=== PATIENT | female | born 1935 | race Caucasian/White ===

== ENCOUNTER → 2016-06-12 | Outpatient (CLI) | payer MEDICARE, OTHER ==
[2014-12-14 11:00] VITALS: BP 149/66
[~2016-06-12] MED LIST: ALLO100T PO; AMLO5TAB2 PO; ATEN-56 PO; CEPH-264 PO; CHOL400C PO; CIPR500T94 PO; DOXE25CA PO; GEMF600T PO; HYDR-2666 PO; HYDR57CR TP; IOHEXOL 240 MG/ML 50ML VIAL. PO ONE; IOHEXOL 300 MG/ML 100ML VIAL. IV ONE; IRON1TAB30 PO; LANS15CA66 PO; LEVO5TAB2 PO; METF500T4 PO; OXYC-323 PO; PSEU120T46 PO; PSEU120T9 PO; RANI300C PO; Vitamin D 3; [UNRECOGNIZED DRUG - REMARK]
--- NOTE | 2016-06-12 12:42 | KCIC ---
PROCEDURE CT of the abdomen and pelvis with contrast HISTORY Generalized abdominal pain for a few days. History of cholecystectomy and partial hysterectomy. TECHNIQUE Standard images are obtained after intravenous contrast and oral contrast. COMPARISON None FINDINGS Lung bases are clear. Liver and spleen appear unremarkable. Pancreas unremarkable. No evidence of adrenal mass. Low-density lesion of the lower pole of the right kidney measures 15 Hounsfield units compatible with a cyst. This measures 5 cm diameter. Small exophytic lesion at the posterior upper pole the left kidney this also measures water density compatible with a cyst. Mild density in the perinephric region bilaterally this likely represents scarring although mild perinephric inflammation is difficult to exclude. Gallbladder surgically absent The aorta is mildly ectatic and calcified. 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 No significant lymph node enlargement. Small hiatal hernia. No evidence of bowel obstruction. There are diverticula of the colon. No evidence of pericolonic inflammatory type change. The appendix is not visualized. No evidence of ascites. The urinary bladder is incompletely distended. Severe lumbar spondylosis. Right convexity lumbar scoliosis. There is at least mild or moderate spinal stenosis and neural foraminal stenosis. IMPRESSION 1. 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 2. Colonic diverticulosis without acute finding. 3. Severe lumbar spondylosis. Electronically signed by: Hayden Bernard MD (Jun 12, 2016 12:41:18)
== END | disposition home or self-care (01) ==
LOC: KCIC CT 10:56
PROVIDERS: ATTEND Family Medicine
DX: I72.3 Aneurysm of iliac artery (principal); K57.30 Diverticulosis of large intestine without perforation or abscess without bleeding; M47.896 Other spondylosis, lumbar region
CPT/HCPCS: 74177; 82565; Q9966; Q9967

== ENCOUNTER 2017-06-01 16:17 | Inpatient (IN) | payer OTHER, MEDICARE ==
[2017-06-01 17:45] LABS: ADD MAN DIFF? NO
[2017-06-01] MEDS: IV NORMAL SALINE 1000ML BAG 1,000 ML IV (17:47)
[2017-06-01] MEDS: fentaNYL PF VIAL 100 MCG/2 ML VIAL IV ×3 (17:47→21:51)
[2017-06-01] MEDS: ONDANSETRON PF 4 MG/2 ML VIAL. IV (17:48)
[2017-06-01 17:49] LABS: BASO % 0 % (0-3); EOS # 0.1 x10^3/uL (0.0-0.7); EOS % 2 % (0-3); HEMATOCRIT 30.2 % (36.0-47.0); HEMOGLOBIN 10.1 g/dL (12.0-15.5); LYMPH # 0.5 x10^3/uL (1.0-4.8); LYMPH % 9 % (24-48); MEAN CORPUSCULAR HEMOGLOBIN 30 pg (25-35); MEAN CORPUSCULAR HGB CONC 33 g/dL (31-37); MEAN CORPUSCULAR VOLUME 91 fL (79-100); MONO # 0.5 x10^3/uL (0.0-1.1); MONO % 8 % (0-9); NEUT # 4.8 x10^3uL (1.8-7.7); NEUT % 81 % (31-73); PLATELET COUNT 130 x10^3/uL (140-400); RED BLOOD COUNT 3.31 x10^6/uL (3.50-5.40); RED CELL DISTRIBUTION WIDTH 16.2 % (11.5-14.5); WHITE BLOOD COUNT 5.9 x10^3/uL (4.0-11.0)
[2017-06-01 17:55] LABS: BILIRUBIN,URINE NEGATIVE (NEG); CLARITY,URINE CLEAR; COLOR,URINE YELLOW; GLUCOSE,URINE NEGATIVE (NEG); NITRITE,URINE NEGATIVE (NEG); PROTEIN,URINE >=300 mg/dL (NEG-TRACE); UROBILINOGEN,URINE 0.2 mg/dL (0.2 mg/dL)
[2017-06-01 17:59] LABS: ANION GAP 9 (6-14); BLOOD UREA NITROGEN 33 mg/dL (7-20); BUN/CREATININE RATIO 19 (6-20); CALCIUM 8.6 mg/dL (8.5-10.1); CARBON DIOXIDE 26 mmol/L (21-32); CHLORIDE 108 mmol/L (98-107); CREATININE 1.7 mg/dL (0.6-1.0); GFR 28.8; GLUCOSE 112 mg/dL (70-99); POTASSIUM 4.5 mmol/L (3.5-5.1); SODIUM 143 mmol/L (136-145)
[2017-06-01 18:04] LABS: ALBUMIN 2.5 g/dL (3.4-5.0); ALBUMIN/GLOBULIN RATIO 0.6 (1.0-1.7); ALK PHOS 108 U/L (46-116); ALT (SGPT) 15 U/L (14-59); AST (SGOT) 18 U/L (15-37); LIPASE 144 U/L (73-393); TOTAL BILIRUBIN 0.2 mg/dL (0.2-1.0); TOTAL PROTEIN 6.6 g/dL (6.4-8.2)
[2017-06-01 18:11] LABS: TROPONINI < 0.017 ng/mL (0.000-0.055)
[2017-06-01 18:16] LABS: CKMB MASS 0.9 ng/mL (0.0-3.6); CREATINE KINASE 49 U/L (26-192)
[2017-06-01 18:37] LABS: BACTERIA,URINE 0 /HPF (0-FEW); HYALINE CASTS, URINE FEW /HPF; SQUAMOUS EPITHELIAL CELL,UR OCC /LPF; WBC,URINE OCC /HPF (0-4)
[2017-06-01] MEDS: METOCLOPRAMIDE HCL 10 MG/2 ML VIAL. IV (19:57)
[2017-06-01] MEDS: ENOXAPARIN 30 MG/0.3 ML SYRINGE. SQ (23:30)
[2017-06-02] MEDS: traMADol 50 MG TABLET PO ×2 (00:37→08:11)
[2017-06-02] MEDS: IV NORMAL SALINE 1000ML BAG 1,000 ML IV ×2 (00:43→12:26)
[2017-06-02] MEDS ORDERED: METOCLOPRAMIDE HCL 10 MG/2 ML VIAL. IV (01:00)
[2017-06-02] MEDS: fentaNYL PF VIAL 100 MCG/2 ML VIAL IV ×2 (02:28→06:30)
[2017-06-02 05:19] LABS: ADD MAN DIFF? NO
[2017-06-02 05:32] LABS: BASO % 0 % (0-3); EOS # 0.1 x10^3/uL (0.0-0.7); EOS % 1 % (0-3); HEMATOCRIT 28.6 % (36.0-47.0); HEMOGLOBIN 9.4 g/dL (12.0-15.5); LYMPH # 0.7 x10^3/uL (1.0-4.8); LYMPH % 13 % (24-48); MEAN CORPUSCULAR HEMOGLOBIN 30 pg (25-35); MEAN CORPUSCULAR HGB CONC 33 g/dL (31-37); MEAN CORPUSCULAR VOLUME 92 fL (79-100); MONO # 0.7 x10^3/uL (0.0-1.1); MONO % 13 % (0-9); NEUT # 3.9 x10^3uL (1.8-7.7); NEUT % 73 % (31-73); PLATELET COUNT 130 x10^3/uL (140-400); RED BLOOD COUNT 3.11 x10^6/uL (3.50-5.40); RED CELL DISTRIBUTION WIDTH 16.8 % (11.5-14.5); WHITE BLOOD COUNT 5.3 x10^3/uL (4.0-11.0)
[2017-06-02 05:48] LABS: ANION GAP 10 (6-14); BLOOD UREA NITROGEN 31 mg/dL (7-20); CALCIUM 7.9 mg/dL (8.5-10.1); CARBON DIOXIDE 24 mmol/L (21-32); CHLORIDE 110 mmol/L (98-107); CREATININE 1.7 mg/dL (0.6-1.0); GFR 28.8; GLUCOSE 96 mg/dL (70-99); POTASSIUM 4.5 mmol/L (3.5-5.1); SODIUM 144 mmol/L (136-145)
[2017-06-02] MEDS: ONDANSETRON PF 4 MG/2 ML VIAL. IV (08:11)
[2017-06-02] MEDS: amLODIPine BESYLATE 5 MG TABLET PO ×2 (08:12→10:27)
[2017-06-02] MEDS: CARVEDILOL 12.5 MG TABLET. PO ×2 (08:14→17:07)
[2017-06-02] MEDS: GABAPENTIN 300 MG CAPSULE. PO ×3 (08:14→21:02)
[2017-06-02] MEDS: LACTOBACILLUS RHAMNOSUS GG 1 CAPSULE. PO ×2 (08:15→21:02)
[2017-06-02] MEDS: FAMOTIDINE 20 MG TABLET. PO (08:15)
[2017-06-02] MEDS: QUEtiapine 25 MG TABLET. PO (08:15)
[2017-06-02 08:30] LABS: POC GLUCOSE 103 mg/dL (70-99)
[2017-06-02] MEDS: PANTOPRAZOLE IV PUSH 40 MG VIAL. IVP (10:28)
[2017-06-02 13:29] LABS: POC GLUCOSE 94 mg/dL (70-99)
[2017-06-02 16:49] LABS: POC GLUCOSE 118 mg/dL (70-99)
[2017-06-02] MEDS: ATORVASTATIN CALCIUM 10 MG TABLET. PO (21:02)
[2017-06-02] MEDS: ENOXAPARIN 30 MG/0.3 ML SYRINGE. SQ (21:02)
[2017-06-02] MEDS: traZODone 50 MG TABLET. PO (21:02)
[2017-06-02 21:12] LABS: POC GLUCOSE 95 mg/dL (70-99)
[2017-06-02 22:16] LABS: MRSA BY PCR Negative (Negative)
[2017-06-03] MEDS: IV NORMAL SALINE 1000ML BAG 1,000 ML IV ×2 (01:24→11:18)
[2017-06-03 08:15] LABS: POC GLUCOSE 71 mg/dL (70-99)
[2017-06-03] MEDS: PANTOPRAZOLE IV PUSH 40 MG VIAL. IVP (09:05)
[2017-06-03] MEDS: amLODIPine BESYLATE 5 MG TABLET PO (09:06)
[2017-06-03] MEDS: LACTOBACILLUS RHAMNOSUS GG 1 CAPSULE. PO (09:06)
[2017-06-03] MEDS: CARVEDILOL 12.5 MG TABLET. PO (09:06)
[2017-06-03] MEDS: GABAPENTIN 300 MG CAPSULE. PO ×2 (09:06→14:08)
[2017-06-03] MEDS: QUEtiapine 25 MG TABLET. PO (09:07)
[2017-06-03 11:49] LABS: POC GLUCOSE 75 mg/dL (70-99)
[2017-06-04] MEDS ORDERED: PANTOPRAZOLE 40 MG TABLET.DR. PO (07:30)
== END 2017-06-03 14:44 | disposition home or self-care (01) | DRG 683 ==
LOC: ER 16:17 → 5 SOUTH 06-02 16:51 → 1 WEST ICU 19:00
DX: N17.9 Acute kidney failure, unspecified (principal); I13.0 Hypertensive heart and chronic kidney disease with heart failure and stage 1 through stage 4 chronic kidney disease, or unspecified chronic kidney disease; E44.0 Moderate protein-calorie malnutrition; D69.6 Thrombocytopenia, unspecified; E11.22 Type 2 diabetes mellitus with diabetic chronic kidney disease; E11.42 Type 2 diabetes mellitus with diabetic polyneuropathy; I50.9 Heart failure, unspecified; I16.1 Hypertensive emergency; K57.92 Diverticulitis of intestine, part unspecified, without perforation or abscess without bleeding; N18.3 Chronic kidney disease, stage 3 (moderate); D63.8 Anemia in other chronic diseases classified elsewhere; E78.5 Hyperlipidemia, unspecified; F41.1 Generalized anxiety disorder; E66.9 Obesity, unspecified; I25.10 Atherosclerotic heart disease of native coronary artery without angina pectoris; M10.9 Gout, unspecified; F32.9 Major depressive disorder, single episode, unspecified; K21.9 Gastro-esophageal reflux disease without esophagitis; K57.30 Diverticulosis of large intestine without perforation or abscess without bleeding; Z80.3 Family history of malignant neoplasm of breast; Z80.8 Family history of malignant neoplasm of other organs or systems; Z82.0 Family history of epilepsy and other diseases of the nervous system; Z90.49 Acquired absence of other specified parts of digestive tract; Z90.710 Acquired absence of both cervix and uterus; Z95.1 Presence of aortocoronary bypass graft; Z79.4 Long term (current) use of insulin; Z88.0 Allergy status to penicillin; Z88.8 Allergy status to other drugs, medicaments and biological substances; I25.2 Old myocardial infarction; Z87.440 Personal history of urinary (tract) infections; Z68.35 Body mass index [BMI] 35.0-35.9, adult
CPT/HCPCS: 36415; 71045; 74176; 80048; 80053; 81001; 82553; 82962; 83690; 84484; 85025; 87641; 93005; 96361; 96374; 96375; 97161-GP; 97166-GO; 97530-GO; 97535-GO; 99291; 99291-25; C9113; J1650; J2405; J2765; J3010; J7030; J7050

== ENCOUNTER → 2017-07-14 | Outpatient (CLI) | payer OTHER, MEDICARE ==
[2017-07-14 08:53] LABS: ISTAT CREATININE 1.6 mg/dL (0.6-1.1)
== END | disposition home or self-care (01) ==
LOC: KCIC CT 08:13
DX: I72.3 Aneurysm of iliac artery (principal); I77.811 Abdominal aortic ectasia; J90 Pleural effusion, not elsewhere classified; K57.30 Diverticulosis of large intestine without perforation or abscess without bleeding
CPT/HCPCS: 74176; 82565

== ENCOUNTER → 2018-08-23 | Outpatient (CLI) | payer MEDICARE, OTHER ==
[2017-07-01 17:20] VITALS: BP 158/65
[~2018-08-23] MED LIST changes: +AMLO5TAB10 PO; -AMLO5TAB2 PO; +CARV25TA2 PO; +DICY10CA3 PO; +FAMO20TA5 PO; +FURO40TA4 PO; +GABA600T7 PO; -HYDR-2666 PO; +HYDR-2761 PO; -IOHEXOL 240 MG/ML 50ML VIAL. PO ONE; -IOHEXOL 300 MG/ML 100ML VIAL. IV ONE; +LACT1CAP19 PO; -LANS15CA66 PO; +LANS15CA78 PO; +LEVO250T25 PO; +LEVO50TA PO; +MAGN400T22 PO; +METF500T16 PO; -METF500T4 PO; -OXYC-323 PO; +OXYC1TAB15 PO; +PRAV40TA2 PO; +PRED20TA PO; +PREG25CA PO; +PSEU120T10 PO; -PSEU120T46 PO; +Pantoprazole PO; +QUET25TA PO; +ROPI0.25 PO; +TRAZ-118 PO; +VANC500V PO
--- NOTE | 2018-08-23 16:13 | RAD ---
Bilateral lower extremity arterial ultrasound History: Claudication Findings: Multiple grayscale, color, and duplex spectral analysis sonographic images were acquired of the lower extremity arteries bilaterally. There are no previous similar exams. Diffuse bilateral lower extremity edema is noted involving the calf regions. Elevated arterial flow velocity is seen involving the distal right superficial femoral artery and the mid left superficial femoral artery. Monophasic flow is evident distal to these sites. Diffuse plaque is identified throughout the right and left lower arterial vasculature. 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 Diffuse plaque bilaterally involving the arterial vasculature of the lower extremities. Subcutaneous edema. Electronically signed by: Bunny Acosta MD (08/23/2018 4:10 PM) [facility]
== END | disposition home or self-care (01) ==
LOC: US 09:55
PROVIDERS: ATTEND Family Medicine
DX: I70.293 Other atherosclerosis of native arteries of extremities, bilateral legs (principal)
CPT/HCPCS: 93925

== ENCOUNTER → 2018-09-15 | Outpatient (CLI) | payer MEDICARE, OTHER ==
[2017-07-01 17:20] VITALS: BP 158/65
[2018-09-15 12:48] LABS: CREATININE 2.6 mg/dL (0.6-1.0); GFR 17.6
== END | disposition home or self-care (01) ==
LOC: CT 12:25
PROVIDERS: ATTEND Family Medicine
DX: E11.22 Type 2 diabetes mellitus with diabetic chronic kidney disease (principal); I13.0 Hypertensive heart and chronic kidney disease with heart failure and stage 1 through stage 4 chronic kidney disease, or unspecified chronic kidney disease; N18.3 Chronic kidney disease, stage 3 (moderate); I50.22 Chronic systolic (congestive) heart failure; I73.9 Peripheral vascular disease, unspecified
CPT/HCPCS: 36415; 82565; 84520

== ENCOUNTER 2019-09-06 12:21 | Emergency (ER) | payer MEDICARE, OTHER ==
[~2019-09-06] VITALS: Ht 160 cm; Wt 72.7 kg
[~2019-09-06 12:21] MED LIST changes: +LOSA-73 PO; -PREG25CA PO; +PREG25CA41 PO
--- NOTE | 2019-09-06 14:06 | PHYS DOC ---
Past Medical History Past Medical History: Depression, Diabetes-Type II, GERD, High Cholesterol, Hypertension, UT, Other Additional Past Medical Histor: GOUT, CDIFF, ULCER Past Surgical History: Coronary Bypass Surgery, Hysterectomy, Other Additional Past Surgical Histo: Carpal tunnel, LEFT SHOULDER, VASCULAR R GROIN Smoking Status: Former Smoker Alcohol Use: None Drug Use: None General Adult EDM: Chief Complaint: ABDOMINAL PAIN HPI: HPI: Patient is a 84 year old female who presented to ER today for evaluation of ab dominal pain started 2 days ago. Patient denies any nausea vomiting, denies any diarrhea. Patient denies any cough or fever. Patient called her family doctor who told to come to ER for evaluation. Patient said the pain is in her epigastric area. Patient denies any chest pain, no trouble breathing, no nausea vomiting. Patient denies any diarrhea, no dark stool. Review of Systems: Review of Systems: Constitutional: Denies fever or chills. [] Eyes: Denies change in visual acuity. [] HENT: Denies nasal congestion or sore throat. [] Respiratory: Denies cough or shortness of breath. [] Cardiovascular: Denies chest pain or edema. [] GI: Positive for abdominal pain, no nausea vomiting, no diarrhea : Denies dysuria. [] Musculoskeletal: Denies back pain or joint pain. [] Integument: Denies rash. [] Neurologic: Denies headache, focal weakness or sensory changes. [] Endocrine: Denies polyuria or polydipsia. [] Lymphatic: Denies swollen glands. [] Psychiatric: Denies depression or anxiety. [] Heart Score: Risk Factors: Risk Factors: DM, Current or recent (<one month) smoker, HTN, HLP, family history of CAD, obesity. Risk Scores: Score 0 - 3: 2.5% MACE over next 6 weeks - Discharge Home Score 4 - 6: 20.3% MACE over next 6 weeks - Admit for Clinical Observation Score 7 - 10: 72.7% MACE over next 6 weeks - Early Invasive Strategies Allergies: Allergies: Allergies Coded Allergies Type Severity Reaction Last Updated Verified Penicillins Allergy Intermediate 08/24/19 Yes metronidazole Allergy Intermediate Hives 08/24/19 Yes Physical Exam: PE: Constitutional: Well developed, well nourished, no acute distress, non-toxic appearance. [] HENT: Normocephalic, atraumatic, bilateral external ears normal, oropharynx moist, no oral exudates, nose normal. [] Eyes: PERRLA, EOMI, conjunctiva normal, no discharge. [] Neck: Normal range of motion, no tenderness, supple, no stridor. [] Cardiovascular:Heart rate regular rhythm, no murmur [] Lungs & Thorax: Bilateral breath sounds clear to auscultation [] Abdomen: Bowel sounds normal, soft, there is tenderness to palpation periumbilical area, no guarding no rebound. No masses, no pulsatile masses. [] Skin: Warm, dry, no erythema, no rash. [] Back: No tenderness, no CVA tenderness. [] Extremities: No tenderness, no cyanosis, no clubbing, ROM intact, no edema. [] Neurologic: Alert and oriented X 3, normal motor function, normal sensory function, no focal deficits noted. [] Psychologic: Affect normal, judgement normal, mood normal. [] Current Patient Data: Vital Signs: Vital Signs Date Time Temp Pulse Resp B/P (MAP) Pulse Ox O2 Delivery O2 Flow Rate FiO2 09/06/19 13:12 98.3 67 18 178/72 (107) 99 Room Air 98.3 EKG: EKG: EKG was done 1437, heart rate of 70 bpm, sinus rhythm, no ST segment elevation. Radiology/Procedures: Radiology/Procedures: [][facility] [address] [place] [address] IMAGING REPORT Signed PATIENT: JOHNNY ARTEAGA ACCOUNT: [id number] : 1935 LOCATION: ER AGE: 84 SEX: F EXAM STATUS: REG ER ORD. PHYSICIAN: RODOLFO ALCARAZ DO REASON: EPIGASTRIC PAIN AND LOWER ABD PAIN X 1 DAY. N/V PROCEDURE: CT ABDOMEN PELVIS WO CONTRAST Examination: CT of the abdomen pelvis without contrast HISTORY: History of epigastric pain COMPARISON: 07/14/2017 TECHNIQUE: Axial CT images of the abdomen pelvis were performed without contrast. Coronal and sagittal reformats are performed Exposure: One or more of the following individualized dose reduction techniques were utilized for this examination: 1. Automated exposure control 2. Adjustment of the mA and/or kV according to patient size 3. Use of iterative reconstruction technique FINDINGS: Linear atelectasis left lung base. No evidence of free air identified in the abdomen. The evaluation of the solid organs is limited due to lack of IV contrast. The evaluation of bowel is limited due to lack of oral contrast. Moderate size hiatal hernia. The visualized noncontrasted liver, spleen, adrenals grossly appears unremarkable. Cholecystectomy clips identified. The visualized pancreas grossly appears unremarkable. The small bowel is nondilated. Feces and gas noted in the colon. Multiple sigmoid colon diverticulosis identified. Cystic structures identified in the bilateral kidneys with the largest measuring 5 cm in the right kidney likely cysts. Mild fat stranding identified about the bilateral kidneys Moderate aortic atherosclerosis. There is focal ectasia of infrarenal abdominal aorta similar to prior exam. There is a aneurysmal change of left iliac artery and its bifurcation measuring 2.5 cm similar to prior exam. Moderate to severe degenerative changes lower lumbar spine. IMPRESSION: 1. Moderate size hiatal hernia. 2. Sigmoid colon diverticulosis. 3. Aneurysmal change of left iliac artery at its bifurcation similar to prior exam. Electronically signed by: Brennan Patricia MD (09/06/2019 3:24 PM) [id number] DICTATED and SIGNED BY: BRENNAN PATRICIA MD DATE: 09/06/19 1524 Course & Med Decision Making: Course & Med Decision Making Pertinent Labs and Imaging studies reviewed. (See chart for details) Patient is an 84-year-old female who was evaluated in the ER due to epigastric abdominal pain for the last [address] scan her abdomen pelvic show she had moderate sized hiatal hernia causing epigastric abdominal pain consistent with gastritis and acid reflux. Patient will be discharged home with prescription for Carafate and Prilosec. Patient will need to follow-up with her family doctor for referral to GI specialist. Gisel Disclaimer: Gisel Disclaimer: This electronic medical record was generated, in whole or in part, using a voice recognition dictation system. Departure Departure Impression: Primary Impression: Hiatal hernia Additional Impression: Abdominal pain Disposition: 01 HOME, SELF-CARE Condition: IMPROVED Referrals: GRANT MCWILLIAMS MD (PCP) Please follow-up with your family doctor for reevaluation this week Patient Instructions: Gastritis, Adult, Hiatal Hernia Additional Instructions: Thank you for visiting our Emergency Department. We appreciate you trusting us w ith your care. If any additional problems come up don't hesitate to return to visit us. Please follow up with your primary care provider so they can plan additional care if needed and know about the problem that you had. If symptoms worsen come back to the Emergency Department. Any concerning symptoms that start such as chest pain, shortness of air, weakness or numbness on one side of the body, running high fevers or any other concerning symptoms return to the ER. Scripts Omeprazole Magnesium (PRILOSEC OTC) 20 Mg Tablet.dr 1 TAB PO DAILY for 30 Days, #30 TAB 0 Refills Prov: RODOLFO ALCARAZ DO 09/06/19 Sucralfate (CARAFATE) 1 Gm Tablet 1 TAB PO QID for 14 Days, #56 TAB 0 Refills Prov: RODOLFO ALCARAZ DO 09/06/19 Justicifation of Admission Dx: Justifications for Admission: Justification of Admission Dx: N/A RODOLFO ALCARAZ DO Sep 06, 2019 14:06
[2019-09-06 14:20] LABS: BASO % 0 % (0-3); EOS # 0.1 x10^3/uL (0.0-0.7); EOS % 3 % (0-3); HEMATOCRIT 26.3 % (36.0-47.0); LYMPH # 0.4 x10^3/uL (1.0-4.8); LYMPH % 8 % (24-48); MEAN CORPUSCULAR HEMOGLOBIN 33 pg (25-35); MEAN CORPUSCULAR HGB CONC 34 g/dL (31-37); MEAN CORPUSCULAR VOLUME 96 fL (79-100); MONO # 0.5 x10^3/uL (0.0-1.1); MONO % 9 % (0-9); NEUT % 80 % (31-73); PLATELET COUNT 185 x10^3/uL (140-400); RED BLOOD COUNT 2.74 x10^6/uL (3.50-5.40); RED CELL DISTRIBUTION WIDTH 13.9 % (11.5-14.5)
[2019-09-06 14:21] LABS: BILIRUBIN,URINE NEGATIVE (NEG); CLARITY,URINE CLEAR; COLOR,URINE YELLOW; NITRITE,URINE NEGATIVE (NEG); PH,URINE 5.5 (<5.0-8.0); PROTEIN,URINE 30 mg/dL (NEG-TRACE); UROBILINOGEN,URINE 0.2 mg/dL (0.2 mg/dL)
[2019-09-06 14:29] LABS: BACTERIA,URINE 0 /HPF (0-FEW); HYALINE CASTS, URINE FEW /HPF; RBC,URINE 0 /HPF (0-2); SQUAMOUS EPITHELIAL CELL,UR FEW /LPF
[2019-09-06 14:29] LABS: PROTHROMBIN TIME PATIENT 14.2 SEC (11.7-14.0)
[2019-09-06 14:36] LABS: CALCIUM 8.3 mg/dL (8.5-10.1); CREATININE 2.3 mg/dL (0.6-1.0); GFR 20.2; POTASSIUM 4.7 mmol/L (3.5-5.1)
[2019-09-06 14:42] LABS: ALBUMIN 2.7 g/dL (3.4-5.0); ALBUMIN/GLOBULIN RATIO 0.7 (1.0-1.7); MAGNESIUM 1.7 mg/dL (1.8-2.4); TOTAL BILIRUBIN 0.2 mg/dL (0.2-1.0); TOTAL PROTEIN 6.6 g/dL (6.4-8.2)
--- NOTE | 2019-09-06 15:27 | RAD ---
Examination: CT of the abdomen pelvis without contrast HISTORY: History of epigastric pain COMPARISON: 07/14/2017 TECHNIQUE: Axial CT images of the abdomen pelvis were performed without contrast. Coronal and sagittal reformats are performed Exposure: One or more of the following individualized dose reduction techniques were utilized for this examination: 1. Automated exposure control 2. Adjustment of the mA and/or kV according to patient size 3. Use of iterative reconstruction technique FINDINGS: Linear atelectasis left lung base. No evidence of free air identified in the abdomen. The evaluation of the solid organs is limited due to lack of IV contrast. The evaluation of bowel is limited due to lack of oral contrast. Moderate size hiatal hernia. The visualized noncontrasted liver, spleen, adrenals grossly appears unremarkable. Cholecystectomy clips identified. The visualized pancreas grossly appears unremarkable. The small bowel is nondilated. Feces and gas noted in the colon. Multiple sigmoid colon diverticulosis identified. Cystic structures identified in the bilateral kidneys with the largest measuring 5 cm in the right kidney likely cysts. Mild fat stranding identified about the bilateral kidneys Moderate aortic atherosclerosis. There is focal ectasia of infrarenal abdominal aorta similar to prior exam. There is a aneurysmal change of left iliac artery and its bifurcation measuring 2.5 cm similar to prior exam. Moderate to severe degenerative changes lower lumbar spine. IMPRESSION: 1. Moderate size hiatal hernia. 2. Sigmoid colon diverticulosis. 3. Aneurysmal change of left iliac artery at its bifurcation similar to prior exam. Electronically signed by: Brennan Patricia MD (09/06/2019 3:24 PM) [id number]
[2019-09-06 16:00] VITALS: BP 180/76
[2019-09-06] MEDS ORDERED: SUCR1TAB35 PO (16:09)
[2019-09-06] MEDS ORDERED: OMEP20TA63 PO (16:09)
--- NOTE | 2019-09-07 05:01 | EKG ---
[facility] [address] [place] [address] Test Date: 2019-09-06 Test Time: 14:37:48 Pat Name: JOHNNY ARTEAGA Department: Room: Gender: F Senior Care Assistant: : 1935 Requested By: RODOLFO ALCARAZ Order Number: [id number] Reading MD: Measurements Intervals [place] Rate: 70 P: 41 AR: 164 QRS: 4 QRSD: 74 T: 20 QT: 420 QTc: 457 Interpretive Statements SINUS RHYTHM NO SPECIFIC ECG ABNORMALITIES RI6.01 No previous ECG available for comparison
== END 2019-09-06 16:27 | disposition home or self-care (01) ==
LOC: ER 12:21
DX: K44.9 Diaphragmatic hernia without obstruction or gangrene (principal); R10.13 Epigastric pain; F32.9 Major depressive disorder, single episode, unspecified; E11.9 Type 2 diabetes mellitus without complications; E78.00 Pure hypercholesterolemia, unspecified; I10 Essential (primary) hypertension; I25.2 Old myocardial infarction; Z90.710 Acquired absence of both cervix and uterus; Z98.890 Other specified postprocedural states; Z87.891 Personal history of nicotine dependence; Z88.0 Allergy status to penicillin; Z88.8 Allergy status to other drugs, medicaments and biological substances
CPT/HCPCS: 36415; 74176; 80053; 81001; 83690; 83735; 84484; 85025; 85610; 85730; 93005; 99285

== ENCOUNTER → 2019-09-27 | Outpatient (CLI) | payer MEDICARE, OTHER ==
[2019-09-07 12:57] VITALS: BP 162/72
[~2019-09-27] MED LIST changes: +OMEP20TA63 PO; +SUCR1TAB35 PO
--- NOTE | 2019-09-27 15:52 | RAD ---
Abdominal ultrasound without comparison for abdominal pain. TECHNIQUE AND FINDINGS: Real-time grayscale and color Doppler evaluation of the abdominal organs is performed. Gallbladder is surgically absent. The liver is normal in size, contour, and echogenicity, with no focal parenchymal abnormalities. Liver measures 14 cm in diameter. No intrahepatic biliary ductal dilatation. The common bile duct is dilated to 14 mm, which is possibly physiologic on the basis prior cholecystectomy, however this is somewhat greater than is typically seen with postsurgical change. Distal common bile duct is not demonstrated. The aorta and IVC are secured. Visualized portions the pancreas are normal, though the distal tail was not well demonstrated. The right kidney measures 11.2 x 5.8 x 5.5 cm. There is some cortical scarring. There is a simple appearing exophytic cyst arising from the inferior pole for which no further follow-up is warranted. The left kidney measures 11.2 x 5.4 x 5.8 cm. There is a similar 2 cm simple cyst arising exophytically from the left kidney for which no additional follow-up is required. No hydronephrosis or significant parenchymal abnormalities identified in either kidney. Portal vein is patent and hepatopedal. Spleen is normal in appearance. No free or loculated fluid collections are identified. IMPRESSION: 1. Status post cholecystectomy with enlarged common bile duct 14 mm which may be physiologic. Electronically signed by: Brandyn Maldonado MD (09/27/2019 3:49 PM) [id number]
== END | disposition home or self-care (01) ==
LOC: US 12:31
PROVIDERS: ATTEND Family Medicine
DX: N28.1 Cyst of kidney, acquired (principal); Z90.49 Acquired absence of other specified parts of digestive tract
CPT/HCPCS: 76700

== ENCOUNTER 2019-10-19 15:22 | Inpatient (IN) | payer MEDICARE, OTHER ==
[~2019-10-19] VITALS: Ht 157.5 cm; Wt 81.4 kg
[2019-10-19] MEDS ORDERED: IV NORMAL SALINE 1000ML BAG 1,000 ML IV ONE (16:45)
[2019-10-19] MEDS ORDERED: LABETALOL 20 MG/4 ML DISP.SYRIN. IVP ONE (17:00)
[2019-10-19 17:26] LABS: BASO % 0 % (0-3); EOS % 0 % (0-3); HEMATOCRIT 28.9 % (36.0-47.0); HEMOGLOBIN 9.9 g/dL (12.0-15.5); LYMPH # 0.8 x10^3/uL (1.0-4.8); LYMPH % 7 % (24-48); MEAN CORPUSCULAR HEMOGLOBIN 32 pg (25-35); MEAN CORPUSCULAR HGB CONC 34 g/dL (31-37); MEAN CORPUSCULAR VOLUME 94 fL (79-100); MONO # 0.8 x10^3/uL (0.0-1.1); MONO % 7 % (0-9); NEUT # 9.7 x10^3/uL (1.8-7.7); NEUT % 86 % (31-73); PLATELET COUNT 188 x10^3/uL (140-400); RED BLOOD COUNT 3.08 x10^6/uL (3.50-5.40); RED CELL DISTRIBUTION WIDTH 15.3 % (11.5-14.5); WHITE BLOOD COUNT 11.3 x10^3/uL (4.0-11.0)
[2019-10-19 17:38] LABS: CALCIUM 9.3 mg/dL (8.5-10.1); CREATININE 1.6 mg/dL (0.6-1.0); GFR 30.7; POTASSIUM 4.5 mmol/L (3.5-5.1)
[2019-10-19 17:40] LABS: PROTHROMBIN TIME PATIENT 13.8 SEC (11.7-14.0)
[2019-10-19 17:44] LABS: ALBUMIN 3.2 g/dL (3.4-5.0); ALBUMIN/GLOBULIN RATIO 0.9 (1.0-1.7); TOTAL BILIRUBIN 0.3 mg/dL (0.2-1.0); TOTAL PROTEIN 6.7 g/dL (6.4-8.2)
[2019-10-19 17:51] LABS: BILIRUBIN,URINE NEGATIVE (NEG); CLARITY,URINE CLEAR; COLOR,URINE YELLOW; NITRITE,URINE NEGATIVE (NEG); PROTEIN,URINE >=300 mg/dL (NEG-TRACE); UROBILINOGEN,URINE 0.2 mg/dL (0.2 mg/dL)
[2019-10-19 17:56] LABS: SQUAMOUS EPITHELIAL CELL,UR MANY /LPF; WBC,URINE 20-40 /HPF (0-4)
[2019-10-19 17:57] LABS: BACTERIA,URINE FEW /HPF (0-FEW)
--- NOTE | 2019-10-19 18:31 | RAD ---
Exam: CT of chest, abdomen and pelvis without contrast INDICATION: Epigastric pain with radiation to back TECHNIQUE: Sequential axial images through the chest, abdomen and pelvis obtained without IV contrast. Sagittal and coronal reformatted images were reconstructed from the axial data and reviewed. Comparisons: 09/06/2019 FINDINGS: Visualized portions of the thyroid are unremarkable. No enlarged mediastinal lymph nodes are identified. Heart size is normal. No pericardial effusion. Mild coronary artery calcifications. Thoracic aorta has a normal course and caliber. Pulmonary artery is not enlarged. Airways are patent. No consolidation or pneumothorax. No suspicious lung nodules. No pleural effusion or thickening. Evaluation of solid organs is limited given noncontrast technique. Liver, spleen, pancreas, and adrenals are unremarkable. Gallbladder surgically absent. No perinephric inflammation or hydronephrosis. Bilateral renal cystic lesions are noted incompletely characterized on this exam. No renal or ureteral calculi are identified. Bladder is distended and appears thin-walled. Uterus is absent. No abnormal adnexal mass. Extensive diverticulosis is noted within the descending and sigmoid colon without evidence of acute diverticulitis. Remainder of the large and small bowel are unremarkable. No obstruction. No free intra-abdominal air or fluid. Moderate-sized hiatal hernia. Abdominal aorta has a stable course and caliber. No enlarged abdominal lymph nodes are identified. No suspicious osseous lesions or acute fractures. IMPRESSION: 1. Extensive diverticulosis without evidence of acute diverticulitis. 2. No acute process identified within the chest. 3. Moderate-sized hiatal hernia. Exposure: One or more of the following in the visualized dose reduction techniques were utilized for this examination: 1. Automated exposure control 2. Adjustment of the MA and/or KV according to patient size 3. Use of iterative of reconstructive technique Electronically signed by: Erika Buckner MD (10/19/2019 6:28 PM) [id number]
--- NOTE | 2019-10-19 18:42 | PHYS DOC ---
Past Medical History Past Medical History: Depression, Diabetes-Type II, GERD, High Cholesterol, Hypertension, OK, Other Additional Past Medical Histor: GOUT, CDIFF, ULCER Past Surgical History: Coronary Bypass Surgery, Hysterectomy, Other Additional Past Surgical Histo: Carpal tunnel, LEFT SHOULDER, VASCULAR R GROIN Smoking Status: Former Smoker Alcohol Use: None Drug Use: None General Adult EDM: Chief Complaint: ABDOMINAL PAIN HPI: HPI: 84-year-old female presents with report of abdominal discomfort x1 week. Patient reports seen by her PCP who instructed her to present to the ER for further evaluation. Reports pain primarily to epigastric region and radiates to her back. Patient did take some Tums without significant improvement. Denies a [place] fever or chills. Denies constipation or diarrhea. Denies known sick contacts. Denies known exposure COVID-19. Review of Systems: Review of Systems: Constitutional: Denies fever or chills Eyes: Denies redness or eye pain HENT: Denies nasal congestion or sore throat Respiratory: Denies cough or shortness of breath Cardiovascular: Denies chest pain or palpitations GI: Reports abdominal pain; denies nausea, or vomiting : Denies dysuria or hematuria Musculoskeletal: Reports back pain; denies extremity pain Integument: Denies rash or skin lesions Neurologic: Denies headache, focal weakness or sensory changes Complete systems were reviewed and found to be within normal limits, except as documented in this note. Current Medications: Current Medications Medications (Trade) Dose Ordered Sig/Marina Start Time Stop Time Status Last Admin Dose Admin Labetalol HCl (Normodyne Iv Push) 20 mg 1X ONCE 10/19/19 17:00 10/19/19 17:01 DC 10/19/19 17:18 20 MG Sodium Chloride 1,000 ml @ 1,000 mls/hr 1X ONCE 10/19/19 16:45 10/19/19 17:44 DC 10/19/19 17:18 1,000 MLS/HR Allergies: Allergies: Allergies Coded Allergies Type Severity Reaction Last Updated Verified Penicillins Allergy Intermediate 10/12/19 Yes metronidazole Allergy Intermediate Hives 10/12/19 Yes Physical Exam: PE: Constitutional: Well developed, well nourished, no acute distress, non-toxic appearance HENT: Normocephalic, atraumatic Eyes: Conjunctiva normal, no discharge Neck: Normal range of motion, no tenderness, supple Lungs & Thorax: No respiratory distress, equal chest rise and fall Abdomen: Soft, epigastric tenderness, no guarding/rebound tenderness/distention Skin: Warm, dry, no erythema, no rash Back: No tenderness, no CVA tenderness Extremities: No tenderness, ROM intact, no edema Neurologic: Alert and oriented X 3, normal motor function, normal sensory function, no focal deficits noted Psychologic: Affect normal, judgment normal Current Patient Data: Labs: Laboratory Tests Test 10/19/19 17:12 10/19/19 17:40 White Blood Count 11.3 x10^3/uL (4.0-11.0) H Red Blood Count 3.08 x10^6/uL (3.50-5.40) L Hemoglobin 9.9 g/dL (12.0-15.5) L Hematocrit 28.9 % (36.0-47.0) L Mean Corpuscular Volume 94 fL (79-100) Mean Corpuscular Hemoglobin 32 pg (25-35) Mean Corpuscular Hemoglobin Concent 34 g/dL (31-37) Red Cell Distribution Width 15.3 % (11.5-14.5) H Platelet Count 188 x10^3/uL (140-400) Neutrophils (%) (Auto) 86 % (31-73) H Lymphocytes (%) (Auto) 7 % (24-48) L Monocytes (%) (Auto) 7 % (0-9) Eosinophils (%) (Auto) 0 % (0-3) Basophils (%) (Auto) 0 % (0-3) Neutrophils # (Auto) 9.7 x10^3/uL (1.8-7.7) H Lymphocytes # (Auto) 0.8 x10^3/uL (1.0-4.8) L Monocytes # (Auto) 0.8 x10^3/uL (0.0-1.1) Eosinophils # (Auto) 0.0 x10^3/uL (0.0-0.7) Basophils # (Auto) 0.0 x10^3/uL (0.0-0.2) Platelet Estimate Pending Prothrombin Time 13.8 SEC (11.7-14.0) Prothrombin Time INR 1.1 (0.8-1.1) Activated Partial Thromboplast Time 41 SEC (24-38) H Sodium Level 137 mmol/L (136-145) Potassium Level 4.5 mmol/L (3.5-5.1) Chloride Level 104 mmol/L (98-107) Carbon Dioxide Level 23 mmol/L (21-32) Anion Gap 10 (6-14) Blood Urea Nitrogen 35 mg/dL (7-20) H Creatinine 1.6 mg/dL (0.6-1.0) H Estimated GFR (Cockcroft-Gault) 30.7 BUN/Creatinine Ratio 22 (6-20) H Glucose Level 96 mg/dL (70-99) Lactic Acid Level 1.1 mmol/L (0.4-2.0) Calcium Level 9.3 mg/dL (8.5-10.1) Total Bilirubin 0.3 mg/dL (0.2-1.0) Aspartate Amino Transferase (AST) 47 U/L (15-37) H Alanine Aminotransferase (ALT) 90 U/L (14-59) H Alkaline Phosphatase 137 U/L (46-116) H Creatine Kinase 435 U/L (26-192) H Creatine Kinase MB (Mass) 5.0 ng/mL (0.0-3.6) H Creatine Kinase MB Relative Index 1.1 % (0-4) Troponin I Quantitative 0.088 ng/mL (0.000-0.055) QK-Jqr-V-Type Natriuretic Peptide 49474 pg/mL (0-449) H Total Protein 6.7 g/dL (6.4-8.2) Albumin 3.2 g/dL (3.4-5.0) L Albumin/Globulin Ratio 0.9 (1.0-1.7) L Lipase 57 U/L (73-393) L Urine Collection Type Unknown Urine Color Yellow Urine Clarity Clear Urine pH 6.0 (<5.0-8.0) Urine Specific [place] 1.010 (1.000-1.030) Urine Protein >=300 mg/dL (NEG-TRACE) Urine Glucose (UA) Negative mg/dL (NEG) Urine Ketones (Stick) Negative mg/dL (NEG) Urine Blood Moderate (NEG) Urine Nitrite Negative (NEG) Urine Bilirubin Negative (NEG) Urine Urobilinogen Dipstick 0.2 mg/dL (0.2 mg/dL) Urine Leukocyte Esterase Small (NEG) Urine RBC 1-2 /HPF (0-2) Urine WBC 20-40 /HPF (0-4) Urine Squamous Epithelial Cells Many /LPF Urine Renal Epithelial Cells Few /LPF Urine Bacteria Few /HPF (0-FEW) Laboratory Tests 10/19/19 17:12 Laboratory Tests 10/19/19 17:12 Vital Signs: Vital Signs Date Time Temp Pulse Resp B/P (MAP) Pulse Ox O2 Delivery O2 Flow Rate FiO2 10/19/19 17:18 94 243/112 10/19/19 16:13 98.6 16 94 Room Air 98.6 EKG: EKG: @1701 NSR at 79bpm, NO ST elevation, QRS 82ms, QT/QTc 390/448ms Radiology/Procedures: Radiology/Procedures: PROCEDURE: CT CHEST ABDOMEN PELVIS WO Exam: CT of chest, abdomen and pelvis without contrast INDICATION: Epigastric pain with radiation to back TECHNIQUE: Sequential axial images through the chest, abdomen and pelvis obtained without IV contrast. Sagittal and coronal reformatted images were reconstructed from the axial data and reviewed. Comparisons: 09/06/2019 FINDINGS: Visualized portions of the thyroid are unremarkable. No enlarged mediastinal lymph nodes are identified. Heart size is normal. No pericardial effusion. Mild coronary artery calcifications. Thoracic aorta has a normal course and caliber. Pulmonary artery is not enlarged. Airways are patent. No consolidation or pneumothorax. No suspicious lung nodules. No pleural effusion or thickening. Evaluation of solid organs is limited given noncontrast technique. Liver, spleen, pancreas, and adrenals are unremarkable. Gallbladder surgically absent. No perinephric inflammation or hydronephrosis. Bilateral renal cystic lesions are noted incompletely characterized on this exam. No renal or ureteral calculi are identified. Bladder is distended and appears thin-walled. Uterus is absent. No abnormal adnexal mass. Extensive diverticulosis is noted within the descending and sigmoid colon without evidence of acute diverticulitis. Remainder of the large and small bowel are unremarkable. No obstruction. No free intra-abdominal air or fluid. Moderate-sized hiatal hernia. Abdominal aorta has a stable course and caliber. No enlarged abdominal lymph nodes are identified. No suspicious osseous lesions or acute fractures. IMPRESSION: 1. Extensive diverticulosis without evidence of acute diverticulitis. 2. No acute process identified within the chest. 3. Moderate-sized hiatal hernia. Exposure: One or more of the following in the visualized dose reduction techniques were utilized for this examination: 1. Automated exposure control 2. Adjustment of the MA and/or KV according to patient size 3. Use of iterative of reconstructive technique Electronically signed by: Erika Buckner MD (10/19/2019 6:28 PM) [id number] Course & Med Decision Making: Course & Med Decision Making Pertinent Labs and Imaging studies reviewed. (See chart for details) Patient presents with upper abdominal pain with radiation to her back which is been ongoing for the past week. EKG stable. Labs obtained and posted to chart. Troponin slightly elevated. BNP greater than 16,000. CTA chest/abdomen/pelvis with signs of hiatal hernia without other focal abnormality. Creatinine elevated which appears baseline per [email or web address] review. Bumex provided due to concern for CHF. Patient requiring admission for further evaluation and treatment. Discussed with (hospitalist) who is in agreement with admission. Discussed findings and plan with patient, who acknowledges understanding and agreement. Dragon Disclaimer: Dragon Disclaimer: This electronic medical record was generated, in whole or in part, using a voice recognition dictation system. Departure Departure Impression: Primary Impression: CHF (congestive heart failure) Qualified Codes: I50.9 - Heart failure, unspecified Additional Impressions: Elevated troponin Hiatal hernia Disposition: ADMITTED INPATIENT Admitting Physician: ANDREY Adams) Condition: GUARDED Referrals: GRANT MCWILLIAMS MD (PCP) Justicifation of Admission Dx: Justifications for Admission: Justification of Admission Dx: Yes Comments: CHF exacerbation , hiatal hernia, elevated troponin Critical Care Time Critical care time was 30 minutes which includes time at bedside, spent in discussion of patient's care with specialists and/or family members, with inte rpretation of laboratory and/or radiological studies and is exclusive of procedures. GRANT MILLARD DO Oct 19, 2019 18:42
[2019-10-19 19:14] LABS: % LYMPHS 10 % (24-48); % MONOS 4 % (0-10); % SEGS 86 % (35-66)
[2019-10-19 19:15] LABS: PLT ESTIMATE ADEQUATE (ADEQUATE); POLYCHROMASIA SLIGHT; TOXIC GRANULATION SLIGHT
[2019-10-19] MEDS ORDERED: ASPIRIN 325 MG TABLET PO ONE (19:15)
[2019-10-19] MEDS ORDERED: BUMETANIDE 1 MG/4 ML VIAL. IV ONE (19:15)
[2019-10-19] MEDS ORDERED: DEXTROSE 50% 25 GM / 50ML DISP.SYRIN. IV PRN (19:15)
[2019-10-19] MEDS ORDERED: ONDANSETRON PF 4 MG/2 ML VIAL. IV PRN (19:15)
[2019-10-19 21:30] VITALS: BP 198/96
--- NOTE | 2019-10-19 21:55 | NUR ---
Pt arrived to room per cart, pt assisted to bed with standby assist, pt c/o pain to abd area vss obtained pt bp elevated will re evaluate pt bp. Assessment completed call light placed in reach will resume and continue to monitor pt.Bed alarm set.
[2019-10-19] MEDS ORDERED: VITA1CAP PO (23:23)
[2019-10-19] MEDS ORDERED: LACT1CAP29 PO (23:23)
[2019-10-19] MEDS ORDERED: FERR325T14 PO (23:23)
[2019-10-20] VITALS (7 sets, daily range): BP systolic 136–196; BP diastolic 74–93
--- NOTE | 2019-10-20 02:41 | NUR ---
Call placed to Dr. rodney Re: pt with elevated bp 196/87 with no prn bp med or pain medication ordered.
--- NOTE | 2019-10-20 03:04 | NUR ---
returned call orders received
[2019-10-20] MEDS: MORPHINE SULFATE 2 MG/ML VIAL. IV PRN ×4 (03:18→17:23)
[2019-10-20] MEDS: hydrALAZINE 20 MG/ML VIAL. IVP PRN ×2 (03:21→17:24)
--- NOTE | 2019-10-20 04:23 | NUR ---
Pt c/o abd. pain 11/02 after medicated with morphine iv for pain,Assisted pt to chair for position change will continue to monitor pt.
--- NOTE | 2019-10-20 05:24 | EKG ---
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
[2019-10-20 05:45] LABS: CHOLESTEROL/HDL RATIO 4.6
[2019-10-20] MEDS ORDERED: ENOXAPARIN 30 MG/0.3 ML SYRINGE. SQ SCH (06:00)
[2019-10-20] MEDS: INSULIN LISPRO 300 UNITS/3 ML VIAL. SQ SCH ×3 (08:00→17:00)
[2019-10-20 08:45] LABS: CALCIUM 8.4 mg/dL (8.5-10.1); CREATININE 1.7 mg/dL (0.6-1.0); GFR 28.6; MAGNESIUM 1.8 mg/dL (1.8-2.4); POTASSIUM 4.3 mmol/L (3.5-5.1)
[2019-10-20] MEDS ORDERED: PANTOPRAZOLE IV PUSH 40 MG VIAL. IVP PRN (09:15)
[2019-10-20] MEDS ORDERED: LIDO:MAALOX 1:1 20 ML SINGLE DOSE. SWSW ONE (10:00)
--- NOTE | 2019-10-20 10:19 | EKG ---
[facility] [address] [place] [address] Test Date: 2019-10-20 Test Time: 10:12:35 Pat Name: JOHNNY ARTEAGA Department: Room: 208 1 Gender: F Physiatrist: CRISTINA : 1935 Requested By: MEAGAN AMANDA Order Number: [id number] Reading MD: Measurements Intervals [place] Rate: 79 P: -54 [place]: 134 QRS: 5 QRSD: 84 T: 27 QT: 398 QTc: 463 Interpretive Statements SINUS RHYTHM QRS(T) CONTOUR ABNORMALITY CONSISTENT WITH INFERIOR INFARCT PROBABLY OLD ABNORMAL ECG RI6.02 Compared to ECG 10/19/2019 17:01:38 No significant changes
[2019-10-20] MEDS: clonazePAM 0.5 MG TABLET PO PRN ×2 (11:38→23:36)
[2019-10-20] MEDS: amLODIPine BESYLATE 10 MG TABLET PO SCH (11:38)
--- NOTE | 2019-10-20 12:17 | NUR ---
SS following for discharge planning. SS reviewed pt chart and discussed with pt RN. Pt is from home with spouse and is currently on room air. SS will continue to follow for discharge planning.
--- NOTE | 2019-10-20 12:32 | CARD ---
MR#: [id number] Date of Study: 10/20/2019 Ordering Physician: MEAGAN AMANDA, Referring Physician: MEAGAN AMANDA Tech: Vianey Pollock RDCS APPROVED REPORT EXAM: Two-dimensional and M-mode echocardiogram with Doppler and color Doppler. Other Information Quality : Good INDICATION Congestive Heart Failure Echo Enhancing Agent Agent/Amount Used: Definity mL Surgery/Intervention CABG: Date: 2016 2D DIMENSIONS RVDd3.1 (2.9-3.5cm)Left Atrium(2D)4.5 (1.6-4.0cm) IVSd1.2 (0.7-1.1cm)Aortic Root(2D)3.3 (2.0-3.7cm) LVDd4.4 (3.9-5.9cm)LVOT Diameter2.3 (1.8-2.4cm) PWd1.0 (0.7-1.1cm)LVDs3.3 (2.5-4.0cm) FS (%) 30.0 %SV42.7 ml LVEF(%)60.0 (>50%) M-Mode DIMENSIONS Aortic Cusp Exc1.28 (1.5-2.0cm) Aortic Valve AoV Peak Chace.235.1cm/sAoV VTI55.2cm AO Peak GR.22.1mmHgLVOT VTI 22.56cm AO Mean GR.13mmHgAVA (VTI)1.70cm2 AI P 1/2 [id number] Mitral Valve MV E Rpnmfkaf68.9cm/sMV DECEL [id number] MV A Wdjvvnzk58.1cm/sE/A Ratio1.1 TDI Lateral E' P. V3.48cm/sMedial E' P. V5.53cm/s E/Lateral E'28.4E/Medial E'17.9 Tricuspid Valve TR P. Jpqtporw964ri/sRAP ZQRMQEFZ6iaCc TR Peak Gr.51xuTbFLXL84vrYx Pulmonary Vein S1 Ekelrpda98.3cm/sS2 Yqjpxcjc19.48cm/s D2 Taiqdrki14.5cm/s LEFT VENTRICLE The left ventricle is normal size. There is normal left ventricular wall thickness. The left ventricu lar systolic function is normal. The Ejection Fraction is 55-60%. There is normal LV segmental wall m otion. RIGHT VENTRICLE The right ventricle is normal size. The right ventricular systolic function is normal. ATRIA The left atrium is mildly dilated. The right atrium size is normal. The interatrial septum is intact with no evidence for an atrial septal defect or patent foramen ovale as noted on 2-D or Doppler imagi ng. AORTIC VALVE The aortic valve is moderately thickened. Doppler and Color Flow revealed mild aortic regurgitation. Calculated aortic valve area is 1.7 cm2 with maximum pressure gradient of 22 mmHg and mean pressure g radient of 13 mmHg. Doppler and color-flow analysis revealed mild aortic stenosis. MITRAL VALVE The mitral valve is calcified but opens well. Mitral annular calcification is mild to moderate. There is no evidence of mitral valve prolapse. There is no mitral valve stenosis. Doppler and Color-flow r evealed mild mitral regurgitation. TRICUSPID VALVE The tricuspid valve is normal in structure and function. Doppler and Color Flow revealed trace tricus pid regurgitation. The PA pressure was estimated at 28 mmHg. There is no tricuspid valve stenosis. PULMONIC VALVE The pulmonic valve is not well visualized. Doppler and Color Flow revealed trace to mild pulmonic mac vular regurgitation. There is no pulmonic valvular stenosis. GREAT VESSELS The aortic root is normal in size. The ascending aorta is normal in size. The IVC is normal in size a nd collapses >50% with inspiration. PERICARDIAL EFFUSION There is no evidence of significant pericardial effusion. Critical Notification Critical Value: No <Conclusion> The left ventricular systolic function is normal. The Ejection Fraction is 55-60%. There is normal LV segmental wall motion. Mild aortic stenosis. Mild aortic regurgitation. Mild mitral regurgitation. Trace tricuspid regurgitation. The PA pressure was estimated at 28 mmHg. There is no evidence of significant pericardial effusion. Signed by : Gokul Milligan, Electronically Approved : 10/20/2019 12:31:56
--- NOTE | 2019-10-20 12:38 | PDOC2 ---
MEAGAN AMANDA [employer] WORK[employer] 10/20/19 1238: CARDIAC CONSULT DATE OF CONSULT Date of Consult DATE: 10/20/19 TIME: 12:37 REASON FOR CONSULT Reason for Consult: Elevated troponin, CHF REFERRING PHYSICIAN Referring Physician: Hua SOURCE Source: Chart review, Patient HISTORY OF PRESENT ILLNESS HISTORY OF PRESENT ILLNESS This is a pleasant 84 yo female admitted for complains of abdominal pain. No chest pain but rather points to epigastric region that is sharp and radiates directly to immediate back. No FLYNN and no exertional cehst pain. This epigastric discomfort started happening about a week ago. She does have some throat pain as well and also some in her bilateral cheek but no noted irritation and denies any teeth abscess. No hx of PUD or any past EGD. Denies routine NSAIDs, no recent falls, injury or MVA. Denies any palpitations. She did have some vomiting episodes but no hematemesis. She did notice some dark stools few days ago but this got resolved. She is currently sitting and complianing of sharp pain in her epigastric region and worse with palpation. She is extremely anxious. No heavy sensation to arms and shoulders. She has been complaint with her medications. No intractable coughing and no fever or chills. PAST MEDICAL HISTORY Cardiovascular: CAD, HTN, Hyperlipidemia, Other (PAD) Pulmonary: No pertinent hx CENTRAL NERVOUS SYSTEM: Carpal Tunnel Syndrome GI: GERD, Other (hiatal hernia) Heme/Onc: Anemia NOS Hepatobiliary: No pertinent hx Psych: Anxiety Musculoskeletal: Osteoarthritis Rheumatologic: No pertinent hx ENT: No pertinent hx Renal/: Chronic renal insuff (3), UTI Endocrine: Diabetes (?) Dermatology: No pertinent hx PAST SURGICAL HISTORY Past Surgical History: CABG (x4 09/04/2016), Hysterectomy, Other (right trigger finger release; right femoral artery repair in 2017 due to IABP placement; CTS repair) FAMILY HISTORY Family History noncontributory to CV SOCIAL HISTORY Smoke: No ALCOHOL: none Drugs: None Lives: with Family CURRENT MEDICATIONS CURRENT MEDICATIONS Current Medications Medications (Trade) Dose Ordered Sig/Marina Route PRN Reason Start Time Stop Time Status Last Admin Dose Admin Sodium Chloride 1,000 ml @ 1,000 mls/hr 1X ONCE IV 10/19/19 16:45 10/19/19 17:44 DC 10/19/19 17:18 Labetalol HCl (Normodyne Iv Push) 20 mg 1X ONCE IVP 10/19/19 17:00 10/19/19 17:01 DC 10/19/19 17:18 Ondansetron HCl (Zofran) 4 mg PRN Q8HRS PRN IV NAUSEA/VOMITING 10/19/19 19:15 10/20/19 19:14 10/19/19 22:10 Bumetanide (Bumex) 1 mg 1X ONCE IV 10/19/19 19:15 10/19/19 19:16 DC 10/19/19 20:29 Aspirin (Soco Aspirin) 325 mg 1X ONCE PO 10/19/19 19:15 10/19/19 19:16 DC 10/19/19 20:29 Morphine Sulfate (Morphine Sulfate) 2 mg PRN Q2HR PRN IV SEVERE PAIN 7-10 10/20/19 03:00 10/20/19 08:34 Hydralazine HCl (Apresoline Inj) 10 mg PRN Q4HRS PRN IVP ELEVATED BP, SEE COMMENTS 10/20/19 03:00 10/20/19 03:21 Enoxaparin Sodium (Lovenox 30mg Syringe) 30 mg Q24H SQ 10/20/19 06:00 10/20/19 05:23 Multi-Ingredient Mouthwash/Gargle (Gi Cocktail) 20 ml 1X ONCE SWSW 10/20/19 10:00 10/20/19 10:01 DC 10/20/19 10:14 Clonazepam (KlonoPIN) 0.5 mg PRN BID PRN PO ANXIETY / AGITATION 10/20/19 11:30 10/20/19 11:38 Amlodipine Besylate (Norvasc) 10 mg DAILY PO 10/20/19 12:00 10/20/19 11:38 ALLERGIES ALLERGIES: Coded Allergies: Penicillins (Verified Allergy, Intermediate, 10/12/19) metronidazole (Verified Allergy, Intermediate, Hives, 10/12/19) witness hives 5-10 minutes after initiating Flagyl 500mg IVPB ROS Review of System 14 point ROS evaluated with pertinent positives noted per HPI PHYSICAL EXAM General: Alert, Oriented X3, Cooperative, mild distress HEENT: Atraumatic, Mucous membr. moist/pink Lungs: Clear to auscultation, Normal air movement Heart: Regular rate (SR), Normal S1, Normal S2, Other (2/6 systolic) Abdomen: Other (epigastric tenderness) Extremities: No cyanosis, No edema Skin: No breakdown Psych/Mental Status: Mental status NL, Other (anxiety) MUSCULOSKELETAL: Osteoarthritic changes both hands VITALS/I&O VITALS/I&O: Vital Signs Date Time Temp Pulse Resp B/P (MAP) Pulse Ox O2 Delivery O2 Flow Rate FiO2 10/20/19 11:38 88 182/93 10/20/19 09:24 96 Room Air 10/20/19 07:00 98.1 20 98.1 I & O 10/19/19 10/19/19 10/20/19 15:00 23:00 07:00 Intake Total 0 ml 100 ml Output Total 300 ml 700 ml Balance -300 ml -600 ml LABS Lab: Laboratory Tests Test 10/19/19 17:12 10/19/19 17:40 10/19/19 21:58 10/20/19 01:12 White Blood Count 11.3 x10^3/uL (4.0-11.0) H Red Blood Count 3.08 x10^6/uL (3.50-5.40) L Hemoglobin 9.9 g/dL (12.0-15.5) L Hematocrit 28.9 % (36.0-47.0) L Mean Corpuscular Volume 94 fL (79-100) Mean Corpuscular Hemoglobin 32 pg (25-35) Mean Corpuscular Hemoglobin Concent 34 g/dL (31-37) Red Cell Distribution Width 15.3 % (11.5-14.5) H Platelet Count 188 x10^3/uL (140-400) Neutrophils (%) (Auto) 86 % (31-73) H Lymphocytes (%) (Auto) 7 % (24-48) L Monocytes (%) (Auto) 7 % (0-9) Eosinophils (%) (Auto) 0 % (0-3) Basophils (%) (Auto) 0 % (0-3) Neutrophils # (Auto) 9.7 x10^3/uL (1.8-7.7) H Lymphocytes # (Auto) 0.8 x10^3/uL (1.0-4.8) L Monocytes # (Auto) 0.8 x10^3/uL (0.0-1.1) Eosinophils # (Auto) 0.0 x10^3/uL (0.0-0.7) Basophils # (Auto) 0.0 x10^3/uL (0.0-0.2) Segmented Neutrophils % 86 % (35-66) H Lymphocytes % 10 % (24-48) L Monocytes % 4 % (0-10) Toxic Granulation Slight Platelet Estimate Adequate (ADEQUATE) Polychromasia Slight Prothrombin Time 13.8 SEC (11.7-14.0) Prothrombin Time INR 1.1 (0.8-1.1) Activated Partial Thromboplast Time 41 SEC (24-38) H Sodium Level 137 mmol/L (136-145) 140 mmol/L (136-145) Potassium Level 4.5 mmol/L (3.5-5.1) 4.3 mmol/L (3.5-5.1) Chloride Level 104 mmol/L (98-107) 104 mmol/L (98-107) Carbon Dioxide Level 23 mmol/L (21-32) 24 mmol/L (21-32) Anion Gap 10 (6-14) 12 (6-14) Blood Urea Nitrogen 35 mg/dL (7-20) H 33 mg/dL (7-20) H Creatinine 1.6 mg/dL (0.6-1.0) H 1.7 mg/dL (0.6-1.0) H Estimated GFR (Cockcroft-Gault) 30.7 28.6 BUN/Creatinine Ratio 22 (6-20) H Glucose Level 96 mg/dL (70-99) 86 mg/dL (70-99) Lactic Acid Level 1.1 mmol/L (0.4-2.0) Calcium Level 9.3 mg/dL (8.5-10.1) 8.4 mg/dL (8.5-10.1) L Total Bilirubin 0.3 mg/dL (0.2-1.0) Aspartate Amino Transferase (AST) 47 U/L (15-37) H Alanine Aminotransferase (ALT) 90 U/L (14-59) H Alkaline Phosphatase 137 U/L (46-116) H Creatine Kinase 435 U/L (26-192) H Creatine Kinase MB (Mass) 5.0 ng/mL (0.0-3.6) H Creatine Kinase MB Relative Index 1.1 % (0-4) Troponin I Quantitative 0.088 ng/mL (0.000-0.055) 0.099 ng/mL (0.000-0.055) 0.105 ng/mL (0.000-0.055) MB-Fws-X-Type Natriuretic Peptide 73354 pg/mL (0-449) H Total Protein 6.7 g/dL (6.4-8.2) Albumin 3.2 g/dL (3.4-5.0) L Albumin/Globulin Ratio 0.9 (1.0-1.7) L Lipase 57 U/L (73-393) L Urine Collection Type Unknown Urine Color Yellow Urine Clarity Clear Urine pH 6.0 (<5.0-8.0) Urine Specific [place] 1.010 (1.000-1.030) Urine Protein >=300 mg/dL (NEG-TRACE) Urine Glucose (UA) Negative mg/dL (NEG) Urine Ketones (Stick) Negative mg/dL (NEG) Urine Blood Moderate (NEG) Urine Nitrite Negative (NEG) Urine Bilirubin Negative (NEG) Urine Urobilinogen Dipstick 0.2 mg/dL (0.2 mg/dL) Urine Leukocyte Esterase Small (NEG) Urine RBC 1-2 /HPF (0-2) Urine WBC 20-40 /HPF (0-4) Urine Squamous Epithelial Cells Many /LPF Urine Renal Epithelial Cells Few /LPF Urine Bacteria Few /HPF (0-FEW) Magnesium Level 1.8 mg/dL (1.8-2.4) Triglycerides Level 150 mg/dL (0-150) Cholesterol Level 195 mg/dL (0-200) LDL Cholesterol, Calculated 123 mg/dL (0-100) H VLDL Cholesterol, Calculated 30 mg/dL (0-40) Non-HDL Cholesterol Calculated 153 mg/dL (0-129) H HDL Cholesterol 42 mg/dL (40-60) Cholesterol/HDL Ratio 4.6 Test 10/20/19 10:35 10/20/19 11:45 Troponin I Quantitative 0.093 ng/mL (0.000-0.055) Glucose (Fingerstick) 88 mg/dL (70-99) Laboratory Tests 10/19/19 17:12 Laboratory Tests 10/19/19 17:12 10/20/19 01:12 ASSESSMENT/PLAN ASSESSMENT/PLAN 1. Atypical CP: more epigastric pain. suspect GI, PUD? doubt ACS 2. Accelerated HTN: initially noted at 243/112 3. Elevated troponin: peaked at 0.1, No acute EKG changes. Suspect demand mediated type 2 with high BP and renal insufficiency 4. Diastolic CHF: no overt symptoms, compensated 5. CAD; past CABG.08/2016 sees [facility] cardiology. 6. Known LE PAD: no claudication. Prior repair to right femoral and known left i liac artery aneurysm followed by Dr. Carrillo as an outpt 7. HLP: LDL 123 8. CKD3: appears to be her baseline. Noted recently in PCP office with Cr at 2.5 9. Persistent UTI: was given levaquin 10/18 but pt only took a few. Cx revealed Enterococcus faecalis 10/11/2019 per chart review. Defer to PCP 10. Elevated pro NT BNP and Mild rhabdomyolysis: possibly from significantly high BP with underlying CKD 11. Anxiety 12. GERD with moderate size HH 13. Metabolic syndrome: BG controlled Recommendations CT chest/abd/pelvis reviewed. Secondary prevention measures. ECASA. Optimize BP control. Restart home BP meds. GI cocktail PPI consult GI. TTE today Not on statin per home meds. Start at lower dose prior to DC and uptitrate as an outpt Consider for outpt stress test. Follow up with [facility] cardiology CLOTILDE SAHNI MD 10/20/19 1526: CARDIAC CONSULT ASSESSMENT/PLAN ASSESSMENT/PLAN The patient was seen and interviewed as well as examined at the bedside. The chart was reviewed. The case was discussed. Agree with the plan of care. MEAGAN AMANDA APRN Oct 20, 2019 12:38 CLOTILDE SAHNI MD Oct 20, 2019 15:26
--- NOTE | 2019-10-20 13:27 | PDOC2 ---
GI CONSULT Date of Service: DATE: 10/20/19 TIME: 13:16 Reason For Consult: GI discomfort HPI: HPI: 82 y/o female who we have seen in the past for epigastric pain radiation through to mid back. H/o GERD - question on non-compliance w/ PPI then. Admitted this time w/ epigastric pain x 1 week. "Just hurts" in epigastric area, again goes to back. Might be worse after eating. No dysphagia, n/v, diarrhea, constipation, or bleeding. We reviewed her med list which includes pantoprazole, dicyclomine, and iron. She says she has not been taking her medications lately because she "hasn't been around." D/w nurse - no improvement w/ GI cocktail (which pt does not remember taking) but symptoms better after clonazepam. H/o WES. Colonoscopies in 2004 and 2007 showed left-sided diverticulosis. EGDs in 2000 and 2007 (two then) showed mild esophagitis, gastritis, and normal duodenum. SBCE in 2007 showed small bowel angiodysplasiae, inflammation w/ erosions and ulcers in distal small bowel (possibly related to NSAIDs). Also had negative ANCA and ASCA. S/p cholecystectomy. H/o C Diff. She's not a good historian. PMH: PMH: CAD, CHF, SD, HTN, HLD, DM, GERD, diverticulosis, C Diff, WES, OA, UTI, shingles, anxiety CABG, , hysterectomy, left rotator cuff repair, carpal tunnel repair, cholecystectomy FH: Family History: Cancer Social History: Smoke: Quit ALCOHOL: none Drugs: None ROS: GEN: Denies fevers, chills, sweats HEENT: Denies blurred vision, sore throat CV: Denies chest pain RESP: Denies shortness of air, cough GI: Per HPI : Denies hematuria, dysuria ENDO: Denies weight changes NEURO: Denies confusion, dizziness MSK: Denies weakness, joint pain/swelling SKIN: Denies jaundice, pruritus Vitals: Vitals: Vital Signs Date Time Temp Pulse Resp B/P (MAP) Pulse Ox O2 Delivery O2 Flow Rate FiO2 10/20/19 11:38 88 182/93 10/20/19 11:00 97.6 20 96 Room Air 97.6 Labs: Labs: Laboratory Tests Test 10/19/19 17:12 10/19/19 17:40 10/19/19 21:58 10/20/19 01:12 White Blood Count 11.3 x10^3/uL (4.0-11.0) Red Blood Count 3.08 x10^6/uL (3.50-5.40) Hemoglobin 9.9 g/dL (12.0-15.5) Hematocrit 28.9 % (36.0-47.0) Mean Corpuscular Volume 94 fL (79-100) Mean Corpuscular Hemoglobin 32 pg (25-35) Mean Corpuscular Hemoglobin Concent 34 g/dL (31-37) Red Cell Distribution Width 15.3 % (11.5-14.5) Platelet Count 188 x10^3/uL (140-400) Neutrophils (%) (Auto) 86 % (31-73) Lymphocytes (%) (Auto) 7 % (24-48) Monocytes (%) (Auto) 7 % (0-9) Eosinophils (%) (Auto) 0 % (0-3) Basophils (%) (Auto) 0 % (0-3) Neutrophils # (Auto) 9.7 x10^3/uL (1.8-7.7) Lymphocytes # (Auto) 0.8 x10^3/uL (1.0-4.8) Monocytes # (Auto) 0.8 x10^3/uL (0.0-1.1) Eosinophils # (Auto) 0.0 x10^3/uL (0.0-0.7) Basophils # (Auto) 0.0 x10^3/uL (0.0-0.2) Segmented Neutrophils % 86 % (35-66) Lymphocytes % 10 % (24-48) Monocytes % 4 % (0-10) Toxic Granulation Slight Platelet Estimate Adequate (ADEQUATE) Polychromasia Slight Prothrombin Time 13.8 SEC (11.7-14.0) Prothromb Time International Ratio 1.1 (0.8-1.1) Activated Partial Thromboplast Time 41 SEC (24-38) Sodium Level 137 mmol/L (136-145) 140 mmol/L (136-145) Potassium Level 4.5 mmol/L (3.5-5.1) 4.3 mmol/L (3.5-5.1) Chloride Level 104 mmol/L (98-107) 104 mmol/L (98-107) Carbon Dioxide Level 23 mmol/L (21-32) 24 mmol/L (21-32) Anion Gap 10 (6-14) 12 (6-14) Blood Urea Nitrogen 35 mg/dL (7-20) 33 mg/dL (7-20) Creatinine 1.6 mg/dL (0.6-1.0) 1.7 mg/dL (0.6-1.0) Estimated GFR (Cockcroft-Gault) 30.7 28.6 BUN/Creatinine Ratio 22 (6-20) Glucose Level 96 mg/dL (70-99) 86 mg/dL (70-99) Lactic Acid Level 1.1 mmol/L (0.4-2.0) Calcium Level 9.3 mg/dL (8.5-10.1) 8.4 mg/dL (8.5-10.1) Total Bilirubin 0.3 mg/dL (0.2-1.0) Aspartate Amino Transf (AST/SGOT) 47 U/L (15-37) Alanine Aminotransferase (ALT/SGPT) 90 U/L (14-59) Alkaline Phosphatase 137 U/L (46-116) Creatine Kinase 435 U/L (26-192) Creatine Kinase MB (Mass) 5.0 ng/mL (0.0-3.6) Creatine Kinase MB Relative Index 1.1 % (0-4) Troponin I Quantitative 0.088 ng/mL (0.000-0.055) 0.099 ng/mL (0.000-0.055) 0.105 ng/mL (0.000-0.055) IP-Tqf-U-Type Natriuretic Peptide 99270 pg/mL (0-449) Total Protein 6.7 g/dL (6.4-8.2) Albumin 3.2 g/dL (3.4-5.0) Albumin/Globulin Ratio 0.9 (1.0-1.7) Lipase 57 U/L (73-393) Urine Collection Type Unknown Urine Color Yellow Urine Clarity Clear Urine pH 6.0 (<5.0-8.0) Urine Specific [place] 1.010 (1.000-1.030) Urine Protein >=300 mg/dL (NEG-TRACE) Urine Glucose (UA) Negative mg/dL (NEG) Urine Ketones (Stick) Negative mg/dL (NEG) Urine Blood Moderate (NEG) Urine Nitrite Negative (NEG) Urine Bilirubin Negative (NEG) Urine Urobilinogen Dipstick 0.2 mg/dL (0.2 mg/dL) Urine Leukocyte Esterase Small (NEG) Urine RBC 1-2 /HPF (0-2) Urine WBC 20-40 /HPF (0-4) Urine Squamous Epithelial Cells Many /LPF Urine Renal Epithelial Cells Few /LPF Urine Bacteria Few /HPF (0-FEW) Magnesium Level 1.8 mg/dL (1.8-2.4) Triglycerides Level 150 mg/dL (0-150) Cholesterol Level 195 mg/dL (0-200) LDL Cholesterol, Calculated 123 mg/dL (0-100) VLDL Cholesterol, Calculated 30 mg/dL (0-40) Non-HDL Cholesterol Calculated 153 mg/dL (0-129) HDL Cholesterol 42 mg/dL (40-60) Cholesterol/HDL Ratio 4.6 Test 10/20/19 10:35 10/20/19 11:45 Creatine Kinase 473 U/L (26-192) Troponin I Quantitative 0.093 ng/mL (0.000-0.055) Glucose (Fingerstick) 88 mg/dL (70-99) Allergies: Coded Allergies: Penicillins (Verified Allergy, Intermediate, 10/12/19) metronidazole (Verified Allergy, Intermediate, Hives, 10/12/19) witness hives 5-10 minutes after initiating Flagyl 500mg IVPB Medications: Current Medications Medications (Trade) Dose Ordered Sig/Marina Route PRN Reason Start Time Stop Time Status Last Admin Dose Admin Sodium Chloride 1,000 ml @ 1,000 mls/hr 1X ONCE IV 10/19/19 16:45 10/19/19 17:44 DC 10/19/19 17:18 Labetalol HCl (Normodyne Iv Push) 20 mg 1X ONCE IVP 10/19/19 17:00 10/19/19 17:01 DC 10/19/19 17:18 Ondansetron HCl (Zofran) 4 mg PRN Q8HRS PRN IV NAUSEA/VOMITING 10/19/19 19:15 10/20/19 19:14 10/19/19 22:10 Bumetanide (Bumex) 1 mg 1X ONCE IV 10/19/19 19:15 10/19/19 19:16 DC 10/19/19 20:29 Aspirin (Soco Aspirin) 325 mg 1X ONCE PO 10/19/19 19:15 10/19/19 19:16 DC 10/19/19 20:29 Morphine Sulfate (Morphine Sulfate) 2 mg PRN Q2HR PRN IV SEVERE PAIN 7-10 10/20/19 03:00 10/20/19 08:34 Hydralazine HCl (Apresoline Inj) 10 mg PRN Q4HRS PRN IVP ELEVATED BP, SEE COMMENTS 10/20/19 03:00 10/20/19 03:21 Enoxaparin Sodium (Lovenox 30mg Syringe) 30 mg Q24H SQ 10/20/19 06:00 10/20/19 05:23 Multi-Ingredient Mouthwash/Gargle (Gi Cocktail) 20 ml 1X ONCE SWSW 10/20/19 10:00 10/20/19 10:01 DC 10/20/19 10:14 Clonazepam (KlonoPIN) 0.5 mg PRN BID PRN PO ANXIETY / AGITATION 10/20/19 11:30 10/20/19 11:38 Amlodipine Besylate (Norvasc) 10 mg DAILY PO 10/20/19 12:00 10/20/19 11:38 Imaging: Imaging: C/A/P CT IMPRESSION: 1. Extensive diverticulosis without evidence of acute diverticulitis. 2. No acute process identified within the chest. 3. Moderate-sized hiatal hernia. Echocardiogram <Conclusion> The left ventricular systolic function is normal. The Ejection Fraction is 55-60%. There is normal LV segmental wall motion. Mild aortic stenosis. Mild aortic regurgitation. Mild mitral regurgitation. Trace tricuspid regurgitation. The PA pressure was estimated at 28 mmHg. There is no evidence of significant pericardial effusion. PE: GEN: NAD HEENT: Atraumatic, PERRL LUNGS: CTAB HEART: RRR ABD: NABS, S/ND/NT EXTREMITY: No edema SKIN: No rashes, no jaundice NEURO/PSYCH: A & O 3 - forgetful A/P: A/P: Epigastric pain HTN, CAD, mildly elevated troponin, CKD H/o WES H/o GERD CRC screen - last in 2007 Diverticulosis H/o SB AVMs H/o C Diff S/p cholecystectomy -- Possibility of non-compliance w/ PPI. Resume, observe. Okay to eat per GI. Can change to PO PPI. Continue iron. HEATHER MOSLEY Oct 20, 2019 13:27
[2019-10-20] MEDS ORDERED: BISACODYL 10 MG SUPP.RECT. PR PRN (15:15)
[2019-10-20] MEDS ORDERED: IV NORMAL SALINE 1000ML BAG 1,000 ML IV SCH (15:30)
[2019-10-20] MEDS ORDERED: FUROSEMIDE 40 MG TABLET. PO ONE (16:00)
--- NOTE | 2019-10-20 17:07 | PDOC1 ---
History and Physical Date of Admission Date of Admission DATE: 10/20/19 TIME: 16:54 Identification/Chief Complaint Chief Complaint Epigastric pain Source Source: Patient History of Present Illness History of Present Illness Patient is 84-year-old female past medical history of hypertension, hyperlipidemia, type 2 diabetes, and coronary artery disease, who presents with complaint of worsening epigastric pain for 1 week. Patient reports epigastric burning pain, 3/10, with associated nausea. Patient denies any aggravating symptoms or any alleviating symptoms. She came to the ED for concerns her pain was cardiac in nature. She does admit to history of dark stools several days ago. At the time of evaluation she currently complains of pain. She denies any history of regular NSAID use. She denies any vomiting. Past Medical History Cardiovascular: CAD, HTN, Hyperlipidemia, Other (PAD) Pulmonary: No pertinent hx CENTRAL NERVOUS SYSTEM: Carpal Tunnel Syndrome GI: GERD, Other (hiatal hernia) Heme/Onc: Anemia NOS Hepatobiliary: No pertinent hx Psych: Anxiety Musculoskeletal: Osteoarthritis Rheumatologic: No pertinent hx Infectious disease: Herpes zoster ENT: No pertinent hx Renal/: Chronic renal insuff (3), UTI Endocrine: Diabetes (?) Dermatology: No pertinent hx Past Surgical History Past Surgical History: CABG (x4 09/04/2016), Hysterectomy, Other (right trigger finger release; right femoral artery repair in 2017 due to IABP placement; CTS repair) Family History Family History: Cancer, Other Social History Smoke: No ALCOHOL: none Drugs: None Current Problem List Problem List Problems Medical Problems: (1) CHF (congestive heart failure) Status: Acute (2) Elevated troponin Status: Acute (3) Hiatal hernia Status: Acute Current Medications Current Medications Current Medications Sodium Chloride 1,000 ml @ 1,000 mls/hr 1X ONCE IV Last administered on 10/19/19at 17:18; Start 10/19/19 at 16:45; Stop 10/19/19 at 17:44; Status DC Labetalol HCl (Normodyne Iv Push) 20 mg 1X ONCE IVP Last administered on 10/19/19at 17:18; Start 10/19/19 at 17:00; Stop 10/19/19 at 17:01; Status DC Ondansetron HCl (Zofran) 4 mg PRN Q8HRS PRN IV NAUSEA/VOMITING Last administered on 10/19/19at 22:10; Start 10/19/19 at 19:15; Stop 10/20/19 at 19:14 Bumetanide (Bumex) 1 mg 1X ONCE IV Last administered on 10/19/19at 20:29; Start 10/19/19 at 19:15; Stop 10/19/19 at 19:16; Status DC Aspirin (Soco Aspirin) 325 mg 1X ONCE PO Last administered on 10/19/19at 20 :29; Start 10/19/19 at 19:15; Stop 10/19/19 at 19:16; Status DC Insulin Human Lispro (HumaLOG) 0-5 UNITS TIDWMEALS SQ ; Start 10/20/19 at 08:00 Dextrose (Dextrose 50%-Water Syringe) 12.5 gm PRN Q15MIN PRN IV SEE COMMENTS; Start 10/19/19 at 19:15 Morphine Sulfate (Morphine Sulfate) 2 mg PRN Q2HR PRN IV SEVERE PAIN 7-10 Last administered on 10/20/19at 08:34; Start 10/20/19 at 03:00 Hydralazine HCl (Apresoline Inj) 10 mg PRN Q4HRS PRN IVP ELEVATED BP, SEE COMMENTS Last administered on 10/20/19at 03:21; Start 10/20/19 at 03:00 Enoxaparin Sodium (Lovenox Per Pharmacy Prophylaxis Dosing) 1 each PRN DAILY PRN MC SEE COMMENTS; Start 10/20/19 at 03:00; Stop 10/20/19 at 15:31; Status DC Enoxaparin Sodium (Lovenox 30mg Syringe) 30 mg Q24H SQ Last administered on at 05:23; Start 10/20/19 at 06:00; Stop 10/20/19 at 15:32; Status DC Pantoprazole Sodium (PROTONIX VIAL for IV PUSH) 40 mg PRN 1X PRN IVP gerd; Start 10/20/19 at 09:15 Multi-Ingredient Mouthwash/Gargle (Gi Cocktail) 20 ml 1X ONCE SWSW Last admini stered on 10/20/19at 10:14; Start 10/20/19 at 10:00; Stop 10/20/19 at 10:01; Status DC Clonazepam (KlonoPIN) 0.5 mg PRN BID PRN PO ANXIETY / AGITATION Last administered on 10/20/19at 11:38; Start 10/20/19 at 11:30 Carvedilol (Coreg) 25 mg BIDWMEALS PO ; Start 10/20/19 at 17:00 Amlodipine Besylate (Norvasc) 10 mg DAILY PO Last administered on 10/20/19at 11:38; Start 10/20/19 at 12:00 Ondansetron HCl (Zofran) 4 mg PRN Q6HRS PRN IVP NAUSEA/VOMITING; Start 10/20/19 at 15:15 Bisacodyl (Dulcolax Supp) 10 mg PRN DAILY PRN NV CONSTIPATION; Start 10/20/19 at 15:15 Heparin Sodium (Porcine) (Heparin Sodium) 5,000 unit Q12HR SQ ; Start 10/21/19 at 09:00 Sodium Chloride 1,000 ml @ 0 mls/hr Q0M IV ; Start 10/20/19 at 15:30 Furosemide (Lasix) 40 mg 1X ONCE PO ; Start 10/20/19 at 16:00; Stop 10/20/19 at 16:01; Status DC Pantoprazole Sodium (Protonix) 40 mg DAILYAC PO ; Start 10/21/19 at 07:30 Active Scripts Active [Pantoprazole] 40 MG Tablet.dr 40 Mg PO DAILYAC 30 Days Gabapentin 600 Mg Tablet 600 Mg PO TID 30 Days Trazodone Hcl 50 Mg Tablet 50 Mg PO QHS 30 Days Quetiapine Fumarate 25 Mg Tablet 25 Mg PO DAILY 30 Days Furosemide 40 Mg Tablet 40 Mg PO DAILY 30 Days Reported Probiotic (Lactobacillus Combo No.10) 1 Each Capsule 1 Tab PO DAILY 30 Days Vitamin B Complex 1 Each Capsule 1 Each PO DAILY Ferrous Sulfate 325 Mg Tablet 1 Tab PO DAILY Losartan Potassium 50 Mg Tablet 50 Mg PO DAILY Dicyclomine Hcl 10 Mg Capsule 10 Mg PO DAILY Carvedilol 25 Mg Tablet 1 Tab PO BID Famotidine 20 Mg Tablet 20 Mg PO BID Amlodipine Besylate 5 Mg Tablet 5 Mg PO DAILY Allergies Allergies: Coded Allergies: Penicillins (Verified Allergy, Intermediate, 10/12/19) metronidazole (Verified Allergy, Intermediate, Hives, 10/12/19) witness hives 5-10 minutes after initiating Flagyl 500mg IVPB ROS General: No: Chills, Night Sweats, Fatigue, Malaise, Appetite PSYCHOLOGICAL ROS: No: Anxiety, Behavioral Disorder, Concentration difficultie, Decreased libido, Depression, Disorientation, Hallucinations, Hostility, Irritablity, Memory difficulties, Mood Swings, Obsessive thoughts, Physical abuse, Sexual abuse, Sleep disturbances, Suicidal ideation Eyes: No Blurry vision, No Decreased vision, No Double vision, No Dry eyes, No Excessive tearing, No Eye Pain, No Itchy Eyes, No Loss of vision, No Photophobia, No Scotomata, No Uses contacts, No Uses glasses HEENT: No: Heacaches, Visual Changes, Hearing change, Nasal congestion, Nasal discharge, Oral lesions, Sinus pain, Sore Throat, Epistaxis, Sneezing, Snoring, Tinnitus, Vertigo, Vocal changes ALLERGY AND IMMUNOLOGY: No: Itchy/Watery Eyes, Nasal Congestion Respiratory: No: Cough, Hemoptysis, Shortness of breath, SOB with excertion, Wheezing Cardiovascular: No Palpitations, No Paroxysmal Noc. Dyspnea, No Edema Gastrointestinal: Yes Abdominal Pain, Yes Melena; No Nausea, No Vomiting Genitourinary: No Dysuria, No Frequency, No Urgency Musculoskeletal: No Joint Pain, No Muscle Pain Neurological: No Confusion, No Dizziness, No Headaches, No Memory Loss Skin: No Dry Skin, No Rash Physical Exam General: Alert, Oriented X3, Cooperative, No acute distress HEENT: PERRLA Lungs: Clear to auscultation, Normal air movement Heart: RRR, no murmurs Cardiovascular: S1, S2 Abdomen: Normal bowel sounds, Soft, Other (Epigastric tenderness) Extremities: No clubbing, No edema, Normal pulses Skin: No rashes, No breakdown Neuro: Normal gait, Normal tone Psych/Mental Status: Mental status NL, Mood NL Vitals Vitals Vital Signs Date Time Temp Pulse Resp B/P (MAP) Pulse Ox O2 Delivery O2 Flow Rate FiO2 10/20/19 15:00 98.2 96 20 172/88 (116) 97 Room Air 98.2 Labs Labs Laboratory Tests Test 10/19/19 17:12 10/19/19 17:40 10/19/19 21:58 10/20/19 01:12 White Blood Count 11.3 x10^3/uL (4.0-11.0) Red Blood Count 3.08 x10^6/uL (3.50-5.40) Hemoglobin 9.9 g/dL (12.0-15.5) Hematocrit 28.9 % (36.0-47.0) Mean Corpuscular Volume 94 fL (79-100) Mean Corpuscular Hemoglobin 32 pg (25-35) Mean Corpuscular Hemoglobin Concent 34 g/dL (31-37) Red Cell Distribution Width 15.3 % (11.5-14.5) Platelet Count 188 x10^3/uL (140-400) Neutrophils (%) (Auto) 86 % (31-73) Lymphocytes (%) (Auto) 7 % (24-48) Monocytes (%) (Auto) 7 % (0-9) Eosinophils (%) (Auto) 0 % (0-3) Basophils (%) (Auto) 0 % (0-3) Neutrophils # (Auto) 9.7 x10^3/uL (1.8-7.7) Lymphocytes # (Auto) 0.8 x10^3/uL (1.0-4.8) Monocytes # (Auto) 0.8 x10^3/uL (0.0-1.1) Eosinophils # (Auto) 0.0 x10^3/uL (0.0-0.7) Basophils # (Auto) 0.0 x10^3/uL (0.0-0.2) Segmented Neutrophils % 86 % (35-66) Lymphocytes % 10 % (24-48) Monocytes % 4 % (0-10) Toxic Granulation Slight Platelet Estimate Adequate (ADEQUATE) Polychromasia Slight Prothrombin Time 13.8 SEC (11.7-14.0) Prothromb Time International Ratio 1.1 (0.8-1.1) Activated Partial Thromboplast Time 41 SEC (24-38) Sodium Level 137 mmol/L (136-145) 140 mmol/L (136-145) Potassium Level 4.5 mmol/L (3.5-5.1) 4.3 mmol/L (3.5-5.1) Chloride Level 104 mmol/L (98-107) 104 mmol/L (98-107) Carbon Dioxide Level 23 mmol/L (21-32) 24 mmol/L (21-32) Anion Gap 10 (6-14) 12 (6-14) Blood Urea Nitrogen 35 mg/dL (7-20) 33 mg/dL (7-20) Creatinine 1.6 mg/dL (0.6-1.0) 1.7 mg/dL (0.6-1.0) Estimated GFR (Cockcroft-Gault) 30.7 28.6 BUN/Creatinine Ratio 22 (6-20) Glucose Level 96 mg/dL (70-99) 86 mg/dL (70-99) Lactic Acid Level 1.1 mmol/L (0.4-2.0) Calcium Level 9.3 mg/dL (8.5-10.1) 8.4 mg/dL (8.5-10.1) Total Bilirubin 0.3 mg/dL (0.2-1.0) Aspartate Amino Transf (AST/SGOT) 47 U/L (15-37) Alanine Aminotransferase (ALT/SGPT) 90 U/L (14-59) Alkaline Phosphatase 137 U/L (46-116) Creatine Kinase 435 U/L (26-192) Creatine Kinase MB (Mass) 5.0 ng/mL (0.0-3.6) Creatine Kinase MB Relative Index 1.1 % (0-4) Troponin I Quantitative 0.088 ng/mL (0.000-0.055) 0.099 ng/mL (0.000-0.055) 0.105 ng/mL (0.000-0.055) XU-Dgo-R-Type Natriuretic Peptide 87555 pg/mL (0-449) Total Protein 6.7 g/dL (6.4-8.2) Albumin 3.2 g/dL (3.4-5.0) Albumin/Globulin Ratio 0.9 (1.0-1.7) Lipase 57 U/L (73-393) Urine Collection Type Unknown Urine Color Yellow Urine Clarity Clear Urine pH 6.0 (<5.0-8.0) Urine Specific [place] 1.010 (1.000-1.030) Urine Protein >=300 mg/dL (NEG-TRACE) Urine Glucose (UA) Negative mg/dL (NEG) Urine Ketones (Stick) Negative mg/dL (NEG) Urine Blood Moderate (NEG) Urine Nitrite Negative (NEG) Urine Bilirubin Negative (NEG) Urine Urobilinogen Dipstick 0.2 mg/dL (0.2 mg/dL) Urine Leukocyte Esterase Small (NEG) Urine RBC 1-2 /HPF (0-2) Urine WBC 20-40 /HPF (0-4) Urine Squamous Epithelial Cells Many /LPF Urine Renal Epithelial Cells Few /LPF Urine Bacteria Few /HPF (0-FEW) Magnesium Level 1.8 mg/dL (1.8-2.4) Triglycerides Level 150 mg/dL (0-150) Cholesterol Level 195 mg/dL (0-200) LDL Cholesterol, Calculated 123 mg/dL (0-100) VLDL Cholesterol, Calculated 30 mg/dL (0-40) Non-HDL Cholesterol Calculated 153 mg/dL (0-129) HDL Cholesterol 42 mg/dL (40-60) Cholesterol/HDL Ratio 4.6 Test 10/20/19 10:35 10/20/19 11:45 Creatine Kinase 473 U/L (26-192) Troponin I Quantitative 0.093 ng/mL (0.000-0.055) RF-Xci-L-Type Natriuretic Peptide 97796 pg/mL (0-449) Glucose (Fingerstick) 88 mg/dL (70-99) Laboratory Tests Test 10/19/19 17:12 10/19/19 17:40 10/19/19 21:58 10/20/19 01:12 White Blood Count 11.3 x10^3/uL (4.0-11.0) Red Blood Count 3.08 x10^6/uL (3.50-5.40) Hemoglobin 9.9 g/dL (12.0-15.5) Hematocrit 28.9 % (36.0-47.0) Mean Corpuscular Volume 94 fL (79-100) Mean Corpuscular Hemoglobin 32 pg (25-35) Mean Corpuscular Hemoglobin Concent 34 g/dL (31-37) Red Cell Distribution Width 15.3 % (11.5-14.5) Platelet Count 188 x10^3/uL (140-400) Neutrophils (%) (Auto) 86 % (31-73) Lymphocytes (%) (Auto) 7 % (24-48) Monocytes (%) (Auto) 7 % (0-9) Eosinophils (%) (Auto) 0 % (0-3) Basophils (%) (Auto) 0 % (0-3) Neutrophils # (Auto) 9.7 x10^3/uL (1.8-7.7) Lymphocytes # (Auto) 0.8 x10^3/uL (1.0-4.8) Monocytes # (Auto) 0.8 x10^3/uL (0.0-1.1) Eosinophils # (Auto) 0.0 x10^3/uL (0.0-0.7) Basophils # (Auto) 0.0 x10^3/uL (0.0-0.2) Segmented Neutrophils % 86 % (35-66) Lymphocytes % 10 % (24-48) Monocytes % 4 % (0-10) Toxic Granulation Slight Platelet Estimate Adequate (ADEQUATE) Polychromasia Slight Prothrombin Time 13.8 SEC (11.7-14.0) Prothromb Time International Ratio 1.1 (0.8-1.1) Activated Partial Thromboplast Time 41 SEC (24-38) Sodium Level 137 mmol/L (136-145) 140 mmol/L (136-145) Potassium Level 4.5 mmol/L (3.5-5.1) 4.3 mmol/L (3.5-5.1) Chloride Level 104 mmol/L (98-107) 104 mmol/L (98-107) Carbon Dioxide Level 23 mmol/L (21-32) 24 mmol/L (21-32) Anion Gap 10 (6-14) 12 (6-14) Blood Urea Nitrogen 35 mg/dL (7-20) 33 mg/dL (7-20) Creatinine 1.6 mg/dL (0.6-1.0) 1.7 mg/dL (0.6-1.0) Estimated GFR (Cockcroft-Gault) 30.7 28.6 BUN/Creatinine Ratio 22 (6-20) Glucose Level 96 mg/dL (70-99) 86 mg/dL (70-99) Lactic Acid Level 1.1 mmol/L (0.4-2.0) Calcium Level 9.3 mg/dL (8.5-10.1) 8.4 mg/dL (8.5-10.1) Total Bilirubin 0.3 mg/dL (0.2-1.0) Aspartate Amino Transf (AST/SGOT) 47 U/L (15-37) Alanine Aminotransferase (ALT/SGPT) 90 U/L (14-59) Alkaline Phosphatase 137 U/L (46-116) Creatine Kinase 435 U/L (26-192) Creatine Kinase MB (Mass) 5.0 ng/mL (0.0-3.6) Creatine Kinase MB Relative Index 1.1 % (0-4) Troponin I Quantitative 0.088 ng/mL (0.000-0.055) 0.099 ng/mL (0.000-0.055) 0.105 ng/mL (0.000-0.055) ZJ-Nuf-W-Type Natriuretic Peptide 05338 pg/mL (0-449) Total Protein 6.7 g/dL (6.4-8.2) Albumin 3.2 g/dL (3.4-5.0) Albumin/Globulin Ratio 0.9 (1.0-1.7) Lipase 57 U/L (73-393) Urine Collection Type Unknown Urine Color Yellow Urine Clarity Clear Urine pH 6.0 (<5.0-8.0) Urine Specific [place] 1.010 (1.000-1.030) Urine Protein >=300 mg/dL (NEG-TRACE) Urine Glucose (UA) Negative mg/dL (NEG) Urine Ketones (Stick) Negative mg/dL (NEG) Urine Blood Moderate (NEG) Urine Nitrite Negative (NEG) Urine Bilirubin Negative (NEG) Urine Urobilinogen Dipstick 0.2 mg/dL (0.2 mg/dL) Urine Leukocyte Esterase Small (NEG) Urine RBC 1-2 /HPF (0-2) Urine WBC 20-40 /HPF (0-4) Urine Squamous Epithelial Cells Many /LPF Urine Renal Epithelial Cells Few /LPF Urine Bacteria Few /HPF (0-FEW) Magnesium Level 1.8 mg/dL (1.8-2.4) Triglycerides Level 150 mg/dL (0-150) Cholesterol Level 195 mg/dL (0-200) LDL Cholesterol, Calculated 123 mg/dL (0-100) VLDL Cholesterol, Calculated 30 mg/dL (0-40) Non-HDL Cholesterol Calculated 153 mg/dL (0-129) HDL Cholesterol 42 mg/dL (40-60) Cholesterol/HDL Ratio 4.6 Test 10/20/19 10:35 10/20/19 11:45 Creatine Kinase 473 U/L (26-192) Troponin I Quantitative 0.093 ng/mL (0.000-0.055) NY-Wgg-K-Type Natriuretic Peptide 52270 pg/mL (0-449) Glucose (Fingerstick) 88 mg/dL (70-99) Images Images NDICATION: Epigastric pain with radiation to back TECHNIQUE: Sequential axial images through the chest, abdomen and pelvis obtained without IV contrast. Sagittal and coronal reformatted images were reconstructed from the axial data and reviewed. Comparisons: 09/06/2019 FINDINGS: Visualized portions of the thyroid are unremarkable. No enlarged mediastinal lymph nodes are identified. Heart size is normal. No pericardial effusion. Mild coronary artery calcifications. Thoracic aorta has a normal course and caliber. Pulmonary artery is not enlarged. Airways are patent. No consolidation or pneumothorax. No suspicious lung nodules. No pleural effusion or thickening. Evaluation of solid organs is limited given noncontrast technique. Liver, spleen, pancreas, and adrenals are unremarkable. Gallbladder surgically absent. No perinephric inflammation or hydronephrosis. Bilateral renal cystic lesions are noted incompletely characterized on this exam. No renal or ureteral calculi are identified. Bladder is distended and appears thin-walled. Uterus is absent. No abnormal adnexal mass. Extensive diverticulosis is noted within the descending and sigmoid colon without evidence of acute diverticulitis. Remainder of the large and small bowel are unremarkable. No obstruction. No free intra-abdominal air or fluid. Moderate-sized hiatal hernia. Abdominal aorta has a stable course and caliber. No enlarged abdominal lymph nodes are identified. No suspicious osseous lesions or acute fractures. IMPRESSION: 1. Extensive diverticulosis without evidence of acute diverticulitis. 2. No acute process identified within the chest. 3. Moderate-sized hiatal hernia. VTE Prophylaxis Ordered VTE Prophylaxis Devices: No VTE Pharmacological Prophylaxi: Yes Assessment/Plan Assessment/Plan Atypical chest pain Elevated troponin Elevated BNP Vasomotor nephropathy Malnutrition Plan: Patient's troponin remained stable. Suspect atypical chest pain is gastric in etiology, or secondary to the hiatal hernia seen on CT abdomen pelvis. Consult cardiology, consult GI. Will obtain TTE. Will performed gentle diuresis and IV normal saline for elevated BNP and vasomotor nephropathy. GI cocktail ordered. VTE prophylaxis. Full code. Justifications for Admission Other Justification JUSTIN OVIEDO MD Oct 20, 2019 17:07
[2019-10-20] MEDS: CARVEDILOL 12.5 MG TABLET. PO SCH (17:23)
[2019-10-20] MEDS: ONDANSETRON PF 4 MG/2 ML VIAL. IVP PRN (23:37)
[2019-10-21 03:04] VITALS: BP 154/61
[2019-10-21 05:01] LABS: BASO % 0 % (0-3); EOS % 0 % (0-3); HEMATOCRIT 29.5 % (36.0-47.0); LYMPH # 0.6 x10^3/uL (1.0-4.8); LYMPH % 6 % (24-48); MEAN CORPUSCULAR HEMOGLOBIN 32 pg (25-35); MEAN CORPUSCULAR HGB CONC 34 g/dL (31-37); MEAN CORPUSCULAR VOLUME 93 fL (79-100); MONO # 0.8 x10^3/uL (0.0-1.1); MONO % 10 % (0-9); NEUT # 7.5 x10^3/uL (1.8-7.7); NEUT % 84 % (31-73); PLATELET COUNT 187 x10^3/uL (140-400); RED BLOOD COUNT 3.18 x10^6/uL (3.50-5.40)
[2019-10-21 05:28] LABS: CALCIUM 8.9 mg/dL (8.5-10.1); CREATININE 1.8 mg/dL (0.6-1.0); GFR 26.8; POTASSIUM 4.1 mmol/L (3.5-5.1)
[2019-10-21 07:00] VITALS: BP 123/84
--- NOTE | 2019-10-21 07:43 | NUR ---
pt family to bring in home medications, informed an rn pmrn
[2019-10-21] MEDS: clonazePAM 0.5 MG TABLET PO PRN ×2 (07:50→20:19)
[2019-10-21] MEDS: ONDANSETRON PF 4 MG/2 ML VIAL. IVP PRN (07:53)
[2019-10-21] MEDS: INSULIN LISPRO 300 UNITS/3 ML VIAL. SQ SCH ×3 (08:00→17:00)
--- NOTE | 2019-10-21 08:16 | PDOC ---
MEAGAN AMANDA GOLF [employer] RANGER 10/21/19 0815: CARDIO Progress Notes Date and Time Date of Service 10/21/2019 Time of Evaluation 1010 Subjective Subjective: No Chest Pain, No shortness of breath, No Palpitations, Other (still has epigastric pain and signifinatly anxious) Vitals Vitals Vital Signs Date Time Temp Pulse Resp B/P (MAP) Pulse Ox O2 Delivery O2 Flow Rate FiO2 10/21/19 03:04 98.3 80 18 154/61 (92) 97 Room Air 98.3 Weight Weight [ ] Input and Output Intake and Output Intake and Output 10/21/19 07:00 Intake Total 100 ml Output Total 1150 ml Balance -1050 ml Intake Oral 100 ml Output Urine Total 1150 ml Laboratory Labs Laboratory Tests Test 10/20/19 10:35 10/20/19 11:45 10/20/19 16:53 10/20/19 20:49 Creatine Kinase 473 U/L (26-192) Troponin I Quantitative 0.093 ng/mL (0.000-0.055) GZ-Qqx-O-Type Natriuretic Peptide 10865 pg/mL (0-449) Glucose (Fingerstick) 88 mg/dL (70-99) 107 mg/dL (70-99) 97 mg/dL (70-99) Test 10/21/19 04:20 10/21/19 07:45 White Blood Count 9.0 x10^3/uL (4.0-11.0) Red Blood Count 3.18 x10^6/uL (3.50-5.40) Hemoglobin 10.0 g/dL (12.0-15.5) Hematocrit 29.5 % (36.0-47.0) Mean Corpuscular Volume 93 fL (79-100) Mean Corpuscular Hemoglobin 32 pg (25-35) Mean Corpuscular Hemoglobin Concent 34 g/dL (31-37) Red Cell Distribution Width 15.0 % (11.5-14.5) Platelet Count 187 x10^3/uL (140-400) Neutrophils (%) (Auto) 84 % (31-73) Lymphocytes (%) (Auto) 6 % (24-48) Monocytes (%) (Auto) 10 % (0-9) Eosinophils (%) (Auto) 0 % (0-3) Basophils (%) (Auto) 0 % (0-3) Neutrophils # (Auto) 7.5 x10^3/uL (1.8-7.7) Lymphocytes # (Auto) 0.6 x10^3/uL (1.0-4.8) Monocytes # (Auto) 0.8 x10^3/uL (0.0-1.1) Eosinophils # (Auto) 0.0 x10^3/uL (0.0-0.7) Basophils # (Auto) 0.0 x10^3/uL (0.0-0.2) Sodium Level 141 mmol/L (136-145) Potassium Level 4.1 mmol/L (3.5-5.1) Chloride Level 104 mmol/L (98-107) Carbon Dioxide Level 24 mmol/L (21-32) Anion Gap 13 (6-14) Blood Urea Nitrogen 35 mg/dL (7-20) Creatinine 1.8 mg/dL (0.6-1.0) Estimated GFR (Cockcroft-Gault) 26.8 Glucose Level 78 mg/dL (70-99) Calcium Level 8.9 mg/dL (8.5-10.1) Glucose (Fingerstick) 98 mg/dL (70-99) Physical Exam HEENT: Neck Supple W Full Motion Chest: Symmetric LUNGS: Clear to Auscultation Heart: RRR (SR no ectopies) Abdomen: Other (epigastric tenderness) Extremities: No Edema, No Calf Tenderness Neurology: alert, oriented, follow commands Assessment Assessment 1. Atypical CP: more epigastric pain. suspect GI, PUD? doubt ACS 2. Accelerated HTN: now well controlled 3. Elevated troponin: peaked at 0.1, No acute EKG changes. Suspect demand media jori type 2 with high BP and renal insufficiency 4. Diastolic CHF: no overt symptoms, compensated. EF and WM nml 5. CAD; past CABG.08/2016 sees [facility] cardiology. 6. Known LE PAD: no claudication. Prior repair to right femoral and known left iliac artery aneurysm followed by Dr. Carrillo as an outpt 7. HLP: LDL 123 8. CKD3: appears to be her baseline. Noted recently in PCP office with Cr at 2.5 9. Persistent UTI: was given levaquin 10/18 but pt only took a few. Cx revealed Enterococcus faecalis 10/11/2019 per chart review. Defer to PCP 10. Elevated pro NT BNP and Mild rhabdomyolysis: possibly from significantly high BP with underlying CKD initially noted at BP 243/112 11. Uncontrolled Anxiety 12. GERD with moderate size HH: GI following 13. Metabolic syndrome: BG controlled 14. Likely dementia; very forgetful Recommendations CT chest/abd/pelvis reviewed. Secondary prevention measures. ECASA. Continue BP regimen GI cocktail PPI Not on statin per home meds. Start at lower dose prior to DC and uptitrate as an outpt Consider for outpt stress test. Follow up with [facility] cardiology Justicifation of Admission Dx: Justifications for Admission: Justification of Admission Dx: Yes CLOTILDE SAHNI MD 10/21/19 1642: CARDIO Progress Notes Plan Plan The patient was seen and interviewed as well as examined at the bedside. The chart was reviewed. The case was discussed. Agree with the plan of care. MEAGAN AMANDA APRN Oct 21, 2019 08:15 CLOTILDE SAHNI MD Oct 21, 2019 16:42
[2019-10-21] MEDS ORDERED: LIDO:MAALOX 1:1 20 ML SINGLE DOSE. PO PRN (10:00)
[2019-10-21] MEDS: CARVEDILOL 12.5 MG TABLET. PO SCH ×2 (10:08→18:01)
[2019-10-21] MEDS: PANTOPRAZOLE 40 MG TABLET.DR. PO SCH (10:08)
[2019-10-21] MEDS: amLODIPine BESYLATE 10 MG TABLET PO SCH (10:09)
[2019-10-21] MEDS: HEPARIN for SUB-Q USE 5,000 UNIT/ML VIAL. SQ SCH ×2 (10:15→20:23)
[2019-10-21 11:00] VITALS: BP 124/68
--- NOTE | 2019-10-21 13:10 | PDOC ---
Date of Service: DATE: 10/21/19 TIME: 13:03 Subjective: Subjective: Cold. Not doing good. Wants to lay down but not in that bed. Had some diarrhea. Epigastric pain. Objective: Objective: D/w nurse - seems very anxious. Loose stools after suppository NPO - not sure why. Given GI cocktail again. Vital Signs: Vital Signs Date Time Temp Pulse Resp B/P (MAP) Pulse Ox O2 Delivery O2 Flow Rate FiO2 10/21/19 11:00 98.2 89 18 124/68 (86) 97 Room Air 98.2 Labs: Laboratory Tests Test 10/20/19 16:53 10/20/19 20:49 10/21/19 04:20 10/21/19 07:45 Glucose (Fingerstick) 107 mg/dL 97 mg/dL 98 mg/dL White Blood Count 9.0 x10^3/uL Red Blood Count 3.18 x10^6/uL Hemoglobin 10.0 g/dL Hematocrit 29.5 % Mean Corpuscular Volume 93 fL Mean Corpuscular Hemoglobin 32 pg Mean Corpuscular Hemoglobin Concent 34 g/dL Red Cell Distribution Width 15.0 % Platelet Count 187 x10^3/uL Neutrophils (%) (Auto) 84 % Lymphocytes (%) (Auto) 6 % Monocytes (%) (Auto) 10 % Eosinophils (%) (Auto) 0 % Basophils (%) (Auto) 0 % Neutrophils # (Auto) 7.5 x10^3/uL Lymphocytes # (Auto) 0.6 x10^3/uL Monocytes # (Auto) 0.8 x10^3/uL Eosinophils # (Auto) 0.0 x10^3/uL Basophils # (Auto) 0.0 x10^3/uL Sodium Level 141 mmol/L Potassium Level 4.1 mmol/L Chloride Level 104 mmol/L Carbon Dioxide Level 24 mmol/L Anion Gap 13 Blood Urea Nitrogen 35 mg/dL Creatinine 1.8 mg/dL Estimated GFR (Cockcroft-Gault) 26.8 Glucose Level 78 mg/dL Calcium Level 8.9 mg/dL Test 10/21/19 11:52 Glucose (Fingerstick) 96 mg/dL URINE CULTURE Final Final LESS THAN 10,000 CFU/ML: GROWTH NOT INDICATIVE OF INFECTION on 10/21/19 at 0932 PE: GEN: NAD, in recliner LUNGS: CTAB HEART: RRR ABD: doesn't seem tender NEURO/PSYCH: confused, anxious A/P: Epigastric pain GERD H/o WES HTN, CAD, dementia -- As yesterday, okay to eat per GI - d/w nurse. Continue PPI. Justicifation of Admission Dx: Justifications for Admission: Justification of Admission Dx: Yes HEATHER MOSLEY Oct 21, 2019 13:10
--- NOTE | 2019-10-21 14:22 | NUR ---
SS following up with discharge planning. SS reviewed pt chart and discussed with pt RN. Pt is currently on room air. PT/OT recommended home with home healthcare. SS met with pt and contacted pt's spouse and discussed home healthcare. Pt and pt's spouse declined home healthcare at this time. SS will continue to follow for discharge planning.
[2019-10-21 15:00] VITALS: BP 167/68
[2019-10-21] MEDS: traMADol 50 MG TABLET PO PRN (18:00)
[2019-10-21 19:35] VITALS: BP 158/79
--- NOTE | 2019-10-21 20:58 | PDOC ---
PROGRESS NOTES Date of Service: DATE: 10/21/19 TIME: 20:58 Chief Complaint Chief Complaint Epigastric pain History of Present Illness History of Present Illness Patient reports continued intermittent dyspepsia and burning epigastric pain. Denies any improvemnt with current management; refusing some meds. Vitals Vitals Vital Signs Date Time Temp Pulse Resp B/P (MAP) Pulse Ox O2 Delivery O2 Flow Rate FiO2 10/21/19 19:35 97.8 56 21 158/79 (105) 97 Room Air 97.8 Physical Exam General: Alert, Oriented X3, Cooperative, No acute distress Heart: Regular rate (SR), Normal S1, Normal S2, Other (2/6 systolic) Lungs: Wheezing Abdomen: Normal bowel sounds, Soft, Other (Epigastric tenderness) Extremities: No clubbing, No edema, Normal pulses Skin: No rashes, No breakdown Labs LABS Laboratory Tests Test 10/21/19 04:20 10/21/19 07:45 10/21/19 11:52 10/21/19 16:35 White Blood Count 9.0 x10^3/uL (4.0-11.0) Red Blood Count 3.18 x10^6/uL (3.50-5.40) Hemoglobin 10.0 g/dL (12.0-15.5) Hematocrit 29.5 % (36.0-47.0) Mean Corpuscular Volume 93 fL (79-100) Mean Corpuscular Hemoglobin 32 pg (25-35) Mean Corpuscular Hemoglobin Concent 34 g/dL (31-37) Red Cell Distribution Width 15.0 % (11.5-14.5) Platelet Count 187 x10^3/uL (140-400) Neutrophils (%) (Auto) 84 % (31-73) Lymphocytes (%) (Auto) 6 % (24-48) Monocytes (%) (Auto) 10 % (0-9) Eosinophils (%) (Auto) 0 % (0-3) Basophils (%) (Auto) 0 % (0-3) Neutrophils # (Auto) 7.5 x10^3/uL (1.8-7.7) Lymphocytes # (Auto) 0.6 x10^3/uL (1.0-4.8) Monocytes # (Auto) 0.8 x10^3/uL (0.0-1.1) Eosinophils # (Auto) 0.0 x10^3/uL (0.0-0.7) Basophils # (Auto) 0.0 x10^3/uL (0.0-0.2) Sodium Level 141 mmol/L (136-145) Potassium Level 4.1 mmol/L (3.5-5.1) Chloride Level 104 mmol/L (98-107) Carbon Dioxide Level 24 mmol/L (21-32) Anion Gap 13 (6-14) Blood Urea Nitrogen 35 mg/dL (7-20) Creatinine 1.8 mg/dL (0.6-1.0) Estimated GFR (Cockcroft-Gault) 26.8 Glucose Level 78 mg/dL (70-99) Calcium Level 8.9 mg/dL (8.5-10.1) Glucose (Fingerstick) 98 mg/dL (70-99) 96 mg/dL (70-99) 84 mg/dL (70-99) Review of Systems Review of Systems Abdominal pain, dyspepsia. Denies fever, denies vomiting, denies chest pain. Assessment and Plan Assessmemt and Plan Problems Medical Problems: (1) CHF (congestive heart failure) Status: Acute (2) Elevated troponin Status: Acute (3) Hiatal hernia Status: Acute Plan: Will obtain H. Pylori fecal Ag to rule out peptic ulcer. Comment Review of Relevant I have reviewed the following items matti (where applicable) has been applied. Labs Laboratory Tests Test 10/19/19 21:58 10/20/19 01:12 10/20/19 10:35 10/20/19 11:45 Troponin I Quantitative 0.099 ng/mL (0.000-0.055) 0.105 ng/mL (0.000-0.055) 0.093 ng/mL (0.000-0.055) Sodium Level 140 mmol/L (136-145) Potassium Level 4.3 mmol/L (3.5-5.1) Chloride Level 104 mmol/L (98-107) Carbon Dioxide Level 24 mmol/L (21-32) Anion Gap 12 (6-14) Blood Urea Nitrogen 33 mg/dL (7-20) Creatinine 1.7 mg/dL (0.6-1.0) Estimated GFR (Cockcroft-Gault) 28.6 Glucose Level 86 mg/dL (70-99) Calcium Level 8.4 mg/dL (8.5-10.1) Magnesium Level 1.8 mg/dL (1.8-2.4) Triglycerides Level 150 mg/dL (0-150) Cholesterol Level 195 mg/dL (0-200) LDL Cholesterol, Calculated 123 mg/dL (0-100) VLDL Cholesterol, Calculated 30 mg/dL (0-40) Non-HDL Cholesterol Calculated 153 mg/dL (0-129) HDL Cholesterol 42 mg/dL (40-60) Cholesterol/HDL Ratio 4.6 Creatine Kinase 473 U/L (26-192) PO-Rck-M-Type Natriuretic Peptide 55475 pg/mL (0-449) Glucose (Fingerstick) 88 mg/dL (70-99) Test 10/20/19 16:53 10/20/19 20:49 10/21/19 04:20 10/21/19 07:45 Glucose (Fingerstick) 107 mg/dL (70-99) 97 mg/dL (70-99) 98 mg/dL (70-99) White Blood Count 9.0 x10^3/uL (4.0-11.0) Red Blood Count 3.18 x10^6/uL (3.50-5.40) Hemoglobin 10.0 g/dL (12.0-15.5) Hematocrit 29.5 % (36.0-47.0) Mean Corpuscular Volume 93 fL (79-100) Mean Corpuscular Hemoglobin 32 pg (25-35) Mean Corpuscular Hemoglobin Concent 34 g/dL (31-37) Red Cell Distribution Width 15.0 % (11.5-14.5) Platelet Count 187 x10^3/uL (140-400) Neutrophils (%) (Auto) 84 % (31-73) Lymphocytes (%) (Auto) 6 % (24-48) Monocytes (%) (Auto) 10 % (0-9) Eosinophils (%) (Auto) 0 % (0-3) Basophils (%) (Auto) 0 % (0-3) Neutrophils # (Auto) 7.5 x10^3/uL (1.8-7.7) Lymphocytes # (Auto) 0.6 x10^3/uL (1.0-4.8) Monocytes # (Auto) 0.8 x10^3/uL (0.0-1.1) Eosinophils # (Auto) 0.0 x10^3/uL (0.0-0.7) Basophils # (Auto) 0.0 x10^3/uL (0.0-0.2) Sodium Level 141 mmol/L (136-145) Potassium Level 4.1 mmol/L (3.5-5.1) Chloride Level 104 mmol/L (98-107) Carbon Dioxide Level 24 mmol/L (21-32) Anion Gap 13 (6-14) Blood Urea Nitrogen 35 mg/dL (7-20) Creatinine 1.8 mg/dL (0.6-1.0) Estimated GFR (Cockcroft-Gault) 26.8 Glucose Level 78 mg/dL (70-99) Calcium Level 8.9 mg/dL (8.5-10.1) Test 10/21/19 11:52 10/21/19 16:35 Glucose (Fingerstick) 96 mg/dL (70-99) 84 mg/dL (70-99) Laboratory Tests Test 10/21/19 04:20 10/21/19 07:45 10/21/19 11:52 10/21/19 16:35 White Blood Count 9.0 x10^3/uL (4.0-11.0) Red Blood Count 3.18 x10^6/uL (3.50-5.40) Hemoglobin 10.0 g/dL (12.0-15.5) Hematocrit 29.5 % (36.0-47.0) Mean Corpuscular Volume 93 fL (79-100) Mean Corpuscular Hemoglobin 32 pg (25-35) Mean Corpuscular Hemoglobin Concent 34 g/dL (31-37) Red Cell Distribution Width 15.0 % (11.5-14.5) Platelet Count 187 x10^3/uL (140-400) Neutrophils (%) (Auto) 84 % (31-73) Lymphocytes (%) (Auto) 6 % (24-48) Monocytes (%) (Auto) 10 % (0-9) Eosinophils (%) (Auto) 0 % (0-3) Basophils (%) (Auto) 0 % (0-3) Neutrophils # (Auto) 7.5 x10^3/uL (1.8-7.7) Lymphocytes # (Auto) 0.6 x10^3/uL (1.0-4.8) Monocytes # (Auto) 0.8 x10^3/uL (0.0-1.1) Eosinophils # (Auto) 0.0 x10^3/uL (0.0-0.7) Basophils # (Auto) 0.0 x10^3/uL (0.0-0.2) Sodium Level 141 mmol/L (136-145) Potassium Level 4.1 mmol/L (3.5-5.1) Chloride Level 104 mmol/L (98-107) Carbon Dioxide Level 24 mmol/L (21-32) Anion Gap 13 (6-14) Blood Urea Nitrogen 35 mg/dL (7-20) Creatinine 1.8 mg/dL (0.6-1.0) Estimated GFR (Cockcroft-Gault) 26.8 Glucose Level 78 mg/dL (70-99) Calcium Level 8.9 mg/dL (8.5-10.1) Glucose (Fingerstick) 98 mg/dL (70-99) 96 mg/dL (70-99) 84 mg/dL (70-99) Microbiology 10/19/19 Urine Culture - Final, Complete Medications Current Medications Sodium Chloride 1,000 ml @ 1,000 mls/hr 1X ONCE IV Last administered on 10/19/19at 17:18; Start 10/19/19 at 16:45; Stop 10/19/19 at 17:44; Status DC Labetalol HCl (Normodyne Iv Push) 20 mg 1X ONCE IVP Last administered on 10/19/19at 17:18; Start 10/19/19 at 17:00; Stop 10/19/19 at 17:01; Status DC Ondansetron HCl (Zofran) 4 mg PRN Q8HRS PRN IV NAUSEA/VOMITING Last administered on 10/19/19at 22:10; Start 10/19/19 at 19:15; Stop 10/20/19 at 19:14; Status DC Bumetanide (Bumex) 1 mg 1X ONCE IV Last administered on 10/19/19at 20:29; Start 10/19/19 at 19:15; Stop 10/19/19 at 19:16; Status DC Aspirin (Soco Aspirin) 325 mg 1X ONCE PO Last administered on 10/19/19at 20:29; Start 10/19/19 at 19:15; Stop 10/19/19 at 19:16; Status DC Insulin Human Lispro (HumaLOG) 0-5 UNITS TIDWMEALS SQ ; Start 10/20/19 at 08:00 Dextrose (Dextrose 50%-Water Syringe) 12.5 gm PRN Q15MIN PRN IV SEE COMMENTS; Start 10/19/19 at 19:15 Morphine Sulfate (Morphine Sulfate) 2 mg PRN Q2HR PRN IV SEVERE PAIN 7-10 Last administered on 10/20/19at 17:23; Start 10/20/19 at 03:00 Hydralazine HCl (Apresoline Inj) 10 mg PRN Q4HRS PRN IVP ELEVATED BP, SEE COMMENTS Last administered on 10/20/19at 17:24; Start 10/20/19 at 03:00 Enoxaparin Sodium (Lovenox Per Pharmacy Prophylaxis Dosing) 1 each PRN DAILY PRN MC SEE COMMENTS; Start 10/20/19 at 03:00; Stop 10/20/19 at 15:31; Status DC Enoxaparin Sodium (Lovenox 30mg Syringe) 30 mg Q24H SQ Last administered on 10/20/19at 05:23; Start 10/20/19 at 06:00; Stop 10/20/19 at 15:32; Status DC Pantoprazole Sodium (PROTONIX VIAL for IV PUSH) 40 mg PRN 1X PRN IVP gerd Last administered on 10/20/19at 17:33; Start 10/20/19 at 09:15 Multi-Ingredient Mouthwash/Gargle (Gi Cocktail) 20 ml 1X ONCE SWSW Last administered on 10/20/19at 10:14; Start 10/20/19 at 10:00; Stop 10/20/19 at 10:01; Status DC Clonazepam (KlonoPIN) 0.5 mg PRN BID PRN PO ANXIETY / AGITATION Last administered on 10/21/19at 20:19; Start 10/20/19 at 11:30 Carvedilol (Coreg) 25 mg BIDWMEALS PO Last administered on 10/21/19at 18:01; Start 10/20/19 at 17:00 Amlodipine Besylate (Norvasc) 10 mg DAILY PO Last administered on 10/21/19 10:09; Start 10/20/19 at 12:00 Ondansetron HCl (Zofran) 4 mg PRN Q6HRS PRN IVP NAUSEA/VOMITING Last administered on 10/21/19 07:53; Start 10/20/19 at 15:15 Bisacodyl (Dulcolax Supp) 10 mg PRN DAILY PRN NV CONSTIPATION Last administered on 10/21/19 06:31; Start 10/20/19 at 15:15 Heparin Sodium (Porcine) (Heparin Sodium) 5,000 unit Q12HR SQ Last administered on 10/21/19at 20:23; Start 10/21/19 at 09:00 Sodium Chloride 1,000 ml @ 0 mls/hr Q0M IV ; Start 10/20/19 at 15:30 Furosemide (Lasix) 40 mg 1X ONCE PO Last administered on 10/20/19at 17:23; Start 10/20/19 at 16:00; Stop 10/20/19 at 16:01; Status DC Pantoprazole Sodium (Protonix) 40 mg DAILYAC PO Last administered on 10/21/19at 10:08; Start 10/21/19 at 07:30 Multi-Ingredient Mouthwash/Gargle (Gi Cocktail) 20 ml 1X PRN PRN PO CHEST PAIN Last administered on 10/21/19at 10:07; Start 10/21/19 at 10:00 Tramadol HCl (Ultram) 50 mg PRN Q6HRS PRN PO PAIN Last administered on 10/21/19at 18:00; Start 10/21/19 at 18:00 Active Scripts Active [Pantoprazole] 40 MG Tablet.dr 40 Mg PO DAILYAC 30 Days Gabapentin 600 Mg Tablet 600 Mg PO TID 30 Days Trazodone Hcl 50 Mg Tablet 50 Mg PO QHS 30 Days Quetiapine Fumarate 25 Mg Tablet 25 Mg PO DAILY 30 Days Furosemide 40 Mg Tablet 40 Mg PO DAILY 30 Days Reported Probiotic (Lactobacillus Combo No.10) 1 Each Capsule 1 Tab PO DAILY 30 Days Vitamin B Complex 1 Each Capsule 1 Each PO DAILY Ferrous Sulfate 325 Mg Tablet 1 Tab PO DAILY Losartan Potassium 50 Mg Tablet 50 Mg PO DAILY Dicyclomine Hcl 10 Mg Capsule 10 Mg PO DAILY Carvedilol 25 Mg Tablet 1 Tab PO BID Famotidine 20 Mg Tablet 20 Mg PO BID Amlodipine Besylate 5 Mg Tablet 5 Mg PO DAILY Vitals/I & O Vital Sign - Last 24 Hours 10/20/19 10/21/19 10/21/19 10/21/19 23:53 03:04 07:00 08:00 Temp 98.5 98.3 98.1 98.5 98.3 98.1 Pulse 91 80 86 Resp 18 18 18 B/P (MAP) 155/82 (106) 154/61 (92) 123/84 (97) Pulse Ox 96 97 98 O2 Delivery Room Air Room Air Room Air Room Air 10/21/19 10/21/19 10/21/19 10/21/19 10:08 10:09 11:00 15:00 Temp 98.2 98.0 98.2 98.0 Pulse 86 86 89 85 Resp 18 20 B/P (MAP) 123/84 123/84 124/68 (86) 167/68 (101) Pulse Ox 97 97 O2 Delivery Room Air Room Air 10/21/19 10/21/19 10/21/19 10/21/19 18:00 18:01 19:00 19:35 Temp 97.8 97.8 Pulse 85 56 Resp 20 21 B/P (MAP) 167/68 158/79 (105) Pulse Ox 97 97 97 O2 Delivery Room Air Room Air Room Air Intake and Output 10/20/19 10/20/19 10/21/19 15:00 23:00 07:00 Intake Total 0 ml 100 ml 0 ml Output Total 50 ml 300 ml 800 ml Balance -50 ml -200 ml -800 ml Justicifation of Admission Dx: Justifications for Admission: Justification of Admission Dx: Yes JUSTIN OVIEDO MD Oct 21, 2019 20:58
[2019-10-21 23:00] VITALS: BP 145/89
[2019-10-22 03:45] VITALS: BP 150/85
[2019-10-22 05:29] LABS: BASO % 0 % (0-3); EOS # 0.1 x10^3/uL (0.0-0.7); EOS % 1 % (0-3); HEMATOCRIT 26.9 % (36.0-47.0); HEMOGLOBIN 9.1 g/dL (12.0-15.5); LYMPH # 0.5 x10^3/uL (1.0-4.8); LYMPH % 7 % (24-48); MEAN CORPUSCULAR HEMOGLOBIN 32 pg (25-35); MEAN CORPUSCULAR HGB CONC 34 g/dL (31-37); MEAN CORPUSCULAR VOLUME 94 fL (79-100); MONO # 0.7 x10^3/uL (0.0-1.1); MONO % 9 % (0-9); NEUT % 82 % (31-73); PLATELET COUNT 155 x10^3/uL (140-400); RED BLOOD COUNT 2.88 x10^6/uL (3.50-5.40); RED CELL DISTRIBUTION WIDTH 14.9 % (11.5-14.5); WHITE BLOOD COUNT 7.3 x10^3/uL (4.0-11.0)
[2019-10-22 05:52] LABS: CALCIUM 8.1 mg/dL (8.5-10.1); CREATININE 1.9 mg/dL (0.6-1.0); GFR 25.2; POTASSIUM 3.7 mmol/L (3.5-5.1)
[2019-10-22 07:00] VITALS: BP 183/77
[2019-10-22] MEDS: INSULIN LISPRO 300 UNITS/3 ML VIAL. SQ SCH ×3 (08:00→17:00)
[2019-10-22] MEDS: traMADol 50 MG TABLET PO PRN ×2 (08:29→15:24)
[2019-10-22] MEDS: clonazePAM 0.5 MG TABLET PO PRN ×2 (08:29→20:25)
[2019-10-22] MEDS: CARVEDILOL 12.5 MG TABLET. PO SCH ×2 (08:30→17:21)
[2019-10-22] MEDS: PANTOPRAZOLE 40 MG TABLET.DR. PO SCH (08:30)
[2019-10-22] MEDS: amLODIPine BESYLATE 10 MG TABLET PO SCH (08:30)
[2019-10-22] MEDS: HEPARIN for SUB-Q USE 5,000 UNIT/ML VIAL. SQ SCH ×2 (08:33→20:27)
--- NOTE | 2019-10-22 09:53 | PDOC ---
PROGRESS NOTES Date of Service: DATE: 10/22/19 TIME: 09:53 Chief Complaint Chief Complaint impression Epigastric pain HTN, CAD, mildly elevated troponin, CKD H/o WES H/o GERD CRC screen - last in 2007 Diverticulosis H/o SB AVMs H/o C Diff S/p cholecystectomy Persistent UTI: was given levaquin 10/18 but pt only took a few. Cx revealed Enterococcus faecalis 10/11/2019 per chart review PLAN CONSULT NEPHROLOGY Cardiology following History of Present Illness History of Present Illness Patient reports continued intermittent dyspepsia and burning epigastric pain. Denies any improvemnt with current management; refusing some meds. Vitals Vitals Vital Signs Date Time Temp Pulse Resp B/P (MAP) Pulse Ox O2 Delivery O2 Flow Rate FiO2 10/22/19 09:29 18 Room Air 10/22/19 08:30 88 183/87 10/22/19 07:00 98.2 95 98.2 Physical Exam General: Alert, Oriented X3, Cooperative, No acute distress Heart: Regular rate (SR), Normal S1, Normal S2, Other (2/6 systolic) Lungs: Wheezing Abdomen: Normal bowel sounds, Soft, Other (Epigastric tenderness) Extremities: No clubbing, No edema, Normal pulses Skin: No rashes, No breakdown Labs LABS FINDINGS: Visualized portions of the thyroid are unremarkable. No enlarged mediastinal lymph nodes are identified. Heart size is normal. No pericardial effusion. Mild coronary artery calcifications. Thoracic aorta has a normal course and caliber. Pulmonary artery is not enlarged. Airways are patent. No consolidation or pneumothorax. No suspicious lung nodules. No pleural effusion or thickening. Evaluation of solid organs is limited given noncontrast technique. Liver, spleen, pancreas, and adrenals are unremarkable. Gallbladder surgically absent. No perinephric inflammation or hydronephrosis. Bilateral renal cystic lesions are noted incompletely characterized on this exam. No renal or ureteral calculi are identified. Bladder is distended and appears thin-walled. Uterus is absent. No abnormal adnexal mass. Extensive diverticulosis is noted within the descending and sigmoid colon without evidence of acute diverticulitis. Remainder of the large and small bowel are unremarkable. No obstruction. No free intra-abdominal air or fluid. Moderate-sized hiatal hernia. Abdominal aorta has a stable course and caliber. No enlarged abdominal lymph nodes are identified. No suspicious osseous lesions or acute fractures. IMPRESSION: 1. Extensive diverticulosis without evidence of acute diverticulitis. 2. No acute process identified within the chest. 3. Moderate-sized hiatal hernia. Exposure: One or more of the following in the visualized dose reduction techniques were utilized for this examination: 1. Automated exposure control 2. Adjustment of the MA and/or KV according to patient size 3. Use of iterative of reconstructive technique Electronically signed by: Erika Yoon MD (10/19/2019 6:28 PM) [id number] DICTATED and SIGNED BY: ERIKA YOON MD DATE: 10/19/19 1828 Laboratory Tests Test 10/21/19 11:52 10/21/19 16:35 10/21/19 21:21 10/22/19 04:45 Glucose (Fingerstick) 96 mg/dL (70-99) 84 mg/dL (70-99) 78 mg/dL (70-99) White Blood Count 7.3 x10^3/uL (4.0-11.0) Red Blood Count 2.88 x10^6/uL (3.50-5.40) Hemoglobin 9.1 g/dL (12.0-15.5) Hematocrit 26.9 % (36.0-47.0) Mean Corpuscular Volume 94 fL (79-100) Mean Corpuscular Hemoglobin 32 pg (25-35) Mean Corpuscular Hemoglobin Concent 34 g/dL (31-37) Red Cell Distribution Width 14.9 % (11.5-14.5) Platelet Count 155 x10^3/uL (140-400) Neutrophils (%) (Auto) 82 % (31-73) Lymphocytes (%) (Auto) 7 % (24-48) Monocytes (%) (Auto) 9 % (0-9) Eosinophils (%) (Auto) 1 % (0-3) Basophils (%) (Auto) 0 % (0-3) Neutrophils # (Auto) 6.0 x10^3/uL (1.8-7.7) Lymphocytes # (Auto) 0.5 x10^3/uL (1.0-4.8) Monocytes # (Auto) 0.7 x10^3/uL (0.0-1.1) Eosinophils # (Auto) 0.1 x10^3/uL (0.0-0.7) Basophils # (Auto) 0.0 x10^3/uL (0.0-0.2) Sodium Level 141 mmol/L (136-145) Potassium Level 3.7 mmol/L (3.5-5.1) Chloride Level 104 mmol/L (98-107) Carbon Dioxide Level 27 mmol/L (21-32) Anion Gap 10 (6-14) Blood Urea Nitrogen 40 mg/dL (7-20) Creatinine 1.9 mg/dL (0.6-1.0) Estimated GFR (Cockcroft-Gault) 25.2 Glucose Level 67 mg/dL (70-99) Calcium Level 8.1 mg/dL (8.5-10.1) Test 10/22/19 08:27 Glucose (Fingerstick) 77 mg/dL (70-99) Assessment and Plan Assessmemt and Plan Problems Medical Problems: (1) CHF (congestive heart failure) Status: Acute (2) Elevated troponin Status: Acute (3) Hiatal hernia Status: Acute Comment Review of Relevant I have reviewed the following items matti (where applicable) has been applied. Labs Laboratory Tests Test 10/20/19 10:35 10/20/19 11:45 10/20/19 16:53 10/20/19 20:49 Creatine Kinase 473 U/L (26-192) Troponin I Quantitative 0.093 ng/mL (0.000-0.055) PG-Tro-C-Type Natriuretic Peptide 41712 pg/mL (0-449) Glucose (Fingerstick) 88 mg/dL (70-99) 107 mg/dL (70-99) 97 mg/dL (70-99) Test 10/21/19 04:20 10/21/19 07:45 10/21/19 11:52 10/21/19 16:35 White Blood Count 9.0 x10^3/uL (4.0-11.0) Red Blood Count 3.18 x10^6/uL (3.50-5.40) Hemoglobin 10.0 g/dL (12.0-15.5) Hematocrit 29.5 % (36.0-47.0) Mean Corpuscular Volume 93 fL (79-100) Mean Corpuscular Hemoglobin 32 pg (25-35) Mean Corpuscular Hemoglobin Concent 34 g/dL (31-37) Red Cell Distribution Width 15.0 % (11.5-14.5) Platelet Count 187 x10^3/uL (140-400) Neutrophils (%) (Auto) 84 % (31-73) Lymphocytes (%) (Auto) 6 % (24-48) Monocytes (%) (Auto) 10 % (0-9) Eosinophils (%) (Auto) 0 % (0-3) Basophils (%) (Auto) 0 % (0-3) Neutrophils # (Auto) 7.5 x10^3/uL (1.8-7.7) Lymphocytes # (Auto) 0.6 x10^3/uL (1.0-4.8) Monocytes # (Auto) 0.8 x10^3/uL (0.0-1.1) Eosinophils # (Auto) 0.0 x10^3/uL (0.0-0.7) Basophils # (Auto) 0.0 x10^3/uL (0.0-0.2) Sodium Level 141 mmol/L (136-145) Potassium Level 4.1 mmol/L (3.5-5.1) Chloride Level 104 mmol/L (98-107) Carbon Dioxide Level 24 mmol/L (21-32) Anion Gap 13 (6-14) Blood Urea Nitrogen 35 mg/dL (7-20) Creatinine 1.8 mg/dL (0.6-1.0) Estimated GFR (Cockcroft-Gault) 26.8 Glucose Level 78 mg/dL (70-99) Calcium Level 8.9 mg/dL (8.5-10.1) Glucose (Fingerstick) 98 mg/dL (70-99) 96 mg/dL (70-99) 84 mg/dL (70-99) Test 10/21/19 21:21 10/22/19 04:45 10/22/19 08:27 Glucose (Fingerstick) 78 mg/dL (70-99) 77 mg/dL (70-99) White Blood Count 7.3 x10^3/uL (4.0-11.0) Red Blood Count 2.88 x10^6/uL (3.50-5.40) Hemoglobin 9.1 g/dL (12.0-15.5) Hematocrit 26.9 % (36.0-47.0) Mean Corpuscular Volume 94 fL (79-100) Mean Corpuscular Hemoglobin 32 pg (25-35) Mean Corpuscular Hemoglobin Concent 34 g/dL (31-37) Red Cell Distribution Width 14.9 % (11.5-14.5) Platelet Count 155 x10^3/uL (140-400) Neutrophils (%) (Auto) 82 % (31-73) Lymphocytes (%) (Auto) 7 % (24-48) Monocytes (%) (Auto) 9 % (0-9) Eosinophils (%) (Auto) 1 % (0-3) Basophils (%) (Auto) 0 % (0-3) Neutrophils # (Auto) 6.0 x10^3/uL (1.8-7.7) Lymphocytes # (Auto) 0.5 x10^3/uL (1.0-4.8) Monocytes # (Auto) 0.7 x10^3/uL (0.0-1.1) Eosinophils # (Auto) 0.1 x10^3/uL (0.0-0.7) Basophils # (Auto) 0.0 x10^3/uL (0.0-0.2) Sodium Level 141 mmol/L (136-145) Potassium Level 3.7 mmol/L (3.5-5.1) Chloride Level 104 mmol/L (98-107) Carbon Dioxide Level 27 mmol/L (21-32) Anion Gap 10 (6-14) Blood Urea Nitrogen 40 mg/dL (7-20) Creatinine 1.9 mg/dL (0.6-1.0) Estimated GFR (Cockcroft-Gault) 25.2 Glucose Level 67 mg/dL (70-99) Calcium Level 8.1 mg/dL (8.5-10.1) Laboratory Tests Test 10/21/19 11:52 10/21/19 16:35 10/21/19 21:21 10/22/19 04:45 Glucose (Fingerstick) 96 mg/dL (70-99) 84 mg/dL (70-99) 78 mg/dL (70-99) White Blood Count 7.3 x10^3/uL (4.0-11.0) Red Blood Count 2.88 x10^6/uL (3.50-5.40) Hemoglobin 9.1 g/dL (12.0-15.5) Hematocrit 26.9 % (36.0-47.0) Mean Corpuscular Volume 94 fL (79-100) Mean Corpuscular Hemoglobin 32 pg (25-35) Mean Corpuscular Hemoglobin Concent 34 g/dL (31-37) Red Cell Distribution Width 14.9 % (11.5-14.5) Platelet Count 155 x10^3/uL (140-400) Neutrophils (%) (Auto) 82 % (31-73) Lymphocytes (%) (Auto) 7 % (24-48) Monocytes (%) (Auto) 9 % (0-9) Eosinophils (%) (Auto) 1 % (0-3) Basophils (%) (Auto) 0 % (0-3) Neutrophils # (Auto) 6.0 x10^3/uL (1.8-7.7) Lymphocytes # (Auto) 0.5 x10^3/uL (1.0-4.8) Monocytes # (Auto) 0.7 x10^3/uL (0.0-1.1) Eosinophils # (Auto) 0.1 x10^3/uL (0.0-0.7) Basophils # (Auto) 0.0 x10^3/uL (0.0-0.2) Sodium Level 141 mmol/L (136-145) Potassium Level 3.7 mmol/L (3.5-5.1) Chloride Level 104 mmol/L (98-107) Carbon Dioxide Level 27 mmol/L (21-32) Anion Gap 10 (6-14) Blood Urea Nitrogen 40 mg/dL (7-20) Creatinine 1.9 mg/dL (0.6-1.0) Estimated GFR (Cockcroft-Gault) 25.2 Glucose Level 67 mg/dL (70-99) Calcium Level 8.1 mg/dL (8.5-10.1) Test 10/22/19 08:27 Glucose (Fingerstick) 77 mg/dL (70-99) Microbiology 10/19/19 Urine Culture - Final, Complete Medications Current Medications Sodium Chloride 1,000 ml @ 1,000 mls/hr 1X ONCE IV Last administered on 10/19/19at 17:18; Start 10/19/19 at 16:45; Stop 10/19/19 at 17:44; Status DC Labetalol HCl (Normodyne Iv Push) 20 mg 1X ONCE IVP Last administered on 09/24 17:18; Start 10/19/19 at 17:00; Stop 10/19/19 at 17:01; Status DC Ondansetron HCl (Zofran) 4 mg PRN Q8HRS PRN IV NAUSEA/VOMITING Last administered on 10/19/19at 22:10; Start 10/19/19 at 19:15; Stop 10/20/19 at 19:14; Status DC Bumetanide (Bumex) 1 mg 1X ONCE IV Last administered on 10/19/19at 20:29; Start 10/19/19 at 19:15; Stop 10/19/19 at 19:16; Status DC Aspirin (Soco Aspirin) 325 mg 1X ONCE PO Last administered on 10/19/19at 20:29; Start 10/19/19 at 19:15; Stop 10/19/19 at 19:16; Status DC Insulin Human Lispro (HumaLOG) 0-5 UNITS TIDWMEALS SQ ; Start 10/20/19 at 08:00 Dextrose (Dextrose 50%-Water Syringe) 12.5 gm PRN Q15MIN PRN IV SEE COMMENTS; Start 10/19/19 at 19:15 Morphine Sulfate (Morphine Sulfate) 2 mg PRN Q2HR PRN IV SEVERE PAIN 7-10 Last administered on 10/20/19at 17:23; Start 10/20/19 at 03:00 Hydralazine HCl (Apresoline Inj) 10 mg PRN Q4HRS PRN IVP ELEVATED BP, SEE COMMENTS Last administered on 10/20/19at 17:24; Start 10/20/19 at 03:00 Enoxaparin Sodium (Lovenox Per Pharmacy Prophylaxis Dosing) 1 each PRN DAILY PRN MC SEE COMMENTS; Start 10/20/19 at 03:00; Stop 10/20/19 at 15:31; Status DC Enoxaparin Sodium (Lovenox 30mg Syringe) 30 mg Q24H SQ Last administered on 10/20/19at 05:23; Start 10/20/19 at 06:00; Stop 10/20/19 at 15:32; Status DC Pantoprazole Sodium (PROTONIX VIAL for IV PUSH) 40 mg PRN 1X PRN IVP gerd Last administered on 10/20/19 17:33; Start 10/20/19 at 09:15 Multi-Ingredient Mouthwash/Gargle (Gi Cocktail) 20 ml 1X ONCE SWSW Last administered on 10/20/19 10:14; Start 10/20/19 at 10:00; Stop 10/20/19 at 10:01; Status DC Clonazepam (KlonoPIN) 0.5 mg PRN BID PRN PO ANXIETY / AGITATION Last administered on 10/22/19 08:29; Start 10/20/19 at 11:30 Carvedilol (Coreg) 25 mg BIDWMEALS PO Last administered on 10/22/19 08:30; Start 10/20/19 at 17:00 Amlodipine Besylate (Norvasc) 10 mg DAILY PO Last administered on 10/22/19 08:30; Start 10/20/19 at 12:00 Ondansetron HCl (Zofran) 4 mg PRN Q6HRS PRN IVP NAUSEA/VOMITING Last administered on 10/21/19 07:53; Start 10/20/19 at 15:15 Bisacodyl (Dulcolax Supp) 10 mg PRN DAILY PRN AR CONSTIPATION Last administered on 10/21/19 06:31; Start 10/20/19 at 15:15 Heparin Sodium (Porcine) (Heparin Sodium) 5,000 unit Q12HR SQ Last administered on 10/22/19 08:33; Start 10/21/19 at 09:00 Sodium Chloride 1,000 ml @ 0 mls/hr Q0M IV ; Start 10/20/19 at 15:30 Furosemide (Lasix) 40 mg 1X ONCE PO Last administered on 10/20/19 17:23; Start 10/20/19 at 16:00; Stop 10/20/19 at 16:01; Status DC Pantoprazole Sodium (Protonix) 40 mg DAILYAC PO Last administered on 10/22/19 08:30; Start 10/21/19 at 07:30 Multi-Ingredient Mouthwash/Gargle (Gi Cocktail) 20 ml 1X PRN PRN PO CHEST PAIN Last administered on 10/21/19 10:07; Start 10/21/19 at 10:00 Tramadol HCl (Ultram) 50 mg PRN Q6HRS PRN PO PAIN Last administered on 10/22/19at 08:29; Start 10/21/19 at 18:00 Active Scripts Active [Pantoprazole] 40 MG Tablet.dr 40 Mg PO DAILYAC 30 Days Gabapentin 600 Mg Tablet 600 Mg PO TID 30 Days Trazodone Hcl 50 Mg Tablet 50 Mg PO QHS 30 Days Quetiapine Fumarate 25 Mg Tablet 25 Mg PO DAILY 30 Days Furosemide 40 Mg Tablet 40 Mg PO DAILY 30 Days Reported Probiotic (Lactobacillus Combo No.10) 1 Each Capsule 1 Tab PO DAILY 30 Days Vitamin B Complex 1 Each Capsule 1 Each PO DAILY Ferrous Sulfate 325 Mg Tablet 1 Tab PO DAILY Losartan Potassium 50 Mg Tablet 50 Mg PO DAILY Dicyclomine Hcl 10 Mg Capsule 10 Mg PO DAILY Carvedilol 25 Mg Tablet 1 Tab PO BID Famotidine 20 Mg Tablet 20 Mg PO BID Amlodipine Besylate 5 Mg Tablet 5 Mg PO DAILY Vitals/I & O Vital Sign - Last 24 Hours 10/21/19 10/21/19 10/21/19 10/21/19 10:08 10:09 11:00 15:00 Temp 98.2 98.0 98.2 98.0 Pulse 86 86 89 85 Resp 18 20 B/P (MAP) 123/84 123/84 124/68 (86) 167/68 (101) Pulse Ox 97 97 O2 Delivery Room Air Room Air 10/21/19 10/21/19 10/21/19 10/21/19 18:00 18:01 19:00 19:35 Temp 97.8 97.8 Pulse 85 56 Resp 20 21 B/P (MAP) 167/68 158/79 (105) Pulse Ox 97 97 97 O2 Delivery Room Air Room Air Room Air 10/21/19 10/21/19 10/22/19 10/22/19 20:00 23:00 03:45 07:00 Temp 97.7 97.8 98.2 97.7 97.8 98.2 Pulse 72 67 79 Resp 20 18 18 B/P (MAP) 145/89 (107) 150/85 (106) 183/77 (112) Pulse Ox 94 96 95 O2 Delivery Room Air Room Air Room Air Room Air 10/22/19 10/22/19 10/22/19 10/22/19 08:00 08:29 08:30 08:30 Pulse 88 88 Resp 18 B/P (MAP) 183/87 183/87 O2 Delivery Room Air Room Air 10/22/19 09:29 Resp 18 O2 Delivery Room Air Intake and Output 10/21/19 10/21/19 10/22/19 15:00 23:00 07:00 Intake Total 0 ml 400 ml Output Total 400 ml Balance 0 ml -400 ml 400 ml Justicifation of Admission Dx: Justifications for Admission: Justification of Admission Dx: Yes ARCELIA NATION MD Oct 22, 2019 09:53
[2019-10-22 11:00] VITALS: BP 126/45
[2019-10-22 15:00] VITALS: BP 172/78
[2019-10-22 19:45] VITALS: BP 159/71
[2019-10-22 23:31] VITALS: BP 145/76
[2019-10-23] MEDS: traMADol 50 MG TABLET PO PRN ×3 (04:34→21:15)
[2019-10-23 04:50] VITALS: BP 161/74
[2019-10-23 07:00] VITALS: BP 160/76
[2019-10-23 07:47] LABS: BASO % 0 % (0-3); EOS # 0.1 x10^3/uL (0.0-0.7); EOS % 2 % (0-3); HEMATOCRIT 28.1 % (36.0-47.0); HEMOGLOBIN 9.4 g/dL (12.0-15.5); LYMPH # 0.5 x10^3/uL (1.0-4.8); LYMPH % 7 % (24-48); MEAN CORPUSCULAR HEMOGLOBIN 31 pg (25-35); MEAN CORPUSCULAR HGB CONC 33 g/dL (31-37); MEAN CORPUSCULAR VOLUME 94 fL (79-100); MONO # 0.7 x10^3/uL (0.0-1.1); MONO % 9 % (0-9); NEUT # 5.8 x10^3/uL (1.8-7.7); NEUT % 82 % (31-73); PLATELET COUNT 166 x10^3/uL (140-400); RED CELL DISTRIBUTION WIDTH 14.8 % (11.5-14.5); WHITE BLOOD COUNT 7.1 x10^3/uL (4.0-11.0)
[2019-10-23] MEDS: INSULIN LISPRO 300 UNITS/3 ML VIAL. SQ SCH ×3 (08:00→17:00)
[2019-10-23 08:27] LABS: CALCIUM 7.9 mg/dL (8.5-10.1); CREATININE 1.7 mg/dL (0.6-1.0); GFR 28.6; POTASSIUM 3.9 mmol/L (3.5-5.1)
[2019-10-23] MEDS: clonazePAM 0.5 MG TABLET PO PRN ×2 (08:51→21:15)
[2019-10-23] MEDS: amLODIPine BESYLATE 10 MG TABLET PO SCH (08:52)
[2019-10-23] MEDS: PANTOPRAZOLE 40 MG TABLET.DR. PO SCH (08:52)
[2019-10-23] MEDS: CARVEDILOL 12.5 MG TABLET. PO SCH ×2 (08:53→17:26)
[2019-10-23] MEDS: HEPARIN for SUB-Q USE 5,000 UNIT/ML VIAL. SQ SCH ×2 (08:59→21:21)
--- NOTE | 2019-10-23 11:15 | PDOC ---
PROGRESS NOTES Date of Service: DATE: 10/23/19 TIME: 11:15 Chief Complaint Chief Complaint impression Epigastric pain HTN, CAD, mildly elevated troponin, CKD 3 B H/o WES ckd 3B stage H/o GERD CRC screen - last in 2007 Diverticulosis H/o SB AVMs H/o C Diff S/p cholecystectomy NORMOCYTIC ANEMIA Persistent UTI: was given levaquin 10/18 but pt only took a few. Cx revealed Enterococcus faecalis 10/11/2019 per chart review PLAN CONSULT NEPHROLOGY Cardiology following GI CONSULT Consider for outpt stress test. Follow up with [facility] cardiology D/W RN History of Present Illness History of Present Illness Patient reports continued intermittent dyspepsia and burning epigastric pain. Denies any improvement with current management; refusing some meds. nephrology consulted Vitals Vitals Vital Signs Date Time Temp Pulse Resp B/P (MAP) Pulse Ox O2 Delivery O2 Flow Rate FiO2 10/23/19 09:52 18 Room Air 10/23/19 08:53 78 160/76 10/23/19 07:00 98.2 98 98.2 Physical Exam General: Alert, Oriented X3, Cooperative, No acute distress Heart: Regular rate (SR), Normal S1, Normal S2, Other (2/6 systolic) Lungs: Wheezing Abdomen: Normal bowel sounds, Soft, No tenderness, Other (Epigastric tenderness) Extremities: No clubbing, No cyanosis, No edema, Normal pulses Skin: No rashes, No breakdown Labs LABS eferring Physician: MEAGAN AMANDA, Tech: Vianey Pollock RDCS APPROVED REPORT EXAM: Two-dimensional and M-mode echocardiogram with Doppler and color Doppler. Other Information Quality : Good INDICATION Congestive Heart Failure Echo Enhancing Agent Agent/Amount Used: Definity mL Surgery/Intervention CABG: Date: 2016 2D DIMENSIONS RVDd 3.1 (2.9-3.5cm) Left Atrium(2D) 4.5 (1.6-4.0cm) IVSd 1.2 (0.7-1.1cm) Aortic Root(2D) 3.3 (2.0-3.7cm) LVDd 4.4 (3.9-5.9cm) LVOT Diameter 2.3 (1.8-2.4cm) PWd 1.0 (0.7-1.1cm) LVDs 3.3 (2.5-4.0cm) FS (%) 30.0 % SV 42.7 ml LVEF(%) 60.0 (>50%) M-Mode DIMENSIONS Aortic Cusp Exc 1.28 (1.5-2.0cm) Aortic Valve AoV Peak Chace. 235.1cm/s AoV VTI 55.2cm AO Peak GR. 22.1mmHg LVOT VTI 22.56cm AO Mean GR. 13mmHg CRISTINO (VTI) 1.70cm2 AI P 1/2 Time 661ms Mitral Valve MV E Velocity 98.9cm/s MV DECEL TIME 166ms MV A Velocity 93.1cm/s E/A Ratio 1.1 TDI Lateral E' P. V 3.48cm/s Medial E' P. V 5.53cm/s E/Lateral E' 28.4 E/Medial E' 17.9 Tricuspid Valve TR P. Velocity 249cm/s RAP ESTIMATE 3mmHg TR Peak Gr. 25mmHg RVSP 28mmHg Pulmonary Vein S1 Velocity 74.3cm/s S2 Velocity 36.48cm/s D2 Velocity 36.5cm/s LEFT VENTRICLE The left ventricle is normal size. There is normal left ventricular wall thickness. The left ventricular systolic function is normal. The Ejection Fraction is 55-60%. There is normal LV segmental wall motion. RIGHT VENTRICLE The right ventricle is normal size. The right ventricular systolic function is normal. ATRIA The left atrium is mildly dilated. The right atrium size is normal. The interatrial septum is intact with no evidence for an atrial septal defect or patent foramen ovale as noted on 2-D or Doppler imaging. AORTIC VALVE The aortic valve is moderately thickened. Doppler and Color Flow revealed mild aortic regurgitation. Calculated aortic valve area is 1.7 cm2 with maximum pressure gradient of 22 mmHg and mean pressure gradient of 13 mmHg. Doppler and color-flow analysis revealed mild aortic stenosis. MITRAL VALVE The mitral valve is calcified but opens well. Mitral annular calcification is mild to moderate. There is no evidence of mitral valve prolapse. There is no mitral valve stenosis. Doppler and Color-flow revealed mild mitral regurgitation. TRICUSPID VALVE The tricuspid valve is normal in structure and function. Doppler and Color Flow revealed trace tricuspid regurgitation. The PA pressure was estimated at 28 mmHg. There is no tricuspid valve stenosis. PULMONIC VALVE The pulmonic valve is not well visualized. Doppler and Color Flow revealed trace to mild pulmonic valvular regurgitation. There is no pulmonic valvular stenosis. GREAT VESSELS The aortic root is normal in size. The ascending aorta is normal in size. The IVC is normal in size and collapses >50% with inspiration. PERICARDIAL EFFUSION There is no evidence of significant pericardial effusion. Critical Notification Critical Value: No <Conclusion> The left ventricular systolic function is normal. The Ejection Fraction is 55-60%. There is normal LV segmental wall motion. Mild aortic stenosis. Mild aortic regurgitation. Mild mitral regurgitation. Trace tricuspid regurgitation. The PA pressure was estimated at 28 mmHg. There is no evidence of significant pericardial effusion. Signed by : Emerson Marcus, Electronically Approved : 10/20/2019 12:31:56 DICTATED and SIGNED BY: EMERSON MARCUS MD DATE: 10/20/19 1219 Laboratory Tests Test 10/22/19 12:39 10/22/19 17:10 10/22/19 20:44 10/23/19 06:25 Glucose (Fingerstick) 83 mg/dL (70-99) 89 mg/dL (70-99) 105 mg/dL (70-99) White Blood Count 7.1 x10^3/uL (4.0-11.0) Red Blood Count 3.00 x10^6/uL (3.50-5.40) Hemoglobin 9.4 g/dL (12.0-15.5) Hematocrit 28.1 % (36.0-47.0) Mean Corpuscular Volume 94 fL (79-100) Mean Corpuscular Hemoglobin 31 pg (25-35) Mean Corpuscular Hemoglobin Concent 33 g/dL (31-37) Red Cell Distribution Width 14.8 % (11.5-14.5) Platelet Count 166 x10^3/uL (140-400) Neutrophils (%) (Auto) 82 % (31-73) Lymphocytes (%) (Auto) 7 % (24-48) Monocytes (%) (Auto) 9 % (0-9) Eosinophils (%) (Auto) 2 % (0-3) Basophils (%) (Auto) 0 % (0-3) Neutrophils # (Auto) 5.8 x10^3/uL (1.8-7.7) Lymphocytes # (Auto) 0.5 x10^3/uL (1.0-4.8) Monocytes # (Auto) 0.7 x10^3/uL (0.0-1.1) Eosinophils # (Auto) 0.1 x10^3/uL (0.0-0.7) Basophils # (Auto) 0.0 x10^3/uL (0.0-0.2) Sodium Level 140 mmol/L (136-145) Potassium Level 3.9 mmol/L (3.5-5.1) Chloride Level 104 mmol/L (98-107) Carbon Dioxide Level 28 mmol/L (21-32) Anion Gap 8 (6-14) Blood Urea Nitrogen 37 mg/dL (7-20) Creatinine 1.7 mg/dL (0.6-1.0) Estimated GFR (Cockcroft-Gault) 28.6 Glucose Level 83 mg/dL (70-99) Calcium Level 7.9 mg/dL (8.5-10.1) Test 10/23/19 07:29 Glucose (Fingerstick) 84 mg/dL (70-99) Assessment and Plan Assessmemt and Plan Problems Medical Problems: (1) CHF (congestive heart failure) Status: Acute (2) Elevated troponin Status: Acute (3) Hiatal hernia Status: Acute Comment Review of Relevant I have reviewed the following items matti (where applicable) has been applied. Labs Laboratory Tests Test 10/21/19 11:52 10/21/19 16:35 10/21/19 21:21 10/22/19 04:45 Glucose (Fingerstick) 96 mg/dL (70-99) 84 mg/dL (70-99) 78 mg/dL (70-99) White Blood Count 7.3 x10^3/uL (4.0-11.0) Red Blood Count 2.88 x10^6/uL (3.50-5.40) Hemoglobin 9.1 g/dL (12.0-15.5) Hematocrit 26.9 % (36.0-47.0) Mean Corpuscular Volume 94 fL (79-100) Mean Corpuscular Hemoglobin 32 pg (25-35) Mean Corpuscular Hemoglobin Concent 34 g/dL (31-37) Red Cell Distribution Width 14.9 % (11.5-14.5) Platelet Count 155 x10^3/uL (140-400) Neutrophils (%) (Auto) 82 % (31-73) Lymphocytes (%) (Auto) 7 % (24-48) Monocytes (%) (Auto) 9 % (0-9) Eosinophils (%) (Auto) 1 % (0-3) Basophils (%) (Auto) 0 % (0-3) Neutrophils # (Auto) 6.0 x10^3/uL (1.8-7.7) Lymphocytes # (Auto) 0.5 x10^3/uL (1.0-4.8) Monocytes # (Auto) 0.7 x10^3/uL (0.0-1.1) Eosinophils # (Auto) 0.1 x10^3/uL (0.0-0.7) Basophils # (Auto) 0.0 x10^3/uL (0.0-0.2) Sodium Level 141 mmol/L (136-145) Potassium Level 3.7 mmol/L (3.5-5.1) Chloride Level 104 mmol/L (98-107) Carbon Dioxide Level 27 mmol/L (21-32) Anion Gap 10 (6-14) Blood Urea Nitrogen 40 mg/dL (7-20) Creatinine 1.9 mg/dL (0.6-1.0) Estimated GFR (Cockcroft-Gault) 25.2 Glucose Level 67 mg/dL (70-99) Calcium Level 8.1 mg/dL (8.5-10.1) Test 10/22/19 08:27 10/22/19 12:39 10/22/19 17:10 10/22/19 20:44 Glucose (Fingerstick) 77 mg/dL (70-99) 83 mg/dL (70-99) 89 mg/dL (70-99) 105 mg/dL (70-99) Test 10/23/19 06:25 10/23/19 07:29 White Blood Count 7.1 x10^3/uL (4.0-11.0) Red Blood Count 3.00 x10^6/uL (3.50-5.40) Hemoglobin 9.4 g/dL (12.0-15.5) Hematocrit 28.1 % (36.0-47.0) Mean Corpuscular Volume 94 fL (79-100) Mean Corpuscular Hemoglobin 31 pg (25-35) Mean Corpuscular Hemoglobin Concent 33 g/dL (31-37) Red Cell Distribution Width 14.8 % (11.5-14.5) Platelet Count 166 x10^3/uL (140-400) Neutrophils (%) (Auto) 82 % (31-73) Lymphocytes (%) (Auto) 7 % (24-48) Monocytes (%) (Auto) 9 % (0-9) Eosinophils (%) (Auto) 2 % (0-3) Basophils (%) (Auto) 0 % (0-3) Neutrophils # (Auto) 5.8 x10^3/uL (1.8-7.7) Lymphocytes # (Auto) 0.5 x10^3/uL (1.0-4.8) Monocytes # (Auto) 0.7 x10^3/uL (0.0-1.1) Eosinophils # (Auto) 0.1 x10^3/uL (0.0-0.7) Basophils # (Auto) 0.0 x10^3/uL (0.0-0.2) Sodium Level 140 mmol/L (136-145) Potassium Level 3.9 mmol/L (3.5-5.1) Chloride Level 104 mmol/L (98-107) Carbon Dioxide Level 28 mmol/L (21-32) Anion Gap 8 (6-14) Blood Urea Nitrogen 37 mg/dL (7-20) Creatinine 1.7 mg/dL (0.6-1.0) Estimated GFR (Cockcroft-Gault) 28.6 Glucose Level 83 mg/dL (70-99) Calcium Level 7.9 mg/dL (8.5-10.1) Glucose (Fingerstick) 84 mg/dL (70-99) Laboratory Tests Test 10/22/19 12:39 10/22/19 17:10 10/22/19 20:44 10/23/19 06:25 Glucose (Fingerstick) 83 mg/dL (70-99) 89 mg/dL (70-99) 105 mg/dL (70-99) White Blood Count 7.1 x10^3/uL (4.0-11.0) Red Blood Count 3.00 x10^6/uL (3.50-5.40) Hemoglobin 9.4 g/dL (12.0-15.5) Hematocrit 28.1 % (36.0-47.0) Mean Corpuscular Volume 94 fL (79-100) Mean Corpuscular Hemoglobin 31 pg (25-35) Mean Corpuscular Hemoglobin Concent 33 g/dL (31-37) Red Cell Distribution Width 14.8 % (11.5-14.5) Platelet Count 166 x10^3/uL (140-400) Neutrophils (%) (Auto) 82 % (31-73) Lymphocytes (%) (Auto) 7 % (24-48) Monocytes (%) (Auto) 9 % (0-9) Eosinophils (%) (Auto) 2 % (0-3) Basophils (%) (Auto) 0 % (0-3) Neutrophils # (Auto) 5.8 x10^3/uL (1.8-7.7) Lymphocytes # (Auto) 0.5 x10^3/uL (1.0-4.8) Monocytes # (Auto) 0.7 x10^3/uL (0.0-1.1) Eosinophils # (Auto) 0.1 x10^3/uL (0.0-0.7) Basophils # (Auto) 0.0 x10^3/uL (0.0-0.2) Sodium Level 140 mmol/L (136-145) Potassium Level 3.9 mmol/L (3.5-5.1) Chloride Level 104 mmol/L (98-107) Carbon Dioxide Level 28 mmol/L (21-32) Anion Gap 8 (6-14) Blood Urea Nitrogen 37 mg/dL (7-20) Creatinine 1.7 mg/dL (0.6-1.0) Estimated GFR (Cockcroft-Gault) 28.6 Glucose Level 83 mg/dL (70-99) Calcium Level 7.9 mg/dL (8.5-10.1) Test 10/23/19 07:29 Glucose (Fingerstick) 84 mg/dL (70-99) Microbiology 10/19/19 Urine Culture - Final, Complete Medications Current Medications Sodium Chloride 1,000 ml @ 1,000 mls/hr 1X ONCE IV Last administered on 10/19/19at 17:18; Start 10/19/19 at 16:45; Stop 10/19/19 at 17:44; Status DC Labetalol HCl (Normodyne Iv Push) 20 mg 1X ONCE IVP Last administered on 10/19/19at 17:18; Start 10/19/19 at 17:00; Stop 10/19/19 at 17:01; Status DC Ondansetron HCl (Zofran) 4 mg PRN Q8HRS PRN IV NAUSEA/VOMITING Last administered on 10/19/19at 22:10; Start 10/19/19 at 19:15; Stop 10/20/19 at 19:14; Status DC Bumetanide (Bumex) 1 mg 1X ONCE IV Last administered on 10/19/19at 20:29; Start 10/19/19 at 19:15; Stop 10/19/19 at 19:16; Status DC Aspirin (Soco Aspirin) 325 mg 1X ONCE PO Last administered on 10/19/19at 20:29; Start 10/19/19 at 19:15; Stop 10/19/19 at 19:16; Status DC Insulin Human Lispro (HumaLOG) 0-5 UNITS TIDWMEALS SQ ; Start 10/20/19 at 08:00 Dextrose (Dextrose 50%-Water Syringe) 12.5 gm PRN Q15MIN PRN IV SEE COMMENTS; Start 10/19/19 at 19:15 Morphine Sulfate (Morphine Sulfate) 2 mg PRN Q2HR PRN IV SEVERE PAIN 7-10 Last administered on 10/20/19at 17:23; Start 10/20/19 at 03:00 Hydralazine HCl (Apresoline Inj) 10 mg PRN Q4HRS PRN IVP ELEVATED BP, SEE COMMENTS Last administered on 10/20/19at 17:24; Start 10/20/19 at 03:00 Enoxaparin Sodium (Lovenox Per Pharmacy Prophylaxis Dosing) 1 each PRN DAILY PRN MC SEE COMMENTS; Start 10/20/19 at 03:00; Stop 10/20/19 at 15:31; Status DC Enoxaparin Sodium (Lovenox 30mg Syringe) 30 mg Q24H SQ Last administered on 10/20/19at 05:23; Start 10/20/19 at 06:00; Stop 10/20/19 at 15:32; Status DC Pantoprazole Sodium (PROTONIX VIAL for IV PUSH) 40 mg PRN 1X PRN IVP gerd Last administered on 10/20/19 17:33; Start 10/20/19 at 09:15 Multi-Ingredient Mouthwash/Gargle (Gi Cocktail) 20 ml 1X ONCE SWSW Last administered on 10/20/19at 10:14; Start 10/20/19 at 10:00; Stop 10/20/19 at 10:01; Status DC Clonazepam (KlonoPIN) 0.5 mg PRN BID PRN PO ANXIETY / AGITATION Last administered on 10/23/19 08:51; Start 10/20/19 at 11:30 Carvedilol (Coreg) 25 mg BIDWMEALS PO Last administered on 10/23/19 08:53; Start 10/20/19 at 17:00 Amlodipine Besylate (Norvasc) 10 mg DAILY PO Last administered on 10/23/19 08:52; Start 10/20/19 at 12:00 Ondansetron HCl (Zofran) 4 mg PRN Q6HRS PRN IVP NAUSEA/VOMITING Last administered on 10/21/19 07:53; Start 10/20/19 at 15:15 Bisacodyl (Dulcolax Supp) 10 mg PRN DAILY PRN GA CONSTIPATION Last administered on 10/21/19 06:31; Start 10/20/19 at 15:15 Heparin Sodium (Porcine) (Heparin Sodium) 5,000 unit Q12HR SQ Last administered on 10/23/19 08:59; Start 10/21/19 at 09:00 Sodium Chloride 1,000 ml @ 0 mls/hr Q0M IV ; Start 10/20/19 at 15:30 Furosemide (Lasix) 40 mg 1X ONCE PO Last administered on 10/20/19 17:23; Start 10/20/19 at 16:00; Stop 10/20/19 at 16:01; Status DC Pantoprazole Sodium (Protonix) 40 mg DAILYAC PO Last administered on 10/23/19 08:52; Start 10/21/19 at 07:30 Multi-Ingredient Mouthwash/Gargle (Gi Cocktail) 20 ml 1X PRN PRN PO CHEST PAIN Last administered on 10/21/19at 10:07; Start 10/21/19 at 10:00 Tramadol HCl (Ultram) 50 mg PRN Q6HRS PRN PO PAIN Last administered on 0at 08:52; Start 10/21/19 at 18:00 Levofloxacin/ Dextrose 100 ml @ 100 mls/hr Q24H IV ; Start 10/22/19 at 16:00; Stop 10/22/19 at 16:15; Status DC Levofloxacin/ Dextrose 50 ml @ 50 mls/hr Q24H IV Last administered on 10/22/19at 17:24; Start 10/22/19 at 17:00 Active Scripts Active [Pantoprazole] 40 MG Tablet.dr 40 Mg PO DAILYAC 30 Days Gabapentin 600 Mg Tablet 600 Mg PO TID 30 Days Trazodone Hcl 50 Mg Tablet 50 Mg PO QHS 30 Days Quetiapine Fumarate 25 Mg Tablet 25 Mg PO DAILY 30 Days Furosemide 40 Mg Tablet 40 Mg PO DAILY 30 Days Reported Probiotic (Lactobacillus Combo No.10) 1 Each Capsule 1 Tab PO DAILY 30 Days Vitamin B Complex 1 Each Capsule 1 Each PO DAILY Ferrous Sulfate 325 Mg Tablet 1 Tab PO DAILY Losartan Potassium 50 Mg Tablet 50 Mg PO DAILY Dicyclomine Hcl 10 Mg Capsule 10 Mg PO DAILY Carvedilol 25 Mg Tablet 1 Tab PO BID Famotidine 20 Mg Tablet 20 Mg PO BID Amlodipine Besylate 5 Mg Tablet 5 Mg PO DAILY Vitals/I & O Vital Sign - Last 24 Hours 10/22/19 10/22/19 10/22/19 10/22/19 15:00 15:24 16:24 17:21 Temp 97.8 97.8 Pulse 80 80 Resp 16 18 B/P (MAP) 172/78 (109) 172/78 Pulse Ox 94 O2 Delivery Room Air Room Air Room Air 10/22/19 10/22/19 10/22/19 10/23/19 19:45 20:00 23:31 03:00 Temp 98.0 98.6 98.0 98.6 Pulse 62 68 Resp 22 22 B/P (MAP) 159/71 (100) 145/76 (99) Pulse Ox 96 95 O2 Delivery Room Air Room Air Room Air Room Air 10/23/19 10/23/19 10/23/19 10/23/19 04:34 04:50 05:34 07:00 Temp 98.1 98.2 98.1 98.2 Pulse 74 78 Resp 20 22 20 20 B/P (MAP) 161/74 (103) 160/76 (104) Pulse Ox 95 96 96 98 O2 Delivery Room Air Room Air Room Air Room Air 10/23/19 10/23/19 10/23/19 10/23/19 08:00 08:52 08:52 08:53 Pulse 78 78 Resp 20 B/P (MAP) 160/76 160/76 O2 Delivery Room Air Room Air 10/23/19 09:52 Resp 18 O2 Delivery Room Air Intake and Output 10/22/19 10/22/19 10/23/19 15:00 23:00 07:00 Intake Total 180 ml 290 ml 100 ml Output Total 0 ml Balance 180 ml 290 ml 100 ml Justicifation of Admission Dx: Justifications for Admission: Justification of Admission Dx: Yes ARCELIA NATION MD Oct 23, 2019 11:15
[2019-10-23 11:20] VITALS: BP 140/51
--- NOTE | 2019-10-23 14:36 | PDOC2 ---
CONSULT Date of Consult Date of Consult DATE: 10/23/19 TIME: 14:29 Reason for Consult Reason for Consult: RENAL FAILURE Referring Physician Referring Physician: IVELISSE Identification/Chief Complaint Chief Complaint ABD PAIN Source Source: Chart review, Patient History of Present Illness Reason for Visit: THIS IS AN 84 YR OLD WITH EPIGASTRIC PAIN. WORK UP UNDER WAY. SHE HAS HX FO DM II AND HTN AND CKD STAGE 3 WITH CR OF 1.8-2.0. ALSO HAS HAD SOME DARK STOOLS. GI EVALUATION UNDER WAY. NO OTHER HX Past Medical History Cardiovascular: CAD, HTN, Hyperlipidemia, Other (PAD) Pulmonary: No pertinent hx CENTRAL NERVOUS SYSTEM: Carpal Tunnel Syndrome GI: GERD, Other (hiatal hernia) Heme/Onc: Anemia NOS Hepatobiliary: No pertinent hx Psych: Anxiety Musculoskeletal: Osteoarthritis Rheumatologic: No pertinent hx Infectious disease: Herpes zoster ENT: No pertinent hx Renal/: Chronic renal insuff (3), UTI Endocrine: Diabetes (?) Dermatology: No pertinent hx Past Surgical History Past Surgical History: CABG (x4 09/04/2016), Hysterectomy, Other (right trigger finger release; right femoral artery repair in 2017 due to IABP placement; CTS repair) Family History Family History: Cancer, Other Social History No ALCOHOL: none Drugs: None Lives: with Family Current Problem List Problem List Problems Medical Problems: (1) CHF (congestive heart failure) Status: Acute (2) Elevated troponin Status: Acute (3) Hiatal hernia Status: Acute Current Medications Current Medications Current Medications Sodium Chloride 1,000 ml @ 1,000 mls/hr 1X ONCE IV Last administered on 10/19/19at 17:18; Start 10/19/19 at 16:45; Stop 10/19/19 at 17:44; Status DC Labetalol HCl (Normodyne Iv Push) 20 mg 1X ONCE IVP Last administered on 10/19/19at 17:18; Start 10/19/19 at 17:00; Stop 10/19/19 at 17:01; Status DC Ondansetron HCl (Zofran) 4 mg PRN Q8HRS PRN IV NAUSEA/VOMITING Last administe red on 10/19/19at 22:10; Start 10/19/19 at 19:15; Stop 10/20/19 at 19:14; Status DC Bumetanide (Bumex) 1 mg 1X ONCE IV Last administered on 10/19/19at 20:29; Start 10/19/19 at 19:15; Stop 10/19/19 at 19:16; Status DC Aspirin (Soco Aspirin) 325 mg 1X ONCE PO Last administered on 10/19/19at 20:29; Start 10/19/19 at 19:15; Stop 10/19/19 at 19:16; Status DC Insulin Human Lispro (HumaLOG) 0-5 UNITS TIDWMEALS SQ ; Start 10/20/19 at 08:00 Dextrose (Dextrose 50%-Water Syringe) 12.5 gm PRN Q15MIN PRN IV SEE COMMENTS; Start 10/19/19 at 19:15 Morphine Sulfate (Morphine Sulfate) 2 mg PRN Q2HR PRN IV SEVERE PAIN 7-10 Last administered on 10/20/19at 17:23; Start 10/20/19 at 03:00 Hydralazine HCl (Apresoline Inj) 10 mg PRN Q4HRS PRN IVP ELEVATED BP, SEE COMMENTS Last administered on 10/20/19at 17:24; Start 10/20/19 at 03:00 Enoxaparin Sodium (Lovenox Per Pharmacy Prophylaxis Dosing) 1 each PRN DAILY PRN MC SEE COMMENTS; Start 10/20/19 at 03:00; Stop 10/20/19 at 15:31; Status DC Enoxaparin Sodium (Lovenox 30mg Syringe) 30 mg Q24H SQ Last administered on 10/20/19at 05:23; Start 10/20/19 at 06:00; Stop 10/20/19 at 15:32; Status DC Pantoprazole Sodium (PROTONIX VIAL for IV PUSH) 40 mg PRN 1X PRN IVP gerd Last administered on 10/20/19at 17:33; Start 10/20/19 at 09:15 Multi-Ingredient Mouthwash/Gargle (Gi Cocktail) 20 ml 1X ONCE SWSW Last administered on 10/20/19at 10:14; Start 10/20/19 at 10:00; Stop 10/20/19 at 10:01; Status DC Clonazepam (KlonoPIN) 0.5 mg PRN BID PRN PO ANXIETY / AGITATION Last administered on 10/23/19at 08:51; Start 10/20/19 at 11:30 Carvedilol (Coreg) 25 mg BIDWMEALS PO Last administered on 10/23/19 08:53; Start 10/20/19 at 17:00 Amlodipine Besylate (Norvasc) 10 mg DAILY PO Last administered on 10/23/19at 08:52; Start 10/20/19 at 12:00 Ondansetron HCl (Zofran) 4 mg PRN Q6HRS PRN IVP NAUSEA/VOMITING Last administered on 10/21/19 07:53; Start 10/20/19 at 15:15 Bisacodyl (Dulcolax Supp) 10 mg PRN DAILY PRN [place] CONSTIPATION Last administered on 10/21/19 06:31; Start 10/20/19 at 15:15 Heparin Sodium (Porcine) (Heparin Sodium) 5,000 unit Q12HR SQ Last administered on 10/23/19 08:59; Start 10/21/19 at 09:00 Sodium Chloride 1,000 ml @ 0 mls/hr Q0M IV ; Start 10/20/19 at 15:30 Furosemide (Lasix) 40 mg 1X ONCE PO Last administered on 10/20/19at 17:23; Start 10/20/19 at 16:00; Stop 10/20/19 at 16:01; Status DC Pantoprazole Sodium (Protonix) 40 mg DAILYAC PO Last administered on 10/23/19 08:52; Start 10/21/19 at 07:30 Multi-Ingredient Mouthwash/Gargle (Gi Cocktail) 20 ml 1X PRN PRN PO CHEST PAIN Last administered on 10/21/19at 10:07; Start 10/21/19 at 10:00 Tramadol HCl (Ultram) 50 mg PRN Q6HRS PRN PO PAIN Last administered on 10/23/19at 08:52; Start 10/21/19 at 18:00 Levofloxacin/ Dextrose 100 ml @ 100 mls/hr Q24H IV ; Start 10/22/19 at 16:00; Stop 10/22/19 at 16:15; Status DC Levofloxacin/ Dextrose 50 ml @ 50 mls/hr Q24H IV Last administered on 10/22/19at 17:24; Start 10/22/19 at 17:00 Lactobacillus Rhamnosus (Culturelle) 1 cap BID PO ; Start 10/23/19 at 21:00 Active Scripts Active [Pantoprazole] 40 MG Tablet.dr 40 Mg PO DAILYAC 30 Days Gabapentin 600 Mg Tablet 600 Mg PO TID 30 Days Trazodone Hcl 50 Mg Tablet 50 Mg PO QHS 30 Days Quetiapine Fumarate 25 Mg Tablet 25 Mg PO DAILY 30 Days Furosemide 40 Mg Tablet 40 Mg PO DAILY 30 Days Reported Probiotic (Lactobacillus Combo No.10) 1 Each Capsule 1 Tab PO DAILY 30 Days Vitamin B Complex 1 Each Capsule 1 Each PO DAILY Ferrous Sulfate 325 Mg Tablet 1 Tab PO DAILY Losartan Potassium 50 Mg Tablet 50 Mg PO DAILY Dicyclomine Hcl 10 Mg Capsule 10 Mg PO DAILY Carvedilol 25 Mg Tablet 1 Tab PO BID Famotidine 20 Mg Tablet 20 Mg PO BID Amlodipine Besylate 5 Mg Tablet 5 Mg PO DAILY Allergies Allergies: Coded Allergies: Penicillins (Verified Allergy, Intermediate, 10/12/19) metronidazole (Verified Allergy, Intermediate, Hives, 10/12/19) witness hives 5-10 minutes after initiating Flagyl 500mg IVPB ROS General: YES: Fatigue PSYCHOLOGICAL ROS: YES: Anxiety Eyes: Yes Decreased vision HEENT: YES: Ruth ALLERGY AND IMMUNOLOGY: YES: Seasonal Allergies Respiratory: YES: Cough Gastrointestinal: Yes Nausea, Yes Abdominal Pain Genitourinary: YES Other (NOCTURIA) Musculoskeletal: Yes Muscular Weakness Neurological: Yes Weakness Skin: Yes Dry Skin Physical Exam General: Alert, Oriented X3, Cooperative, No acute distress HEENT: Atraumatic Lungs: Clear to auscultation Heart: Regular rate, Normal S2 Abdomen: Normal bowel sounds, Soft Extremities: No clubbing Skin: No breakdown, No significant lesion Neuro: Normal speech, Sensation intact Psych/Mental Status: Mental status NL, Mood NL MUSCULOSKELETAL: No joint tenderness, No deformity Vitals VITALS Vital Signs Date Time Temp Pulse Resp B/P (MAP) Pulse Ox O2 Delivery O2 Flow Rate FiO2 10/23/19 11:20 97.7 65 18 140/51 (80) 94 Room Air 97.7 Labs Labs Laboratory Tests Test 10/21/19 16:35 10/21/19 21:21 10/22/19 04:45 10/22/19 08:27 Glucose (Fingerstick) 84 mg/dL (70-99) 78 mg/dL (70-99) 77 mg/dL (70-99) White Blood Count 7.3 x10^3/uL (4.0-11.0) Red Blood Count 2.88 x10^6/uL (3.50-5.40) Hemoglobin 9.1 g/dL (12.0-15.5) Hematocrit 26.9 % (36.0-47.0) Mean Corpuscular Volume 94 fL (79-100) Mean Corpuscular Hemoglobin 32 pg (25-35) Mean Corpuscular Hemoglobin Concent 34 g/dL (31-37) Red Cell Distribution Width 14.9 % (11.5-14.5) Platelet Count 155 x10^3/uL (140-400) Neutrophils (%) (Auto) 82 % (31-73) Lymphocytes (%) (Auto) 7 % (24-48) Monocytes (%) (Auto) 9 % (0-9) Eosinophils (%) (Auto) 1 % (0-3) Basophils (%) (Auto) 0 % (0-3) Neutrophils # (Auto) 6.0 x10^3/uL (1.8-7.7) Lymphocytes # (Auto) 0.5 x10^3/uL (1.0-4.8) Monocytes # (Auto) 0.7 x10^3/uL (0.0-1.1) Eosinophils # (Auto) 0.1 x10^3/uL (0.0-0.7) Basophils # (Auto) 0.0 x10^3/uL (0.0-0.2) Sodium Level 141 mmol/L (136-145) Potassium Level 3.7 mmol/L (3.5-5.1) Chloride Level 104 mmol/L (98-107) Carbon Dioxide Level 27 mmol/L (21-32) Anion Gap 10 (6-14) Blood Urea Nitrogen 40 mg/dL (7-20) Creatinine 1.9 mg/dL (0.6-1.0) Estimated GFR (Cockcroft-Gault) 25.2 Glucose Level 67 mg/dL (70-99) Calcium Level 8.1 mg/dL (8.5-10.1) Test 10/22/19 12:39 10/22/19 17:10 10/22/19 20:44 10/23/19 06:25 Glucose (Fingerstick) 83 mg/dL (70-99) 89 mg/dL (70-99) 105 mg/dL (70-99) White Blood Count 7.1 x10^3/uL (4.0-11.0) Red Blood Count 3.00 x10^6/uL (3.50-5.40) Hemoglobin 9.4 g/dL (12.0-15.5) Hematocrit 28.1 % (36.0-47.0) Mean Corpuscular Volume 94 fL (79-100) Mean Corpuscular Hemoglobin 31 pg (25-35) Mean Corpuscular Hemoglobin Concent 33 g/dL (31-37) Red Cell Distribution Width 14.8 % (11.5-14.5) Platelet Count 166 x10^3/uL (140-400) Neutrophils (%) (Auto) 82 % (31-73) Lymphocytes (%) (Auto) 7 % (24-48) Monocytes (%) (Auto) 9 % (0-9) Eosinophils (%) (Auto) 2 % (0-3) Basophils (%) (Auto) 0 % (0-3) Neutrophils # (Auto) 5.8 x10^3/uL (1.8-7.7) Lymphocytes # (Auto) 0.5 x10^3/uL (1.0-4.8) Monocytes # (Auto) 0.7 x10^3/uL (0.0-1.1) Eosinophils # (Auto) 0.1 x10^3/uL (0.0-0.7) Basophils # (Auto) 0.0 x10^3/uL (0.0-0.2) Sodium Level 140 mmol/L (136-145) Potassium Level 3.9 mmol/L (3.5-5.1) Chloride Level 104 mmol/L (98-107) Carbon Dioxide Level 28 mmol/L (21-32) Anion Gap 8 (6-14) Blood Urea Nitrogen 37 mg/dL (7-20) Creatinine 1.7 mg/dL (0.6-1.0) Estimated GFR (Cockcroft-Gault) 28.6 Glucose Level 83 mg/dL (70-99) Calcium Level 7.9 mg/dL (8.5-10.1) Test 10/23/19 07:29 10/23/19 12:19 Glucose (Fingerstick) 84 mg/dL (70-99) 88 mg/dL (70-99) Laboratory Tests Test 10/22/19 17:10 10/22/19 20:44 10/23/19 06:25 10/23/19 07:29 Glucose (Fingerstick) 89 mg/dL (70-99) 105 mg/dL (70-99) 84 mg/dL (70-99) White Blood Count 7.1 x10^3/uL (4.0-11.0) Red Blood Count 3.00 x10^6/uL (3.50-5.40) Hemoglobin 9.4 g/dL (12.0-15.5) Hematocrit 28.1 % (36.0-47.0) Mean Corpuscular Volume 94 fL (79-100) Mean Corpuscular Hemoglobin 31 pg (25-35) Mean Corpuscular Hemoglobin Concent 33 g/dL (31-37) Red Cell Distribution Width 14.8 % (11.5-14.5) Platelet Count 166 x10^3/uL (140-400) Neutrophils (%) (Auto) 82 % (31-73) Lymphocytes (%) (Auto) 7 % (24-48) Monocytes (%) (Auto) 9 % (0-9) Eosinophils (%) (Auto) 2 % (0-3) Basophils (%) (Auto) 0 % (0-3) Neutrophils # (Auto) 5.8 x10^3/uL (1.8-7.7) Lymphocytes # (Auto) 0.5 x10^3/uL (1.0-4.8) Monocytes # (Auto) 0.7 x10^3/uL (0.0-1.1) Eosinophils # (Auto) 0.1 x10^3/uL (0.0-0.7) Basophils # (Auto) 0.0 x10^3/uL (0.0-0.2) Sodium Level 140 mmol/L (136-145) Potassium Level 3.9 mmol/L (3.5-5.1) Chloride Level 104 mmol/L (98-107) Carbon Dioxide Level 28 mmol/L (21-32) Anion Gap 8 (6-14) Blood Urea Nitrogen 37 mg/dL (7-20) Creatinine 1.7 mg/dL (0.6-1.0) Estimated GFR (Cockcroft-Gault) 28.6 Glucose Level 83 mg/dL (70-99) Calcium Level 7.9 mg/dL (8.5-10.1) Test 10/23/19 12:19 Glucose (Fingerstick) 88 mg/dL (70-99) Assessment/Plan Assessment/Plan IMP CKD STAGE 3B-CR STABLE EPIGASTRIC PAIN PROB GI BLEED-HX OF SB AVM'S PARTIALLY TREATED UTI DM II HTN PLAN GI EVAL HYDRATION NEEDED AVOID NEPHROTOXINS OP RENAL F/U ON D/C MANUELA ALONSO MD Oct 23, 2019 14:36
[2019-10-23 15:10] VITALS: BP 143/49
[2019-10-23 19:28] VITALS: BP 148/68
[2019-10-23] MEDS ORDERED: traZODone 50 MG TABLET. PO SCH (21:00)
[2019-10-23] MEDS: LACTOBACILLUS RHAMNOSUS GG 1 CAPSULE. PO SCH (21:15)
[2019-10-23] MEDS: GABAPENTIN 300 MG CAPSULE. PO SCH (21:15)
[2019-10-23 23:10] VITALS: BP 138/50
[2019-10-24 03:11] VITALS: BP 146/48
[2019-10-24 06:12] VITALS: BP 143/54
[2019-10-24 07:06] LABS: BASO % 0 % (0-3); EOS # 0.1 x10^3/uL (0.0-0.7); EOS % 2 % (0-3); HEMATOCRIT 26.8 % (36.0-47.0); LYMPH # 0.6 x10^3/uL (1.0-4.8); LYMPH % 10 % (24-48); MEAN CORPUSCULAR HEMOGLOBIN 32 pg (25-35); MEAN CORPUSCULAR HGB CONC 34 g/dL (31-37); MEAN CORPUSCULAR VOLUME 94 fL (79-100); MONO # 0.7 x10^3/uL (0.0-1.1); MONO % 11 % (0-9); NEUT # 4.7 x10^3/uL (1.8-7.7); NEUT % 77 % (31-73); PLATELET COUNT 136 x10^3/uL (140-400); RED BLOOD COUNT 2.85 x10^6/uL (3.50-5.40); WHITE BLOOD COUNT 6.1 x10^3/uL (4.0-11.0)
[2019-10-24 07:31] LABS: CALCIUM 7.9 mg/dL (8.5-10.1); CREATININE 1.5 mg/dL (0.6-1.0); GFR 33.1; POTASSIUM 3.8 mmol/L (3.5-5.1)
[2019-10-24] MEDS ORDERED: FERROUS SULFATE 325 MG TABLET. PO SCH (08:00)
[2019-10-24] MEDS: INSULIN LISPRO 300 UNITS/3 ML VIAL. SQ SCH ×2 (08:00→12:00)
[2019-10-24] MEDS: LACTOBACILLUS RHAMNOSUS GG 1 CAPSULE. PO SCH (08:42)
[2019-10-24] MEDS: GABAPENTIN 300 MG CAPSULE. PO SCH ×2 (08:43→14:16)
[2019-10-24] MEDS: amLODIPine BESYLATE 10 MG TABLET PO SCH (08:43)
[2019-10-24] MEDS: PANTOPRAZOLE 40 MG TABLET.DR. PO SCH (08:44)
[2019-10-24] MEDS: CARVEDILOL 12.5 MG TABLET. PO SCH (08:44)
[2019-10-24] MEDS: HEPARIN for SUB-Q USE 5,000 UNIT/ML VIAL. SQ SCH (08:50)
[2019-10-24] MEDS ORDERED: DICYCLOMINE HCL 10 MG CAPSULE PO SCH (09:00)
[2019-10-24] MEDS ORDERED: QUEtiapine 25 MG TABLET. PO SCH (09:00)
[2019-10-24] MEDS ORDERED: VITAMIN B COMPLEX TABLET. PO SCH (09:00)
--- NOTE | 2019-10-24 09:54 | PDOC ---
DATE OF SERVICE DATE: 10/24/19 TIME: 09:54 SUBJECTIVE ROS No complaints, would like to go home OBJECTIVE Vital Signs Vital Signs Date Time Temp Pulse Resp B/P (MAP) Pulse Ox O2 Delivery O2 Flow Rate FiO2 10/24/19 08:44 67 143/54 10/24/19 06:12 98.4 18 97 Room Air 98.4 I & 0 Intake and Output 10/24/19 07:00 Intake Total 720 ml Balance 720 ml Intake Oral 720 ml # Voids 4 PHYSICAL EXAM Physical Exam General: Alert, Oriented X3, Cooperative, No acute distress HEENT: Atraumatic Lungs: Clear to auscultation Heart: Regular rate, Normal S2 Abdomen: Normal bowel sounds, Soft Extremities: No clubbing Skin: No breakdown, No significant lesion Neuro: Normal speech, Sensation intact Psych/Mental Status: Mental status NL, Mood NL No menard DIAGNOSIS/ASSESSMENT Assessment & Plan EULALIA - Mild , Pre-renal Cr 1.5 today , avoid nephrotoxins CKD stage 3 B - per renal consult note baseline Cr 1.8-2.[address] Vernon , keep scheduled fu appt Epigastric pain- per GI on PPI HTN- Antihypertensives CAD stable DM - per Primary H/o GERD Diverticulosis H/o SB AVMs Persistent UTI: was given levaquin 10/18 but pt only took a few. Cx revealed Enterococcus faecalis 10/11/2019 Per Primary DC per primary COMMENT/RELEVANT DATA Meds Current Medications Medications (Trade) Dose Ordered Sig/Marina Start Time Stop Time Status Last Admin Dose Admin Amlodipine Besylate (Norvasc) 10 mg DAILY 10/20/19 12:00 10/24/19 08:43 10 MG Aspirin (Soco Aspirin) 325 mg 1X ONCE 10/19/19 19:15 10/19/19 19:16 DC 10/19/19 20:29 325 MG Bisacodyl (Dulcolax Supp) 10 mg PRN DAILY PRN 10/20/19 15:15 10/21/19 06:31 10 MG Bumetanide (Bumex) 1 mg 1X ONCE 10/19/19 19:15 10/19/19 19:16 DC 10/19/19 20:29 1 MG Carvedilol (Coreg) 25 mg BIDWMEALS 10/20/19 17:00 10/24/19 08:44 25 MG Clonazepam (KlonoPIN) 0.5 mg PRN BID PRN 10/20/19 11:30 10/23/19 21:15 0.5 MG Dextrose (Dextrose 50%-Water Syringe) 12.5 gm PRN Q15MIN PRN 10/19/19 19:15 Dicyclomine HCl (Bentyl) 10 mg DAILY 10/24/19 09:00 10/24/19 08:44 10 MG Enoxaparin Sodium (Lovenox 30mg Syringe) 30 mg Q24H 10/20/19 06:00 10/20/19 15:32 DC 10/20/19 05:23 30 MG Enoxaparin Sodium (Lovenox Per Pharmacy Prophylaxis Dosing) 1 each PRN DAILY PRN 10/20/19 03:00 10/20/19 15:31 DC Ferrous Sulfate (Feosol) 325 mg DAILY08 10/24/19 08:00 10/24/19 08:43 325 MG Furosemide (Lasix) 40 mg 1X ONCE 10/20/19 16:00 10/20/19 16:01 DC 10/20/19 17:23 40 MG Gabapentin (Neurontin) 600 mg TID 10/23/19 21:00 10/24/19 08:43 600 MG Heparin Sodium (Porcine) (Heparin Sodium) 5,000 unit Q12HR 10/21/19 09:00 10/24/19 08:50 5,000 UNIT Hydralazine HCl (Apresoline Inj) 10 mg PRN Q4HRS PRN 10/20/19 03:00 10/20/19 17:24 10 MG Insulin Human Lispro (HumaLOG) 0-5 UNITS TIDWMEALS 10/20/19 08:00 Labetalol HCl (Normodyne Iv Push) 20 mg 1X ONCE 10/19/19 17:00 10/19/19 17:01 DC 10/19/19 17:18 20 MG Lactobacillus Rhamnosus (Culturelle) 1 cap BID 10/23/19 21:00 10/24/19 08:42 1 CAP Levofloxacin/ Dextrose 50 ml @ 50 mls/hr Q24H 10/22/19 17:00 10/23/19 17:26 50 MLS/HR Morphine Sulfate (Morphine Sulfate) 2 mg PRN Q2HR PRN 10/20/19 03:00 10/20/19 17:23 2 MG Multi-Ingredient Mouthwash/Gargle (Gi Cocktail) 20 ml 1X PRN PRN 10/21/19 10:00 10/21/19 10:07 20 ML Ondansetron HCl (Zofran) 4 mg PRN Q6HRS PRN 10/20/19 15:15 10/21/19 07:53 4 MG Pantoprazole Sodium (PROTONIX VIAL for IV PUSH) 40 mg PRN 1X PRN 10/20/19 09:15 10/20/19 17:33 40 MG Pantoprazole Sodium (Protonix) 40 mg DAILYAC 10/21/19 07:30 10/24/19 08:44 40 MG Quetiapine Fumarate (SEROquel) 25 mg DAILY 10/24/19 09:00 10/24/19 08:43 25 MG Sodium Chloride 1,000 ml @ 0 mls/hr Q0M 10/20/19 15:30 Tramadol HCl (Ultram) 50 mg PRN Q6HRS PRN 10/21/19 18:00 10/23/19 21:15 50 MG Trazodone HCl (Desyrel) 50 mg QHS 10/23/19 21:00 10/23/19 21:15 50 MG Vitamin B Complex (Morgan B) 1 tab DAILY 10/24/19 09:00 10/24/19 08:42 1 TAB Lab Laboratory Tests Test 10/23/19 12:19 10/23/19 17:25 10/23/19 21:04 10/24/19 06:19 Glucose (Fingerstick) 88 mg/dL (70-99) 86 mg/dL (70-99) 95 mg/dL (70-99) White Blood Count 6.1 x10^3/uL (4.0-11.0) Red Blood Count 2.85 x10^6/uL (3.50-5.40) Hemoglobin 9.0 g/dL (12.0-15.5) Hematocrit 26.8 % (36.0-47.0) Mean Corpuscular Volume 94 fL (79-100) Mean Corpuscular Hemoglobin 32 pg (25-35) Mean Corpuscular Hemoglobin Concent 34 g/dL (31-37) Red Cell Distribution Width 15.0 % (11.5-14.5) Platelet Count 136 x10^3/uL (140-400) Neutrophils (%) (Auto) 77 % (31-73) Lymphocytes (%) (Auto) 10 % (24-48) Monocytes (%) (Auto) 11 % (0-9) Eosinophils (%) (Auto) 2 % (0-3) Basophils (%) (Auto) 0 % (0-3) Neutrophils # (Auto) 4.7 x10^3/uL (1.8-7.7) Lymphocytes # (Auto) 0.6 x10^3/uL (1.0-4.8) Monocytes # (Auto) 0.7 x10^3/uL (0.0-1.1) Eosinophils # (Auto) 0.1 x10^3/uL (0.0-0.7) Basophils # (Auto) 0.0 x10^3/uL (0.0-0.2) Sodium Level 140 mmol/L (136-145) Potassium Level 3.8 mmol/L (3.5-5.1) Chloride Level 106 mmol/L (98-107) Carbon Dioxide Level 28 mmol/L (21-32) Anion Gap 6 (6-14) Blood Urea Nitrogen 32 mg/dL (7-20) Creatinine 1.5 mg/dL (0.6-1.0) Estimated GFR (Cockcroft-Gault) 33.1 Glucose Level 75 mg/dL (70-99) Calcium Level 7.9 mg/dL (8.5-10.1) Test 10/24/19 07:47 Glucose (Fingerstick) 75 mg/dL (70-99) Results All relevant outside records, renal labs, imaging studies, telemetry/EKG's were reviewed. Justicifation of Admission Dx: Justifications for Admission: Justification of Admission Dx: Yes JERONIMO MERAZ MD Oct 24, 2019 09:54
--- NOTE | 2019-10-24 10:12 | PDOC ---
Date of Service: DATE: 10/24/19 TIME: 10:07 Subjective: Subjective: "Just brushing my teeth!" Says she feels okay. Objective: Objective: D/w nurse - anxious, confused, eats w/ coaxing, possible DC today. Vital Signs: Vital Signs Date Time Temp Pulse Resp B/P (MAP) Pulse Ox O2 Delivery O2 Flow Rate FiO2 10/24/19 08:44 67 143/54 10/24/19 08:00 Room Air 10/24/19 06:12 98.4 18 97 98.4 Labs: Laboratory Tests Test 10/23/19 12:19 10/23/19 17:25 10/23/19 21:04 10/24/19 06:19 Glucose (Fingerstick) 88 mg/dL 86 mg/dL 95 mg/dL White Blood Count 6.1 x10^3/uL Red Blood Count 2.85 x10^6/uL Hemoglobin 9.0 g/dL Hematocrit 26.8 % Mean Corpuscular Volume 94 fL Mean Corpuscular Hemoglobin 32 pg Mean Corpuscular Hemoglobin Concent 34 g/dL Red Cell Distribution Width 15.0 % Platelet Count 136 x10^3/uL Neutrophils (%) (Auto) 77 % Lymphocytes (%) (Auto) 10 % Monocytes (%) (Auto) 11 % Eosinophils (%) (Auto) 2 % Basophils (%) (Auto) 0 % Neutrophils # (Auto) 4.7 x10^3/uL Lymphocytes # (Auto) 0.6 x10^3/uL Monocytes # (Auto) 0.7 x10^3/uL Eosinophils # (Auto) 0.1 x10^3/uL Basophils # (Auto) 0.0 x10^3/uL Sodium Level 140 mmol/L Potassium Level 3.8 mmol/L Chloride Level 106 mmol/L Carbon Dioxide Level 28 mmol/L Anion Gap 6 Blood Urea Nitrogen 32 mg/dL Creatinine 1.5 mg/dL Estimated GFR (Cockcroft-Gault) 33.1 Glucose Level 75 mg/dL Calcium Level 7.9 mg/dL Test 10/24/19 07:47 Glucose (Fingerstick) 75 mg/dL PE: GEN: NAD - in restroom brushing teeth LUNGS: clear HEART: RRR ABD: ND/NT NEURO/PSYCH:calm, appropriate A/P: Epigastric pain, h/o GERD - back on PPI here H/o WES - past 'scopes per consult note HTN, CAD, CKD, dementia -- Clam this morning when I saw. DC per primary on PPI. Justicifation of Admission Dx: Justifications for Admission: Justification of Admission Dx: Yes HEATHER MOSLEY Oct 24, 2019 10:11
--- NOTE | 2019-10-24 10:16 | PDOC ---
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 Cx revealed Enterococcus faecalis 10/11/2019 per chart review vasomotor nephropathy moderate protein-caloric malnutrition PLAN CONSULT NEPHROLOGY ok for d/c Cardiology following GI CONSULT Consider for outpt stress test. Follow up with [facility] cardiology D/W RN d/c planning 27 min History of Present Illness History of Present Illness Patient reports continued intermittent dyspepsia and burning epigastric pain. Denies any improvement with current management; refusing some meds. nephrology consulted cr 1.5 Vitals Vitals Vital Signs Date Time Temp Pulse Resp B/P (MAP) Pulse Ox O2 Delivery O2 Flow Rate FiO2 10/24/19 08:44 67 143/54 10/24/19 08:00 Room Air 10/24/19 06:12 98.4 18 97 98.4 Physical Exam General: Alert, Oriented X3, Cooperative, No acute distress Heart: Regular rate, Normal S2 Lungs: Wheezing Abdomen: Normal bowel sounds, Soft, No tenderness, Other (Epigastric tenderness) Extremities: No clubbing, No cyanosis, No edema, Normal pulses Skin: No breakdown, No significant lesion Labs LABS Laboratory Tests Test 10/23/19 12:19 10/23/19 17:25 10/23/19 21:04 10/24/19 06:19 Glucose (Fingerstick) 88 mg/dL (70-99) 86 mg/dL (70-99) 95 mg/dL (70-99) White Blood Count 6.1 x10^3/uL (4.0-11.0) Red Blood Count 2.85 x10^6/uL (3.50-5.40) Hemoglobin 9.0 g/dL (12.0-15.5) Hematocrit 26.8 % (36.0-47.0) Mean Corpuscular Volume 94 fL (79-100) Mean Corpuscular Hemoglobin 32 pg (25-35) Mean Corpuscular Hemoglobin Concent 34 g/dL (31-37) Red Cell Distribution Width 15.0 % (11.5-14.5) Platelet Count 136 x10^3/uL (140-400) Neutrophils (%) (Auto) 77 % (31-73) Lymphocytes (%) (Auto) 10 % (24-48) Monocytes (%) (Auto) 11 % (0-9) Eosinophils (%) (Auto) 2 % (0-3) Basophils (%) (Auto) 0 % (0-3) Neutrophils # (Auto) 4.7 x10^3/uL (1.8-7.7) Lymphocytes # (Auto) 0.6 x10^3/uL (1.0-4.8) Monocytes # (Auto) 0.7 x10^3/uL (0.0-1.1) Eosinophils # (Auto) 0.1 x10^3/uL (0.0-0.7) Basophils # (Auto) 0.0 x10^3/uL (0.0-0.2) Sodium Level 140 mmol/L (136-145) Potassium Level 3.8 mmol/L (3.5-5.1) Chloride Level 106 mmol/L (98-107) Carbon Dioxide Level 28 mmol/L (21-32) Anion Gap 6 (6-14) Blood Urea Nitrogen 32 mg/dL (7-20) Creatinine 1.5 mg/dL (0.6-1.0) Estimated GFR (Cockcroft-Gault) 33.1 Glucose Level 75 mg/dL (70-99) Calcium Level 7.9 mg/dL (8.5-10.1) Test 10/24/19 07:47 Glucose (Fingerstick) 75 mg/dL (70-99) Assessment and Plan Assessmemt and Plan Problems Medical Problems: (1) CHF (congestive heart failure) Status: Acute (2) Elevated troponin Status: Acute (3) Hiatal hernia Status: Acute Comment Review of Relevant I have reviewed the following items matti (where applicable) has been applied. Labs Laboratory Tests Test 10/22/19 12:39 10/22/19 17:10 10/22/19 20:44 10/23/19 06:25 Glucose (Fingerstick) 83 mg/dL (70-99) 89 mg/dL (70-99) 105 mg/dL (70-99) White Blood Count 7.1 x10^3/uL (4.0-11.0) Red Blood Count 3.00 x10^6/uL (3.50-5.40) Hemoglobin 9.4 g/dL (12.0-15.5) Hematocrit 28.1 % (36.0-47.0) Mean Corpuscular Volume 94 fL (79-100) Mean Corpuscular Hemoglobin 31 pg (25-35) Mean Corpuscular Hemoglobin Concent 33 g/dL (31-37) Red Cell Distribution Width 14.8 % (11.5-14.5) Platelet Count 166 x10^3/uL (140-400) Neutrophils (%) (Auto) 82 % (31-73) Lymphocytes (%) (Auto) 7 % (24-48) Monocytes (%) (Auto) 9 % (0-9) Eosinophils (%) (Auto) 2 % (0-3) Basophils (%) (Auto) 0 % (0-3) Neutrophils # (Auto) 5.8 x10^3/uL (1.8-7.7) Lymphocytes # (Auto) 0.5 x10^3/uL (1.0-4.8) Monocytes # (Auto) 0.7 x10^3/uL (0.0-1.1) Eosinophils # (Auto) 0.1 x10^3/uL (0.0-0.7) Basophils # (Auto) 0.0 x10^3/uL (0.0-0.2) Sodium Level 140 mmol/L (136-145) Potassium Level 3.9 mmol/L (3.5-5.1) Chloride Level 104 mmol/L (98-107) Carbon Dioxide Level 28 mmol/L (21-32) Anion Gap 8 (6-14) Blood Urea Nitrogen 37 mg/dL (7-20) Creatinine 1.7 mg/dL (0.6-1.0) Estimated GFR (Cockcroft-Gault) 28.6 Glucose Level 83 mg/dL (70-99) Calcium Level 7.9 mg/dL (8.5-10.1) Test 10/23/19 07:29 10/23/19 12:19 10/23/19 17:25 10/23/19 21:04 Glucose (Fingerstick) 84 mg/dL (70-99) 88 mg/dL (70-99) 86 mg/dL (70-99) 95 mg/dL (70-99) Test 10/24/19 06:19 10/24/19 07:47 White Blood Count 6.1 x10^3/uL (4.0-11.0) Red Blood Count 2.85 x10^6/uL (3.50-5.40) Hemoglobin 9.0 g/dL (12.0-15.5) Hematocrit 26.8 % (36.0-47.0) Mean Corpuscular Volume 94 fL (79-100) Mean Corpuscular Hemoglobin 32 pg (25-35) Mean Corpuscular Hemoglobin Concent 34 g/dL (31-37) Red Cell Distribution Width 15.0 % (11.5-14.5) Platelet Count 136 x10^3/uL (140-400) Neutrophils (%) (Auto) 77 % (31-73) Lymphocytes (%) (Auto) 10 % (24-48) Monocytes (%) (Auto) 11 % (0-9) Eosinophils (%) (Auto) 2 % (0-3) Basophils (%) (Auto) 0 % (0-3) Neutrophils # (Auto) 4.7 x10^3/uL (1.8-7.7) Lymphocytes # (Auto) 0.6 x10^3/uL (1.0-4.8) Monocytes # (Auto) 0.7 x10^3/uL (0.0-1.1) Eosinophils # (Auto) 0.1 x10^3/uL (0.0-0.7) Basophils # (Auto) 0.0 x10^3/uL (0.0-0.2) Sodium Level 140 mmol/L (136-145) Potassium Level 3.8 mmol/L (3.5-5.1) Chloride Level 106 mmol/L (98-107) Carbon Dioxide Level 28 mmol/L (21-32) Anion Gap 6 (6-14) Blood Urea Nitrogen 32 mg/dL (7-20) Creatinine 1.5 mg/dL (0.6-1.0) Estimated GFR (Cockcroft-Gault) 33.1 Glucose Level 75 mg/dL (70-99) Calcium Level 7.9 mg/dL (8.5-10.1) Glucose (Fingerstick) 75 mg/dL (70-99) Laboratory Tests Test 10/23/19 12:19 10/23/19 17:25 10/23/19 21:04 10/24/19 06:19 Glucose (Fingerstick) 88 mg/dL (70-99) 86 mg/dL (70-99) 95 mg/dL (70-99) White Blood Count 6.1 x10^3/uL (4.0-11.0) Red Blood Count 2.85 x10^6/uL (3.50-5.40) Hemoglobin 9.0 g/dL (12.0-15.5) Hematocrit 26.8 % (36.0-47.0) Mean Corpuscular Volume 94 fL (79-100) Mean Corpuscular Hemoglobin 32 pg (25-35) Mean Corpuscular Hemoglobin Concent 34 g/dL (31-37) Red Cell Distribution Width 15.0 % (11.5-14.5) Platelet Count 136 x10^3/uL (140-400) Neutrophils (%) (Auto) 77 % (31-73) Lymphocytes (%) (Auto) 10 % (24-48) Monocytes (%) (Auto) 11 % (0-9) Eosinophils (%) (Auto) 2 % (0-3) Basophils (%) (Auto) 0 % (0-3) Neutrophils # (Auto) 4.7 x10^3/uL (1.8-7.7) Lymphocytes # (Auto) 0.6 x10^3/uL (1.0-4.8) Monocytes # (Auto) 0.7 x10^3/uL (0.0-1.1) Eosinophils # (Auto) 0.1 x10^3/uL (0.0-0.7) Basophils # (Auto) 0.0 x10^3/uL (0.0-0.2) Sodium Level 140 mmol/L (136-145) Potassium Level 3.8 mmol/L (3.5-5.1) Chloride Level 106 mmol/L (98-107) Carbon Dioxide Level 28 mmol/L (21-32) Anion Gap 6 (6-14) Blood Urea Nitrogen 32 mg/dL (7-20) Creatinine 1.5 mg/dL (0.6-1.0) Estimated GFR (Cockcroft-Gault) 33.1 Glucose Level 75 mg/dL (70-99) Calcium Level 7.9 mg/dL (8.5-10.1) Test 10/24/19 07:47 Glucose (Fingerstick) 75 mg/dL (70-99) Microbiology 10/19/19 Urine Culture - Final, Complete Medications Current Medications Sodium Chloride 1,000 ml @ 1,000 mls/hr 1X ONCE IV Last administered on 10/19/19at 17:18; Start 10/19/19 at 16:45; Stop 10/19/19 at 17:44; Status DC Labetalol HCl (Normodyne Iv Push) 20 mg 1X ONCE IVP Last administered on 10/19/19at 17:18; Start 10/19/19 at 17:00; Stop 10/19/19 at 17:01; Status DC Ondansetron HCl (Zofran) 4 mg PRN Q8HRS PRN IV NAUSEA/VOMITING Last administered on 10/19/19at 22:10; Start 10/19/19 at 19:15; Stop 10/20/19 at 19:14 ; Status DC Bumetanide (Bumex) 1 mg 1X ONCE IV Last administered on 10/19/19at 20:29; Start 10/19/19 at 19:15; Stop 10/19/19 at 19:16; Status DC Aspirin (Soco Aspirin) 325 mg 1X ONCE PO Last administered on 10/19/19at 20:29; Start 10/19/19 at 19:15; Stop 10/19/19 at 19:16; Status DC Insulin Human Lispro (HumaLOG) 0-5 UNITS TIDWMEALS SQ ; Start 10/20/19 at 08:00 Dextrose (Dextrose 50%-Water Syringe) 12.5 gm PRN Q15MIN PRN IV SEE COMMENTS; Start 10/19/19 at 19:15 Morphine Sulfate (Morphine Sulfate) 2 mg PRN Q2HR PRN IV SEVERE PAIN 7-10 Last administered on 10/20/19 17:23; Start 10/20/19 at 03:00 Hydralazine HCl (Apresoline Inj) 10 mg PRN Q4HRS PRN IVP ELEVATED BP, SEE COMMENTS Last administered on 10/20/19at 17:24; Start 10/20/19 at 03:00 Enoxaparin Sodium (Lovenox Per Pharmacy Prophylaxis Dosing) 1 each PRN DAILY PRN MC SEE COMMENTS; Start 10/20/19 at 03:00; Stop 10/20/19 at 15:31; Status DC Enoxaparin Sodium (Lovenox 30mg Syringe) 30 mg Q24H SQ Last administered on 10/20/19 05:23; Start 10/20/19 at 06:00; Stop 10/20/19 at 15:32; Status DC Pantoprazole Sodium (PROTONIX VIAL for IV PUSH) 40 mg PRN 1X PRN IVP gerd Last administered on 10/20/19at 17:33; Start 10/20/19 at 09:15 Multi-Ingredient Mouthwash/Gargle (Gi Cocktail) 20 ml 1X ONCE SWSW Last administered on 10/20/19at 10:14; Start 10/20/19 at 10:00; Stop 10/20/19 at 10:01; Status DC Clonazepam (KlonoPIN) 0.5 mg PRN BID PRN PO ANXIETY / AGITATION Last administered on 10/23/19at 21:15; Start 10/20/19 at 11:30 Carvedilol (Coreg) 25 mg BIDWMEALS PO Last administered on 10/24/19 08:44; Start 10/20/19 at 17:00 Amlodipine Besylate (Norvasc) 10 mg DAILY PO Last administered on 10/24/19 08:43; Start 10/20/19 at 12:00 Ondansetron HCl (Zofran) 4 mg PRN Q6HRS PRN IVP NAUSEA/VOMITING Last administered on 10/21/19 07:53; Start 10/20/19 at 15:15 Bisacodyl (Dulcolax Supp) 10 mg PRN DAILY PRN [place] CONSTIPATION Last administered on 10/21/19 06:31; Start 10/20/19 at 15:15 Heparin Sodium (Porcine) (Heparin Sodium) 5,000 unit Q12HR SQ Last administered on 10/24/19 08:50; Start 10/21/19 at 09:00 Sodium Chloride 1,000 ml @ 0 mls/hr Q0M IV ; Start 10/20/19 at 15:30 Furosemide (Lasix) 40 mg 1X ONCE PO Last administered on 10/20/19 17:23; Start 10/20/19 at 16:00; Stop 10/20/19 at 16:01; Status DC Pantoprazole Sodium (Protonix) 40 mg DAILYAC PO Last administered on 10/24/19 08:44; Start 10/21/19 at 07:30 Multi-Ingredient Mouthwash/Gargle (Gi Cocktail) 20 ml 1X PRN PRN PO CHEST PAIN Last administered on 10/21/19 10:07; Start 10/21/19 at 10:00 Tramadol HCl (Ultram) 50 mg PRN Q6HRS PRN PO PAIN Last administered on 10/23/19 21:15; Start 10/21/19 at 18:00 Levofloxacin/ Dextrose 100 ml @ 100 mls/hr Q24H IV ; Start 10/22/19 at 16:00; Stop 10/22/19 at 16:15; Status DC Levofloxacin/ Dextrose 50 ml @ 50 mls/hr Q24H IV Last administered on 10/23/19 17:26; Start 10/22/19 at 17:00 Lactobacillus Rhamnosus (Culturelle) 1 cap BID PO Last administered on 10/24/19 08:42; Start 10/23/19 at 21:00 Dicyclomine HCl (Bentyl) 10 mg DAILY PO Last administered on 10/24/19 08:44; Start 10/24/19 at 09:00 Ferrous Sulfate (Feosol) 325 mg DAILY08 PO Last administered on 10/24/19 08:43; Start 10/24/19 at 08:00 Quetiapine Fumarate (SEROquel) 25 mg DAILY PO Last administered on 10/24/19 08:43; Start 10/24/19 at 09:00 Trazodone HCl (Desyrel) 50 mg QHS PO Last administered on 10/23/19 21:15; Start 10/23/19 at 21:00 Gabapentin (Neurontin) 600 mg TID PO Last administered on 8/31/20at 08:43; Start 10/23/19 at 21:00 Vitamin B Complex (Morgan B) 1 tab DAILY PO Last administered on 10/24/19at 08:42; Start 10/24/19 at 09:00 Active Scripts Active [Pantoprazole] 40 MG Tablet.dr 40 Mg PO DAILYAC 30 Days Gabapentin 600 Mg Tablet 600 Mg PO TID 30 Days Trazodone Hcl 50 Mg Tablet 50 Mg PO QHS 30 Days Quetiapine Fumarate 25 Mg Tablet 25 Mg PO DAILY 30 Days Furosemide 40 Mg Tablet 40 Mg PO DAILY 30 Days Reported Probiotic (Lactobacillus Combo No.10) 1 Each Capsule 1 Tab PO DAILY 30 Days Vitamin B Complex 1 Each Capsule 1 Each PO DAILY Ferrous Sulfate 325 Mg Tablet 1 Tab PO DAILY Losartan Potassium 50 Mg Tablet 50 Mg PO DAILY Dicyclomine Hcl 10 Mg Capsule 10 Mg PO DAILY Carvedilol 25 Mg Tablet 1 Tab PO BID Famotidine 20 Mg Tablet 20 Mg PO BID Amlodipine Besylate 5 Mg Tablet 5 Mg PO DAILY Vitals/I & O Vital Sign - Last 24 Hours 10/23/19 10/23/19 10/23/19 10/23/19 11:20 15:10 17:26 19:28 Temp 97.7 97.7 98.1 97.7 97.7 98.1 Pulse 65 72 72 64 Resp 18 18 18 B/P (MAP) 140/51 (80) 143/49 (80) 143/49 148/68 (94) Pulse Ox 94 93 95 O2 Delivery Room Air Room Air Room Air 10/23/19 10/23/19 10/23/19 10/23/19 20:18 21:15 22:43 23:10 Temp 98.1 98.1 Pulse 67 Resp 18 B/P (MAP) 138/50 (79) Pulse Ox 95 O2 Delivery Room Air Room Air Room Air Room Air 10/24/19 10/24/19 10/24/19 10/24/19 03:11 06:12 08:00 08:43 Temp 98.0 98.4 98.0 98.4 Pulse 63 67 67 Resp 18 18 B/P (MAP) 146/48 (80) 143/54 (83) 143/54 Pulse Ox 96 97 O2 Delivery Room Air Room Air Room Air 10/24/19 08:44 Pulse 67 B/P (MAP) 143/54 Intake and Output 10/23/19 10/23/19 10/24/19 14:59 22:59 06:59 Intake Total 320 ml 400 ml 0 ml Balance 320 ml 400 ml 0 ml Justicifation of Admission Dx: Justifications for Admission: Justification of Admission Dx: Yes ARCELIA NATION MD Oct 24, 2019 10:16
[2019-10-24 10:38] VITALS: BP 143/59
--- NOTE | 2019-10-24 13:26 | NUR ---
SS following up with discharge planning. SS reviewed pt chart and discussed with pt RN. Pt is currently on room air. Pt and pt's spouse declined half-way unit and home healthcare. Discharge plan is to home with self care. Pt on IV Levofloxacin and will need to transfer to PO. SS will continue to follow for discharge planning.
--- NOTE | 2019-10-24 13:28 | PDOC3 ---
Discharge Summary Date of Admission: Oct 19, 2019 Date of Discharge: Oct 24, 2019 Follow-Up: 3-5 days Admitting Diagnosis comment: DISCHARGE DX Epigastric pain HTN, CAD, mildly elevated troponin, CKD 3 B H/o WES ckd 3B stage H/o GERD CRC screen - last in 2007 Diverticulosis H/o SB AVMs H/o C Diff S/p cholecystectomy NORMOCYTIC ANEMIA Persistent UTI: was given levaquin 10/18 but pt only took a few. Cx revealed Enterococcus faecalis 10/11/2019 per chart review vasomotor nephropathy moderate protein-caloric malnutrition PLAN CONSULT NEPHROLOGY ok for d/c Cardiology following GI CONSULT OK WITH D/C 10/23 Consider for outpt stress test. Follow up with [facility] cardiology D/W RN d/c planning 27 min History of Present Illness History of Present Illness Patient reports continued intermittent dyspepsia and burning epigastric pain. Denies any improvement with current management; refusing some meds. nephrology consulted cr 1.5 Vitals Vitals Vital Signs Date Time Temp Pulse Resp B/P (MAP) Pulse Ox O2 Delivery O2 Flow Rate FiO2 10/24/19 08:44 67 143/54 10/24/19 08:00 Room Air 10/24/19 06:12 98.4 18 97 98.4 Physical Exam General: Alert, Oriented X3, Cooperative, No acute distress Heart: Regular rate, Normal S2 Lungs: Wheezing Abdomen: Normal bowel sounds, Soft, No tenderness, Other (Epigastric tenderness) Extremities: No clubbing, No cyanosis, No edema, Normal pulses Skin: No breakdown, No significant lesion FINAL DIAGNOSIS Problems Medical Problems: (1) CHF (congestive heart failure) Status: Acute (2) Elevated troponin Status: Acute (3) Hiatal hernia Status: Acute Brief Hospital Course Ms. Colon is a 84 old [sex] who presented with [ ACUTE CHF, UTI] CONDITION AT DISCHARGE: Improved Discharge Medications Current Medications Sodium Chloride 1,000 ml @ 1,000 mls/hr 1X ONCE IV Last administered on 10/19/19at 17:18; Start 10/19/19 at 16:45; Stop 10/19/19 at 17:44; Status DC Labetalol HCl (Normodyne Iv Push) 20 mg 1X ONCE IVP Last administered on 10/19/19at 17:18; Start 10/19/19 at 17:00; Stop 10/19/19 at 17:01; Status DC Ondansetron HCl (Zofran) 4 mg PRN Q8HRS PRN IV NAUSEA/VOMITING Last administered on 10/19/19at 22:10; Start 10/19/19 at 19:15; Stop 10/20/19 at 19:14; Status DC Bumetanide (Bumex) 1 mg 1X ONCE IV Last administered on 10/19/19at 20:29; Start 10/19/19 at 19:15; Stop 10/19/19 at 19:16; Status DC Aspirin (Soco Aspirin) 325 mg 1X ONCE PO Last administered on 10/19/19at 20:29; Start 10/19/19 at 19:15; Stop 10/19/19 at 19:16; Status DC Insulin Human Lispro (HumaLOG) 0-5 UNITS TIDWMEALS SQ ; Start 10/20/19 at 08:00 Dextrose (Dextrose 50%-Water Syringe) 12.5 gm PRN Q15MIN PRN IV SEE COMMENTS; Start 10/19/19 at 19:15 Morphine Sulfate (Morphine Sulfate) 2 mg PRN Q2HR PRN IV SEVERE PAIN 7-10 Last administered on 10/20/19at 17:23; Start 10/20/19 at 03:00 Hydralazine HCl (Apresoline Inj) 10 mg PRN Q4HRS PRN IVP ELEVATED BP, SEE COMMENTS Last administered on 10/20/19at 17:24; Start 10/20/19 at 03:00 Enoxaparin Sodium (Lovenox Per Pharmacy Prophylaxis Dosing) 1 each PRN DAILY PRN MC SEE COMMENTS; Start 10/20/19 at 03:00; Stop 10/20/19 at 15:31; Status DC Enoxaparin Sodium (Lovenox 30mg Syringe) 30 mg Q24H SQ Last administered on 10/20/19at 05:23; Start 10/20/19 at 06:00; Stop 10/20/19 at 15:32; Status DC Pantoprazole Sodium (PROTONIX VIAL for IV PUSH) 40 mg PRN 1X PRN IVP gerd Last administered on 10/20/19 17:33; Start 10/20/19 at 09:15 Multi-Ingredient Mouthwash/Gargle (Gi Cocktail) 20 ml 1X ONCE SWSW Last administered on 10/20/19 10:14; Start 10/20/19 at 10:00; Stop 10/20/19 at 10:01; Status DC Clonazepam (KlonoPIN) 0.5 mg PRN BID PRN PO ANXIETY / AGITATION Last administer ed on 10/23/19 21:15; Start 10/20/19 at 11:30 Carvedilol (Coreg) 25 mg BIDWMEALS PO Last administered on 10/24/19 08:44; Start 10/20/19 at 17:00 Amlodipine Besylate (Norvasc) 10 mg DAILY PO Last administered on 10/24/19 08:43; Start 10/20/19 at 12:00 Ondansetron HCl (Zofran) 4 mg PRN Q6HRS PRN IVP NAUSEA/VOMITING Last administered on 10/21/19 07:53; Start 10/20/19 at 15:15 Bisacodyl (Dulcolax Supp) 10 mg PRN DAILY PRN [place] CONSTIPATION Last administered on 10/21/19 06:31; Start 10/20/19 at 15:15 Heparin Sodium (Porcine) (Heparin Sodium) 5,000 unit Q12HR SQ Last administered on 10/24/19 08:50; Start 10/21/19 at 09:00 Sodium Chloride 1,000 ml @ 0 mls/hr Q0M IV ; Start 10/20/19 at 15:30 Furosemide (Lasix) 40 mg 1X ONCE PO Last administered on 10/20/19 17:23; Start 10/20/19 at 16:00; Stop 10/20/19 at 16:01; Status DC Pantoprazole Sodium (Protonix) 40 mg DAILYAC PO Last administered on 10/24/19 08:44; Start 10/21/19 at 07:30 Multi-Ingredient Mouthwash/Gargle (Gi Cocktail) 20 ml 1X PRN PRN PO CHEST PAIN Last administered on 10/21/19 10:07; Start 10/21/19 at 10:00 Tramadol HCl (Ultram) 50 mg PRN Q6HRS PRN PO PAIN Last administered on 10/23/19at 21:15; Start 10/21/19 at 18:00 Levofloxacin/ Dextrose 100 ml @ 100 mls/hr Q24H IV ; Start 10/22/19 at 16:00; Stop 10/22/19 at 16:15; Status DC Levofloxacin/ Dextrose 50 ml @ 50 mls/hr Q24H IV Last administered on 10/23/19at 17:26; Start 10/22/19 at 17:00 Lactobacillus Rhamnosus (Culturelle) 1 cap BID PO Last administered on 10/24/19at 08:42; Start 10/23/19 at 21:00 Dicyclomine HCl (Bentyl) 10 mg DAILY PO Last administered on 10/24/19at 08:44; Start 10/24/19 at 09:00 Ferrous Sulfate (Feosol) 325 mg DAILY08 PO Last administered on 10/24/19at 08:43; Start 10/24/19 at 08:00 Quetiapine Fumarate (SEROquel) 25 mg DAILY PO Last administered on 10/24/19at 08:43; Start 10/24/19 at 09:00 Trazodone HCl (Desyrel) 50 mg QHS PO Last administered on 10/23/19at 21:15; Start 10/23/19 at 21:00 Gabapentin (Neurontin) 600 mg TID PO Last administered on 10/24/19at 08:43; Start 10/23/19 at 21:00 Vitamin B Complex (Morgan B) 1 tab DAILY PO Last administered on 10/24/19at 08:42; Start 10/24/19 at 09:00 Active Scripts Active [Pantoprazole] 40 MG Tablet.dr 40 Mg PO DAILYAC 30 Days Gabapentin 600 Mg Tablet 600 Mg PO TID 30 Days Trazodone Hcl 50 Mg Tablet 50 Mg PO QHS 30 Days Quetiapine Fumarate 25 Mg Tablet 25 Mg PO DAILY 30 Days Furosemide 40 Mg Tablet 40 Mg PO DAILY 30 Days Reported Probiotic (Lactobacillus Combo No.10) 1 Each Capsule 1 Tab PO DAILY 30 Days Vitamin B Complex 1 Each Capsule 1 Each PO DAILY Ferrous Sulfate 325 Mg Tablet 1 Tab PO DAILY Losartan Potassium 50 Mg Tablet 50 Mg PO DAILY Dicyclomine Hcl 10 Mg Capsule 10 Mg PO DAILY Carvedilol 25 Mg Tablet 1 Tab PO BID Famotidine 20 Mg Tablet 20 Mg PO BID Amlodipine Besylate 5 Mg Tablet 5 Mg PO DAILY Vital Signs Vital Signs Date Time Temp Pulse Resp B/P (MAP) Pulse Ox O2 Delivery O2 Flow Rate FiO2 10/24/19 10:38 98.2 62 20 143/59 (87) 96 Room Air 98.2 Labs Laboratory Tests Test 10/22/19 17:10 10/22/19 20:44 10/23/19 06:25 10/23/19 07:29 Glucose (Fingerstick) 89 mg/dL (70-99) 105 mg/dL (70-99) 84 mg/dL (70-99) White Blood Count 7.1 x10^3/uL (4.0-11.0) Red Blood Count 3.00 x10^6/uL (3.50-5.40) Hemoglobin 9.4 g/dL (12.0-15.5) Hematocrit 28.1 % (36.0-47.0) Mean Corpuscular Volume 94 fL (79-100) Mean Corpuscular Hemoglobin 31 pg (25-35) Mean Corpuscular Hemoglobin Concent 33 g/dL (31-37) Red Cell Distribution Width 14.8 % (11.5-14.5) Platelet Count 166 x10^3/uL (140-400) Neutrophils (%) (Auto) 82 % (31-73) Lymphocytes (%) (Auto) 7 % (24-48) Monocytes (%) (Auto) 9 % (0-9) Eosinophils (%) (Auto) 2 % (0-3) Basophils (%) (Auto) 0 % (0-3) Neutrophils # (Auto) 5.8 x10^3/uL (1.8-7.7) Lymphocytes # (Auto) 0.5 x10^3/uL (1.0-4.8) Monocytes # (Auto) 0.7 x10^3/uL (0.0-1.1) Eosinophils # (Auto) 0.1 x10^3/uL (0.0-0.7) Basophils # (Auto) 0.0 x10^3/uL (0.0-0.2) Sodium Level 140 mmol/L (136-145) Potassium Level 3.9 mmol/L (3.5-5.1) Chloride Level 104 mmol/L (98-107) Carbon Dioxide Level 28 mmol/L (21-32) Anion Gap 8 (6-14) Blood Urea Nitrogen 37 mg/dL (7-20) Creatinine 1.7 mg/dL (0.6-1.0) Estimated GFR (Cockcroft-Gault) 28.6 Glucose Level 83 mg/dL (70-99) Calcium Level 7.9 mg/dL (8.5-10.1) Test 10/23/19 12:19 10/23/19 17:25 10/23/19 21:04 10/24/19 06:19 Glucose (Fingerstick) 88 mg/dL (70-99) 86 mg/dL (70-99) 95 mg/dL (70-99) White Blood Count 6.1 x10^3/uL (4.0-11.0) Red Blood Count 2.85 x10^6/uL (3.50-5.40) Hemoglobin 9.0 g/dL (12.0-15.5) Hematocrit 26.8 % (36.0-47.0) Mean Corpuscular Volume 94 fL (79-100) Mean Corpuscular Hemoglobin 32 pg (25-35) Mean Corpuscular Hemoglobin Concent 34 g/dL (31-37) Red Cell Distribution Width 15.0 % (11.5-14.5) Platelet Count 136 x10^3/uL (140-400) Neutrophils (%) (Auto) 77 % (31-73) Lymphocytes (%) (Auto) 10 % (24-48) Monocytes (%) (Auto) 11 % (0-9) Eosinophils (%) (Auto) 2 % (0-3) Basophils (%) (Auto) 0 % (0-3) Neutrophils # (Auto) 4.7 x10^3/uL (1.8-7.7) Lymphocytes # (Auto) 0.6 x10^3/uL (1.0-4.8) Monocytes # (Auto) 0.7 x10^3/uL (0.0-1.1) Eosinophils # (Auto) 0.1 x10^3/uL (0.0-0.7) Basophils # (Auto) 0.0 x10^3/uL (0.0-0.2) Sodium Level 140 mmol/L (136-145) Potassium Level 3.8 mmol/L (3.5-5.1) Chloride Level 106 mmol/L (98-107) Carbon Dioxide Level 28 mmol/L (21-32) Anion Gap 6 (6-14) Blood Urea Nitrogen 32 mg/dL (7-20) Creatinine 1.5 mg/dL (0.6-1.0) Estimated GFR (Cockcroft-Gault) 33.1 Glucose Level 75 mg/dL (70-99) Calcium Level 7.9 mg/dL (8.5-10.1) Test 10/24/19 07:47 10/24/19 11:42 Glucose (Fingerstick) 75 mg/dL (70-99) 83 mg/dL (70-99) Laboratory Tests Test 10/23/19 17:25 10/23/19 21:04 10/24/19 06:19 10/24/19 07:47 Glucose (Fingerstick) 86 mg/dL (70-99) 95 mg/dL (70-99) 75 mg/dL (70-99) White Blood Count 6.1 x10^3/uL (4.0-11.0) Red Blood Count 2.85 x10^6/uL (3.50-5.40) Hemoglobin 9.0 g/dL (12.0-15.5) Hematocrit 26.8 % (36.0-47.0) Mean Corpuscular Volume 94 fL (79-100) Mean Corpuscular Hemoglobin 32 pg (25-35) Mean Corpuscular Hemoglobin Concent 34 g/dL (31-37) Red Cell Distribution Width 15.0 % (11.5-14.5) Platelet Count 136 x10^3/uL (140-400) Neutrophils (%) (Auto) 77 % (31-73) Lymphocytes (%) (Auto) 10 % (24-48) Monocytes (%) (Auto) 11 % (0-9) Eosinophils (%) (Auto) 2 % (0-3) Basophils (%) (Auto) 0 % (0-3) Neutrophils # (Auto) 4.7 x10^3/uL (1.8-7.7) Lymphocytes # (Auto) 0.6 x10^3/uL (1.0-4.8) Monocytes # (Auto) 0.7 x10^3/uL (0.0-1.1) Eosinophils # (Auto) 0.1 x10^3/uL (0.0-0.7) Basophils # (Auto) 0.0 x10^3/uL (0.0-0.2) Sodium Level 140 mmol/L (136-145) Potassium Level 3.8 mmol/L (3.5-5.1) Chloride Level 106 mmol/L (98-107) Carbon Dioxide Level 28 mmol/L (21-32) Anion Gap 6 (6-14) Blood Urea Nitrogen 32 mg/dL (7-20) Creatinine 1.5 mg/dL (0.6-1.0) Estimated GFR (Cockcroft-Gault) 33.1 Glucose Level 75 mg/dL (70-99) Calcium Level 7.9 mg/dL (8.5-10.1) Test 10/24/19 11:42 Glucose (Fingerstick) 83 mg/dL (70-99) Allergies Allergies Coded Allergies Type Severity Reaction Last Updated Verified Penicillins Allergy Intermediate 10/12/19 Yes metronidazole Allergy Intermediate Hives 10/12/19 Yes Disposition/Orders: D/C to Home Justicifation of Admission Dx: Justifications for Admission: Justification of Admission Dx: Yes ARCELIA NATION MD Oct 24, 2019 13:28
[2019-10-24] MEDS ORDERED: PANT40TA77 PO (13:32)
[2019-10-24] MEDS ORDERED: BISA10SU4 PR (13:32)
[2019-10-24] MEDS ORDERED: AMLO10TA8 PO (13:32)
[2019-10-24] MEDS ORDERED: CARV12.511 PO (13:32)
[2019-10-24] MEDS ORDERED: LEVO500T59 PO (13:32)
--- NOTE | 2019-10-24 13:34 | DISCH ---
DISCHARGE INSTRUCTIONS Condition on Discharge Condition on Discharge: Stable Activity After Discharge Activity Instructions for Disc: Activity as tolerated Lifting Instructions after Dis: No heavy lifting, No pulling or pushing Driving Instructions after Dis: Do not drive, Do not drive today Weight Bearing Status after Di: As tolerated Diet after Discharge Diet after Discharge: Cardiac, Diabetic No Calorie Level Diet Texture: Regular Liquid Texture: Thin Liquid Swallowing Supervision: None needed Wound Incision Care Wound/Incision Care: No wound care needed Checks after Discharge Checks after discharge: Check blood press - daily, Check blood sugar, ac/hs Contacting the DR. after DC Call your doctor for: If your condition worsens Treatment/Equipment after DC Adaptive Equipment Issued: None ARCELIA NATION MD Oct 24, 2019 13:34
[2019-10-24 14:25] VITALS: BP 154/62
--- NOTE | 2019-10-24 15:30 | NUR ---
Discharge Note: JOHNNY ARTEAGA Discharge instructions and discharge home medications reviewed with Patient and Spouse and a copy given. All questions have been answered and understanding verbalized. The following instructions and handouts were given: Diet for GERD, CHF, Levaquin, and Protonix. Discontinued lines and drains: Peripheral IV intact. Patient discharged to Home with Spouse via Wheelchair
== END 2019-10-24 15:30 | disposition home or self-care (01) | DRG 291 ==
LOC: ER 15:22 → 2 NORTH 18:57
PROVIDERS: ADMIT Family Medicine; ATTEND Family Medicine
DX: I13.0 Hypertensive heart and chronic kidney disease with heart failure and stage 1 through stage 4 chronic kidney disease, or unspecified chronic kidney disease (principal); N17.0 Acute kidney failure with tubular necrosis; I50.31 Acute diastolic (congestive) heart failure; I24.8 Other forms of acute ischemic heart disease; E44.0 Moderate protein-calorie malnutrition; M62.82 Rhabdomyolysis; N39.0 Urinary tract infection, site not specified; K44.9 Diaphragmatic hernia without obstruction or gangrene; Z68.32 Body mass index [BMI] 32.0-32.9, adult; Z88.0 Allergy status to penicillin; Z88.8 Allergy status to other drugs, medicaments and biological substances; E11.22 Type 2 diabetes mellitus with diabetic chronic kidney disease; E78.00 Pure hypercholesterolemia, unspecified; E78.5 Hyperlipidemia, unspecified; E88.81 Metabolic syndrome and other insulin resistance; F03.90 Unspecified dementia, unspecified severity, without behavioral disturbance, psychotic disturbance, mood disturbance, and anxiety; F41.9 Anxiety disorder, unspecified; I25.10 Atherosclerotic heart disease of native coronary artery without angina pectoris; K21.9 Gastro-esophageal reflux disease without esophagitis; K57.30 Diverticulosis of large intestine without perforation or abscess without bleeding; N18.3 Chronic kidney disease, stage 3 (moderate); Z87.891 Personal history of nicotine dependence; Z90.49 Acquired absence of other specified parts of digestive tract; Z90.710 Acquired absence of both cervix and uterus; Z91.14 Patient's other noncompliance with medication regimen; Z95.1 Presence of aortocoronary bypass graft; F32.9 Major depressive disorder, single episode, unspecified; E11.51 Type 2 diabetes mellitus with diabetic peripheral angiopathy without gangrene; M19.90 Unspecified osteoarthritis, unspecified site; D64.9 Anemia, unspecified
CPT/HCPCS: 36415; 71250; 74176; 80048; 80053; 80061; 81001; 82550; 82553; 82962; 83605; 83690; 83735; 83880; 84484; 85007; 85025; 85610; 85730; 87086; 87338; 93005; 93306; 96361; 96374; 96375; C9113; J0360; J1644; J1650; J1956; J2270; J2405; J3490; J7030; 97110-GP; 97530-GP; 97535-GO; 99291-25; G0378

== ENCOUNTER → 2019-11-30 | Outpatient (CLI) | payer MEDICARE, OTHER ==
[2019-11-18 14:54] VITALS: BP 116/62
[~2019-11-30] MED LIST changes: +ACET325T9 PO; +ALBU2.5V8 NEB; +AMLO-186 PO; +AMLO-187 PO; -AMLO5TAB10 PO; +BISA10SU4 PR; +CARV12.511 PO; +DOCU-153 PO; +FERR325T14 PO; +GUAI100L12 PO; +HYDR-2868 PO; +HYDR-2869 PO; +LACT1CAP29 PO; +LEVO500T59 PO; +LINE600T12 PO; +PANT40TA77 PO; +VITA1CAP PO
--- NOTE | 2019-11-30 19:16 | KCIC ---
MRI Cervical Spine Without Contrast History:Neck pain, pain into both arms Technique: Multiplanar, multi sequential noncontrast MR imaging was performed of the cervical spine. Comparison: 12/16/2016 Findings: There is motion degradation even for repeated images. There is no expansile cervical cord signal abnormality, cannot accurately evaluate for more subtle cord signal change due to motion degradation. There is mild S-shaped scoliosis of the cervical and superior thoracic spine. Cervical vertebral body stature is maintained. There is segmental reversal of the lordotic curvature at C5-6. There is grade 1 anterior spondylolisthesis at C4-5, more apparent on this exam. There is negligible anterior spondylolisthesis at C7-T1. There is again minimal posterior subluxation C5 relative to C6. There is again severe C5-6 degenerative disc disease, to lesser degree at C4-5 and C6-7. There is some new C5-6 endplate edema likely reactive/degenerative in etiology. C2-C3: Spinal canal and neural foramina are adequate. There is again very shallow posterior central protrusion. C3-C4: There is more prominent posterior central protrusion/mostly contained extrusion, very slight extent above the intervertebral disc space. This measures about 2 mm greatest AP dimension. There is mild indentation upon the ventral thecal sac. Central canal is minimally narrowed about 9 mm. Neural foramina are adequate. There is likely left facet degenerative change. C4-C5: There is negligible protrusion in the right lateral recess. Central canal is borderline about 10 mm. There is left facet degenerative change. Accurate characterization of the neural foramina is limited due to motion, not significantly narrowed. C5-C6: There is minimal disc osteophyte complex and shallow protrusion. Central canal is again narrowed to about 8 to 9 mm. There is facet degenerative change greater on the left. There is uncovertebral degenerative change bilaterally. Accurate characterization of the neural foramina is limited due to motion, probable again moderate to severe left and at least moderate right neural foramina compromise. C6-C7: There is very minimal disc osteophyte complex. Central canal is adequate about 12 mm. There is again likely facet degenerative change. The entirety of the left spine was not included on the sagittal T2 sequence. There is uncovertebral degenerative change likely greater on the right. Accurate characterization of the neural foramina is again limited due to motion, probable [id number] neural foramina compromise bilaterally. C7-T1: Spinal canal and neural foramina are adequate. The entirety of the left spine was not included on the sagittal T2 sequence. Impression: 1. There is spinal stenosis about 8 to 9 mm at C5-6 and to a somewhat lesser degree at C3-4, also borderline narrowing at C4-5 as described. 2. Accurate characterization of the neural foramina is limited due to motion degradation. Facet and uncovertebral degenerative change contributes to suspected neural foramina compromise most notable left greater than right at C5-6 and to lesser degree bilaterally at C6-7. 3. There is multilevel mild abnormal alignment as stated, multilevel facet degenerative change. There is mild S-shaped scoliosis of the cervical and superior thoracic spine. 4. There is again advanced C5-6 degenerative disc disease, to a lesser degree at C4-5 and C6-7. There is mild spondylosis. 5. Cord signal is poorly characterized on this motion degraded exam. Electronically signed by: Ant Fong MD (11/30/2019 7:13 PM) [facility]
== END ==
LOC: KCIC MRI 14:18
PROVIDERS: ATTEND Family Medicine
DX: M50.323 Other cervical disc degeneration at C6-C7 level (principal); M43.5X2 Other recurrent vertebral dislocation, cervical region; M43.12 Spondylolisthesis, cervical region; M41.83 Other forms of scoliosis, cervicothoracic region; M25.78 Osteophyte, vertebrae
CPT/HCPCS: 72141

== ENCOUNTER → 2019-12-27 | Outpatient (CLI) | payer MEDICARE, OTHER ==
[2019-12-20 13:49] VITALS: BP 148/72
[~2019-12-27] MED LIST changes: +BONE HEALTH PO; +FERR220S16 PO; +IOHEXOL 180 MG/ML 10 ML VIAL. ONE; +METH500T7 PO; +methylPREDNISolone ACETATE 40 MG/ML VIAL. ONE; +methylPREDNISolone ACETATE 80 MG/ML VIAL. ONE
--- NOTE | 2019-12-27 16:03 | PDOC1 ---
INITIAL PAIN CONSULT DATE OF SERVICE: DOS: DATE: 12/27/19 TIME: 15:54 CHIEF COMPLAINT: Chief Complaint: Neck and bilateral upper extremity pain HISTORY OF PRESENT ILLNESS: 84-year-old female presents with history of pain base the neck and shoulders upper extremities for 1 year without any specific injury or accident that she is aware but significant pain or increasing with repetitive motions lifting items carrying items reaching over her head with her hands patient reports a throbbing stabbing shooting pain base the neck and upper extremities mostly in the anterior deltoid anterior biceps worse on the right than the left and into the entire arm on the right to the hand but only to the elbow to the mid forearm on the left. Patient reports radiating changes during the day with activity is aching also worse at night is been disturbing sleep fairly often patient reports most times not awaken her from sleep and has difficulty getting to sleep because of the pain patient ports not effective bowel bladder control and does not affect her ability to walk although she does use a cane for some low back pain that she has as well. She rates her disability ratings from 0-10 is a 0 in all categories as she is simply putting up with the pain and doing her normal activities. Patient had scan cervical spine dated November 30, 2019 showing spinal stenosis C5-6 and somewhat lesser degree C3-4 with borderline narrowing C4-5 degenerative changes and suspected neuroforaminal compromise most normal left greater than right at C5-6 and lesser degree bilateral at C6-7 multilevel mild abnormal alignment multilevel degenerative change advanced C5-6 degenerative disc disease lesser degree at C4-5 and C6-7 with mild spondylosis. Patient reports no loss of motor function but significant fatigability the upper extremities with any repetitive motions or lifting or carrying items. Patient not had any formal physical therapies at this time but is doing some stretching strength exercises that her primary care physician gave her to do. She reports these helped to a mild extent also taking Tylenol arthritis strength helps to about 20% as well. PAST MEDICAL HISTORY: PMH: Diabetes, arthritis, coronary artery disease PREVIOUS SURGERIES: Past Surgical Hx: Cataract extractions 2013 hysterectomy 1979 coronary artery bypass 2017 CURRENT MEDICATIONS: Current Meds: Active Scripts Medications Dose Route/Sig Max Daily Dose Days Date Category [Bone Health] 400 Intlu PO DAILY 12/27/19 Reported Ferrous Sulfate 220 Mg/5 Ml Solution Unknown Dose PO DAILY 12/27/19 Reported Dok (Docusate Sodium) 100 Mg Capsule 100 Mg PO PRN BID PRN 14 11/18/19 Rx Tylenol (Acetaminophen) 325 Mg Tablet 650 Mg PO PRN Q4HRS PRN 30 11/18/19 Rx Proair Hfa (Albuterol Sulfate) 8.5 Gm Hfa.aer.ad 2.5 Mg NEB PRN Q4HRS PRN 14 11/18/19 Rx Bisacodyl 10 Mg Supp.rect 10 Mg TN PRN DAILY PRN 10 10/24/19 Rx Probiotic (Lactobacillus Combo No.10) 1 Each Capsule 1 Tab PO DAILY 30 10/19/19 Reported Vitamin B Complex 1 Each Capsule 1 Each PO DAILY 10/19/19 Reported Dicyclomine Hcl 10 Mg Capsule 10 Mg PO DAILY 06/28/17 Reported Gabapentin 600 Mg Tablet 600 Mg PO TID 30 12/23/16 Rx Famotidine 20 Mg Tablet 20 Mg PO BID 12/20/16 Reported Trazodone Hcl 50 Mg Tablet 50 Mg PO QHS 30 12/17/16 Rx Quetiapine Fumarate 25 Mg Tablet 25 Mg PO DAILY 30 12/17/16 Rx Furosemide 40 Mg Tablet 40 Mg PO DAILY 30 12/17/16 Rx ALLERGIES; Allergies: Coded Allergies: Penicillins (Verified Allergy, Intermediate, 12/20/19) metronidazole (Verified Allergy, Intermediate, Hives, 12/20/19) witness hives 5-10 minutes after initiating Flagyl 500mg IVPB FAMILY HISTORY: Family Hx: Hypertension, diabetes SOCIAL HISTORY: Social Hx: Patient is under alcohol does not smoke or use any illegal illicit recreational drugs is lives with her and is currently retired patient lives locally in [facility] REVIEW OF SYSTEMS: ROS: Positive for those items mentioned in history of present illness, all systems are reviewed, otherwise negative, is complete full and well-documented on patient's chart PHYSICAL EXAM: VS: Blood pressure is 152/97 pulse 76 respirations 18 temperature 98.5 F height is 5 feet 4 inches, weight is 183 pounds PE: PHYSICAL EXAMINATION: GENERAL: The patient is awake, alert, oriented, appropriate, very pleasant demeanor HEENT: Shows normocephalic, atraumatic. Extraocular movements are intact and symmetrical. Oral cavity: Mucous membranes moist and pink. NECK: Shows anterior throat supple without palpable lymphadenopathy noted. Swallow reflex symmetrical. CHEST: Shows normal on inspection. Breath sounds are clear bilaterally, distant but no rales rhonchi or wheezes auscultated. HEART: Shows S1, S2 clear. No murmurs auscultated. ABDOMEN: Soft, nontender, nondistended, obese. No palpable organomegaly is noted. No rebound or guarding demonstrated. BACK: Shows spine grossly in the midline. Normal-appearing cervical lordotic curvature. Cervical paraspinous posterior shows symmetrical on inspection with palpation some mild tenderness in the inferior aspect the cervical paraspinous muscular bilaterally without radiation without asymmetry without trigger points. Patient shows good rotation motion cervical spine both laterally greater than 45 degrees closer to 90 degrees as well as full extension full forward flexion without significant limitation or pain reported. There is slightly increased thoracic kyphosis, some minor flattening of the lumbar lordotic curvature. Lumbar paraspinous muscles show symmetrical on inspection. The patient has good rotational motion of the lumbar spine, both laterally as well as extension and flexion without significant difficulty. No tenderness over the spinous processes, sacrum or sacroiliac regions. EXTREMITIES: Upper extremities show deep tendon reflexes 1+ in the biceps and tricep tendons. 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 Peripheral pulses are 2+ radial. No peripheral edema is noted bilaterally. Upper extremities are warm and dry to touch, equal in color and appearance. Shoulder shrug is strong and intact without loss of strength on resistance but with some mild pain but without radiation this is true with abduction of the shoulder 90 degrees with resistance as well. SKIN: Shows warm and dry, good turgor. No edema. No sores, rashes or bruising throughout. IMPRESSION: Impression: 84-year-old female with about 1 year history increasing pain base the neck shoulders upper extremities and radicular fashion MRI scan cervical spine as noted Arthritis Type 2 diabetes Coronary artery disease Plan: Options were discussed with the patient including conservative medical management physical therapy interventional techniques and she would like to pursue interventional techniques. We discussed a cervical epidural steroid injection using description as well as anatomical models to describe the procedure. Risks were discussed including but not limited to: Bleeding, infection, possibility of epidural hematoma and subsequent neurological compromise, dural puncture, headaches, spinal cord and/or nerve damage, side effects of steroid medication, and poor results regarding pain control. Patient understands wished to proceed. She will return to clinic in approximate 2 weeks for follow-up, was counseled as to return appointment, activity level, and side effects to be aware of. Procedure cervical epidural steroid injection at the C6-7 level, using local anesthetic under sterile prep and drape using C-arm fluoroscopic guidance under local anesthesia medications injected ; 120 mg Depo-Medrol + 5 mL normal saline and 2 mL contrast; condition at discharge is stable patient tolerated procedure well. and had no complications JUSTIN ORTIZ MD Dec 27, 2019 16:03
== END | disposition home or self-care (01) ==
LOC: PNCL 13:07
PROVIDERS: ATTEND Anesthesiology
DX: M54.2 Cervicalgia (principal); M79.602 Pain in left arm; M79.601 Pain in right arm; I25.10 Atherosclerotic heart disease of native coronary artery without angina pectoris; M19.90 Unspecified osteoarthritis, unspecified site; E11.9 Type 2 diabetes mellitus without complications; I11.0 Hypertensive heart disease with heart failure; I50.9 Heart failure, unspecified; E78.00 Pure hypercholesterolemia, unspecified; K21.9 Gastro-esophageal reflux disease without esophagitis; E03.9 Hypothyroidism, unspecified; M10.9 Gout, unspecified; F41.9 Anxiety disorder, unspecified; F32.9 Major depressive disorder, single episode, unspecified; Z87.891 Personal history of nicotine dependence; Z90.710 Acquired absence of both cervix and uterus; Z98.890 Other specified postprocedural states; Z79.82 Long term (current) use of aspirin; Z79.84 Long term (current) use of oral hypoglycemic drugs; Z79.899 Other long term (current) drug therapy; Z80.3 Family history of malignant neoplasm of breast; Z82.49 Family history of ischemic heart disease and other diseases of the circulatory system; Z83.3 Family history of diabetes mellitus; Z88.0 Allergy status to penicillin; Z88.8 Allergy status to other drugs, medicaments and biological substances
CPT/HCPCS: 62321; J1030; J1040; Q9965

== ENCOUNTER 2020-12-18 10:31 | Inpatient (IN) | payer MEDICARE, OTHER ==
[~2020-12-18] VITALS: Ht 160 cm; Wt 85.8 kg
[2020-12-18] VITALS (7 sets, daily range): BP systolic 145–174; BP diastolic 52–86
[~2020-12-18 10:31] MED LIST changes: +DOCU-148 PO; -DOCU-153 PO; -IOHEXOL 180 MG/ML 10 ML VIAL. ONE; -LACT1CAP29 PO; +LACT1CAP37 PO; +LANS15CA73 PO; -LANS15CA78 PO; +METH-561 PO; -METH500T7 PO; -QUET25TA PO; +QUET25TA3 PO; -methylPREDNISolone ACETATE 40 MG/ML VIAL. ONE; -methylPREDNISolone ACETATE 80 MG/ML VIAL. ONE
--- NOTE | 2020-12-18 10:55 | PHYS DOC ---
Past Medical History Past Medical History: Arthritis, Depression, Diabetes-Type II, GERD, High Cholesterol, Hypertension, AR, Other Additional Past Medical Histor: GOUT, CDIFF, ULCER Past Surgical History: Coronary Bypass Surgery, Hysterectomy, Other Additional Past Surgical Histo: Carpal tunnel, LEFT SHOULDER, VASCULAR R GROIN Smoking Status: Former Smoker Alcohol Use: None Drug Use: None General Adult EDM: Chief Complaint: SHORTNESS OF BREATH HPI: HPI: Patient is a 85 year old female who presents with 2 to 3 days of dyspnea, dry cough, nasal congestion. She denies fever. She denies chills. She denies chest pain. She has chronic but unchanged lower extremity swelling. She denies calf pain. Her is at home with similar symptoms. She denies any previous history of dyspnea. She denies any history of congestive heart failure, denies history of AR. She is vaccinated against Covid, though she did just obtain her second vaccine about 1 week ago. She denies recent travel history. She denies recent hospitalization or surgery. She denies hemoptysis or purulent sputum production. She denies dizziness, diaphoresis, syncope, abdominal pain, nausea or vomiting. She does have a history of CABG, several years ago. She denies any history of lung disease. Review of Systems: Review of Systems: Constitutional: Denies fever or chills. [] Eyes: Denies change in visual acuity. [] HENT: She does report nasal congestion. Denies sore throat. Denies earache. Respiratory: She does report dyspnea and dry cough. Denies hemoptysis. Cardiovascular: Denies chest pain. She has chronic but unchanged lower extremity edema. GI: Denies abdominal pain, nausea, vomiting. : Denies urinary symptoms. Musculoskeletal: Denies back pain or joint pain. [] Integument: Denies rash. [] Neurologic: Denies headache, focal weakness or sensory changes. [] Psychiatric: Denies depression or anxiety. [] Heart Score: C/O Chest Pain: No Risk Factors: Risk Factors: DM, Current or recent (<one month) smoker, HTN, HLP, family history of CAD, obesity. Risk Scores: Score 0 - 3: 2.5% MACE over next 6 weeks - Discharge Home Score 4 - 6: 20.3% MACE over next 6 weeks - Admit for Clinical Observation Score 7 - 10: 72.7% MACE over next 6 weeks - Early Invasive Strategies Allergies: Allergies: Allergies Coded Allergies Type Severity Reaction Last Updated Verified Penicillins Allergy Intermediate 12/05/20 Yes metronidazole Allergy Intermediate Hives 12/05/20 Yes Physical Exam: PE: Constitutional: Well developed, well nourished, no acute distress, non-toxic appearance. She is chronically ill-appearing. HENT: Normocephalic, atraumatic Eyes: Sclera are clear and anicteric. Neck: Normal range of motion, no tenderness, supple, trachea is midline Cardiovascular: Irregular, well-perfused appearing, +2 radial and posterior tibial pulses bilaterally. Systolic murmur is noted. Lungs & Thorax: Mild tachypnea is noted. No retractions. She speaks in full and clear sentences. Breath sounds diminished in bilateral bases, with faint expiratory wheezing bilateral bases. Fine rales noted bilateral bases. No stridor. Abdomen: Abdomen is obese, soft, nondistended, nontender to palpation. Skin: Warm, dry, no erythema, no rash. [] Back: No tenderness, no CVA tenderness. [] Extremities: No tenderness, no cyanosis, no clubbing, bilateral, symmetric, +1 pitting lower extremity edema. No calf tenderness. No warmth or erythema. Neurologic: Alert and oriented X 3, normal motor function, normal sensory function, no focal deficits noted. [] Psychologic: Affect normal, judgement normal, mood normal. [] EKG: EKG: EKG is interpreted at 1054 Rhythm is irregularly irregular Rate is 71 bpm Baseline artifact No STEMI Radiology/Procedures: Radiology/Procedures: IMAGING REPORT Signed PATIENT: JOHNNY ARTEAGA ACCOUNT: [id number] : 1935 LOCATION: ER AGE: 85 SEX: F EXAM STATUS: REG ER ORD. PHYSICIAN: KENIA MITHCELL DO REASON: dyspnea PROCEDURE: PORTABLE CHEST 1V EXAM: Chest, single view. HISTORY: Dyspnea. COMPARISON: 12/29/2019 FINDINGS: A frontal view of the chest is obtained. There is diffuse interstitial infiltrate. There are suspected small pleural effusions. There is a stable cardiac silhouette and evidence of prior CABG. There is no pneumothorax. There is chronic superior migration of the humeral heads likely due to chronic rotator cuff tears. IMPRESSION: Diffuse interstitial infiltrate and small pleural effusions. Electronically signed by: Trudy Szymanski MD (12/18/2020 11:17 AM) [id number] DICTATED and SIGNED BY: TRUDY SZYMANSKI MD DATE: 12/18/20 [id number] 0 Course & Med Decision Making: Course & Med Decision Making Pertinent Labs and Imaging studies reviewed. (See chart for details) The patient is resting comfortably. She denies any active dyspnea here. No hypoxia or evidence of distress. Her hemoglobin is 6.4. She has some chronic anemia. Creatinine appears to be around baseline for her based on previous lab results. She does admit that she has been progressively feeling more weak and feeling that her anemia is worse, and she was reportedly scheduled for outpati ent lab draw later this week to check her hemoglobin. Rectal exam is performed, and Hemoccult is positive. She does appear to have dropped approximately 2 g since her last hemoglobin within the last month or so. She does have findings of congestive heart failure with some mild to moderate pulmonary edema and pleural effusions as well. She does consent for transfusion. 1 unit is ordered to be given slowly. She will need to see GI and cardiology. IV Protonix is ordered. I have discussed all of the findings, differential diagnosis and plan of care with her. She is comfortable with the plan for admission. She is accepted for admission by Dr. Allred. Gisel Disclaimer: Gisel Disclaimer: This electronic medical record was generated, in whole or in part, using a voice recognition dictation system. Departure Departure Impression: Primary Impression: Dyspnea Qualified Codes: R06.00 - Dyspnea, unspecified Additional Impressions: CHF (congestive heart failure) Qualified Codes: I50.9 - Heart failure, unspecified Anemia Qualified Codes: D64.9 - Anemia, unspecified Guaiac positive stools Chronic kidney disease Qualified Codes: N18.9 - Chronic kidney disease, unspecified Disposition: ADMITTED INPATIENT Admitting Physician: ANDREY Condition: GUARDED Referrals: GRANT MCWILLIAMS MD (PCP) KENIA MITCHELL DO Dec 18, 2020 10:55
[2020-12-18 11:16] LABS: BASO % 1 % (0-3); EOS # 0.1 x10^3/uL (0.0-0.7); EOS % 3 % (0-3); LYMPH # 0.5 x10^3/uL (1.0-4.8); LYMPH % 12 % (24-48); MEAN CORPUSCULAR HEMOGLOBIN 32 pg (25-35); MEAN CORPUSCULAR HGB CONC 32 g/dL (31-37); MEAN CORPUSCULAR VOLUME 101 fL (79-100); MONO # 0.6 x10^3/uL (0.0-1.1); MONO % 12 % (0-9); NEUT # 3.3 x10^3/uL (1.8-7.7); NEUT % 72 % (31-73); PLATELET COUNT 126 x10^3/uL (140-400); RED BLOOD COUNT 1.96 x10^6/uL (3.50-5.40); RED CELL DISTRIBUTION WIDTH 19.3 % (11.5-14.5); WHITE BLOOD COUNT 4.6 x10^3/uL (4.0-11.0)
[2020-12-18 11:20] LABS: HEMATOCRIT 19.9 % (36.0-47.0); HEMOGLOBIN 6.4 g/dL (12.0-15.5)
--- NOTE | 2020-12-18 11:20 | RAD ---
EXAM: Chest, single view. HISTORY: Dyspnea. COMPARISON: 12/29/2019 FINDINGS: A frontal view of the chest is obtained. There is diffuse interstitial infiltrate. There ar e suspected small pleural effusions. There is a stable cardiac silhouette and evidence of prior CABG. There is no pneumothorax. There is chronic superior migration of the humeral heads likely due to chr onic rotator cuff tears. IMPRESSION: Diffuse interstitial infiltrate and small pleural effusions. Electronically signed by: Trudy Lew MD (12/18/2020 11:17 AM) [id number]
[2020-12-18 11:35] LABS: CALCIUM 7.9 mg/dL (8.5-10.1); CREATININE 2.2 mg/dL (0.6-1.0); GFR 21.2; POTASSIUM 5.7 mmol/L (3.5-5.1)
[2020-12-18 11:41] LABS: TOTAL BILIRUBIN 0.2 mg/dL (0.2-1.0)
[2020-12-18 11:43] LABS: INFLUENZA A PATIENT NEGATIVE (NEGATIVE); INFLUENZA B PATIENT NEGATIVE (NEGATIVE)
[2020-12-18 11:57] LABS: FECAL OB PT POSITIVE (NEG)
--- NOTE | 2020-12-18 12:06 | EKG ---
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
[2020-12-18] MEDS ORDERED: PANTOPRAZOLE IV PUSH 40 MG VIAL. IVP ONE (13:00)
[2020-12-18] MEDS ORDERED: ONDANSETRON PF 4 MG/2 ML VIAL. IVP PRN (13:00)
--- NOTE | 2020-12-18 13:39 | PDOC2 ---
CONSULT Date of Consult Date of Consult DATE: 12/18/20 TIME: 13:39 Reason for Consult Reason for Consult: Congestive heart failure Referring Physician Referring Physician: Dr. Allred Identification/Chief Complaint Chief Complaint Shortness of breath Source Source: Chart review, Patient History of Present Illness Reason for Visit: 85-year-old female with history of coronary artery disease s/p coronary artery bypass surgery 3 years ago without any recent cardiac follow-up presented with approximately 1 week history of progressive dyspnea and bilateral lower extremity edema. She also complained of dry cough and nasal congestion and is currently being tested for Covid. She denied any chest pain, palpitations or syncope. Past Medical History Cardiovascular: CAD, HTN, Hyperlipidemia, Other Pulmonary: No pertinent hx CENTRAL NERVOUS SYSTEM: Carpal Tunnel Syndrome GI: GERD, Other Heme/Onc: Anemia NOS Hepatobiliary: No pertinent hx Psych: Anxiety Musculoskeletal: Osteoarthritis Rheumatologic: No pertinent hx Infectious disease: Herpes zoster Renal/: Chronic renal insuff, UTI Endocrine: Diabetes Past Surgical History Past Surgical History: CABG, Hysterectomy, Other Family History Family History: Cancer, Hypertension, Other Social History ALCOHOL: none Drugs: None Lives: with Family Current Problem List Problem List Problems Medical Problems: (1) CHF (congestive heart failure) Status: Acute (2) Dyspnea Status: Acute Current Medications Current Medications Current Medications Ondansetron HCl (Zofran) 4 mg PRN Q8HRS PRN IVP NAUSEA/VOMITING; Start 12/18/20 at 13:00; Stop 12/19/20 at 12:59 Pantoprazole Sodium (PROTONIX VIAL for IV PUSH) 40 mg 1X ONCE IVP ; Start 12/18/20 at 13:00; Stop 12/18/20 at 13:01; Status DC Active Scripts Active Methocarbamol 500 Mg Tablet 500 Mg PO TID PRN 10 Days Dok (Docusate Sodium) 100 Mg Capsule 100 Mg PO PRN BID PRN 14 Days Tylenol (Acetaminophen) 325 Mg Tablet 650 Mg PO PRN Q4HRS PRN 30 Days Proair Hfa (Albuterol Sulfate) 8.5 Gm Hfa.aer.ad 2.5 Mg NEB PRN Q4HRS PRN 14 Days Bisacodyl 10 Mg Supp.rect 10 Mg DE PRN DAILY PRN 10 Days Gabapentin 600 Mg Tablet 600 Mg PO TID 30 Days Trazodone Hcl 50 Mg Tablet 50 Mg PO QHS 30 Days Quetiapine Fumarate 25 Mg Tablet 25 Mg PO DAILY 30 Days Furosemide 40 Mg Tablet 40 Mg PO DAILY 30 Days Reported Hydralazine Hcl 50 Mg Tablet 1 Tab PO BID Pantoprazole Sodium (Pantoprazole Sodium) 40 Mg Tablet.dr 40 Mg PO DAILYAC Carvedilol 25 Mg Tablet 25 Mg PO BIDWMEALS [Bone Health] 400 Intlu PO DAILY Ferrous Sulfate 220 Mg/5 Ml Solution Unknown Dose PO DAILY Probiotic (Lactobacillus Combo No.10) 1 Each Capsule 1 Tab PO DAILY 30 Days Vitamin B Complex 1 Each Capsule 1 Each PO DAILY Dicyclomine Hcl 10 Mg Capsule 10 Mg PO DAILY Famotidine 20 Mg Tablet 20 Mg PO BID Allergies Allergies: Coded Allergies: Penicillins (Verified Allergy, Intermediate, 12/05/20) metronidazole (Verified Allergy, Intermediate, Hives, 12/05/20) witness hives 5-10 minutes after initiating Flagyl 500mg IVPB ROS PSYCHOLOGICAL ROS: No: Hallucinations Eyes: No Loss of vision HEENT: No: Epistaxis Respiratory: YES: Shortness of breath; No: Hemoptysis Cardiovascular: yes Edema; No Chest Pain, No Palpitations Genitourinary: No Hematuria Neurological: No Seizures Skin: No Rash Physical Exam General: Alert HEENT: Atraumatic Lungs: Clear to auscultation Heart: Regular rate, Other (ESM aortic) Abdomen: Soft Extremities: Other (1+ pitting edema) Neuro: Normal speech Psych/Mental Status: Mental status NL Vitals VITALS Vital Signs Date Time Temp Pulse Resp B/P (MAP) Pulse Ox O2 Delivery O2 Flow Rate FiO2 12/18/20 12:48 68 23 166/73 (104) 97 Room Air 12/18/20 10:39 96.5 96.5 Labs Labs Laboratory Tests Test 12/18/20 11:01 12/18/20 11:05 12/18/20 11:40 White Blood Count 4.6 x10^3/uL (4.0-11.0) Red Blood Count 1.96 x10^6/uL (3.50-5.40) Hemoglobin 6.4 g/dL (12.0-15.5) Hematocrit 19.9 % (36.0-47.0) Mean Corpuscular Volume 101 fL (79-100) Mean Corpuscular Hemoglobin 32 pg (25-35) Mean Corpuscular Hemoglobin Concent 32 g/dL (31-37) Red Cell Distribution Width 19.3 % (11.5-14.5) Platelet Count 126 x10^3/uL (140-400) Neutrophils (%) (Auto) 72 % (31-73) Lymphocytes (%) (Auto) 12 % (24-48) Monocytes (%) (Auto) 12 % (0-9) Eosinophils (%) (Auto) 3 % (0-3) Basophils (%) (Auto) 1 % (0-3) Neutrophils # (Auto) 3.3 x10^3/uL (1.8-7.7) Lymphocytes # (Auto) 0.5 x10^3/uL (1.0-4.8) Monocytes # (Auto) 0.6 x10^3/uL (0.0-1.1) Eosinophils # (Auto) 0.1 x10^3/uL (0.0-0.7) Basophils # (Auto) 0.0 x10^3/uL (0.0-0.2) D-Dimer (Sally) 1.97 ug/mlFEU (0.00-0.50) Sodium Level 142 mmol/L (136-145) Potassium Level 5.7 mmol/L (3.5-5.1) Chloride Level 110 mmol/L (98-107) Carbon Dioxide Level 24 mmol/L (21-32) Anion Gap 8 (6-14) Blood Urea Nitrogen 43 mg/dL (7-20) Creatinine 2.2 mg/dL (0.6-1.0) Estimated GFR (Cockcroft-Gault) 21.2 BUN/Creatinine Ratio 20 (6-20) Glucose Level 99 mg/dL (70-99) Lactic Acid Level 0.7 mmol/L (0.4-2.0) Calcium Level 7.9 mg/dL (8.5-10.1) Total Bilirubin 0.2 mg/dL (0.2-1.0) Aspartate Amino Transf (AST/SGOT) 10 U/L (15-37) Alanine Aminotransferase (ALT/SGPT) 15 U/L (14-59) Alkaline Phosphatase 60 U/L (46-116) Troponin I Quantitative < 0.017 ng/mL (0.000-0.055) JX-Ehw-A-Type Natriuretic Peptide 60184 pg/mL (0-449) Total Protein 6.0 g/dL (6.4-8.2) Albumin 3.0 g/dL (3.4-5.0) Albumin/Globulin Ratio 1.0 (1.0-1.7) Influenza Type A Antigen Negative (NEGATIVE) Influenza Type B Antigen Negative (NEGATIVE) SARS-CoV-2 Antigen (Rapid) Negative (NEGATIVE) Stool Occult Blood Positive (NEG) Laboratory Tests Test 12/18/20 11:01 12/18/20 11:05 12/18/20 11:40 White Blood Count 4.6 x10^3/uL (4.0-11.0) Red Blood Count 1.96 x10^6/uL (3.50-5.40) Hemoglobin 6.4 g/dL (12.0-15.5) Hematocrit 19.9 % (36.0-47.0) Mean Corpuscular Volume 101 fL (79-100) Mean Corpuscular Hemoglobin 32 pg (25-35) Mean Corpuscular Hemoglobin Concent 32 g/dL (31-37) Red Cell Distribution Width 19.3 % (11.5-14.5) Platelet Count 126 x10^3/uL (140-400) Neutrophils (%) (Auto) 72 % (31-73) Lymphocytes (%) (Auto) 12 % (24-48) Monocytes (%) (Auto) 12 % (0-9) Eosinophils (%) (Auto) 3 % (0-3) Basophils (%) (Auto) 1 % (0-3) Neutrophils # (Auto) 3.3 x10^3/uL (1.8-7.7) Lymphocytes # (Auto) 0.5 x10^3/uL (1.0-4.8) Monocytes # (Auto) 0.6 x10^3/uL (0.0-1.1) Eosinophils # (Auto) 0.1 x10^3/uL (0.0-0.7) Basophils # (Auto) 0.0 x10^3/uL (0.0-0.2) D-Dimer (Sally) 1.97 ug/mlFEU (0.00-0.50) Sodium Level 142 mmol/L (136-145) Potassium Level 5.7 mmol/L (3.5-5.1) Chloride Level 110 mmol/L (98-107) Carbon Dioxide Level 24 mmol/L (21-32) Anion Gap 8 (6-14) Blood Urea Nitrogen 43 mg/dL (7-20) Creatinine 2.2 mg/dL (0.6-1.0) Estimated GFR (Cockcroft-Gault) 21.2 BUN/Creatinine Ratio 20 (6-20) Glucose Level 99 mg/dL (70-99) Lactic Acid Level 0.7 mmol/L (0.4-2.0) Calcium Level 7.9 mg/dL (8.5-10.1) Total Bilirubin 0.2 mg/dL (0.2-1.0) Aspartate Amino Transf (AST/SGOT) 10 U/L (15-37) Alanine Aminotransferase (ALT/SGPT) 15 U/L (14-59) Alkaline Phosphatase 60 U/L (46-116) Troponin I Quantitative < 0.017 ng/mL (0.000-0.055) UY-Bhy-W-Type Natriuretic Peptide 84389 pg/mL (0-449) Total Protein 6.0 g/dL (6.4-8.2) Albumin 3.0 g/dL (3.4-5.0) Albumin/Globulin Ratio 1.0 (1.0-1.7) Influenza Type A Antigen Negative (NEGATIVE) Influenza Type B Antigen Negative (NEGATIVE) SARS-CoV-2 Antigen (Rapid) Negative (NEGATIVE) Stool Occult Blood Positive (NEG) Assessment/Plan Assessment/Plan 1. Acute on chronic diastolic heart failure, probably precipitated by severe anemia. Gentle diuresis with close monitoring of renal function secondary to acute on chronic renal insufficiency. 2D echo in September 2019 showed normal LV systolic function with mild and AR. 2. Coronary artery disease s/p CABG, apparently 3 years ago at [facility], clinically stable and chest pain-free. Troponin levels within normal limits. Continue current secondary prevention measures. 3. Severe anemia with hemoglobin 6.4 most obvious secondary to GI bleeding. Consult gastroenterology and consider transfusion. 4. Acute on chronic renal insufficiency with prerenal picture probably se condary to UGI bleed. Consider nephrology consultation. 5. Accelerated hypertension: Resume home antihypertensives and titrate for better control. Due to her vascular risk factors, we will check renal arterial duplex scan. Thank you for your consultation. EMERSON MARCUS MD Dec 18, 2020 13:39
[2020-12-18] MEDS ORDERED: FUROSEMIDE 40 MG/4 ML VIAL. IVP ONE (15:30)
[2020-12-18] MEDS: ALBUTEROL SULFATE 2.5 MG/3 ML NEBU. NEB SCH ×2 (16:37→21:02)
--- NOTE | 2020-12-18 18:47 | HP ---
DATE OF SERVICE: 12/18/2020 ADMIT DATE: 12/18/2020 CHIEF COMPLAINT: Shortness of breath, lower extremity edema, bloody stools. HISTORY OF PRESENT ILLNESS: The patient is a pleasant 85-year-old female with previous history of coronary artery disease with bypass surgery 3 years ago. Basically, she presented to [facility] ER short of breath and edematous. They did some imaging and labs and confirmed that she is in heart failure, but she also has a GI bleed and her hemoglobin is down to 6.4. She also has renal failure with a creatinine of 2.2, BUN of 43. BNP level is 14,000. I discussed the case with the ER physician there at [facility], who agreed to transfer the patient here for consultation with Cardiology and GI and Nephrology. PAST MEDICAL HISTORY: Coronary artery bypass surgery, hypertension, CAD, hyperlipidemia, carpal tunnel surgery, GERD, anemia, anxiety, osteoarthritis, herpes zoster, UTI, diabetes, hysterectomy. ALLERGIES: PENICILLIN AND METRONIDAZOLE. FAMILY HISTORY: Coronary artery disease. SOCIAL HISTORY: She is retired. She does not drink, smoke or take drugs. MEDICATIONS: Reviewed. Please refer to the MRAD. REVIEW OF SYSTEMS: GENERAL: No history of weight change, weakness or fevers. SKIN: No bruising, hair changes or rashes. EYES: No blurred, double or loss of vision. NOSE AND THROAT: No history of nosebleeds, hoarseness or sore throat. HEART: No history of palpitations, chest pain or shortness of breath on exertion. LUNGS: She complains of shortness of breath. GASTROINTESTINAL: She complains of bloody stools. GENITOURINARY: No history of frequency, urgency, hesitancy or nocturia. NEUROLOGIC: Denies history of numbness, tingling, tremor or weakness. PSYCHIATRIC: No history of panic, anxiety or depression. ENDOCRINE: No history of heat or cold intolerance, polyuria or polydipsia. EXTREMITIES: She complains of edema. PHYSICAL EXAMINATION: VITALS: Within normal limits and are stable. GENERAL: No apparent distress. Alert and oriented. HEENT: Normal cephalic atraumatic, external auditory canals are patent EYES: Extraocular muscles are intact, pupils are equally round and reactive to light and accommodation MUSCULOSKELETAL: Well developed, well nourished, good range of motion ENDOCRINE: No thyromegaly was palpated LYMPHATICS: No cervical chain or axillary nodes were noted HEMATOPOIETIC: No bruising NECK: Supple, no JVD, no thyromegaly was noted. LUNGS: She has bibasilar crackles. HEART: She has a distant S1, S2 with a 3/6 systolic ejection murmur. ABDOMEN: Soft, nontender. Positive bowel sounds no organomegaly, normal bowel sounds. EXTREMITIES: She has 2+ edema. NEUROLOGIC: Normal speech, normal tone. A and O x 3, moves all extremities, no obvious focal deficits. PSYCHIATRIC: Normal affect, normal mood. Stable. SKIN: No ulcerations or rashes, good skin turgor, no jaundice. VASCULAR: Good capillary refill, neurovascular bundle appears to be intact. LABORATORY DATA: Electrolytes: Sodium 142, potassium 5.7, chloride 110, bicarb 24, BUN 43, creatinine 2.3, glucose 99. White count 4.6, hemoglobin 6.4, platelets 126. D-dimer 1.97. Occult stool guaiac test was positive. COVID testing is negative. Influenza testing negative. Chest x-ray by my eye shows mild vascular congestion with a large cardiac silhouette, poor inspiratory effort. ASSESSMENT AND PLAN: Okmku-gu-[id number] systolic and diastolic heart failure, gastrointestinal bleed, epwgi-ab-agyhbgi kidney failure, anemia, thrombocytopenia, hyperkalemia, azotemia, malnutrition with an albumin of 3.0. The patient has been admitted. We will consult Cardiology, consult Nephrology, consult GI. Transfuse 2 units of packed red blood cells. IV Protonix. She got 1 dose of IV Lasix per Dr. Milligan. We certainly agree and appreciate his input. Calixto Thurston. I have ordered PT, OT if she can tolerate it. DVT prophylaxis. Home meds. Full code. Prognosis long-term guarded. We will trend labs. JOSH DR: Keisha TID: [id number]
[2020-12-18] MEDS ORDERED: CALC500T54 PO (19:40)
[2020-12-18] MEDS ORDERED: AMLO-187 PO (19:40)
[2020-12-18] MEDS: traZODone 50 MG TABLET. PO SCH (21:36)
[2020-12-18] MEDS: GABAPENTIN 300 MG CAPSULE. PO SCH (21:37)
[2020-12-19] VITALS (7 sets, daily range): BP systolic 115–198; BP diastolic 52–79
[2020-12-19] MEDS ORDERED: QUEtiapine 25 MG TABLET. PO SCH ×2 (02:15→09:00)
--- NOTE | 2020-12-19 02:51 | NUR ---
pt has sustained a higher bp since paty her prbc's. 150-170's systolic. No hydralazine prn ordered at this time. She has no complaints besides not being able to sleep. pt took trazodone at 2100, but states she does not take any home medications to help with sleep. Explained to pt that 0230 would be too early to get a doctors order for sleep meds. will pass on to day shift to convey to doctor if she would like a mild sleep aid or not, as well as prn hydralazine. No complaints at this time, will continue to monitor
[2020-12-19 05:15] LABS: BASO % 1 % (0-3); EOS # 0.1 x10^3/uL (0.0-0.7); EOS % 2 % (0-3); HEMATOCRIT 23.2 % (36.0-47.0); HEMOGLOBIN 7.5 g/dL (12.0-15.5); LYMPH # 0.4 x10^3/uL (1.0-4.8); LYMPH % 8 % (24-48); MEAN CORPUSCULAR HEMOGLOBIN 31 pg (25-35); MEAN CORPUSCULAR HGB CONC 32 g/dL (31-37); MEAN CORPUSCULAR VOLUME 97 fL (79-100); MONO # 0.6 x10^3/uL (0.0-1.1); MONO % 10 % (0-9); NEUT # 4.6 x10^3/uL (1.8-7.7); NEUT % 80 % (31-73); PLATELET COUNT 122 x10^3/uL (140-400); RED BLOOD COUNT 2.41 x10^6/uL (3.50-5.40); RED CELL DISTRIBUTION WIDTH 22.2 % (11.5-14.5); WHITE BLOOD COUNT 5.7 x10^3/uL (4.0-11.0)
[2020-12-19 05:41] LABS: CALCIUM 8.4 mg/dL (8.5-10.1); CREATININE 2.1 mg/dL (0.6-1.0); GFR 22.4; POTASSIUM 4.9 mmol/L (3.5-5.1)
[2020-12-19] MEDS ORDERED: PANTOPRAZOLE IV PUSH 40 MG VIAL. IVP SCH (07:30)
[2020-12-19] MEDS: VITAMIN B COMPLEX TABLET. PO SCH (07:55)
[2020-12-19] MEDS: LACTOBACILLUS RHAMNOSUS GG 1 CAPSULE. PO SCH (07:55)
[2020-12-19] MEDS: QUEtiapine 25 MG TABLET. PO SCH (07:55)
[2020-12-19] MEDS: DICYCLOMINE HCL 10 MG CAPSULE PO SCH (07:55)
[2020-12-19] MEDS: ACETAMINOPHEN 325 MG TABLET. PO PRN ×2 (07:56→20:39)
[2020-12-19] MEDS: CARVEDILOL 12.5 MG TABLET. PO SCH ×2 (07:56→17:23)
[2020-12-19] MEDS: GABAPENTIN 300 MG CAPSULE. PO SCH ×3 (07:56→20:39)
[2020-12-19] MEDS: CALCIUM CARBONATE 500 MG TABLET PO SCH ×2 (07:56→17:23)
[2020-12-19] MEDS: ALBUTEROL SULFATE 2.5 MG/3 ML NEBU. NEB SCH ×4 (07:57→20:26)
--- NOTE | 2020-12-19 08:57 | PDOC2 ---
GI CONSULT Date of Service: DATE: 12/19/20 TIME: 08:57 Reason For Consult: probable GI bleed HPI: HPI: 85 y/o female who has seen Dr. Delcid in the past. H/o epigastric pain and GERD w/ questionable PPI compliance. Additional h/o WES w/ most recent baseline Hgb between 7 and 8. EGDs in 2000 and 2007 (two then) showed mild esophagitis, gastritis, and normal duodenum. 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 Colonoscopy in 2004 and 2007 showed left-sided diverticulosis. Negative ANCA and ASCA in past. S/p cholecystectomy. H/o C Diff. Iron profile in 02/2020 c/w ACD. Had low-normal B12 in 2016. Past CTs w/ moderate hiatal hernia and diverticulosis. Not a good historian now or in the past. Tells me she doesn't know why she came to the hospital but she feels better now but appetite is "iffy." I asked if she had abdominal pain, and after thinking about, she says she did have epigastric pain that has resolved. She says her takes care of her medications. Summary list shows pantoprazole, iron, B12, and famotidine. ER notes indicates evaluated there w/ SOA, cough, and congestion. COVID and flu negative. Noted w/ Hgb below baseline (6.4 w/ MCV 101, plt 126), BNP >17307, BUN 43, Cr 2.2, +Hemoccult. D/w nurse - night custodian reported two dark hard stools. Cardiology following. PMH: PMH: CAD, CHF, VA, HTN, HLD, DM, OA, UTI, shingles, anxiety CABG, , hysterectomy, left rotator cuff repair, carpal tunnel repair, cholecystectomy FH: Family History: Cancer Social History: ALCOHOL: none Drugs: None ROS: GEN: Denies fevers, chills, sweats HEENT: Denies blurred vision, sore throat CV: Denies chest pain RESP: Denies shortness of air, cough GI: Per HPI : Denies hematuria, dysuria ENDO: Denies weight changes NEURO: Denies confusion, dizziness MSK: Denies weakness, joint pain/swelling SKIN: Denies jaundice, pruritus Vitals: Vitals: Vital Signs Date Time Temp Pulse Resp B/P (MAP) Pulse Ox O2 Delivery O2 Flow Rate FiO2 12/19/20 08:00 99 Room Air 12/19/20 07:56 84 178/63 12/19/20 07:00 98.1 16 98.1 Labs: Labs: Laboratory Tests Test 12/18/20 11:01 12/18/20 11:05 12/18/20 11:40 12/18/20 15:45 White Blood Count 4.6 x10^3/uL (4.0-11.0) Red Blood Count 1.96 x10^6/uL (3.50-5.40) Hemoglobin 6.4 g/dL (12.0-15.5) Hematocrit 19.9 % (36.0-47.0) Mean Corpuscular Volume 101 fL (79-100) Mean Corpuscular Hemoglobin 32 pg (25-35) Mean Corpuscular Hemoglobin Concent 32 g/dL (31-37) Red Cell Distribution Width 19.3 % (11.5-14.5) Platelet Count 126 x10^3/uL (140-400) Neutrophils (%) (Auto) 72 % (31-73) Lymphocytes (%) (Auto) 12 % (24-48) Monocytes (%) (Auto) 12 % (0-9) Eosinophils (%) (Auto) 3 % (0-3) Basophils (%) (Auto) 1 % (0-3) Neutrophils # (Auto) 3.3 x10^3/uL (1.8-7.7) Lymphocytes # (Auto) 0.5 x10^3/uL (1.0-4.8) Monocytes # (Auto) 0.6 x10^3/uL (0.0-1.1) Eosinophils # (Auto) 0.1 x10^3/uL (0.0-0.7) Basophils # (Auto) 0.0 x10^3/uL (0.0-0.2) D-Dimer (Sally) 1.97 ug/mlFEU (0.00-0.50) Sodium Level 142 mmol/L (136-145) Potassium Level 5.7 mmol/L (3.5-5.1) Chloride Level 110 mmol/L (98-107) Carbon Dioxide Level 24 mmol/L (21-32) Anion Gap 8 (6-14) Blood Urea Nitrogen 43 mg/dL (7-20) Creatinine 2.2 mg/dL (0.6-1.0) Estimated GFR (Cockcroft-Gault) 21.2 BUN/Creatinine Ratio 20 (6-20) Glucose Level 99 mg/dL (70-99) Lactic Acid Level 0.7 mmol/L (0.4-2.0) Calcium Level 7.9 mg/dL (8.5-10.1) Total Bilirubin 0.2 mg/dL (0.2-1.0) Aspartate Amino Transf (AST/SGOT) 10 U/L (15-37) Alanine Aminotransferase (ALT/SGPT) 15 U/L (14-59) Alkaline Phosphatase 60 U/L (46-116) Troponin I Quantitative < 0.017 ng/mL (0.000-0.055) 0.018 ng/mL (0.000-0.055) FA-Igj-V-Type Natriuretic Peptide 89720 pg/mL (0-449) Total Protein 6.0 g/dL (6.4-8.2) Albumin 3.0 g/dL (3.4-5.0) Albumin/Globulin Ratio 1.0 (1.0-1.7) Influenza Type A Antigen Negative (NEGATIVE) Influenza Type B Antigen Negative (NEGATIVE) SARS-CoV-2 RNA (STELLA) Negative (Negative) SARS-CoV-2 Antigen (Rapid) Negative (NEGATIVE) Stool Occult Blood Positive (NEG) Test 12/18/20 18:53 12/19/20 04:25 Troponin I Quantitative < 0.017 ng/mL (0.000-0.055) White Blood Count 5.7 x10^3/uL (4.0-11.0) Red Blood Count 2.41 x10^6/uL (3.50-5.40) Hemoglobin 7.5 g/dL (12.0-15.5) Hematocrit 23.2 % (36.0-47.0) Mean Corpuscular Volume 97 fL (79-100) Mean Corpuscular Hemoglobin 31 pg (25-35) Mean Corpuscular Hemoglobin Concent 32 g/dL (31-37) Red Cell Distribution Width 22.2 % (11.5-14.5) Platelet Count 122 x10^3/uL (140-400) Neutrophils (%) (Auto) 80 % (31-73) Lymphocytes (%) (Auto) 8 % (24-48) Monocytes (%) (Auto) 10 % (0-9) Eosinophils (%) (Auto) 2 % (0-3) Basophils (%) (Auto) 1 % (0-3) Neutrophils # (Auto) 4.6 x10^3/uL (1.8-7.7) Lymphocytes # (Auto) 0.4 x10^3/uL (1.0-4.8) Monocytes # (Auto) 0.6 x10^3/uL (0.0-1.1) Eosinophils # (Auto) 0.1 x10^3/uL (0.0-0.7) Basophils # (Auto) 0.0 x10^3/uL (0.0-0.2) Sodium Level 142 mmol/L (136-145) Potassium Level 4.9 mmol/L (3.5-5.1) Chloride Level 109 mmol/L (98-107) Carbon Dioxide Level 24 mmol/L (21-32) Anion Gap 9 (6-14) Blood Urea Nitrogen 42 mg/dL (7-20) Creatinine 2.1 mg/dL (0.6-1.0) Estimated GFR (Cockcroft-Gault) 22.4 Glucose Level 95 mg/dL (70-99) Calcium Level 8.4 mg/dL (8.5-10.1) Allergies: Coded Allergies: Penicillins (Verified Allergy, Intermediate, 12/05/20) metronidazole (Verified Allergy, Intermediate, Hives, 12/05/20) witness hives 5-10 minutes after initiating Flagyl 500mg IVPB Medications: Current Medications Medications (Trade) Dose Ordered Sig/Marina Route PRN Reason Start Time Stop Time Status Last Admin Dose Admin Pantoprazole Sodium (PROTONIX VIAL for IV PUSH) 40 mg 1X ONCE IVP 12/18/20 13:00 12/18/20 13:01 DC 12/18/20 15:27 Furosemide (Lasix) 40 mg 1X ONCE IVP 12/18/20 15:30 12/18/20 15:31 DC 12/18/20 15:27 Albuterol Sulfate (Ventolin Neb Soln) 2.5 mg RTQID [facility] 12/18/20 16:00 12/19/20 07:57 Pantoprazole Sodium (PROTONIX VIAL for IV PUSH) 40 mg DAILYAC IVP 12/19/20 07:30 12/19/20 07:55 Acetaminophen (Tylenol) 650 mg PRN Q4HRS PRN PO TEMP OVER 100.4F OR MILD PAIN 12/18/20 20:00 12/19/20 07:56 Amlodipine Besylate (Norvasc) 10 mg DAILY PO 12/19/20 09:00 12/19/20 07:55 Dicyclomine HCl (Bentyl) 10 mg DAILY PO 12/19/20 09:00 12/19/20 07:55 Hydralazine HCl (Apresoline) 50 mg BID PO 12/18/20 21:00 12/19/20 07:56 Trazodone HCl (Desyrel) 50 mg QHS PO 12/18/20 21:00 12/18/20 21:36 Calcium Carbonate/ Glycine (Oscal) 500 mg BIDAFTMEAL PO 12/19/20 09:00 12/19/20 07:56 Carvedilol (Coreg) 25 mg BIDWMEALS PO 12/19/20 08:00 12/19/20 07:56 Gabapentin (Neurontin) 600 mg TID PO 12/18/20 21:00 12/19/20 07:56 Lactobacillus Rhamnosus (Culturelle) 1 cap DAILY PO 12/19/20 09:00 12/19/20 07:55 Vitamin B Complex (Morgan B) 1 tab DAILY PO 12/19/20 09:00 12/19/20 07:55 Quetiapine Fumarate (SEROquel) 25 mg DAILY PO 12/19/20 09:00 12/19/20 07:55 Imaging: Imaging: CXR IMPRESSION: Diffuse interstitial infiltrate and small pleural effusions. PE: GEN: NAD HEENT: Atraumatic, PERRL LUNGS: CTAB HEART: RRR ABD: NABS, S/ND/NT EXTREMITY: No edema SKIN: No rashes, no jaundice NEURO/PSYCH: A & O 3, forgetful A/P: A/P: ?epigastric pain - now resolved Chronic anemia - h/o iron deficiency, also lowish B12 in past - Hgb worse now w/ macrocytosis +Hemoccult CHF, EULALIA/CKD GERD, hiatal hernia H/o SB AVMs CRC screen Diverticulosis H/o C Diff S/p cholecystectomy COVID negative -- Thorough past GI workup per HPI. Check B12. Change PPI to PO. Resume iron. Follow Hgb, transfuse as needed. Okay to eat per GI. Observe. HEATHER MOSLEY Dec 19, 2020 08:57
[2020-12-19] MEDS ORDERED: INTLU PO SCH (09:00)
--- NOTE | 2020-12-19 09:07 | PDOC2 ---
CONSULT Date of Consult Date of Consult DATE: 12/19/20 TIME: 09:05 Reason for Consult Reason for Consult: CKD Identification/Chief Complaint Chief Complaint Poor Historian currently denies any complaints Source Source: Chart review History of Present Illness Reason for Visit: Patient is a 85 year old female who presents with 2 to 3 days of dyspnea, dry cough, nasal congestion. She denies fever, chills. Denies chest pain. She has chronic but unchanged lower extremity swelling. She denies calf pain. Her is at home with similar symptoms. She is vaccinated against Covid, though she did just obtain her second vaccine about 1 week ago . She denies recent travel history. She denies recent hospitalization or surgery. She denies hemoptysis or purulent sputum production. She denies dizziness, diaphoresis, syncope, abdominal pain, nausea or vomiting. She denies any Urinary complaints . She follows with Dr Vernon of our practice . She is Unable to give any details of her most recent appt or labs etc Currently sitting up Denies any active dyspnea here. No hypoxia or evidence of distress. Her hemoglobin is 6.4POA . \ Rectal exam in ER , and Hemoccult is positive. Past Medical History Cardiovascular: CAD, HTN, Hyperlipidemia, Other Pulmonary: No pertinent hx CENTRAL NERVOUS SYSTEM: Carpal Tunnel Syndrome GI: GERD, Other Heme/Onc: Anemia NOS Hepatobiliary: No pertinent hx Psych: Anxiety Musculoskeletal: Osteoarthritis Rheumatologic: No pertinent hx Infectious disease: Herpes zoster Renal/: Chronic renal insuff, UTI Endocrine: Diabetes Past Surgical History Past Surgical History: CABG, Hysterectomy, Other Family History Family History: Cancer, Hypertension, Other Social History ALCOHOL: none Drugs: None Lives: with Family Current Problem List Problem List Problems Medical Problems: (1) Anemia Status: Acute (2) CHF (congestive heart failure) Status: Acute (3) Chronic kidney disease Status: Acute (4) Dyspnea Status: Acute (5) Guaiac positive stools Status: Acute Current Medications Current Medications Current Medications Ondansetron HCl (Zofran) 4 mg PRN Q8HRS PRN IVP NAUSEA/VOMITING; Start 12/18/20 at 13:00; Stop 12/19/20 at 12:59 Pantoprazole Sodium (PROTONIX VIAL for IV PUSH) 40 mg 1X ONCE IVP Last administered on 12/18/20at 15:27; Start 12/18/20 at 13:00; Stop 12/18/20 at 13:01; Status DC Furosemide (Lasix) 40 mg 1X ONCE IVP Last administered on 12/18/20at 15:27; Start 12/18/20 at 15:30; Stop 12/18/20 at 15:31; Status DC Albuterol Sulfate (Ventolin Neb Soln) 2.5 mg RTQID NEB Last administered on 12/19/20at 07:57; Start 12/18/20 at 16:00 Pantoprazole Sodium (PROTONIX VIAL for IV PUSH) 40 mg DAILYAC IVP Last administered on 12/19/20at 07:55; Start 12/19/20 at 07:30 Acetaminophen (Tylenol) 650 mg PRN Q4HRS PRN PO TEMP OVER 100.4F OR MILD PAIN Last administered on 12/19/20at 07:56; Start 12/18/20 at 20:00 Amlodipine Besylate (Norvasc) 10 mg DAILY PO Last administered on 12/19/20at 07:55; Start 12/19/20 at 09:00 Dicyclomine HCl (Bentyl) 10 mg DAILY PO Last administered on 12/19/20at 07:55; Start 12/19/20 at 09:00 Hydralazine HCl (Apresoline) 50 mg BID PO Last administered on 12/19/20at 07:56; Start 12/18/20 at 21:00 Quetiapine Fumarate (SEROquel) 25 mg DAILY PO ; Start 12/19/20 at 09:00; Stop 12/19/20 at 02:11; Status DC Trazodone HCl (Desyrel) 50 mg QHS PO Last administered on 12/18/20at 21:36; Start 12/18/20 at 21:00 Calcium Carbonate/ Glycine (Oscal) 500 mg BIDAFTMEAL PO Last administered on 12/19/20at 07:56; Start 12/19/20 at 09:00 Carvedilol (Coreg) 25 mg BIDWMEALS PO Last administered on 12/19/20at 07:56; Start 12/19/20 at 08:00 Gabapentin (Neurontin) 600 mg TID PO Last administered on 12/19/20at 07:56; Start 12/18/20 at 21:00 Lactobacillus Rhamnosus (Culturelle) 1 cap DAILY PO Last administered on 12/19/20at 07:55; Start 12/19/20 at 09:00 Vitamin B Complex (Morgan B) 1 tab DAILY PO Last administered on 12/19/20at 07:55; Start 12/19/20 at 09:00 Non-Formulary Medication ([Bone Health] ) 400 intlu DAILY PO ; Start 12/19/20 at 09:00; Status UNV Quetiapine Fumarate (SEROquel) 25 mg PRN QHS PO ; Start 12/19/20 at 02:15; Stop 12/19/20 at 02:14; Status DC Quetiapine Fumarate (SEROquel) 25 mg DAILY PO Last administered on 12/19/20at 07:55; Start 12/19/20 at 09:00 Active Scripts Active Methocarbamol 500 Mg Tablet 500 Mg PO TID PRN 10 Days Dok (Docusate Sodium) 100 Mg Capsule 100 Mg PO PRN BID PRN 14 Days Tylenol (Acetaminophen) 325 Mg Tablet 650 Mg PO PRN Q4HRS PRN 30 Days Proair Hfa (Albuterol Sulfate) 8.5 Gm Hfa.aer.ad 2.5 Mg NEB PRN Q4HRS PRN 14 Days Bisacodyl 10 Mg Supp.rect 10 Mg VA PRN DAILY PRN 10 Days Gabapentin 600 Mg Tablet 600 Mg PO TID 30 Days Trazodone Hcl 50 Mg Tablet 50 Mg PO QHS 30 Days Quetiapine Fumarate 25 Mg Tablet 25 Mg PO DAILY 30 Days Furosemide 40 Mg Tablet 40 Mg PO DAILY 30 Days Reported Calcium (Calcium Carbonate) 500 Mg Tab.chew 1 Tab PO BID 30 Days Amlodipine Besylate 10 Mg Tablet 10 Mg PO DAILY Hydralazine Hcl 50 Mg Tablet 1 Tab PO BID Pantoprazole Sodium (Pantoprazole Sodium) 40 Mg Tablet.dr 40 Mg PO DAILYAC Carvedilol 25 Mg Tablet 25 Mg PO BIDWMEALS [Bone Health] 400 Intlu PO DAILY Ferrous Sulfate 220 Mg/5 Ml Solution Unknown Dose PO DAILY Probiotic (Lactobacillus Combo No.10) 1 Each Capsule 1 Tab PO DAILY 30 Days Vitamin B Complex 1 Each Capsule 1 Each PO DAILY Dicyclomine Hcl 10 Mg Capsule 10 Mg PO DAILY Famotidine 20 Mg Tablet 20 Mg PO BID Allergies Allergies: Coded Allergies: Penicillins (Verified Allergy, Intermediate, 12/05/20) metronidazole (Verified Allergy, Intermediate, Hives, 12/05/20) witness hives 5-10 minutes after initiating Flagyl 500mg IVPB ROS Review of System As per HPI, rest of the ROS is negative Physical Exam Physical Exam General: Alert, Oriented X3, Cooperative, No acute distress HEENT: Atraumatic, OM moist Neck Supple Lungs: Clear to auscultation, Non labored Heart: Regular rate, Normal S2 Abdomen: Normal bowel sounds, Soft, NT Extremities: No clubbing, Trace edema , chronic Skin: No breakdown, No significant lesion, No rash Neuro: Normal speech, Sensation intact Psych/Mental Status: Mental status NL, Mood NL No menard, No CVA or SP tenderness Vital Signs Vital Signs Date Time Temp Pulse Resp B/P (MAP) Pulse Ox O2 Delivery O2 Flow Rate FiO2 12/19/20 08:00 99 Room Air 12/19/20 07:56 84 178/63 12/19/20 07:00 98.1 16 98.1 Assessment & Plan CKD stage 3 B - baseline Cr 1.8-2.4, follows with Dr. Vernon. Patient unable to g jayshree details. I reviewed records from our Office, seen in Sep by MANAGER ENGAGEMENT with Creat 2.4. Past US- Increased cortical echotexture of the kidneys suggests medical renal disease. Currently stable renal function, continue supportive care, Avoid Nephrotoxins , avoid Overdiuresis, defer to cardiology EULALIA Creat 2.74 Nov 27 2020 per out Office records, appears to have resolved currently with Creat back to her baseline Anemia- Hgb below her baseline at presentation . HGB op 7.5-8;Tsat at Sep Neph appt was 9% s/p IV Fe , Receiving Procrit as well HemOccult Positive , GI consulted Diffuse interstitial infiltrate and small pleural effusions. H/o SB AVMs Acute on chronic diastolic heart failure, probably precipitated by severe anemia. Cardiology recommends Gentle diuresis with close monitoring of renal function echo in September 2019 showed normal LV systolic function with mild and AR. Coronary artery disease s/p CABG, apparently 3 years ago at [facility], HTN- Antihypertensives , cardiology managing CAD stable DM - per Primary H/o GERD Hx of Diverticulosis Labs Labs Laboratory Tests Test 12/18/20 11:01 12/18/20 11:05 12/18/20 11:40 12/18/20 15:45 White Blood Count 4.6 x10^3/uL (4.0-11.0) Red Blood Count 1.96 x10^6/uL (3.50-5.40) Hemoglobin 6.4 g/dL (12.0-15.5) Hematocrit 19.9 % (36.0-47.0) Mean Corpuscular Volume 101 fL (79-100) Mean Corpuscular Hemoglobin 32 pg (25-35) Mean Corpuscular Hemoglobin Concent 32 g/dL (31-37) Red Cell Distribution Width 19.3 % (11.5-14.5) Platelet Count 126 x10^3/uL (140-400) Neutrophils (%) (Auto) 72 % (31-73) Lymphocytes (%) (Auto) 12 % (24-48) Monocytes (%) (Auto) 12 % (0-9) Eosinophils (%) (Auto) 3 % (0-3) Basophils (%) (Auto) 1 % (0-3) Neutrophils # (Auto) 3.3 x10^3/uL (1.8-7.7) Lymphocytes # (Auto) 0.5 x10^3/uL (1.0-4.8) Monocytes # (Auto) 0.6 x10^3/uL (0.0-1.1) Eosinophils # (Auto) 0.1 x10^3/uL (0.0-0.7) Basophils # (Auto) 0.0 x10^3/uL (0.0-0.2) D-Dimer (Sally) 1.97 ug/mlFEU (0.00-0.50) Sodium Level 142 mmol/L (136-145) Potassium Level 5.7 mmol/L (3.5-5.1) Chloride Level 110 mmol/L (98-107) Carbon Dioxide Level 24 mmol/L (21-32) Anion Gap 8 (6-14) Blood Urea Nitrogen 43 mg/dL (7-20) Creatinine 2.2 mg/dL (0.6-1.0) Estimated GFR (Cockcroft-Gault) 21.2 BUN/Creatinine Ratio 20 (6-20) Glucose Level 99 mg/dL (70-99) Lactic Acid Level 0.7 mmol/L (0.4-2.0) Calcium Level 7.9 mg/dL (8.5-10.1) Total Bilirubin 0.2 mg/dL (0.2-1.0) Aspartate Amino Transf (AST/SGOT) 10 U/L (15-37) Alanine Aminotransferase (ALT/SGPT) 15 U/L (14-59) Alkaline Phosphatase 60 U/L (46-116) Troponin I Quantitative < 0.017 ng/mL (0.000-0.055) 0.018 ng/mL (0.000-0.055) SD-Hdz-N-Type Natriuretic Peptide 86062 pg/mL (0-449) Total Protein 6.0 g/dL (6.4-8.2) Albumin 3.0 g/dL (3.4-5.0) Albumin/Globulin Ratio 1.0 (1.0-1.7) Influenza Type A Antigen Negative (NEGATIVE) Influenza Type B Antigen Negative (NEGATIVE) SARS-CoV-2 RNA (STELLA) Negative (Negative) SARS-CoV-2 Antigen (Rapid) Negative (NEGATIVE) Stool Occult Blood Positive (NEG) Test 12/18/20 18:53 12/19/20 04:25 Troponin I Quantitative < 0.017 ng/mL (0.000-0.055) White Blood Count 5.7 x10^3/uL (4.0-11.0) Red Blood Count 2.41 x10^6/uL (3.50-5.40) Hemoglobin 7.5 g/dL (12.0-15.5) Hematocrit 23.2 % (36.0-47.0) Mean Corpuscular Volume 97 fL (79-100) Mean Corpuscular Hemoglobin 31 pg (25-35) Mean Corpuscular Hemoglobin Concent 32 g/dL (31-37) Red Cell Distribution Width 22.2 % (11.5-14.5) Platelet Count 122 x10^3/uL (140-400) Neutrophils (%) (Auto) 80 % (31-73) Lymphocytes (%) (Auto) 8 % (24-48) Monocytes (%) (Auto) 10 % (0-9) Eosinophils (%) (Auto) 2 % (0-3) Basophils (%) (Auto) 1 % (0-3) Neutrophils # (Auto) 4.6 x10^3/uL (1.8-7.7) Lymphocytes # (Auto) 0.4 x10^3/uL (1.0-4.8) Monocytes # (Auto) 0.6 x10^3/uL (0.0-1.1) Eosinophils # (Auto) 0.1 x10^3/uL (0.0-0.7) Basophils # (Auto) 0.0 x10^3/uL (0.0-0.2) Sodium Level 142 mmol/L (136-145) Potassium Level 4.9 mmol/L (3.5-5.1) Chloride Level 109 mmol/L (98-107) Carbon Dioxide Level 24 mmol/L (21-32) Anion Gap 9 (6-14) Blood Urea Nitrogen 42 mg/dL (7-20) Creatinine 2.1 mg/dL (0.6-1.0) Estimated GFR (Cockcroft-Gault) 22.4 Glucose Level 95 mg/dL (70-99) Calcium Level 8.4 mg/dL (8.5-10.1) Laboratory Tests Test 12/18/20 11:01 12/18/20 11:05 12/18/20 11:40 12/18/20 15:45 White Blood Count 4.6 x10^3/uL (4.0-11.0) Red Blood Count 1.96 x10^6/uL (3.50-5.40) Hemoglobin 6.4 g/dL (12.0-15.5) Hematocrit 19.9 % (36.0-47.0) Mean Corpuscular Volume 101 fL (79-100) Mean Corpuscular Hemoglobin 32 pg (25-35) Mean Corpuscular Hemoglobin Concent 32 g/dL (31-37) Red Cell Distribution Width 19.3 % (11.5-14.5) Platelet Count 126 x10^3/uL (140-400) Neutrophils (%) (Auto) 72 % (31-73) Lymphocytes (%) (Auto) 12 % (24-48) Monocytes (%) (Auto) 12 % (0-9) Eosinophils (%) (Auto) 3 % (0-3) Basophils (%) (Auto) 1 % (0-3) Neutrophils # (Auto) 3.3 x10^3/uL (1.8-7.7) Lymphocytes # (Auto) 0.5 x10^3/uL (1.0-4.8) Monocytes # (Auto) 0.6 x10^3/uL (0.0-1.1) Eosinophils # (Auto) 0.1 x10^3/uL (0.0-0.7) Basophils # (Auto) 0.0 x10^3/uL (0.0-0.2) D-Dimer (Sally) 1.97 ug/mlFEU (0.00-0.50) Sodium Level 142 mmol/L (136-145) Potassium Level 5.7 mmol/L (3.5-5.1) Chloride Level 110 mmol/L (98-107) Carbon Dioxide Level 24 mmol/L (21-32) Anion Gap 8 (6-14) Blood Urea Nitrogen 43 mg/dL (7-20) Creatinine 2.2 mg/dL (0.6-1.0) Estimated GFR (Cockcroft-Gault) 21.2 BUN/Creatinine Ratio 20 (6-20) Glucose Level 99 mg/dL (70-99) Lactic Acid Level 0.7 mmol/L (0.4-2.0) Calcium Level 7.9 mg/dL (8.5-10.1) Total Bilirubin 0.2 mg/dL (0.2-1.0) Aspartate Amino Transf (AST/SGOT) 10 U/L (15-37) Alanine Aminotransferase (ALT/SGPT) 15 U/L (14-59) Alkaline Phosphatase 60 U/L (46-116) Troponin I Quantitative < 0.017 ng/mL (0.000-0.055) 0.018 ng/mL (0.000-0.055) TK-Vbm-U-Type Natriuretic Peptide 15683 pg/mL (0-449) Total Protein 6.0 g/dL (6.4-8.2) Albumin 3.0 g/dL (3.4-5.0) Albumin/Globulin Ratio 1.0 (1.0-1.7) Influenza Type A Antigen Negative (NEGATIVE) Influenza Type B Antigen Negative (NEGATIVE) SARS-CoV-2 RNA (STELLA) Negative (Negative) SARS-CoV-2 Antigen (Rapid) Negative (NEGATIVE) Stool Occult Blood Positive (NEG) Test 12/18/20 18:53 12/19/20 04:25 Troponin I Quantitative < 0.017 ng/mL (0.000-0.055) White Blood Count 5.7 x10^3/uL (4.0-11.0) Red Blood Count 2.41 x10^6/uL (3.50-5.40) Hemoglobin 7.5 g/dL (12.0-15.5) Hematocrit 23.2 % (36.0-47.0) Mean Corpuscular Volume 97 fL (79-100) Mean Corpuscular Hemoglobin 31 pg (25-35) Mean Corpuscular Hemoglobin Concent 32 g/dL (31-37) Red Cell Distribution Width 22.2 % (11.5-14.5) Platelet Count 122 x10^3/uL (140-400) Neutrophils (%) (Auto) 80 % (31-73) Lymphocytes (%) (Auto) 8 % (24-48) Monocytes (%) (Auto) 10 % (0-9) Eosinophils (%) (Auto) 2 % (0-3) Basophils (%) (Auto) 1 % (0-3) Neutrophils # (Auto) 4.6 x10^3/uL (1.8-7.7) Lymphocytes # (Auto) 0.4 x10^3/uL (1.0-4.8) Monocytes # (Auto) 0.6 x10^3/uL (0.0-1.1) Eosinophils # (Auto) 0.1 x10^3/uL (0.0-0.7) Basophils # (Auto) 0.0 x10^3/uL (0.0-0.2) Sodium Level 142 mmol/L (136-145) Potassium Level 4.9 mmol/L (3.5-5.1) Chloride Level 109 mmol/L (98-107) Carbon Dioxide Level 24 mmol/L (21-32) Anion Gap 9 (6-14) Blood Urea Nitrogen 42 mg/dL (7-20) Creatinine 2.1 mg/dL (0.6-1.0) Estimated GFR (Cockcroft-Gault) 22.4 Glucose Level 95 mg/dL (70-99) Calcium Level 8.4 mg/dL (8.5-10.1) Review All relevant outside records, renal labs, imaging studies, telemetry/EKG's were reviewed. Images Images PORTABLE CHEST 1V EXAM: Chest, single view. HISTORY: Dyspnea. COMPARISON: 12/29/2019 FINDINGS: A frontal view of the chest is obtained. There is diffuse interstitial infiltrate. There are suspected small pleural effusions. There is a stable cardiac silhouette and evidence of prior CABG. There is no pneumothorax. There is chronic superior migration of the humeral heads likely due to chronic rotator cuff tears. IMPRESSION: Diffuse interstitial infiltrate and small pleural effusions. JERONIMO MERAZ MD Dec 19, 2020 09:07
--- NOTE | 2020-12-19 10:59 | PDOC ---
[employer] PROGRESS NOTE Date of Service DOS: DATE: 12/19/20 TIME: 10:58 Chief Complaint Chief Complaint [id number] systolic and diastolic heart failure, gastrointestinal bleed, [id number] kidney failure, anemia, thrombocytopenia, hyperkalemia, azotemia, malnutrition Coronary artery bypass surgery, hypertension, CAD, hyperlipidemia, carpal tunnel surgery, GERD, anemia, anxiety, osteoarthritis, herpes zoster, UTI, diabetes, hysterectomy. History of Present Illness History of Present Illness 12/19/2020 Patient seen and examined She is complaining of anal pain after having several bowel movements (her stools are very dark black per RN) Discussed with RN Chart reviewed Hemoglobin currently 7.5 after transfusions Vitals/I&O Vitals/I&O: Vital Signs Date Time Temp Pulse Resp B/P (MAP) Pulse Ox O2 Delivery O2 Flow Rate FiO2 12/19/20 08:58 56 115/66 (82) 12/19/20 08:00 99 Room Air 12/19/20 07:00 98.1 16 98.1 I & O 12/18/20 12/18/20 12/19/20 15:00 23:00 07:00 Intake Total 100 ml 120 ml Balance 100 ml 120 ml Physical Exam General: Alert Heart: Regular rate, Other (ESM aortic) Lungs: Clear Abdomen: Soft Extremities: Other (1+ pitting edema) Labs Labs: Laboratory Tests Test 12/18/20 11:01 12/18/20 11:05 12/18/20 11:40 12/18/20 15:45 White Blood Count 4.6 x10^3/uL (4.0-11.0) Red Blood Count 1.96 x10^6/uL (3.50-5.40) Hemoglobin 6.4 g/dL (12.0-15.5) Hematocrit 19.9 % (36.0-47.0) Mean Corpuscular Volume 101 fL (79-100) Mean Corpuscular Hemoglobin 32 pg (25-35) Mean Corpuscular Hemoglobin Concent 32 g/dL (31-37) Red Cell Distribution Width 19.3 % (11.5-14.5) Platelet Count 126 x10^3/uL (140-400) Neutrophils (%) (Auto) 72 % (31-73) Lymphocytes (%) (Auto) 12 % (24-48) Monocytes (%) (Auto) 12 % (0-9) Eosinophils (%) (Auto) 3 % (0-3) Basophils (%) (Auto) 1 % (0-3) Neutrophils # (Auto) 3.3 x10^3/uL (1.8-7.7) Lymphocytes # (Auto) 0.5 x10^3/uL (1.0-4.8) Monocytes # (Auto) 0.6 x10^3/uL (0.0-1.1) Eosinophils # (Auto) 0.1 x10^3/uL (0.0-0.7) Basophils # (Auto) 0.0 x10^3/uL (0.0-0.2) D-Dimer (Sally) 1.97 ug/mlFEU (0.00-0.50) Sodium Level 142 mmol/L (136-145) Potassium Level 5.7 mmol/L (3.5-5.1) Chloride Level 110 mmol/L (98-107) Carbon Dioxide Level 24 mmol/L (21-32) Anion Gap 8 (6-14) Blood Urea Nitrogen 43 mg/dL (7-20) Creatinine 2.2 mg/dL (0.6-1.0) Estimated GFR (Cockcroft-Gault) 21.2 BUN/Creatinine Ratio 20 (6-20) Glucose Level 99 mg/dL (70-99) Lactic Acid Level 0.7 mmol/L (0.4-2.0) Calcium Level 7.9 mg/dL (8.5-10.1) Total Bilirubin 0.2 mg/dL (0.2-1.0) Aspartate Amino Transf (AST/SGOT) 10 U/L (15-37) Alanine Aminotransferase (ALT/SGPT) 15 U/L (14-59) Alkaline Phosphatase 60 U/L (46-116) Troponin I Quantitative < 0.017 ng/mL (0.000-0.055) 0.018 ng/mL (0.000-0.055) SF-Zrg-V-Type Natriuretic Peptide 61906 pg/mL (0-449) Total Protein 6.0 g/dL (6.4-8.2) Albumin 3.0 g/dL (3.4-5.0) Albumin/Globulin Ratio 1.0 (1.0-1.7) Influenza Type A Antigen Negative (NEGATIVE) Influenza Type B Antigen Negative (NEGATIVE) SARS-CoV-2 RNA (STELLA) Negative (Negative) SARS-CoV-2 Antigen (Rapid) Negative (NEGATIVE) Stool Occult Blood Positive (NEG) Test 12/18/20 18:53 12/19/20 04:25 Troponin I Quantitative < 0.017 ng/mL (0.000-0.055) White Blood Count 5.7 x10^3/uL (4.0-11.0) Red Blood Count 2.41 x10^6/uL (3.50-5.40) Hemoglobin 7.5 g/dL (12.0-15.5) Hematocrit 23.2 % (36.0-47.0) Mean Corpuscular Volume 97 fL (79-100) Mean Corpuscular Hemoglobin 31 pg (25-35) Mean Corpuscular Hemoglobin Concent 32 g/dL (31-37) Red Cell Distribution Width 22.2 % (11.5-14.5) Platelet Count 122 x10^3/uL (140-400) Neutrophils (%) (Auto) 80 % (31-73) Lymphocytes (%) (Auto) 8 % (24-48) Monocytes (%) (Auto) 10 % (0-9) Eosinophils (%) (Auto) 2 % (0-3) Basophils (%) (Auto) 1 % (0-3) Neutrophils # (Auto) 4.6 x10^3/uL (1.8-7.7) Lymphocytes # (Auto) 0.4 x10^3/uL (1.0-4.8) Monocytes # (Auto) 0.6 x10^3/uL (0.0-1.1) Eosinophils # (Auto) 0.1 x10^3/uL (0.0-0.7) Basophils # (Auto) 0.0 x10^3/uL (0.0-0.2) Sodium Level 142 mmol/L (136-145) Potassium Level 4.9 mmol/L (3.5-5.1) Chloride Level 109 mmol/L (98-107) Carbon Dioxide Level 24 mmol/L (21-32) Anion Gap 9 (6-14) Blood Urea Nitrogen 42 mg/dL (7-20) Creatinine 2.1 mg/dL (0.6-1.0) Estimated GFR (Cockcroft-Gault) 22.4 Glucose Level 95 mg/dL (70-99) Calcium Level 8.4 mg/dL (8.5-10.1) Assessment and Plan Assessmemt and Plan Problems Medical Problems: (1) Anemia Status: Acute (2) CHF (congestive heart failure) Status: Acute (3) Chronic kidney disease Status: Acute (4) Dyspnea Status: Acute (5) Guaiac positive stools Status: Acute Iuxpz-in-mqjwnjk systolic and diastolic heart failure, gastrointestinal bleed, piocv-ex-dwiqmrf kidney failure, anemia, thrombocytopenia, hyperkalemia, azotemia, malnutrition Coronary artery bypass surgery, hypertension, CAD, hyperlipidemia, carpal tunnel surgery, GERD, anemia, anxiety, osteoarthritis, herpes zoster, UTI, diabetes, hysterectomy. Plan Cardiac monitoring Trend hemoglobin GI and cardiology are following appreciate their input Gentle diuresis with close monitoring of renal function per jail manager Antihypertensives per molder closed molds Hope to advance diet if her hemoglobin remained stable and stools do not show signs of bleeding? Might need endoscopy if she continues to bleed? As needed diuresis Consult the wound care team Home meds DVT prophylaxis Full code May need usp? Comment Review of Relevant I have reviewed the following items matti (where applicable) has been applied. Medications: Current Medications Medications (Trade) Dose Ordered Sig/Marina Route PRN Reason Start Time Stop Time Status Last Admin Dose Admin Pantoprazole Sodium (PROTONIX VIAL for IV PUSH) 40 mg 1X ONCE IVP 12/18/20 13:00 12/18/20 13:01 DC 12/18/20 15:27 Furosemide (Lasix) 40 mg 1X ONCE IVP 12/18/20 15:30 12/18/20 15:31 DC 12/18/20 15:27 Albuterol Sulfate (Ventolin Neb Soln) 2.5 mg RTQID NEB 12/18/20 16:00 12/19/20 07:57 Pantoprazole Sodium (PROTONIX VIAL for IV PUSH) 40 mg DAILYAC IVP 12/19/20 07:30 12/19/20 09:56 DC 12/19/20 07:55 Acetaminophen (Tylenol) 650 mg PRN Q4HRS PRN PO TEMP OVER 100.4F OR MILD PAIN 12/18/20 20:00 12/19/20 07:56 Amlodipine Besylate (Norvasc) 10 mg DAILY PO 12/19/20 09:00 12/19/20 07:55 Dicyclomine HCl (Bentyl) 10 mg DAILY PO 12/19/20 09:00 12/19/20 07:55 Hydralazine HCl (Apresoline) 50 mg BID PO 12/18/20 21:00 12/19/20 07:56 Trazodone HCl (Desyrel) 50 mg QHS PO 12/18/20 21:00 12/18/20 21:36 Calcium Carbonate/ Glycine (Oscal) 500 mg BIDAFTMEAL PO 12/19/20 09:00 12/19/20 07:56 Carvedilol (Coreg) 25 mg BIDWMEALS PO 12/19/20 08:00 12/19/20 07:56 Gabapentin (Neurontin) 600 mg TID PO 12/18/20 21:00 12/19/20 07:56 Lactobacillus Rhamnosus (Culturelle) 1 cap DAILY PO 12/19/20 09:00 12/19/20 07:55 Vitamin B Complex (Morgan B) 1 tab DAILY PO 12/19/20 09:00 12/19/20 07:55 Quetiapine Fumarate (SEROquel) 25 mg DAILY PO 12/19/20 09:00 12/19/20 07:55 Justifications for Admission Other Justification SILVINA CAMPBELL III DO Dec 19, 2020 10:59
--- NOTE | 2020-12-19 12:05 | PDOC ---
VALERIE WINN [employer]ATOR MECH[employer]IC 12/19/20 1205: CARDIO Progress Notes Date and Time Date of Service 12/19/20 Time of Evaluation 1200 Subjective Subjective: No Chest Pain, No Palpitations, Other (breathing improved ) Vitals Vitals Vital Signs Date Time Temp Pulse Resp B/P (MAP) Pulse Ox O2 Delivery O2 Flow Rate FiO2 12/19/20 11:41 99 Room Air 12/19/20 11:00 98.2 55 16 134/58 (83) 98.2 Weight Weight [ ] Input and Output Intake and Output Intake and Output 12/19/20 07:00 Intake Total 220 ml Balance 220 ml Intake Oral 120 ml Blood Product IV Normal Saline Flush 100 ml # Voids 6 # Bowel Movements 1 Laboratory Labs Laboratory Tests Test 12/18/20 15:45 12/18/20 18:53 12/19/20 04:25 Troponin I Quantitative 0.018 ng/mL (0.000-0.055) < 0.017 ng/mL (0.000-0.055) White Blood Count 5.7 x10^3/uL (4.0-11.0) Red Blood Count 2.41 x10^6/uL (3.50-5.40) Hemoglobin 7.5 g/dL (12.0-15.5) Hematocrit 23.2 % (36.0-47.0) Mean Corpuscular Volume 97 fL (79-100) Mean Corpuscular Hemoglobin 31 pg (25-35) Mean Corpuscular Hemoglobin Concent 32 g/dL (31-37) Red Cell Distribution Width 22.2 % (11.5-14.5) Platelet Count 122 x10^3/uL (140-400) Neutrophils (%) (Auto) 80 % (31-73) Lymphocytes (%) (Auto) 8 % (24-48) Monocytes (%) (Auto) 10 % (0-9) Eosinophils (%) (Auto) 2 % (0-3) Basophils (%) (Auto) 1 % (0-3) Neutrophils # (Auto) 4.6 x10^3/uL (1.8-7.7) Lymphocytes # (Auto) 0.4 x10^3/uL (1.0-4.8) Monocytes # (Auto) 0.6 x10^3/uL (0.0-1.1) Eosinophils # (Auto) 0.1 x10^3/uL (0.0-0.7) Basophils # (Auto) 0.0 x10^3/uL (0.0-0.2) Sodium Level 142 mmol/L (136-145) Potassium Level 4.9 mmol/L (3.5-5.1) Chloride Level 109 mmol/L (98-107) Carbon Dioxide Level 24 mmol/L (21-32) Anion Gap 9 (6-14) Blood Urea Nitrogen 42 mg/dL (7-20) Creatinine 2.1 mg/dL (0.6-1.0) Estimated GFR (Cockcroft-Gault) 22.4 Glucose Level 95 mg/dL (70-99) Calcium Level 8.4 mg/dL (8.5-10.1) Vitamin B12 Level 424 pg/mL (247-911) Microbiology Micro Microbiology 12/18/20 Blood Culture - Preliminary, Resulted NO GROWTH AFTER 1 DAY Physical Exam HEENT: Neck Supple W Full Motion Chest: Symmetric LUNGS: Clear to Auscultation Heart: RRR Abdomen: Soft N/T Extremities: Other (1+ bilateral LE edema ) Neurology: alert, follow commands Assessment Assessment 1. Acute on chronic diastolic heart failure, probably precipitated by severe anemia. Echo 10/12 with normal LV systolic function with mild and AR. improved s/p IV diuresis 2. CAD s/p CABG; clinically stable and chest pain-free 3. Severe anemia; ? GIB. +Hemoccult. s/p transfusion. as per GI 4. EULALIA on CKD, hyperkalemia 5. Accelerated hypertension; better controlled, but labile at times. we will check renal arterial duplex scan. 6. Hyperlipidemia Recommendations Secondary prevention measures. Add statin No ASA with anemia, concerns for GIB Renal artery duplex to r/o QUINN Transfused as warranted Resume oral Lasix Supportive care Justicifation of Admission Dx: Justifications for Admission: Justification of Admission Dx: Yes EMERSON MARCUS MD 12/19/202051: CARDIO Progress Notes Assessment Assessment Patient seen and examined. Agree with [employer]'s assessment and plan as stated above. VALERIE WINN APRN Dec 19, 2020 12:05 EMERSON MARCUS MD Dec 19, 2020 20:52
--- NOTE | 2020-12-19 14:46 | NUR ---
Wound Care Pt seen for wound care consultation re: coccyx wound. Pt seen and assessed, no wounds noted on full skin inspection. Pt stated she has some soreness from bowel movements, but that is all she's noticed. Calazime cream applied, wound care signing off.
--- NOTE | 2020-12-19 15:25 | NUR ---
SS following for discharge planning. SS reviewed pt chart and discussed with pt RN. Pt is from home with spouse and is currently on room air. COVID19 negative. Wound care following. PT/OT ordered. PT recommended home with assistance. SS will continue to follow for discharge planning.
[2020-12-19] MEDS: FERROUS SULFATE 325 MG TABLET. PO SCH (17:23)
[2020-12-19] MEDS: traZODone 50 MG TABLET. PO SCH (20:39)
[2020-12-19] MEDS ORDERED: ATORVASTATIN CALCIUM 40 MG TABLET. PO SCH (21:00)
[2020-12-20 03:06] VITALS: BP 178/75
[2020-12-20 03:55] VITALS: BP 148/61
[2020-12-20 07:00] VITALS: BP 155/66
[2020-12-20] MEDS ORDERED: PANTOPRAZOLE 40 MG TABLET.DR. PO SCH (07:30)
[2020-12-20] MEDS: ALBUTEROL SULFATE 2.5 MG/3 ML NEBU. NEB SCH ×2 (07:38→12:34)
[2020-12-20 08:12] LABS: BASO % 0 % (0-3); EOS # 0.1 x10^3/uL (0.0-0.7); EOS % 2 % (0-3); HEMATOCRIT 23.6 % (36.0-47.0); HEMOGLOBIN 7.6 g/dL (12.0-15.5); LYMPH # 0.6 x10^3/uL (1.0-4.8); LYMPH % 11 % (24-48); MEAN CORPUSCULAR HEMOGLOBIN 31 pg (25-35); MEAN CORPUSCULAR HGB CONC 32 g/dL (31-37); MEAN CORPUSCULAR VOLUME 97 fL (79-100); MONO # 0.5 x10^3/uL (0.0-1.1); MONO % 11 % (0-9); NEUT # 3.9 x10^3/uL (1.8-7.7); NEUT % 76 % (31-73); PLATELET COUNT 129 x10^3/uL (140-400); RED BLOOD COUNT 2.43 x10^6/uL (3.50-5.40); RED CELL DISTRIBUTION WIDTH 21.3 % (11.5-14.5); WHITE BLOOD COUNT 5.1 x10^3/uL (4.0-11.0)
[2020-12-20] MEDS: VITAMIN B COMPLEX TABLET. PO SCH (08:48)
[2020-12-20] MEDS: CALCIUM CARBONATE 500 MG TABLET PO SCH (08:48)
[2020-12-20] MEDS: QUEtiapine 25 MG TABLET. PO SCH (08:48)
[2020-12-20] MEDS: DICYCLOMINE HCL 10 MG CAPSULE PO SCH (08:48)
[2020-12-20] MEDS: GABAPENTIN 300 MG CAPSULE. PO SCH ×2 (08:49→13:16)
[2020-12-20] MEDS: LACTOBACILLUS RHAMNOSUS GG 1 CAPSULE. PO SCH (08:49)
[2020-12-20] MEDS: CARVEDILOL 12.5 MG TABLET. PO SCH (08:49)
[2020-12-20] MEDS: FERROUS SULFATE 325 MG TABLET. PO SCH (08:49)
[2020-12-20] MEDS: ACETAMINOPHEN 325 MG TABLET. PO PRN (08:50)
[2020-12-20 08:54] LABS: CALCIUM 8.2 mg/dL (8.5-10.1); GFR 23.7; POTASSIUM 4.7 mmol/L (3.5-5.1)
[2020-12-20] MEDS ORDERED: FUROSEMIDE 40 MG TABLET. PO SCH (09:00)
--- NOTE | 2020-12-20 09:20 | PDOC ---
DATE OF SERVICE DATE: 12/20/20 TIME: 09:19 SUBJECTIVE ROS No complaints.Denies any SOB OBJECTIVE Vital Signs Vital Signs Date Time Temp Pulse Resp B/P (MAP) Pulse Ox O2 Delivery O2 Flow Rate FiO2 12/20/20 08:49 77 155/66 12/20/20 07:38 98 Room Air 12/20/20 03:06 98.2 16 98.2 I & 0 Intake and Output 12/20/20 07:00 Intake Total 1090 ml Balance 1090 ml Intake Oral 1090 ml # Bowel Movements 3 PHYSICAL EXAM Physical Exam General: Alert, Oriented X3, Cooperative, No acute distress HEENT: Atraumatic, OM moist Neck Supple Lungs: Clear to auscultation, Non labored Heart: Regular rate, Normal S2 Abdomen: Normal bowel sounds, Soft, NT Extremities: No clubbing, Trace edema , chronic Skin: No breakdown, No significant lesion, No rash Neuro: Normal speech, Sensation intact Psych/Mental Status: Mental status NL, Mood NL No menard, No CVA or SP tenderness DIAGNOSIS/ASSESSMENT Assessment & Plan CKD stage 3 B - baseline Cr 1.8-2.4, follows with Dr. Vernon. Currently stable renal function, continue supportive care, Avoid Nephrotoxins , avoid Overdiuresis, defer to cardiology EULALIA Creat 2.74 Nov 27 2020 per out Office records, appears to have resolved currently with Creat back to her baseline Anemia- Hgb below her baseline at presentation . HGB op 7.5-8;Tsat at Sep Neph appt was 9% s/p IV Fe , Receiving Procrit as well HemOccult Positive , GI consulted Diffuse interstitial infiltrate and small pleural effusions. H/o SB AVMs Acute on chronic diastolic heart failure, probably precipitated by severe anemia.Diuresis per cardiology echo in September 2019 showed normal LV systolic function with mild and AR. Coronary artery disease s/p CABG, apparently 3 years ago at [facility], HTN- Antihypertensives , cardiology managing CAD stable DM - per Primary H/o GERD Hx of Diverticulosis COMMENT/RELEVANT DATA Meds Current Medications Medications (Trade) Dose Ordered Sig/Marina Start Time Stop Time Status Last Admin Dose Admin Acetaminophen (Tylenol) 650 mg PRN Q4HRS PRN 12/18/20 20:00 12/20/20 08:50 650 MG Albuterol Sulfate (Ventolin Neb Soln) 2.5 mg RTQID 12/18/20 16:00 12/20/20 07:38 2.5 MG Amlodipine Besylate (Norvasc) 10 mg DAILY 12/19/20 09:00 12/20/20 08:48 10 MG Atorvastatin Calcium (Lipitor) 40 mg QHS 12/19/20 21:00 12/19/20 20:39 40 MG Calcium Carbonate/ Glycine (Oscal) 500 mg BIDAFTMEAL 12/19/20 09:00 12/20/20 08:48 500 MG Carvedilol (Coreg) 25 mg BIDWMEALS 12/19/20 08:00 12/20/20 08:49 25 MG Dicyclomine HCl (Bentyl) 10 mg DAILY 12/19/20 09:00 12/20/20 08:48 10 MG Ferrous Sulfate (Feosol) 325 mg BIDWMEALS 12/19/20 17:00 12/20/20 08:49 325 MG Furosemide (Lasix) 40 mg DAILY 12/20/20 09:00 12/20/20 08:48 40 MG Gabapentin (Neurontin) 600 mg TID 12/18/20 21:00 12/20/20 08:49 600 MG Hydralazine HCl (Apresoline) 50 mg BID 12/18/20 21:00 12/20/20 08:49 50 MG Lactobacillus Rhamnosus (Culturelle) 1 cap DAILY 12/19/20 09:00 12/20/20 08:49 1 CAP Non-Formulary Medication ([Bone Health] ) 400 intlu DAILY 12/19/20 09:00 UNV Ondansetron HCl (Zofran) 4 mg PRN Q8HRS PRN 12/18/20 13:00 12/19/20 12:59 DC Pantoprazole Sodium (PROTONIX VIAL for IV PUSH) 40 mg DAILYAC 12/19/20 07:30 12/19/20 09:56 DC 12/19/20 07:55 40 MG Pantoprazole Sodium (Protonix) 40 mg DAILYAC 12/20/20 07:30 12/20/20 08:49 40 MG Quetiapine Fumarate (SEROquel) 25 mg DAILY 12/19/20 09:00 12/20/20 08:48 25 MG Trazodone HCl (Desyrel) 50 mg QHS 12/18/20 21:00 12/19/20 20:39 50 MG Vitamin B Complex (Morgan B) 1 tab DAILY 12/19/20 09:00 12/20/20 08:48 1 TAB Lab Laboratory Tests Test 12/20/20 07:05 White Blood Count 5.1 x10^3/uL (4.0-11.0) Red Blood Count 2.43 x10^6/uL (3.50-5.40) Hemoglobin 7.6 g/dL (12.0-15.5) Hematocrit 23.6 % (36.0-47.0) Mean Corpuscular Volume 97 fL (79-100) Mean Corpuscular Hemoglobin 31 pg (25-35) Mean Corpuscular Hemoglobin Concent 32 g/dL (31-37) Red Cell Distribution Width 21.3 % (11.5-14.5) Platelet Count 129 x10^3/uL (140-400) Neutrophils (%) (Auto) 76 % (31-73) Lymphocytes (%) (Auto) 11 % (24-48) Monocytes (%) (Auto) 11 % (0-9) Eosinophils (%) (Auto) 2 % (0-3) Basophils (%) (Auto) 0 % (0-3) Neutrophils # (Auto) 3.9 x10^3/uL (1.8-7.7) Lymphocytes # (Auto) 0.6 x10^3/uL (1.0-4.8) Monocytes # (Auto) 0.5 x10^3/uL (0.0-1.1) Eosinophils # (Auto) 0.1 x10^3/uL (0.0-0.7) Basophils # (Auto) 0.0 x10^3/uL (0.0-0.2) Sodium Level 141 mmol/L (136-145) Potassium Level 4.7 mmol/L (3.5-5.1) Chloride Level 108 mmol/L (98-107) Carbon Dioxide Level 23 mmol/L (21-32) Anion Gap 10 (6-14) Blood Urea Nitrogen 47 mg/dL (7-20) Creatinine 2.0 mg/dL (0.6-1.0) Estimated GFR (Cockcroft-Gault) 23.7 Glucose Level 87 mg/dL (70-99) Calcium Level 8.2 mg/dL (8.5-10.1) Results All relevant outside records, renal labs, imaging studies, telemetry/EKG's were reviewed. Justicifation of Admission Dx: Justifications for Admission: Justification of Admission Dx: Yes JERONIMO MERAZ MD Dec 20, 2020 09:20
[2020-12-20 09:53] LABS: ANISOCYTOSIS MOD; PLT ESTIMATE DECREASED (ADEQUATE)
[2020-12-20 09:54] LABS: MICROCYTOSIS SLIGHT
--- NOTE | 2020-12-20 10:08 | PDOC ---
Date of Service: DATE: 12/20/20 TIME: 10:03 Subjective: Subjective: Ate breakfast but can't remember what she ate other than eggs. No n/v, abd pain, diarrhea, constipation, or bleeding. Objective: Objective: D/w nurse - doing better today. "Dark" stool yesterday, supposed to have renal US today. Vital Signs: Vital Signs Date Time Temp Pulse Resp B/P (MAP) Pulse Ox O2 Delivery O2 Flow Rate FiO2 12/20/20 08:49 77 155/66 12/20/20 07:38 98 Room Air 12/20/20 07:00 98.1 16 98.1 Labs: Laboratory Tests Test 12/20/20 07:05 White Blood Count 5.1 x10^3/uL Red Blood Count 2.43 x10^6/uL Hemoglobin 7.6 g/dL Hematocrit 23.6 % Mean Corpuscular Volume 97 fL Mean Corpuscular Hemoglobin 31 pg Mean Corpuscular Hemoglobin Concent 32 g/dL Red Cell Distribution Width 21.3 % Platelet Count 129 x10^3/uL Neutrophils (%) (Auto) 76 % Lymphocytes (%) (Auto) 11 % Monocytes (%) (Auto) 11 % Eosinophils (%) (Auto) 2 % Basophils (%) (Auto) 0 % Neutrophils # (Auto) 3.9 x10^3/uL Lymphocytes # (Auto) 0.6 x10^3/uL Monocytes # (Auto) 0.5 x10^3/uL Eosinophils # (Auto) 0.1 x10^3/uL Basophils # (Auto) 0.0 x10^3/uL Platelet Estimate Decreased Anisocytosis Mod Microcytosis Slight Sodium Level 141 mmol/L Potassium Level 4.7 mmol/L Chloride Level 108 mmol/L Carbon Dioxide Level 23 mmol/L Anion Gap 10 Blood Urea Nitrogen 47 mg/dL Creatinine 2.0 mg/dL Estimated GFR (Cockcroft-Gault) 23.7 Glucose Level 87 mg/dL Calcium Level 8.2 mg/dL PE: GEN: NAD LUNGS: CTAB HEART: RRR ABD: S/ND/NT NEURO/PSYCH: A & O 3, pleasant and forgetful A/P: Chronic anemia, +Hemoccult - h/o iron deficiency, B12 okay this time - past GI workup per consult note H/o GERD, hiatal hernia, SB AVMs, diverticulosis CHF, CKD -- Stable from GI standpoint. Continue PPI and iron, also getting vit B complex. Justicifation of Admission Dx: Justifications for Admission: Justification of Admission Dx: Yes HEATHER MOSLEY Dec 20, 2020 10:08
[2020-12-20 11:00] VITALS: BP 113/51
--- NOTE | 2020-12-20 11:43 | NUR ---
SS following up with discharge planning. SS reviewed pt chart and discussed with pt RN. Pt is currently on room air. COVID19 negative. P/OT ordered. PT recommended home with assistance. SS will continue to follow for discharge planning.
--- NOTE | 2020-12-20 11:52 | PDOC3 ---
Discharge Summary Visit Information Date of Admission: Dec 18, 2020 Date of Discharge: Dec 20, 2020 Final Diagnosis [id number] systolic and diastolic heart failure, acute blood loss, gastrointestinal bleed with mild anemia acute renal failure on CKD 3 - maybe progression to CKD 4 thrombocytopenia, hyperkalemia, azotemia, malnutrition History of : Coronary artery bypass surgery, hypertension, CAD, hyperlipidemia, carpal tunnel surgery, GERD, anemia, anxiety, osteoarthritis, herpes zoster, diabetes, hysterectomy. Problems Medical Problems: (1) Anemia Status: Acute (2) CHF (congestive heart failure) Status: Acute (3) Chronic kidney disease Status: Acute (4) Dyspnea Status: Acute (5) Guaiac positive stools Status: Acute Brief Hospital Course Allergies Allergies Coded Allergies Type Severity Reaction Last Updated Verified Penicillins Allergy Intermediate 12/05/20 Yes metronidazole Allergy Intermediate Hives 12/05/20 Yes Vital Signs Vital Signs Date Time Temp Pulse Resp B/P (MAP) Pulse Ox O2 Delivery O2 Flow Rate FiO2 12/20/20 08:49 77 155/66 12/20/20 08:00 Room Air 12/20/20 07:38 98 12/20/20 07:00 98.1 16 98.1 Lab Results Laboratory Tests Test 12/18/20 15:45 12/18/20 18:53 12/19/20 04:25 12/20/20 07:05 Troponin I Quantitative 0.018 ng/mL (0.000-0.055) < 0.017 ng/mL (0.000-0.055) White Blood Count 5.7 x10^3/uL (4.0-11.0) 5.1 x10^3/uL (4.0-11.0) Red Blood Count 2.41 x10^6/uL (3.50-5.40) 2.43 x10^6/uL (3.50-5.40) Hemoglobin 7.5 g/dL (12.0-15.5) 7.6 g/dL (12.0-15.5) Hematocrit 23.2 % (36.0-47.0) 23.6 % (36.0-47.0) Mean Corpuscular Volume 97 fL (79-100) 97 fL (79-100) Mean Corpuscular Hemoglobin 31 pg (25-35) 31 pg (25-35) Mean Corpuscular Hemoglobin Concent 32 g/dL (31-37) 32 g/dL (31-37) Red Cell Distribution Width 22.2 % (11.5-14.5) 21.3 % (11.5-14.5) Platelet Count 122 x10^3/uL (140-400) 129 x10^3/uL (140-400) Neutrophils (%) (Auto) 80 % (31-73) 76 % (31-73) Lymphocytes (%) (Auto) 8 % (24-48) 11 % (24-48) Monocytes (%) (Auto) 10 % (0-9) 11 % (0-9) Eosinophils (%) (Auto) 2 % (0-3) 2 % (0-3) Basophils (%) (Auto) 1 % (0-3) 0 % (0-3) Neutrophils # (Auto) 4.6 x10^3/uL (1.8-7.7) 3.9 x10^3/uL (1.8-7.7) Lymphocytes # (Auto) 0.4 x10^3/uL (1.0-4.8) 0.6 x10^3/uL (1.0-4.8) Monocytes # (Auto) 0.6 x10^3/uL (0.0-1.1) 0.5 x10^3/uL (0.0-1.1) Eosinophils # (Auto) 0.1 x10^3/uL (0.0-0.7) 0.1 x10^3/uL (0.0-0.7) Basophils # (Auto) 0.0 x10^3/uL (0.0-0.2) 0.0 x10^3/uL (0.0-0.2) Sodium Level 142 mmol/L (136-145) 141 mmol/L (136-145) Potassium Level 4.9 mmol/L (3.5-5.1) 4.7 mmol/L (3.5-5.1) Chloride Level 109 mmol/L (98-107) 108 mmol/L (98-107) Carbon Dioxide Level 24 mmol/L (21-32) 23 mmol/L (21-32) Anion Gap 9 (6-14) 10 (6-14) Blood Urea Nitrogen 42 mg/dL (7-20) 47 mg/dL (7-20) Creatinine 2.1 mg/dL (0.6-1.0) 2.0 mg/dL (0.6-1.0) Estimated GFR (Cockcroft-Gault) 22.4 23.7 Glucose Level 95 mg/dL (70-99) 87 mg/dL (70-99) Calcium Level 8.4 mg/dL (8.5-10.1) 8.2 mg/dL (8.5-10.1) Vitamin B12 Level 424 pg/mL (247-911) Thyroid Stimulating Hormone (TSH) 3.365 uIU/mL (0.358-3.74) Platelet Estimate Decreased (ADEQUATE) Anisocytosis Mod Microcytosis Slight Laboratory Tests Test 12/20/20 07:05 White Blood Count 5.1 x10^3/uL (4.0-11.0) Red Blood Count 2.43 x10^6/uL (3.50-5.40) Hemoglobin 7.6 g/dL (12.0-15.5) Hematocrit 23.6 % (36.0-47.0) Mean Corpuscular Volume 97 fL (79-100) Mean Corpuscular Hemoglobin 31 pg (25-35) Mean Corpuscular Hemoglobin Concent 32 g/dL (31-37) Red Cell Distribution Width 21.3 % (11.5-14.5) Platelet Count 129 x10^3/uL (140-400) Neutrophils (%) (Auto) 76 % (31-73) Lymphocytes (%) (Auto) 11 % (24-48) Monocytes (%) (Auto) 11 % (0-9) Eosinophils (%) (Auto) 2 % (0-3) Basophils (%) (Auto) 0 % (0-3) Neutrophils # (Auto) 3.9 x10^3/uL (1.8-7.7) Lymphocytes # (Auto) 0.6 x10^3/uL (1.0-4.8) Monocytes # (Auto) 0.5 x10^3/uL (0.0-1.1) Eosinophils # (Auto) 0.1 x10^3/uL (0.0-0.7) Basophils # (Auto) 0.0 x10^3/uL (0.0-0.2) Platelet Estimate Decreased (ADEQUATE) Anisocytosis Mod Microcytosis Slight Sodium Level 141 mmol/L (136-145) Potassium Level 4.7 mmol/L (3.5-5.1) Chloride Level 108 mmol/L (98-107) Carbon Dioxide Level 23 mmol/L (21-32) Anion Gap 10 (6-14) Blood Urea Nitrogen 47 mg/dL (7-20) Creatinine 2.0 mg/dL (0.6-1.0) Estimated GFR (Cockcroft-Gault) 23.7 Glucose Level 87 mg/dL (70-99) Calcium Level 8.2 mg/dL (8.5-10.1) Brief Hospital Course Ms. Colon is a 85 old admit with abd pain, has seen GI before, PER GI ADMIT NOTE: H/o epigastric pain and GERD w/ questionable PPI compliance. with known iron def. Low prior Hgb noted, Hx of mild esophagitis, gastritis, and normal duodenum. 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 Colonoscopy in 2004 and 2007 showed left-sided diverticulosis. HGb low 6.4, PRBC given, noted SOA, cough, and congestion. COVID and flu negative. felt better after 2 days, DC home, home health Discharge Information Condition at Discharge: Improved Follow Up: Weeks Disposition/Orders: D/C to Home w/ HH Scheduled Amlodipine Besylate (Amlodipine Besylate) 10 Mg Tablet, 10 MG PO DAILY for HTN, (Reported) Entered as Reported by: MARCUS DRISCOLL on 12/18/201939 Last Taken: Unknown Dose on Unknown Date & Time Last Action: Continued on 12/18/201958 by MARCUS DRISCOLL Calcium Carbonate (Calcium) 500 Mg Tab.chew, 1 TAB PO BID for low calcium for 30 Days, #60 Ref 0 (Reported) Entered as Reported by: MARCUS DRISCOLL on 12/18/201939 Last Taken: Unknown Dose on Unknown Date & Time Last Action: Converted on 12/18/201958 by MARCUS DRISCOLL Carvedilol (Carvedilol) 25 Mg Tablet, 25 MG PO BIDWMEALS for CARDIAC, (Reported) Entered as Reported by: RASHAUN FIELD RN on 12/29/191754 Last Action: Converted on 12/18/201958 by MARCUS DRISCOLL Dicyclomine Hcl (Dicyclomine Hcl) 10 Mg Capsule, 10 MG PO DAILY, (Reported) Entered as Reported by: BITA DAWN on 06/28/17 0005 Last Action: Continued on 12/18/201958 by MARCUS DRISCOLL Famotidine (Famotidine) 20 Mg Tablet, 20 MG PO BID, (Reported) Entered as Reported by: KENIA GARCIA on 12/20/16 2243 Last Action: Reviewed on 12/18/201939 by MARCUS DRISCOLL Ferrous Sulfate (Ferrous Sulfate) 220 Mg/5 Ml Solution, Unknown Dose PO DAILY for low levels, (Reported) Entered as Reported by: MAYA DIGGS on 12/27/19 1334 Furosemide (Furosemide) 40 Mg Tablet, 40 MG PO DAILY for 30 Days, #30 Prescribed by: GAGE GOFF MD on 12/17/16 1613 Last Action: Continued on 12/19/201619 by VALERIE WINN APRN Gabapentin (Gabapentin) 600 Mg Tablet, 600 MG PO TID for 30 Days, #90 Prescribed by: GRANT MCWILLIAMS on 12/23/16 1248 Last Action: Converted on 12/18/201958 by MARCUS DRISCOLL Hydralazine Hcl (Hydralazine Hcl) 50 Mg Tablet, 1 TAB PO BID for HTN, #90 Ref 5 (Reported) Entered as Reported by: VALERIE RICO on 01/01/20 1459 Last Action: Continued on 12/18/201958 by MARCUS DRISCOLL Lactobacillus Combo No.10 (Probiotic) 1 Each Capsule, 1 TAB PO DAILY for for 30 Days, #30 Ref 0 (Reported) Entered as Reported by: Kip Lacey on 10/19/19 2323 Last Action: Converted on 12/18/201958 by MARCUS DRISCOLL Pantoprazole Sodium (Pantoprazole Sodium ) 40 Mg Tablet.dr, 40 MG PO DAILYAC for GERD, (Reported) Entered as Reported by: RASHAUN FIELD RN on 12/29/191754 Last Action: Reviewed on 12/18/201939 by MARCUS DRISCOLL Quetiapine Fumarate (Quetiapine Fumarate) 25 Mg Tablet, 25 MG PO DAILY for 30 Days, #30 Prescribed by: GAGE GOFF MD on 12/17/16 1613 Last Action: Continued on 12/18/201958 by MARCUS DRISCOLL Trazodone Hcl (Trazodone Hcl) 50 Mg Tablet, 50 MG PO QHS for 30 Days, #30 Prescribed by: GAGE GOFF MD on 12/17/16 1613 Last Action: Continued on 12/18/201958 by MARCUS DRISCOLL Vitamin B Complex (Vitamin B Complex) 1 Each Capsule, 1 EACH PO DAILY for , (Reported) Entered as Reported by: Kip Lacey on 10/19/19 2323 Last Action: Converted on 12/18/201958 by MARCUS DRISCOLL [Bone Health] , 400 INTLU PO DAILY, (Reported) Entered as Reported by: MAYA DIGGS on 12/27/19 1334 Last Action: Converted on 12/18/201958 by MARCUS DRISCOLL Scheduled PRN Acetaminophen (Tylenol) 325 Mg Tablet, 650 MG PO PRN Q4HRS PRN for TEMP OVER 100.4F OR MILD PAIN for 30 Days, #60 Prescribed by: ARCELIA NATION MD on 11/18/19 1104 Last Action: Continued on 12/18/201958 by MARCUS DRISCOLL Albuterol Sulfate (Proair Hfa) 8.5 Gm Hfa.aer.ad, 2.5 MG NEB PRN Q4HRS PRN for SHORTNESS OF BREATH for 14 Days, #1 Prescribed by: ARCELIA NATION MD on 11/18/19 1104 Bisacodyl (Bisacodyl) 10 Mg Supp.rect, 10 MG GA PRN DAILY PRN for CONSTIPATION for 10 Days, #20 Prescribed by: ARCELIA NATION MD on 10/24/19 1332 Docusate Sodium (Dok) 100 Mg Capsule, 100 MG PO PRN BID PRN for HARD STOOLS for 14 Days, #30 Prescribed by: ARCELIA NATION MD on 11/18/19 1104 Methocarbamol (Methocarbamol) 500 Mg Tablet, 500 MG PO TID PRN for PAIN for 10 Days, #30 Ref 0 Prescribed by: LUIS MANJARREZ APRN on 12/29/19 1324 Patient Instructions Patient Instructions > 30 min face to face Justicifation of Admission Dx: Justifications for Admission: Justification of Admission Dx: Yes BASIA KRAUSE MD Dec 20, 2020 11:52
[2020-12-20] MEDS ORDERED: ATOR20TA58 PO (13:12)
--- NOTE | 2020-12-20 13:15 | SNU/HH DC ---
DISCHARGE WITH HOME HEALTH DISCHARGE INFORMATION: Discharge Date: Dec 20, 2020 Final Diagnosis: [id number] systolic and diastolic heart failure, acute blood loss, gastrointestinal bleed with mild anemia acute renal failure on CKD 3 - maybe progression to CKD 4 thrombocytopenia, hyperkalemia, azotemia, malnutrition History of : Coronary artery bypass surgery, hypertension, CAD, hyperlipidemia, carpal tunnel surgery, GERD, anemia, anxiety, osteoarthritis, herpes zoster, diabetes, hysterectomy. Problems Medical Problems: (1) Anemia Status: Acute (2) CHF (congestive heart failure) Status: Acute (3) Chronic kidney disease Status: Acute (4) Dyspnea Status: Acute (5) Guaiac positive stools Status: Acute Condition on Discharge: Stable CODE STATUS: Code Status: Full HOME HEALTH: Face to Face: I certify this patient is under my care and that I had a face to face encounter that meets the physician face to face encounter requirements with this patient on 12/20 Medical Complications: CHF, Other (GI bleed) Prison For: Assess & Educate Safety, Assess/Skilled Observatio, Medication Management RN For Eval/Treatment: Yes Physical Therapy For: Evalulation/Treatment Occupational Therapy For: Evaluation/Treatment Pt Meets Homebound Status: Limited distance walking, Poor cognition POST DISCHARGE ORDERS: Activity Instructions for Disc: No restrictions, Activity as tolerated Weight Bearing Status after Di: As tolerated DIET AFTER DISCHARGE: Cardiac Wound/Incision Care: No wound care needed CHECKS AFTER DISCHARGE: Checks after discharge: Check blood press - daily, Check blood sugar, ac/hs, Check your Temp as needed, Weigh Yourself Daily FOLLOW-UP: PCP to follow Home Health: Asim Follow up with: primary care Additional Instructions: CBC, Chem 12 in 4 weeks per primary TREATMENT/EQUIPMENT ORDERS: Adaptive Equipment Issued: Front wheeled walker CERTIFICATION STATEMENT: Certification Statement: Certification Statement: Based on the above finding, I certify that this patient is confined to the home and needs intermittent long-term care, physical therapy and/or speech therapy, or continues to need occupational therapy.~ This patient is under my care, and I have initiated the establishment of the plan of care.~ This patient will be followed by myself or a community physician who will periodically review the plan of care. Home Meds Active Scripts Atorvastatin Calcium (ATORVASTATIN CALCIUM) 20 Mg Tablet, 1 TAB PO DAILY for hyperlipids, #30 TAB 1 Refill Prov:BASIA KRAUSE MD 12/20/20 Methocarbamol (METHOCARBAMOL) 500 Mg Tablet, 500 MG PO TID PRN for PAIN for 10 Days, #30 TAB 0 Refills Prov:LUIS MANJARREZ APRN 12/29/19 Docusate Sodium (DOK) 100 Mg Capsule, 100 MG PO PRN BID PRN for HARD STOOLS for 14 Days, #30 CAP Prov:ARCELIA NATION MD 11/18/19 Acetaminophen (TYLENOL) 325 Mg Tablet, 650 MG PO PRN Q4HRS PRN for TEMP OVER 100.4F OR MILD PAIN for 30 Days, #60 TAB Prov:ARCELIA NATION MD 11/18/19 Albuterol Sulfate (Proair Hfa) 8.5 Gm Hfa.aer.ad, 2.5 MG NEB PRN Q4HRS PRN for SHORTNESS OF BREATH for 14 Days, #1 INHALER Prov:ARCELIA NATION MD 11/18/19 Bisacodyl (BISACODYL) 10 Mg Supp.rect, 10 MG NH PRN DAILY PRN for CONSTIPATION for 10 Days, #20 SUPP.RECT Prov:ARCELIA NATION MD 10/24/19 Gabapentin (GABAPENTIN) 600 Mg Tablet, 600 MG PO TID for 30 Days, #90 TAB Prov:GRANT MCWILLIAMS MD 12/23/16 Trazodone Hcl (TRAZODONE HCL) 50 Mg Tablet, 50 MG PO QHS for 30 Days, #30 TAB Prov:GAGE GOFF MD 12/17/16 Quetiapine Fumarate (QUETIAPINE FUMARATE) 25 Mg Tablet, 25 MG PO DAILY for 30 Days, #30 TAB Prov:GAGE GOFF MD 12/17/16 Furosemide (FUROSEMIDE) 40 Mg Tablet, 40 MG PO DAILY for 30 Days, #30 TAB Prov:GAGE GOFF MD 12/17/16 Reported Medications Calcium Carbonate (CALCIUM) 500 Mg Tab.chew, 1 TAB PO BID for low calcium for 30 Days, #60 TAB 0 Refills 12/18/20 Amlodipine Besylate (AMLODIPINE BESYLATE) 10 Mg Tablet, 10 MG PO DAILY for HTN, TAB 12/18/20 Hydralazine Hcl (HYDRALAZINE HCL) 50 Mg Tablet, 1 TAB PO BID for HTN, #90 TAB 5 Refills 01/01/20 Pantoprazole Sodium (PANTOPRAZOLE SODIUM ) 40 Mg Tablet.dr, 40 MG PO DAILYAC for GERD, TAB 12/29/19 Carvedilol (CARVEDILOL) 25 Mg Tablet, 25 MG PO BIDWMEALS for CARDIAC, TAB 12/29/19 [[facility]] No Conflict Check, 400 INTLU PO DAILY 12/27/19 Ferrous Sulfate (FERROUS SULFATE) 220 Mg/5 Ml Solution, PO DAILY for low levels, MISC 12/27/19 Lactobacillus Combo No.10 (PROBIOTIC) 1 Each Capsule, 1 TAB PO DAILY for for 30 Days, #30 TAB 0 Refills 10/19/19 Vitamin B Complex (VITAMIN B COMPLEX) 1 Each Capsule, 1 EACH PO DAILY for , CAP 10/19/19 Dicyclomine Hcl (DICYCLOMINE HCL) 10 Mg Capsule, 10 MG PO DAILY, CAP 06/28/17 Famotidine (FAMOTIDINE) 20 Mg Tablet, 20 MG PO BID, TAB 12/20/16 BASIA KRAUSE MD Dec 20, 2020 13:15
--- NOTE | 2020-12-20 14:30 | NUR ---
Discharge Note: JOHNNY ARTEAGA Discharge instructions and discharge home medications reviewed with Patient and a copy given. All questions have been answered and understanding verbalized. The following instructions and handouts were given: atorvastatin, iron deficiency anemia. Patient discharged to home with home health via wheelchair.
--- NOTE | 2020-12-20 14:42 | NUR ---
SS following up with discharge planning. SS reviewed pt chart and discussed with pt RN. Discharge orders received for home with home healthcare. Pt accepted on services with [facility], ; fax [phone]. Pt's RN notified.
--- NOTE | 2020-12-20 16:45 | PDOC ---
PROGRESS NOTES Date of Service: DATE: 12/20/20 TIME: 16:45 Subjective Subjective Feeling better with improvement in dyspnea. No other complaints. Objective Objective Vital Signs Date Time Temp Pulse Resp B/P (MAP) Pulse Ox O2 Delivery O2 Flow Rate FiO2 12/20/20 11:00 98.1 61 16 113/51 (71) 93 Room Air 98.1 Intake and Output 12/20/20 07:00 Intake Total 1090 ml Balance 1090 ml Intake Oral 1090 ml # Bowel Movements 3 Physical Exam Abdomen: Soft Heart: Regular rate, Other (ESM aortic) Extremities: Other (1+ pitting edema) General: Alert HEENT: Atraumatic Lungs: Clear to auscultation MUSCULOSKELETAL: Osteoarthritic changes both hands Neuro: Normal speech Psych/Mental Status: Mental status NL Assessment Assessment 1. Acute on chronic diastolic heart failure, probably precipitated by severe anemia. Echo 10/12 with normal LV systolic function with mild and AR. improved with diuresis. Consider ischemic evaluation outpatient. 2. CAD s/p CABG; clinically stable and chest pain-free 3. Severe anemia; ? GIB. +Hemoccult. s/p transfusion. as per GI 4. EULALIA on CKD, hyperkalemia 5. Accelerated hypertension; better controlled. Continue current medical regimen. 6. Hyperlipidemia Plan Plan of Care Problems Medical Problems: (1) Anemia Status: Acute (2) CHF (congestive heart failure) Status: Acute (3) Chronic kidney disease Status: Acute (4) Dyspnea Status: Acute (5) Guaiac positive stools Status: Acute Comment Review of Relevant I have reviewed the following items matti (where applicable) has been applied. Labs Laboratory Tests Test 12/20/20 07:05 White Blood Count 5.1 x10^3/uL (4.0-11.0) Red Blood Count 2.43 x10^6/uL (3.50-5.40) Hemoglobin 7.6 g/dL (12.0-15.5) Hematocrit 23.6 % (36.0-47.0) Mean Corpuscular Volume 97 fL (79-100) Mean Corpuscular Hemoglobin 31 pg (25-35) Mean Corpuscular Hemoglobin Concent 32 g/dL (31-37) Red Cell Distribution Width 21.3 % (11.5-14.5) Platelet Count 129 x10^3/uL (140-400) Neutrophils (%) (Auto) 76 % (31-73) Lymphocytes (%) (Auto) 11 % (24-48) Monocytes (%) (Auto) 11 % (0-9) Eosinophils (%) (Auto) 2 % (0-3) Basophils (%) (Auto) 0 % (0-3) Neutrophils # (Auto) 3.9 x10^3/uL (1.8-7.7) Lymphocytes # (Auto) 0.6 x10^3/uL (1.0-4.8) Monocytes # (Auto) 0.5 x10^3/uL (0.0-1.1) Eosinophils # (Auto) 0.1 x10^3/uL (0.0-0.7) Basophils # (Auto) 0.0 x10^3/uL (0.0-0.2) Platelet Estimate Decreased (ADEQUATE) Anisocytosis Mod Microcytosis Slight Sodium Level 141 mmol/L (136-145) Potassium Level 4.7 mmol/L (3.5-5.1) Chloride Level 108 mmol/L (98-107) Carbon Dioxide Level 23 mmol/L (21-32) Anion Gap 10 (6-14) Blood Urea Nitrogen 47 mg/dL (7-20) Creatinine 2.0 mg/dL (0.6-1.0) Estimated GFR (Cockcroft-Gault) 23.7 Glucose Level 87 mg/dL (70-99) Calcium Level 8.2 mg/dL (8.5-10.1) Microbiology 12/18/20 Blood Culture - Preliminary, Resulted NO GROWTH AFTER 2 DAYS Medications Current Medications Atorvastatin Calcium (Lipitor) 40 mg QHS PO Last administered on 12/19/20at 20:39; Start 12/19/20 at 21:00; Stop 12/20/20 at 14:38; Status DC Ferrous Sulfate (Feosol) 325 mg BIDWMEALS PO Last administered on 12/20/20at 0 8:49; Start 12/19/20 at 17:00; Stop 12/20/20 at 14:38; Status DC Furosemide (Lasix) 40 mg DAILY PO Last administered on 12/20/20at 08:48; Start 12/20/20 at 09:00; Stop 12/20/20 at 14:38; Status DC Pantoprazole Sodium (Protonix) 40 mg DAILYAC PO Last administered on 12/20/20at 08:49; Start 12/20/20 at 07:30; Stop 12/20/20 at 14:38; Status DC Vitals/I & O Vital Sign - Last 24 Hours 12/19/20 12/19/20 12/19/20 12/19/20 17:23 19:59 20:00 20:28 Temp 99.3 99.3 Pulse 75 68 Resp 16 B/P (MAP) 157/69 125/52 (76) Pulse Ox 99 98 O2 Delivery Room Air Room Air Room Air 12/19/20 12/19/20 12/20/20 12/20/20 20:40 23:01 03:06 03:55 Temp 99.4 98.2 99.4 98.2 Pulse 73 75 75 Resp 16 16 B/P (MAP) 125/52 117/59 (78) 178/75 (109) 148/61 (90) Pulse Ox 98 99 O2 Delivery Room Air Room Air 12/20/20 12/20/20 12/20/20 12/20/20 07:00 07:38 08:00 08:48 Temp 98.1 98.1 Pulse 77 77 Resp 16 B/P (MAP) 155/66 (95) 155/66 Pulse Ox 95 98 O2 Delivery Room Air Room Air Room Air 12/20/20 12/20/20 12/20/20 08:49 08:49 11:00 Temp 98.1 98.1 Pulse 77 77 61 Resp 16 B/P (MAP) 155/66 155/66 113/51 (71) Pulse Ox 93 O2 Delivery Room Air Intake and Output 12/19/20 12/19/20 12/20/20 15:00 23:00 07:00 Intake Total 360 ml 580 ml 150 ml Balance 360 ml 580 ml 150 ml EMERSON MARCUS MD Dec 20, 2020 16:45
[2021-01-11] MEDS ORDERED: FERR325T14 PO (22:15)
== END 2020-12-20 14:37 | disposition home health service (06) | DRG 377 ==
LOC: ER 10:31 → 6 SOUTH 12:24
PROVIDERS: ADMIT Internal Medicine; ATTEND Internal Medicine
PROC: 30233N1 Transfusion of Nonautologous Red Blood Cells into Peripheral Vein, Percutaneous Approach (ICD-10-PCS; principal; 2020-12-18)
DX: K57.91 Diverticulosis of intestine, part unspecified, without perforation or abscess with bleeding (principal); I50.43 Acute on chronic combined systolic (congestive) and diastolic (congestive) heart failure; R65.11 Systemic inflammatory response syndrome (SIRS) of non-infectious origin with acute organ dysfunction; I13.0 Hypertensive heart and chronic kidney disease with heart failure and stage 1 through stage 4 chronic kidney disease, or unspecified chronic kidney disease; N17.9 Acute kidney failure, unspecified; N39.0 Urinary tract infection, site not specified; D62 Acute posthemorrhagic anemia; E46 Unspecified protein-calorie malnutrition; N18.4 Chronic kidney disease, stage 4 (severe); D69.6 Thrombocytopenia, unspecified; E11.22 Type 2 diabetes mellitus with diabetic chronic kidney disease; E61.1 Iron deficiency; E78.00 Pure hypercholesterolemia, unspecified; E78.5 Hyperlipidemia, unspecified; E87.5 Hyperkalemia; F41.9 Anxiety disorder, unspecified; I25.10 Atherosclerotic heart disease of native coronary artery without angina pectoris; F32.A Depression, unspecified; G56.00 Carpal tunnel syndrome, unspecified upper limb; M10.9 Gout, unspecified; R79.89 Other specified abnormal findings of blood chemistry; D53.9 Nutritional anemia, unspecified; K21.9 Gastro-esophageal reflux disease without esophagitis; M19.90 Unspecified osteoarthritis, unspecified site; Z20.822 Contact with and (suspected) exposure to COVID-19; Z82.49 Family history of ischemic heart disease and other diseases of the circulatory system; Z87.891 Personal history of nicotine dependence; Z90.49 Acquired absence of other specified parts of digestive tract; Z90.710 Acquired absence of both cervix and uterus; Z95.1 Presence of aortocoronary bypass graft; I25.2 Old myocardial infarction; Z88.0 Allergy status to penicillin; Z88.3 Allergy status to other anti-infective agents
CPT/HCPCS: 36415; 36430; 71045; 80048; 80053; 82274; 82607; 83605; 83880; 84443; 84484; 85025; 85379; 86850; 86900; 86901; 86920; 87040; 87426; 87804; 93005; 94640; 94760; C9113; J1940; P9016; U0003; U0005; 99285-25; G0378; J7613

== ENCOUNTER 2021-03-11 20:30 | Emergency (ER) | payer MEDICARE, OTHER ==
[~2021-03-11] VITALS: Ht 160 cm; Wt 81.8 kg
[~2021-03-11 20:30] MED LIST changes: +ATOR20TA58 PO; +CALC500T54 PO; +CEFD300C PO; +FERR325T72 PO
--- NOTE | 2021-03-12 00:12 | RAD ---
Single view chest dated 03/12/2021 12:09 AM: COMPARISON: 03/07/2021 Clinical Indication: Fever. Findings: Single upright portable exam of the chest was performed. Heart and mediastinal contours are stable. T he patient is status post median sternotomy. Mild hazy opacity at the perihilar regions and bilateral lung bases, unchanged. No pleural effusion. No pneumothorax. IMPRESSION: 1. Mild hazy bibasilar airspace disease, unchanged from prior study. Electronically signed by: Hayden Orozco MD (03/12/2021 12:10 AM) NICOLE
[2021-03-12 00:20] LABS: BILIRUBIN,URINE NEGATIVE (NEG); CLARITY,URINE CLEAR; COLOR,URINE YELLOW; NITRITE,URINE NEGATIVE (NEG); PH,URINE 5.5 (<5.0-8.0); PROTEIN,URINE 100 mg/dL (NEG-TRACE); UROBILINOGEN,URINE 0.2 mg/dL (0.2 mg/dL)
[2021-03-12 00:27] LABS: BACTERIA,URINE 0 /HPF (0-FEW); RBC,URINE RARE /HPF (0-2); WBC,URINE RARE /HPF (0-4)
[2021-03-12] MEDS ORDERED: IV NORMAL SALINE 1000ML BAG 1,000 ML IV ONE (00:30)
[2021-03-12] MEDS ORDERED: ACETAMINOPHEN 500 MG TABLET PO ONE (00:30)
--- NOTE | 2021-03-12 00:31 | PHYS DOC ---
Past Medical History Past Medical History: Anemia, Arthritis, Depression, Diabetes-Type II, GERD, High Cholesterol, Hypertension, CO, Other Additional Past Medical Histor: GOUT,C-DIFF, Past Surgical History: Coronary Bypass Surgery, Hysterectomy, Other Additional Past Surgical Histo: Carpal tunnel, LEFT SHOULDER, VASCULAR R GROIN Smoking Status: Former Smoker Alcohol Use: None Drug Use: None General Adult EDM: Chief Complaint: FEVER HPI: HPI: Patient is a 85 year old female with history of HTN, HLD, DM, anemia who p resents with fever. Patient was recently hospitalized for anemia and had several blood transfusions. Patient was recently discharged and began having fevers shortly after. T-max 102.5 F just before presenting to the emergency department. She complains of cough and runny nose. Denies any chest pain or shortness of breath. She also complains of low back/flank pain bilaterally, urinary urgency, and urinary frequency that are new over the past several days. Denies abdominal pain, nausea/vomiting. Has had some diarrhea recently. 03/07 urinalysis and culture did not show evidence of infection. Normal magdalena grown on culture. 03/07 COVID PCR negative Review of Systems: Review of Systems: Constitutional: Reports fever and chills Eyes: Denies change in visual acuity. [] HENT: Orts congestion. Denies sore throat. [] Respiratory: Reports cough. Denies shortness of breath. [] Cardiovascular: Denies chest pain or edema. [] GI: Denies abdominal pain, nausea, vomiting, bloody stools or diarrhea. [] : Denies dysuria. Reports urinary urgency, frequency, and flank pain. [] Musculoskeletal: Denies back pain or joint pain. [] Integument: Denies rash. [] Neurologic: Denies headache, focal weakness or sensory changes. [] . [] Psychiatric: Denies depression or anxiety. [] Heart Score: C/O Chest Pain: No Allergies: Allergies: Allergies Coded Allergies Type Severity Reaction Last Updated Verified Penicillins Allergy Intermediate 01/22/21 Yes metronidazole Allergy Intermediate Hives 01/22/21 Yes Physical Exam: PE: Constitutional: Warm to the touch, no acute distress, non-toxic appearance. [] HENT: Normocephalic, atraumatic, Cardiovascular:Heart rate regular rhythm, no murmur [] Lungs & Thorax: Bilateral breath sounds clear to auscultation [] Abdomen: Soft, nontender to palpation.] Skin: Warm, dry, no erythema, no rash. [] Back: No tenderness, no CVA tenderness. [] Extremities: No tenderness, no cyanosis, no clubbing, ROM intact, no edema. [] Neurologic: Alert and oriented X 3, normal motor function, normal sensory function, no focal deficits noted. [] Psychologic: Affect normal, judgement normal, mood normal. [] Current Patient Data: Labs: Laboratory Tests Test 03/12/21 00:09 03/12/21 01:00 03/12/21 01:15 Urine Collection Type Void Urine Color Yellow Urine Clarity Clear Urine pH 5.5 Urine Specific [place] 1.010 Urine Protein 100 mg/dL Urine Glucose (UA) Negative mg/dL Urine Ketones (Stick) Negative mg/dL Urine Blood Negative Urine Nitrite Negative Urine Bilirubin Negative Urine Urobilinogen Dipstick 0.2 mg/dL Urine Leukocyte Esterase Negative Urine RBC Rare /HPF Urine WBC Rare /HPF Urine Squamous Epithelial Cells Few /LPF Urine Bacteria 0 /HPF Urine Mucus Slight /LPF SARS-CoV-2 Antigen (Rapid) Positive White Blood Count 5.7 x10^3/uL Red Blood Count 2.61 x10^6/uL Hemoglobin 7.8 g/dL Hematocrit 24.0 % Mean Corpuscular Volume 92 fL Mean Corpuscular Hemoglobin 30 pg Mean Corpuscular Hemoglobin Concent 33 g/dL Red Cell Distribution Width 20.5 % Platelet Count 132 x10^3/uL Neutrophils (%) (Auto) 79 % Lymphocytes (%) (Auto) 7 % Monocytes (%) (Auto) 14 % Eosinophils (%) (Auto) 1 % Basophils (%) (Auto) 0 % Neutrophils # (Auto) 4.5 x10^3/uL Lymphocytes # (Auto) 0.4 x10^3/uL Monocytes # (Auto) 0.8 x10^3/uL Eosinophils # (Auto) 0.1 x10^3/uL Basophils # (Auto) 0.0 x10^3/uL Platelet Estimate Pending Sodium Level 139 mmol/L Potassium Level 4.4 mmol/L Chloride Level 104 mmol/L Carbon Dioxide Level 22 mmol/L Anion Gap 13 Blood Urea Nitrogen 47 mg/dL Creatinine 2.1 mg/dL Estimated GFR (Cockcroft-Gault) 22.4 BUN/Creatinine Ratio 22 Glucose Level 84 mg/dL Lactic Acid Level 0.6 mmol/L Calcium Level 7.9 mg/dL Total Bilirubin 0.2 mg/dL Aspartate Amino Transf (AST/SGOT) 20 U/L Alanine Aminotransferase (ALT/SGPT) 20 U/L Alkaline Phosphatase 66 U/L Total Protein 6.7 g/dL Albumin 3.1 g/dL Albumin/Globulin Ratio 0.9 Current Medications Medications (Trade) Dose Ordered Sig/Marina Route PRN Reason Start Time Stop Time Status Last Admin Dose Admin Sodium Chloride 1,000 ml @ 1,000 mls/hr 1X ONCE IV 03/12/21 00:30 03/12/21 01:29 DC 03/12/21 01:07 Acetaminophen (Tylenol) 1,000 mg 1X ONCE PO 03/12/21 00:30 03/12/21 00:31 DC 03/12/21 01:07 Cefepime HCl (Maxipime) 1 gm 1X ONCE IVP 03/12/21 01:00 03/12/21 01:42 DC Laboratory Tests Test 03/12/21 00:09 03/12/21 01:00 03/12/21 01:15 Urine Collection Type Void Urine Color Yellow Urine Clarity Clear Urine pH 5.5 Urine Specific [place] 1.010 Urine Protein 100 mg/dL Urine Glucose (UA) Negative mg/dL Urine Ketones (Stick) Negative mg/dL Urine Blood Negative Urine Nitrite Negative Urine Bilirubin Negative Urine Urobilinogen Dipstick 0.2 mg/dL Urine Leukocyte Esterase Negative Urine RBC Rare /HPF Urine WBC Rare /HPF Urine Squamous Epithelial Cells Few /LPF Urine Bacteria 0 /HPF Urine Mucus Slight /LPF SARS-CoV-2 Antigen (Rapid) Positive White Blood Count 5.7 x10^3/uL Red Blood Count 2.61 x10^6/uL Hemoglobin 7.8 g/dL Hematocrit 24.0 % Mean Corpuscular Volume 92 fL Mean Corpuscular Hemoglobin 30 pg Mean Corpuscular Hemoglobin Concent 33 g/dL Red Cell Distribution Width 20.5 % Platelet Count 132 x10^3/uL Neutrophils (%) (Auto) 79 % Lymphocytes (%) (Auto) 7 % Monocytes (%) (Auto) 14 % Eosinophils (%) (Auto) 1 % Basophils (%) (Auto) 0 % Neutrophils # (Auto) 4.5 x10^3/uL Lymphocytes # (Auto) 0.4 x10^3/uL Monocytes # (Auto) 0.8 x10^3/uL Eosinophils # (Auto) 0.1 x10^3/uL Basophils # (Auto) 0.0 x10^3/uL Platelet Estimate Pending Sodium Level 139 mmol/L Potassium Level 4.4 mmol/L Chloride Level 104 mmol/L Carbon Dioxide Level 22 mmol/L Anion Gap 13 Blood Urea Nitrogen 47 mg/dL Creatinine 2.1 mg/dL Estimated GFR (Cockcroft-Gault) 22.4 BUN/Creatinine Ratio 22 Glucose Level 84 mg/dL Lactic Acid Level 0.6 mmol/L Calcium Level 7.9 mg/dL Total Bilirubin 0.2 mg/dL Aspartate Amino Transf (AST/SGOT) 20 U/L Alanine Aminotransferase (ALT/SGPT) 20 U/L Alkaline Phosphatase 66 U/L Total Protein 6.7 g/dL Albumin 3.1 g/dL Albumin/Globulin Ratio 0.9 Current Medications Medications (Trade) Dose Ordered Sig/Marina Route PRN Reason Start Time Stop Time Status Last Admin Dose Admin Sodium Chloride 1,000 ml @ 1,000 mls/hr 1X ONCE IV 03/12/21 00:30 03/12/21 01:29 DC 03/12/21 01:07 Acetaminophen (Tylenol) 1,000 mg 1X ONCE PO 03/12/21 00:30 03/12/21 00:31 DC 03/12/21 01:07 Cefepime HCl (Maxipime) 1 gm 1X ONCE IVP 03/12/21 01:00 03/12/21 01:42 DC EKG: EKG: [] Radiology/Procedures: Radiology/Procedures: [] Impression: [facility] [address] [place] [address] IMAGING REPORT Signed PATIENT: JOHNNY ARTEAGA ACCOUNT: [id number] : 1935 LOCATION: ER AGE: 85 SEX: F EXAM STATUS: REG ER ORD. PHYSICIAN: KAMERON AMARAL MD REASON: FEVER PROCEDURE: CHEST AP ONLY Single view chest dated 03/12/2021 12:09 AM: COMPARISON: 03/07/2021 Clinical Indication: Fever. Findings: Single upright portable exam of the chest was performed. Heart and mediastinal contours are stable. The patient is status post median sternotomy. Mild hazy opacity at the perihilar regions and bilateral lung bases, unchanged. No pleural effusion. No pneumothorax. IMPRESSION: 1. Mild hazy bibasilar airspace disease, unchanged from prior study. Electronically signed by: Hayden Orozco MD (03/12/2021 12:10 AM) [facility] [place]CTATED and SIGNED BY: HAYDEN OROZCO MD DATE: 03/12/21 [id number] 0 Course & Med Decision Making: Course & Med Decision Making Pertinent Labs and Imaging studies reviewed. (See chart for details) Patient is an 85-year-old female with history of HTN, HLD, DM, anemia with recent hospitalization for blood transfusion who presents with fever. Based on history and exam most likely potential sources include respiratory/pne umonia/COVID, bacteremia from blood transfusion, pyelonephritis. Sepsis bundle ordered with fluids, acetaminophen. We will check blood, urine cultures, CXR. Broad spectrum empiric abx ordered. 0025 Labs resulted without evidence of urinary tract infection. No leukocytosis or lactic acidosis to suggest sepsis. Chest x-ray stable from 03/07 film. COVID resulted positive, likely explaining her symptoms. Antibiotics were discontinued prior to administration. Patient was counseled on the COVID diagnosis. Fortunately, is satting 99-100% on room air with normal work of breathing. Feel that she is safe for outpatient management. Expectant management, isolation and return precautions were discussed. Gisel Disclaimer: Gisel Disclaimer: This electronic medical record was generated, in whole or in part, using a voice recognition dictation system. Departure Departure Impression: Primary Impression: COVID-19 Additional Impression: Fever Disposition: HOME / SELF CARE / HOMELESS Condition: STABLE Referrals: HAYDEN MCWILLIAMS MD (PCP) Additional Instructions: You have Covid. Isolation: -You will need to isolate for a minimum of 5 days from symptom onset. 03/17/2021 would be the earliest day that you could potentially injure isolation. -At 5 days please take a rapid COVID test, if positive continue to isolate for a full 10 days duration -At the 10-day matti (or 5-day matti with a negative COVID test), you must also have at least 3 days of no fever/chills, and improving symptoms before you end your isolation. -If you are continuing to be symptomatic or having high fevers you need to continue your isolation until you meet the above requirements. You can visit the CDC.gov website for further information. Monitoring: -Please buy a home pulse oximeter. These can be purchased [id number] most pharmacies, or on [employer]. -Check your oxygen levels once a day. If they are persistently below 90% please return to the emergency department. -If you develop chest pain or worsening shortness of breath please return to the emergency department. Please keep well-hydrated. For fever/body aches tylenol can be very helpful. -Tylenol 1000 mg every 6 hours (do not exceed 4000 mg in one day) KAMERON AMARAL MD Mar 12, 2021 00:30
[2021-03-12] MEDS ORDERED: CEFEPIME HCL IV Push 1 GM VIAL. IVP ONE (01:00)
[2021-03-12 01:34] LABS: BASO % 0 % (0-3); EOS # 0.1 x10^3/uL (0.0-0.7); EOS % 1 % (0-3); HEMOGLOBIN 7.8 g/dL (12.0-15.5); LYMPH # 0.4 x10^3/uL (1.0-4.8); LYMPH % 7 % (24-48); MEAN CORPUSCULAR HEMOGLOBIN 30 pg (25-35); MEAN CORPUSCULAR HGB CONC 33 g/dL (31-37); MEAN CORPUSCULAR VOLUME 92 fL (79-100); MONO # 0.8 x10^3/uL (0.0-1.1); MONO % 14 % (0-9); NEUT # 4.5 x10^3/uL (1.8-7.7); NEUT % 79 % (31-73); PLATELET COUNT 132 x10^3/uL (140-400); RED BLOOD COUNT 2.61 x10^6/uL (3.50-5.40); RED CELL DISTRIBUTION WIDTH 20.5 % (11.5-14.5); WHITE BLOOD COUNT 5.7 x10^3/uL (4.0-11.0)
[2021-03-12 01:42] LABS: CALCIUM 7.9 mg/dL (8.5-10.1); CREATININE 2.1 mg/dL (0.6-1.0); GFR 22.4; POTASSIUM 4.4 mmol/L (3.5-5.1)
[2021-03-12 01:57] LABS: ALBUMIN 3.1 g/dL (3.4-5.0); ALBUMIN/GLOBULIN RATIO 0.9 (1.0-1.7); TOTAL BILIRUBIN 0.2 mg/dL (0.2-1.0); TOTAL PROTEIN 6.7 g/dL (6.4-8.2)
[2021-03-12 02:45] VITALS: BP 169/85
[2021-03-12 03:13] LABS: ANISOCYTOSIS MOD; PLT ESTIMATE DECREASED (ADEQUATE); POIKILOCYTOSIS SLIGHT
== END 2021-03-12 03:16 | disposition home or self-care (01) ==
LOC: ER 20:30
DX: U07.1 COVID-19 (principal); M19.90 Unspecified osteoarthritis, unspecified site; E11.9 Type 2 diabetes mellitus without complications; K21.9 Gastro-esophageal reflux disease without esophagitis; E78.00 Pure hypercholesterolemia, unspecified; I10 Essential (primary) hypertension; I25.2 Old myocardial infarction; Z86.2 Personal history of diseases of the blood and blood-forming organs and certain disorders involving the immune mechanism; Z95.1 Presence of aortocoronary bypass graft; Z88.0 Allergy status to penicillin; Z88.8 Allergy status to other drugs, medicaments and biological substances
CPT/HCPCS: 36415; 71045; 80053; 81001; 83605; 85025; 87040; 87426; 96360; 99285; J7030

== ENCOUNTER 2021-05-05 15:09 | Inpatient (IN) | payer MEDICARE, OTHER ==
[~2021-05-05] VITALS: Ht 160 cm; Wt 75.0 kg
--- NOTE | 2021-05-05 15:36 | PHYS DOC ---
Past Medical History Past Medical History: Anemia, Arthritis, Depression, Diabetes-Type II, GERD, High Cholesterol, Hypertension, FL, Other Additional Past Medical Histor: "KIDNEY, HEART" POOR HISTORIAN Past Surgical History: Other Additional Past Surgical Histo: HEART Smoking Status: Never Smoker Alcohol Use: None Drug Use: None General Adult EDM: Chief Complaint: WEAKNESS/GENERALIZED HPI: HPI: Patient is a 86 year old female who presents with she states she was sitting at home and went to get up using her cane as usual and she became really shaky and her legs were weak and she fell from standing. She states that she fell on the left side. She states a month ago she had a fall but was not seen for it and has had some shoulder pain ever since on the left. She denies hitting her head, neck pain, abdominal pain, nausea, vomiting, diarrhea, fever, chest pain, shortness of breath, numbness or tingling, focal weakness, headache, dizziness, lightheadedness, urinary symptoms, back pain. Patient has a history of FL, hypertension, high cholesterol, GERD, diabetes, depression, anemia, arthritis. Patient is a poor historian. Denies any pain at this time. Review of Systems: Review of Systems: Constitutional: Denies fever or chills. [] Eyes: Denies change in visual acuity. [] HENT: Denies nasal congestion or sore throat. [] Respiratory: Denies cough or shortness of breath. [] Cardiovascular: Denies chest pain or edema. [] GI: Denies abdominal pain, nausea, vomiting, bloody stools or diarrhea. [] : Denies dysuria. [] Musculoskeletal: Denies back pain or + right shoulder joint pain. + Generalized weakness [] Integument: Denies rash. [] Neurologic: Denies headache, focal weakness or sensory changes. + Shakiness [] Endocrine: Denies polyuria or polydipsia. [] Lymphatic: Denies swollen glands. [] Psychiatric: Denies depression or anxiety. [] Heart Score: C/O Chest Pain: No HEART Score for Chest Pain: HEART Score for Chest Pain Response (Comments) Value History Slighlty/Non-Suspicious 0 ECG Nonspecific Repolarizatio 1 Age > 65 2 Risk Factors >3 Risk Factors or Hx CAD 2 Troponin < Normal Limit 0 Total 5 Risk Factors: Risk Factors: DM, Current or recent (<one month) smoker, HTN, HLP, family history of CAD, obesity. Risk Scores: Score 0 - 3: 2.5% MACE over next 6 weeks - Discharge Home Score 4 - 6: 20.3% MACE over next 6 weeks - Admit for Clinical Observation Score 7 - 10: 72.7% MACE over next 6 weeks - Early Invasive Strategies Allergies: Allergies: Allergies Coded Allergies Type Severity Reaction Last Updated Verified Penicillins Allergy Intermediate 04/05/21 Yes metronidazole Allergy Intermediate Hives 04/05/21 Yes Physical Exam: PE: Constitutional: Well developed, well nourished, no acute distress, non-toxic appearance. [] HENT: Normocephalic, atraumatic, bilateral external ears normal, oropharynx moist, no oral exudates, nose normal. [] Eyes: PERRLA, EOMI, conjunctiva normal, no discharge. [] Neck: Normal range of motion, no tenderness, supple, no stridor. [] Cardiovascular:Heart rate regular rhythm, no murmur [] Lungs & Thorax: Bilateral breath sounds clear to auscultation [] Abdomen: Bowel sounds normal, soft, no tenderness, no masses, no pulsatile masses. [] Skin: Warm, dry, no erythema, no rash. [] Back: No tenderness, no CVA tenderness. [] Extremities: No tenderness, no cyanosis, no clubbing, ROM intact, no edema. Generalized weakness and shakiness upon standing. Unsteady gait. [] Neurologic: Alert and oriented X 3, normal motor function, normal sensory function, no focal deficits noted. [] Psychologic: Affect normal, judgement normal, mood normal. [] Current Patient Data: Vital Signs: Vital Signs Date Time Temp Pulse Resp B/P (MAP) Pulse Ox O2 Delivery O2 Flow Rate FiO2 05/05/21 15:10 98.2 71 18 179/78 (111) 100 Room Air 98.2 EKG: EK and read by Dr. Mares as a sinus rhythm, no STEMI QT elongation. [] Radiology/Procedures: Radiology/Procedures: [] Impression: [facility] [address] [place], [place] [id number] IMAGING REPORT Signed PATIENT: JOHNNY ARTEAGA ACCOUNT: [id number] : 1935 LOCATION: ER AGE: 86 SEX: F EXAM STATUS: REG ER ORD. PHYSICIAN: GRIFFIN CASTORENA APRN REASON: FALL, WEAKNESS PROCEDURE: CT HEAD AND CERVICAL SPINE WO CT scan of the head without contrast 05/05/2021 Clinical History: Fall. Head injury. Technique: Unenhanced, contiguous, 5 mm axial sections were obtained through the head. One or more of the following individualized dose reduction techniques were utilized for this study: 1. Automated exposure control. 2. Adjustment of the mA and/or kV according to patient size. 3. Use of iterative reconstruction technique. Findings: There is generalized parenchymal atrophy. Areas of decreased attenuation are seen within the periventricular and subcortical white matter of both cerebral hemispheres consistent with areas of small vessel ischemic disease. No acute parenchymal abnormality is seen. No extra-axial fluid collection is noted. No skull fracture is seen. Impression: No acute intracranial abnormality is seen. CT scan of the cervical spine without contrast 05/05/2021 Clinical history: Fall. Neck injury. Technique: Unenhanced, contiguous, 0.625 mm axial sections were obtained through the cervical spine. 2.5 mm reconstructed axial and 2 mm coronal and sagittal reconstructed images were obtained. One or more of the following individualized dose reduction techniques were utilized for this study: 1. Automated exposure control. 2. Adjustment of the mA and/or kV according to patient size. 3. Use of iterative reconstruction technique. Findings: Sagittal and coronal reconstructed images demonstrate reversal of the normal cervical lordosis. Degenerative changes consisting of disc space narrowing, vertebral endplate sclerosis and mild to moderate anterior vertebral body aspect formation seen involving the mid and lower cervical disc spaces. No fracture or subluxation cervical vertebrae is seen. Degenerative changes are seen involving the uncovertebral and facet joints throughout the cervical disc spaces. Impression: No fracture or subluxation of the cervical vertebra is identified. Electronically signed by: Blake Vega MD (05/05/2021 5:38 PM) [id number] DICTATED and SIGNED BY: BLAKE VEGA MD DATE: 05/05/21 [id number] 0 [facility] [address] [place] [address] IMAGING REPORT Signed PATIENT: JOHNNY ARTEAGA ACCOUNT: [id number] : 1935 LOCATION: ER AGE: 86 SEX: F EXAM STATUS: REG ER ORD. PHYSICIAN: GRIFFIN CASTORENA APRN REASON: FALL, WEAKNESS PROCEDURE: CT LUMBAR SPINE WO CONTRAST CT scan of the lumbar spine without contrast 04/07/2021 CLINICAL HISTORY: Fall. Low back pain. TECHNIQUE: Unenhanced, contiguous, 0.625 mm axial sections were obtained through the lumbar spine. 3 mm reconstructed sagittal, axial and coronal images were ob tained. One or more of the following individualized dose reduction techniques were utilized for this study: 1. Automated exposure control. 2. Adjustment of the mA and/or kV according to patient size. 3. Use of iterative reconstruction technique. FINDINGS: Sagittal and coronal reconstructed images demonstrate mild to moderate S-shaped curvature of the thoracolumbar spine. Degenerative changes are seen involving the lower thoracic and throughout the lumbar disc spaces consisting of varying degrees of disc space narrowing, vertebral endplate sclerosis and mild to moderate anterior vertebral body osteophyte formation. Atherosclerotic calcification of the abdominal aorta and its branches is noted. No fracture or subluxation of the lumbar vertebrae seen. Degenerative changes are seen involving the facet joints throughout the lumbar disc spaces. Multiple diverticula are seen involving the sigmoid colon. No inflammatory changes are seen in the adjacent fat. IMPRESSION: No fracture or subluxation of the lumbar vertebrae is seen. Electronically signed by: Blake Vega MD (05/05/2021 5:45 PM) [id number] DICTATED and SIGNED BY: BLAKE VEGA MD DATE: 05/05/21 [id number] 0 [facility] [address] [place] [address] IMAGING REPORT Signed PATIENT: JOHNNY ARTEAGA ACCOUNT: [id number] : 1935 LOCATION: ER AGE: 86 SEX: F EXAM STATUS: REG ER ORD. PHYSICIAN: GRIFFIN CASTORENA APRN REASON: FALL, PAIN PROCEDURE: SHOULDER 2+V LEFT EXAMINATION: XR SHOULDER_LEFT 2+ VIEWS. HISTORY: 86 years Female Reason: FALL, PAIN / COMPARISON: None. FINDINGS: No fracture, dislocation or radiopaque foreign body. There is elevated position of the humeral head which may relate to underlying rotator cuff tear. There is subchondral cyst formation in the humeral head noted and mild subchondral sclerotic changes at the glenohumeral joint suggestive degenerative change. No significant degenerative changes at the acromioclavicular joint. IMPRESSION: No fracture. Suggestion of underlying rotator cuff tear. Electronically signed by: Zacarias Garcia MD (05/05/2021 6:12 PM) [id number] DICTATED and SIGNED BY: ZACARIAS GARCIA MD DATE: 05/05/[id number] 0 [facility] [address] [place] [address] IMAGING REPORT Signed PATIENT: JOHNNY ARTEAGA ACCOUNT: [id number] : 1935 LOCATION: ER AGE: 86 SEX: F EXAM STATUS: REG ER ORD. PHYSICIAN: GRIFFIN CASTORENA APRN REASON: FALL, PAIN PROCEDURE: PORTABLE CHEST 1V EXAMINATION: XR CHEST 1V. HISTORY: 86 years Female Reason: FALL, PAIN / Spl COMPARISON: March 12, 2021. Findings: There is slight prominence of interstitial markings with no definite focal infiltrate. The heart size is enlarged. Sternotomy wires noted.. There is no effusion or pneumothorax. The mediastinum and keri appear unremarkable. Impression: Cardiomegaly. Prominence of the interstitial markings could relate to minimal vascular congestion. Electronically signed by: Zacarias Garcia MD (05/05/2021 7:25 PM) [id number] DICTATED and SIGNED BY: ZACARIAS GARCIA MD DATE: 05/05/[id number] 0 Course & Med Decision Making: Course & Med Decision Making Pertinent Labs and Imaging studies reviewed. (See chart for details) See HPI. Speaks in full clear sentences. Alert and oriented x4. Unsteady on her feet. Generalized bilateral lower extremity weakness. Shakiness. Lungs are clear in upper lobes and diminished in lower lobes. Skin pink warm and dry. No hip pain with pelvic rock. No extremity rotation or shortening. No focal bony spinal tenderness. Full range of motion of her neck. Poor historian. No tenderness or deformity to the right shoulder. She does have full range of motion of the shoulder. Cap refill less than 2 seconds. Radial pulse strong and present. No laceration or abrasions or bruising seen at this time. Abdomen is soft and nontender. Patient's hemoglobin has dropped from last month and is at 7.2 which is borderline. Also she is in acute on chronic kidney failure. Patient is unsteady with her cane and therefore a fall risk. CT head and neck and lumbar CT states no acute findings. She does not have a urinary tract infection. Patient will be admitted to the hospitalist. Will consult nephrology. [] Gisel Disclaimer: Gisel Disclaimer: This electronic medical record was generated, in whole or in part, using a voice recognition dictation system. Departure Departure Impression: Primary Impression: Acute on chronic renal failure Qualified Codes: N17.9 - Acute kidney failure, unspecified; N18.9 - Chronic kidney disease, unspecified Additional Impressions: Anemia Qualified Codes: D64.9 - Anemia, unspecified Weakness Fall Qualified Codes: W19.XXXA - Unspecified fall, initial encounter Unsteadiness on feet Disposition: ADMITTED INPATIENT Admitting Physician: ANDREY Condition: STABLE Referrals: GRANT MCWILLIAMS MD (PCP) GRIFFIN CASTORENA APRN May 05, 2021 15:36
[2021-05-05 16:02] LABS: BASO % 0 % (0-3); EOS # 0.1 x10^3/uL (0.0-0.7); EOS % 2 % (0-3); HEMATOCRIT 22.4 % (36.0-47.0); HEMOGLOBIN 7.2 g/dL (12.0-15.5); LYMPH # 0.6 x10^3/uL (1.0-4.8); LYMPH % 9 % (24-48); MEAN CORPUSCULAR HEMOGLOBIN 30 pg (25-35); MEAN CORPUSCULAR HGB CONC 32 g/dL (31-37); MEAN CORPUSCULAR VOLUME 94 fL (79-100); MONO # 0.7 x10^3/uL (0.0-1.1); MONO % 11 % (0-9); NEUT # 5.2 x10^3/uL (1.8-7.7); NEUT % 78 % (31-73); PLATELET COUNT 148 x10^3/uL (140-400); RED BLOOD COUNT 2.39 x10^6/uL (3.50-5.40); WHITE BLOOD COUNT 6.7 x10^3/uL (4.0-11.0)
[2021-05-05 16:05] LABS: BILIRUBIN,URINE NEGATIVE (NEG); CLARITY,URINE CLEAR; COLOR,URINE YELLOW; NITRITE,URINE NEGATIVE (NEG); PROTEIN,URINE TRACE mg/dL (NEG-TRACE); UROBILINOGEN,URINE 0.2 mg/dL (0.2 mg/dL)
[2021-05-05 16:06] LABS: BACTERIA,URINE 0 /HPF (0-FEW); HYALINE CASTS, URINE FEW /HPF; RBC,URINE 0 /HPF (0-2); WBC,URINE OCC /HPF (0-4)
[2021-05-05 16:18] LABS: CALCIUM 8.4 mg/dL (8.5-10.1); CREATININE 2.4 mg/dL (0.6-1.0); GFR 19.1; POTASSIUM 4.8 mmol/L (3.5-5.1)
[2021-05-05 16:22] LABS: ALBUMIN 3.2 g/dL (3.4-5.0); TOTAL BILIRUBIN 0.1 mg/dL (0.2-1.0); TOTAL PROTEIN 6.3 g/dL (6.4-8.2)
--- NOTE | 2021-05-05 17:16 | EKG ---
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
--- NOTE | 2021-05-05 17:41 | RAD ---
CT scan of the head without contrast 05/05/2021 Clinical History: Fall. Head injury. Technique: Unenhanced, contiguous, 5 mm axial sections were obtained through the head. One or more of the following individualized dose reduction techniques were utilized for this study: 1. Automated exposure control. 2. Adjustment of the mA and/or kV according to patient size. 3. Use of iterative reconstruction technique. Findings: There is generalized parenchymal atrophy. Areas of decreased attenuation are seen within t he periventricular and subcortical white matter of both cerebral hemispheres consistent with areas of small vessel ischemic disease. No acute parenchymal abnormality is seen. No extra-axial fluid collec tion is noted. No skull fracture is seen. Impression: No acute intracranial abnormality is seen. CT scan of the cervical spine without contrast 05/05/2021 Clinical history: Fall. Neck injury. Technique: Unenhanced, contiguous, 0.625 mm axial sections were obtained through the cervical spine. 2.5 mm reconstructed axial and 2 mm coronal and sagittal reconstructed images were obtained. One or more of the following individualized dose reduction techniques were utilized for this study: 1. Automated exposure control. 2. Adjustment of the mA and/or kV according to patient size. 3. Use of iterative reconstruction technique. Findings: Sagittal and coronal reconstructed images demonstrate reversal of the normal cervical lordo sis. Degenerative changes consisting of disc space narrowing, vertebral endplate sclerosis and mild t o moderate anterior vertebral body aspect formation seen involving the mid and lower cervical disc sp aces. No fracture or subluxation cervical vertebrae is seen. Degenerative changes are seen involving the un covertebral and facet joints throughout the cervical disc spaces. Impression: No fracture or subluxation of the cervical vertebra is identified. Electronically signed by: Blake Vega MD (05/05/2021 5:38 PM) [place] [id number]
--- NOTE | 2021-05-05 17:47 | RAD ---
CT scan of the lumbar spine without contrast 04/07/2021 CLINICAL HISTORY: Fall. Low back pain. TECHNIQUE: Unenhanced, contiguous, 0.625 mm axial sections were obtained through the lumbar spine. 3 mm reconstructed sagittal, axial and coronal images were obtained. One or more of the following individualized dose reduction techniques were utilized for this study: 1. Automated exposure control. 2. Adjustment of the mA and/or kV according to patient size. 3. Use of iterative reconstruction technique. FINDINGS: Sagittal and coronal reconstructed images demonstrate mild to moderate S-shaped curvature o f the thoracolumbar spine. Degenerative changes are seen involving the lower thoracic and throughout the lumbar disc spaces consisting of varying degrees of disc space narrowing, vertebral endplate scle rosis and mild to moderate anterior vertebral body osteophyte formation. Atherosclerotic calcificatio n of the abdominal aorta and its branches is noted. No fracture or subluxation of the lumbar vertebrae seen. Degenerative changes are seen involving the facet joints throughout the lumbar disc spaces. Multiple diverticula are seen involving the sigmoid c olon. No inflammatory changes are seen in the adjacent fat. IMPRESSION: No fracture or subluxation of the lumbar vertebrae is seen. Electronically signed by: Blake Vega MD (05/05/2021 5:45 PM) [id number]
[2021-05-05] MEDS ORDERED: IV NORMAL SALINE 500ML BAG 500 ML IV ONE (18:00)
--- NOTE | 2021-05-05 18:15 | RAD ---
EXAMINATION: XR SHOULDER_LEFT 2+ VIEWS. HISTORY: 86 years Female Reason: FALL, PAIN / COMPARISON: None. FINDINGS: No fracture, dislocation or radiopaque foreign body. There is elevated position of the humeral hea d which may relate to underlying rotator cuff tear. There is subchondral cyst formation in the ciara l head noted and mild subchondral sclerotic changes at the glenohumeral joint suggestive degenerative change. No significant degenerative changes at the acromioclavicular joint. IMPRESSION: No fracture. Suggestion of underlying rotator cuff tear. Electronically signed by: Antwon Garcia MD (05/05/2021 6:12 PM) [id number]
--- NOTE | 2021-05-05 19:28 | RAD ---
EXAMINATION: XR CHEST 1V. HISTORY: 86 years Female Reason: FALL, PAIN / Spl COMPARISON: March 12, 2021. Findings: There is slight prominence of interstitial markings with no definite focal infiltrate. The heart size is enlarged. Sternotomy wires noted.. There is no effusion or pneumothorax. The mediastinum and keri appear unremarkable. Impression: Cardiomegaly. Prominence of the interstitial markings could relate to minimal vascular co ngestion. Electronically signed by: Antwon Garcia MD (05/05/2021 7:25 PM) [id number]
[2021-05-05] MEDS ORDERED: ONDANSETRON PF 4 MG/2 ML VIAL. IVP PRN (19:30)
[2021-05-05] MEDS ORDERED: ELECTROLYTE (NON-ICU) PROTOCOL. MC PRN (19:30)
[2021-05-05] MEDS ORDERED: ACETAMINOPHEN 325 MG TABLET. PO PRN (19:30)
[2021-05-05] MEDS ORDERED: CALCIUM CARBONATE 500 MG TAB.CHEW PO PRN (19:30)
[2021-05-05] MEDS ORDERED: oxyCODONE/APAP 5/325 1 TAB TABLET PO PRN (19:30)
[2021-05-05 20:00] VITALS: BP 162/74
--- NOTE | 2021-05-05 22:08 | PDOC1 ---
History and Physical Date of Service: DOS: DATE: 05/05/21 TIME: 22:08 Allergies: Allergies: Coded Allergies: Penicillins (Verified Allergy, Intermediate, 04/05/21) metronidazole (Verified Allergy, Intermediate, Hives, 04/05/21) witness hives 5-10 minutes after initiating Flagyl 500mg IVPB Current Medications: Current Medications Current Medications Sodium Chloride 500 ml @ 500 mls/hr 1X ONCE IV Last administered on 05/05/21at 18:27; Start 05/05/21 at 18:00; Stop 05/05/21 at 18:59; Status DC Ondansetron HCl (Zofran) 4 mg PRN Q6HRS PRN IVP NAUSEA/VOMITING; Start 05/05/21 at 19:30 Calcium Carbonate/ Glycine (Tums) 500 mg PRN Q3HRS PRN PO UPSET STOMACH; Start 05/05/21 at 19:30 Info (Non-Icu Electrolyte Protocol) 1 ea PRN DAILY PRN MC SEE COMMENTS; Start 05/05/21 at 19:30 Oxycodone/ Acetaminophen (Percocet 5/325) 1 tab PRN Q4HRS PRN PO MILD PAIN, 1ST CHOICE; Start 05/05/21 at 19:30 Oxycodone/ Acetaminophen (Percocet 5/325) 2 tab PRN Q4HRS PRN PO MODERATE PAIN, SEVERE PAIN; Start 05/05/21 at 19:30 Acetaminophen (Tylenol) 650 mg PRN Q6HRS PRN PO Headaches, Temp > 101.5F; Start 05/05/21 at 19:30 Senna/Docusate Sodium (Senna Plus) 1 tab BID PO ; Start 05/05/21 at 21:00 Heparin Sodium (Porcine) (Heparin Sodium) 5,000 unit Q8HRS SQ ; Start 05/05/21 at 22:00 Amlodipine Besylate (Norvasc) 5 mg DAILY PO ; Start 05/06/21 at 09:00 Dicyclomine HCl (Bentyl) 40 mg TID PO ; Start 05/05/21 at 21:00 Ferrous Sulfate (Feosol) 325 mg DAILY PO ; Start 05/06/21 at 09:00 Furosemide (Lasix) 40 mg DAILY PO ; Start 05/06/21 at 09:00 Hydralazine HCl (Apresoline) 50 mg BID PO ; Start 05/05/21 at 21:00 Pantoprazole Sodium (Protonix) 40 mg DAILYAC PO ; Start 05/06/21 at 07:30 Quetiapine Fumarate (SEROquel) 25 mg DAILY PO ; Start 05/06/21 at 09:00 Carvedilol (Coreg) 12.5 mg BIDWMEALS PO ; Start 05/06/21 at 08:00 Active Scripts Active Dok (Docusate Sodium) 100 Mg Capsule 100 Mg PO PRN BID PRN 14 Days Bisacodyl 10 Mg Supp.rect 10 Mg ME PRN DAILY PRN 10 Days Gabapentin 600 Mg Tablet 600 Mg PO TID 30 Days Quetiapine Fumarate 25 Mg Tablet 25 Mg PO DAILY 30 Days Furosemide 40 Mg Tablet 40 Mg PO DAILY 30 Days Reported Ferrous Sulfate 325 Mg Tablet 1 Tab PO DAILY Calcium (Calcium Carbonate) 500 Mg Tab.chew 1 Tab PO BID 30 Days Amlodipine Besylate 10 Mg Tablet 5 Mg PO DAILY Hydralazine Hcl 50 Mg Tablet 1 Tab PO BID Pantoprazole Sodium (Pantoprazole Sodium) 40 Mg Tablet.dr 40 Mg PO DAILYAC Carvedilol 25 Mg Tablet 12.5 Mg PO BIDWMEALS Probiotic (Lactobacillus Combo No.10) 1 Each Capsule 1 Tab PO DAILY 30 Days Vitamin B Complex 1 Each Capsule 1 Each PO DAILY Dicyclomine Hcl 10 Mg Capsule 40 Mg PO TID ROS: Review of Systems Review of System REVIEW OF SYSTEMS: GENERAL: Denies weakness SKIN: No bruising, hair changes or rashes. EYES: No blurred, double or loss of vision. NOSE AND THROAT: No history of nosebleeds, hoarseness or sore throat. HEART: No history of palpitations, chest pain or shortness of breath on exertion. LUNGS: Denies cough, hemoptysis, wheezing or shortness of breath. GASTROINTESTINAL: Denies changes in appetite, nausea, vomiting, diarrhea or constipation. GENITOURINARY: No history of frequency, urgency, hesitancy or nocturia. NEUROLOGIC: Denies history of numbness, tingling, or tremor. PSYCHIATRIC: No history of panic, anxiety or depression. ENDOCRINE: No history of heat or cold intolerance, polyuria or polydipsia. EXTREMITIES: Denies joint pain, pain on walking or stiffness. Physical Exam: Vital Signs: Vital Signs Date Time Temp Pulse Resp B/P (MAP) Pulse Ox O2 Delivery O2 Flow Rate FiO2 05/05/21 19:21 69 147/66 (93) 99 Room Air 05/05/21 15:10 98.2 18 98.2 Physcial Exam: GEN: No apparent distress. Alert and oriented HEENT: Normal cephalic, atraumatic, external auditory canals are patent EYES: Extraocular muscles are intact, pupil are equally round and reactive to light and accommodation MUSCULOSKELETAL: Well developed , well nourished, good range of motion ENDOCRINE: No thyromegaly was palpated LYMPHATICS: No cervical chain or axillary nodes were noted HEMATOPOIETIC: No bruising NECK: Supple, no JVD, no thyromegaly was noted LUNGS: Clear to auscultation in all lung dai without rhonchi or wheezing HEART: RRR, S!, S2 present. Peripheral pulses intact, no obvious murmurs noted ABDOMEN: Soft, nontender. Positive bowel sounds, no organomegaly, normal bowel sounds EXTREMITIES: Without clubbing, cyanosis, or edema. Pedal pulses intact. Negative Homans sign NEUROLOGIC: Normal speech and tone. A&O x 3, moves all extremities, no obvious focal deficits PSYCHIATRIC: Normal affect, normal mood. Stable SKIN: No ulcerations or rashes, good skin turgor, no jaundice VASCULAR: Good capillary refill, neurovascular bundle appears to be intact Labs: Labs: Laboratory Tests Test 05/05/21 15:42 05/05/21 15:56 Urine Collection Type U cath Urine Color Yellow Urine Clarity Clear Urine pH 5.0 (<5.0-8.0) Urine Specific [place] 1.010 (1.000-1.030) Urine Protein Trace mg/dL (NEG-TRACE) Urine Glucose (UA) Negative mg/dL (NEG) Urine Ketones (Stick) Negative mg/dL (NEG) Urine Blood Negative (NEG) Urine Nitrite Negative (NEG) Urine Bilirubin Negative (NEG) Urine Urobilinogen Dipstick 0.2 mg/dL (0.2 mg/dL) Urine Leukocyte Esterase Negative (NEG) Urine RBC 0 /HPF (0-2) Urine WBC Occ /HPF (0-4) Urine Squamous Epithelial Cells Few /LPF Urine Bacteria 0 /HPF (0-FEW) Urine Hyaline Casts Few /HPF Urine Mucus Slight /LPF White Blood Count 6.7 x10^3/uL (4.0-11.0) Red Blood Count 2.39 x10^6/uL (3.50-5.40) Hemoglobin 7.2 g/dL (12.0-15.5) Hematocrit 22.4 % (36.0-47.0) Mean Corpuscular Volume 94 fL (79-100) Mean Corpuscular Hemoglobin 30 pg (25-35) Mean Corpuscular Hemoglobin Concent 32 g/dL (31-37) Red Cell Distribution Width 18.0 % (11.5-14.5) Platelet Count 148 x10^3/uL (140-400) Neutrophils (%) (Auto) 78 % (31-73) Lymphocytes (%) (Auto) 9 % (24-48) Monocytes (%) (Auto) 11 % (0-9) Eosinophils (%) (Auto) 2 % (0-3) Basophils (%) (Auto) 0 % (0-3) Neutrophils # (Auto) 5.2 x10^3/uL (1.8-7.7) Lymphocytes # (Auto) 0.6 x10^3/uL (1.0-4.8) Monocytes # (Auto) 0.7 x10^3/uL (0.0-1.1) Eosinophils # (Auto) 0.1 x10^3/uL (0.0-0.7) Basophils # (Auto) 0.0 x10^3/uL (0.0-0.2) Sodium Level 140 mmol/L (136-145) Potassium Level 4.8 mmol/L (3.5-5.1) Chloride Level 102 mmol/L (98-107) Carbon Dioxide Level 28 mmol/L (21-32) Anion Gap 10 (6-14) Blood Urea Nitrogen 53 mg/dL (7-20) Creatinine 2.4 mg/dL (0.6-1.0) Estimated GFR (Cockcroft-Gault) 19.1 BUN/Creatinine Ratio 22 (6-20) Glucose Level 102 mg/dL (70-99) Calcium Level 8.4 mg/dL (8.5-10.1) Total Bilirubin 0.1 mg/dL (0.2-1.0) Aspartate Amino Transf (AST/SGOT) 26 U/L (15-37) Alanine Aminotransferase (ALT/SGPT) 52 U/L (14-59) Alkaline Phosphatase 136 U/L (46-116) Troponin I High Sensitivity 32 ng/L (4-50) Total Protein 6.3 g/dL (6.4-8.2) Albumin 3.2 g/dL (3.4-5.0) Albumin/Globulin Ratio 1.0 (1.0-1.7) Laboratory Tests Test 05/05/21 15:42 05/05/21 15:56 Urine Collection Type U cath Urine Color Yellow Urine Clarity Clear Urine pH 5.0 (<5.0-8.0) Urine Specific [place] 1.010 (1.000-1.030) Urine Protein Trace mg/dL (NEG-TRACE) Urine Glucose (UA) Negative mg/dL (NEG) Urine Ketones (Stick) Negative mg/dL (NEG) Urine Blood Negative (NEG) Urine Nitrite Negative (NEG) Urine Bilirubin Negative (NEG) Urine Urobilinogen Dipstick 0.2 mg/dL (0.2 mg/dL) Urine Leukocyte Esterase Negative (NEG) Urine RBC 0 /HPF (0-2) Urine WBC Occ /HPF (0-4) Urine Squamous Epithelial Cells Few /LPF Urine Bacteria 0 /HPF (0-FEW) Urine Hyaline Casts Few /HPF Urine Mucus Slight /LPF White Blood Count 6.7 x10^3/uL (4.0-11.0) Red Blood Count 2.39 x10^6/uL (3.50-5.40) Hemoglobin 7.2 g/dL (12.0-15.5) Hematocrit 22.4 % (36.0-47.0) Mean Corpuscular Volume 94 fL (79-100) Mean Corpuscular Hemoglobin 30 pg (25-35) Mean Corpuscular Hemoglobin Concent 32 g/dL (31-37) Red Cell Distribution Width 18.0 % (11.5-14.5) Platelet Count 148 x10^3/uL (140-400) Neutrophils (%) (Auto) 78 % (31-73) Lymphocytes (%) (Auto) 9 % (24-48) Monocytes (%) (Auto) 11 % (0-9) Eosinophils (%) (Auto) 2 % (0-3) Basophils (%) (Auto) 0 % (0-3) Neutrophils # (Auto) 5.2 x10^3/uL (1.8-7.7) Lymphocytes # (Auto) 0.6 x10^3/uL (1.0-4.8) Monocytes # (Auto) 0.7 x10^3/uL (0.0-1.1) Eosinophils # (Auto) 0.1 x10^3/uL (0.0-0.7) Basophils # (Auto) 0.0 x10^3/uL (0.0-0.2) Sodium Level 140 mmol/L (136-145) Potassium Level 4.8 mmol/L (3.5-5.1) Chloride Level 102 mmol/L (98-107) Carbon Dioxide Level 28 mmol/L (21-32) Anion Gap 10 (6-14) Blood Urea Nitrogen 53 mg/dL (7-20) Creatinine 2.4 mg/dL (0.6-1.0) Estimated GFR (Cockcroft-Gault) 19.1 BUN/Creatinine Ratio 22 (6-20) Glucose Level 102 mg/dL (70-99) Calcium Level 8.4 mg/dL (8.5-10.1) Total Bilirubin 0.1 mg/dL (0.2-1.0) Aspartate Amino Transf (AST/SGOT) 26 U/L (15-37) Alanine Aminotransferase (ALT/SGPT) 52 U/L (14-59) Alkaline Phosphatase 136 U/L (46-116) Troponin I High Sensitivity 32 ng/L (4-50) Total Protein 6.3 g/dL (6.4-8.2) Albumin 3.2 g/dL (3.4-5.0) Albumin/Globulin Ratio 1.0 (1.0-1.7) Justifications for Admission Other Justification KALPESH VOGT MD May 05, 2021 22:08 JUSTIN OVIEDO MD May 06, 2021 12:17
[2021-05-05] MEDS: DICYCLOMINE HCL 10 MG CAPSULE PO SCH (22:43)
[2021-05-05] MEDS: SENNOSIDES/DOCUSATE 8.6/50MG TABLET. PO SCH (22:43)
[2021-05-05] MEDS: HEPARIN for SUB-Q USE 5,000 UNIT/ML VIAL. SQ SCH (22:43)
[2021-05-05 23:00] VITALS: BP 139/60
[2021-05-06] MEDS: oxyCODONE/APAP 5/325 1 TAB TABLET PO PRN ×2 (01:44→21:05)
[2021-05-06 02:40] VITALS: BP 137/62
[2021-05-06] MEDS: HEPARIN for SUB-Q USE 5,000 UNIT/ML VIAL. SQ SCH ×3 (06:24→21:03)
[2021-05-06 07:00] VITALS: BP 138/64
[2021-05-06] MEDS: SENNOSIDES/DOCUSATE 8.6/50MG TABLET. PO SCH ×2 (07:31→20:58)
[2021-05-06] MEDS: DICYCLOMINE HCL 10 MG CAPSULE PO SCH ×3 (07:31→20:58)
[2021-05-06] MEDS: FUROSEMIDE 40 MG TABLET. PO SCH (07:31)
[2021-05-06] MEDS: PANTOPRAZOLE 40 MG TABLET.DR. PO SCH (07:32)
[2021-05-06] MEDS: FERROUS SULFATE 325 MG TABLET. PO SCH (07:32)
[2021-05-06] MEDS: CARVEDILOL 12.5 MG TABLET. PO SCH ×2 (07:32→17:06)
[2021-05-06] MEDS: QUEtiapine 25 MG TABLET. PO SCH (07:32)
--- NOTE | 2021-05-06 09:52 | PDOC2 ---
CONSULT Date of Consult Date of Consult DATE: 05/06/21 TIME: 09:52 Reason for Consult Reason for Consult: CRF Source Source: Chart review, Patient History of Present Illness Reason for Visit: Patient is a 86 year old female who presents with she states she was sitting at home and went to get up using her cane as usual and she became really shaky and her legs were weak and she fell from standing. She states that she fell on the left side. She states a month ago she had a fall but was not seen for it and has had some shoulder pain ever since on the left. She denies hitting her head, neck pain, abdominal pain, nausea, vomiting, diarrhea, fever, chest pain, shortness of breath, numbness or tingling, focal weakness, headache, dizziness, lightheadedness, urinary symptoms, back pain. Patient has a history of MD, hypertension, high cholesterol, GERD, diabetes, depression, anemia, arthritis. Patient is a poor historian. She has Hx of SB AVM per report She has CKD stage 4 with baseline Cr 2.5. Hospitalized in Feb with Hgb 5.2 and UTI . She follows with us , last seen by [facility] in Jan 2021 Past Medical History Cardiovascular: CAD, HTN, Hyperlipidemia, Other Pulmonary: No pertinent hx CENTRAL NERVOUS SYSTEM: Carpal Tunnel Syndrome GI: GERD, Other Heme/Onc: Anemia NOS Hepatobiliary: No pertinent hx Psych: Anxiety Musculoskeletal: Osteoarthritis Rheumatologic: No pertinent hx Infectious disease: Herpes zoster Renal/: Chronic renal insuff, UTI Endocrine: Diabetes Past Surgical History Past Surgical History: CABG, Hysterectomy, Other Family History Family History: Cancer, Hypertension, Other Social History ALCOHOL: none Drugs: None Lives: with Family Current Problem List Problem List Problems Medical Problems: (1) Acute on chronic renal failure Status: Acute (2) Anemia Status: Acute (3) Fall Status: Acute (4) Unsteadiness on feet Status: Acute (5) Weakness Status: Acute Current Medications Current Medications Current Medications Sodium Chloride 500 ml @ 500 mls/hr 1X ONCE IV Last administered on 05/05/21at 18:27; Start 05/05/21 at 18:00; Stop 05/05/21 at 18:59; Status DC Ondansetron HCl (Zofran) 4 mg PRN Q6HRS PRN IVP NAUSEA/VOMITING; Start 05/05/21 at 19:30 Calcium Carbonate/ Glycine (Tums) 500 mg PRN Q3HRS PRN PO UPSET STOMACH; Start 05/05/21 at 19:30 Info (Non-Icu Electrolyte Protocol) 1 ea PRN DAILY PRN MC SEE COMMENTS; Start 05/05/21 at 19:30 Oxycodone/ Acetaminophen (Percocet 5/325) 1 tab PRN Q4HRS PRN PO MILD PAIN, 1ST CHOICE Last administered on 05/06/21at 01:44; Start 05/05/21 at 19:30 Oxycodone/ Acetaminophen (Percocet 5/325) 2 tab PRN Q4HRS PRN PO MODERATE PAIN, SEVERE PAIN; Start 05/05/21 at 19:30 Acetaminophen (Tylenol) 650 mg PRN Q6HRS PRN PO Headaches, Temp > 101.5F; Start 05/05/21 at 19:30 Senna/Docusate Sodium (Senna Plus) 1 tab BID PO Last administered on 05/06/21 07:31; Start 05/05/21 at 21:00 Heparin Sodium (Porcine) (Heparin Sodium) 5,000 unit Q8HRS SQ Last administered on 05/06/21at 06:24; Start 05/05/21 at 22:00 Amlodipine Besylate (Norvasc) 5 mg DAILY PO Last administered on 05/06/21 07:31; Start 05/06/21 at 09:00 Dicyclomine HCl (Bentyl) 40 mg TID PO Last administered on 05/06/21at 07:31; Start 05/05/21 at 21:00 Ferrous Sulfate (Feosol) 325 mg DAILY PO Last administered on 05/06/21 07:32; Start 05/06/21 at 09:00 Furosemide (Lasix) 40 mg DAILY PO Last administered on 05/06/21 07:31; Start 05/06/21 at 09:00 Hydralazine HCl (Apresoline) 50 mg BID PO Last administered on 05/06/21 07:32; Start 05/05/21 at 21:00 Pantoprazole Sodium (Protonix) 40 mg DAILYAC PO Last administered on 05/06/21at 07:32; Start 05/06/21 at 07:30 Quetiapine Fumarate (SEROquel) 25 mg DAILY PO Last administered on 05/06/21at 07:32; Start 05/06/21 at 09:00 Carvedilol (Coreg) 12.5 mg BIDWMEALS PO Last administered on 05/06/21at 07:32; Start 05/06/21 at 08:00 Active Scripts Active Dok (Docusate Sodium) 100 Mg Capsule 100 Mg PO PRN BID PRN 14 Days Bisacodyl 10 Mg Supp.rect 10 Mg NE PRN DAILY PRN 10 Days Gabapentin 600 Mg Tablet 600 Mg PO TID 30 Days Quetiapine Fumarate 25 Mg Tablet 25 Mg PO DAILY 30 Days Furosemide 40 Mg Tablet 40 Mg PO DAILY 30 Days Reported Ferrous Sulfate 325 Mg Tablet 1 Tab PO DAILY Calcium (Calcium Carbonate) 500 Mg Tab.chew 1 Tab PO BID 30 Days Amlodipine Besylate 10 Mg Tablet 5 Mg PO DAILY Hydralazine Hcl 50 Mg Tablet 1 Tab PO BID Pantoprazole Sodium (Pantoprazole Sodium) 40 Mg Tablet.dr 40 Mg PO DAILYAC Carvedilol 25 Mg Tablet 12.5 Mg PO BIDWMEALS Probiotic (Lactobacillus Combo No.10) 1 Each Capsule 1 Tab PO DAILY 30 Days Vitamin B Complex 1 Each Capsule 1 Each PO DAILY Dicyclomine Hcl 10 Mg Capsule 40 Mg PO TID Allergies Allergies: Coded Allergies: Penicillins (Verified Allergy, Intermediate, 04/05/21) metronidazole (Verified Allergy, Intermediate, Hives, 04/05/21) witness hives 5-10 minutes after initiating Flagyl 500mg IVPB ROS Review of System As per HPI, rest of the ROS is negative /Poor Historian Physical Exam Physical Exam General NAD HEEN OM Moist, on RA, Anicteric Neck Supple Lungs CTA, Non labored, decreased at bases CV S1S2 Abd Soft, NT, BS + No Damon, No CVA or SP tenderness Ext No LE edema Skin No rash Vital Signs Vital Signs Date Time Temp Pulse Resp B/P (MAP) Pulse Ox O2 Delivery O2 Flow Rate FiO2 05/06/21 08:00 Room Air 05/06/21 07:32 60 138/64 05/06/21 07:00 97.5 18 97 97.5 Assessment & Plan CKD stage 4- Baseline Cr 2.1-2.5 with Intermittent EULALIA; currently at her baseline. E-Lytes and Acid base stable. UA unremarkable Follows with us , last seen in our office in by [facility] . Currently no emergent indication for dialysis .Pt has declined to go on dialysis if indicated due to EULALIA or progression - Multiple discussions with patient in OP setting and again today . Supportive care, Monitor, avoid nephrotoxins, maintain fluid balance Anemia- Hospitalized in Feb for Acute drop Hgb 5.2; Currently stable in 7's .On PO Fe Fall - per primary Physical debility DM2 HTN Labs Labs Laboratory Tests Test 05/05/21 15:42 05/05/21 15:56 Urine Collection Type U cath Urine Color Yellow Urine Clarity Clear Urine pH 5.0 (<5.0-8.0) Urine Specific [place] 1.010 (1.000-1.030) Urine Protein Trace mg/dL (NEG-TRACE) Urine Glucose (UA) Negative mg/dL (NEG) Urine Ketones (Stick) Negative mg/dL (NEG) Urine Blood Negative (NEG) Urine Nitrite Negative (NEG) Urine Bilirubin Negative (NEG) Urine Urobilinogen Dipstick 0.2 mg/dL (0.2 mg/dL) Urine Leukocyte Esterase Negative (NEG) Urine RBC 0 /HPF (0-2) Urine WBC Occ /HPF (0-4) Urine Squamous Epithelial Cells Few /LPF Urine Bacteria 0 /HPF (0-FEW) Urine Hyaline Casts Few /HPF Urine Mucus Slight /LPF White Blood Count 6.7 x10^3/uL (4.0-11.0) Red Blood Count 2.39 x10^6/uL (3.50-5.40) Hemoglobin 7.2 g/dL (12.0-15.5) Hematocrit 22.4 % (36.0-47.0) Mean Corpuscular Volume 94 fL (79-100) Mean Corpuscular Hemoglobin 30 pg (25-35) Mean Corpuscular Hemoglobin Concent 32 g/dL (31-37) Red Cell Distribution Width 18.0 % (11.5-14.5) Platelet Count 148 x10^3/uL (140-400) Neutrophils (%) (Auto) 78 % (31-73) Lymphocytes (%) (Auto) 9 % (24-48) Monocytes (%) (Auto) 11 % (0-9) Eosinophils (%) (Auto) 2 % (0-3) Basophils (%) (Auto) 0 % (0-3) Neutrophils # (Auto) 5.2 x10^3/uL (1.8-7.7) Lymphocytes # (Auto) 0.6 x10^3/uL (1.0-4.8) Monocytes # (Auto) 0.7 x10^3/uL (0.0-1.1) Eosinophils # (Auto) 0.1 x10^3/uL (0.0-0.7) Basophils # (Auto) 0.0 x10^3/uL (0.0-0.2) Sodium Level 140 mmol/L (136-145) Potassium Level 4.8 mmol/L (3.5-5.1) Chloride Level 102 mmol/L (98-107) Carbon Dioxide Level 28 mmol/L (21-32) Anion Gap 10 (6-14) Blood Urea Nitrogen 53 mg/dL (7-20) Creatinine 2.4 mg/dL (0.6-1.0) Estimated GFR (Cockcroft-Gault) 19.1 BUN/Creatinine Ratio 22 (6-20) Glucose Level 102 mg/dL (70-99) Calcium Level 8.4 mg/dL (8.5-10.1) Total Bilirubin 0.1 mg/dL (0.2-1.0) Aspartate Amino Transf (AST/SGOT) 26 U/L (15-37) Alanine Aminotransferase (ALT/SGPT) 52 U/L (14-59) Alkaline Phosphatase 136 U/L (46-116) Troponin I High Sensitivity 32 ng/L (4-50) Total Protein 6.3 g/dL (6.4-8.2) Albumin 3.2 g/dL (3.4-5.0) Albumin/Globulin Ratio 1.0 (1.0-1.7) Laboratory Tests Test 05/05/21 15:42 05/05/21 15:56 Urine Collection Type U cath Urine Color Yellow Urine Clarity Clear Urine pH 5.0 (<5.0-8.0) Urine Specific [place] 1.010 (1.000-1.030) Urine Protein Trace mg/dL (NEG-TRACE) Urine Glucose (UA) Negative mg/dL (NEG) Urine Ketones (Stick) Negative mg/dL (NEG) Urine Blood Negative (NEG) Urine Nitrite Negative (NEG) Urine Bilirubin Negative (NEG) Urine Urobilinogen Dipstick 0.2 mg/dL (0.2 mg/dL) Urine Leukocyte Esterase Negative (NEG) Urine RBC 0 /HPF (0-2) Urine WBC Occ /HPF (0-4) Urine Squamous Epithelial Cells Few /LPF Urine Bacteria 0 /HPF (0-FEW) Urine Hyaline Casts Few /HPF Urine Mucus Slight /LPF White Blood Count 6.7 x10^3/uL (4.0-11.0) Red Blood Count 2.39 x10^6/uL (3.50-5.40) Hemoglobin 7.2 g/dL (12.0-15.5) Hematocrit 22.4 % (36.0-47.0) Mean Corpuscular Volume 94 fL (79-100) Mean Corpuscular Hemoglobin 30 pg (25-35) Mean Corpuscular Hemoglobin Concent 32 g/dL (31-37) Red Cell Distribution Width 18.0 % (11.5-14.5) Platelet Count 148 x10^3/uL (140-400) Neutrophils (%) (Auto) 78 % (31-73) Lymphocytes (%) (Auto) 9 % (24-48) Monocytes (%) (Auto) 11 % (0-9) Eosinophils (%) (Auto) 2 % (0-3) Basophils (%) (Auto) 0 % (0-3) Neutrophils # (Auto) 5.2 x10^3/uL (1.8-7.7) Lymphocytes # (Auto) 0.6 x10^3/uL (1.0-4.8) Monocytes # (Auto) 0.7 x10^3/uL (0.0-1.1) Eosinophils # (Auto) 0.1 x10^3/uL (0.0-0.7) Basophils # (Auto) 0.0 x10^3/uL (0.0-0.2) Sodium Level 140 mmol/L (136-145) Potassium Level 4.8 mmol/L (3.5-5.1) Chloride Level 102 mmol/L (98-107) Carbon Dioxide Level 28 mmol/L (21-32) Anion Gap 10 (6-14) Blood Urea Nitrogen 53 mg/dL (7-20) Creatinine 2.4 mg/dL (0.6-1.0) Estimated GFR (Cockcroft-Gault) 19.1 BUN/Creatinine Ratio 22 (6-20) Glucose Level 102 mg/dL (70-99) Calcium Level 8.4 mg/dL (8.5-10.1) Total Bilirubin 0.1 mg/dL (0.2-1.0) Aspartate Amino Transf (AST/SGOT) 26 U/L (15-37) Alanine Aminotransferase (ALT/SGPT) 52 U/L (14-59) Alkaline Phosphatase 136 U/L (46-116) Troponin I High Sensitivity 32 ng/L (4-50) Total Protein 6.3 g/dL (6.4-8.2) Albumin 3.2 g/dL (3.4-5.0) Albumin/Globulin Ratio 1.0 (1.0-1.7) Review All relevant outside records, renal labs, imaging studies, telemetry/EKG's were reviewed. Images Images EXAMINATION: XR CHEST 1V. HISTORY: 86 years Female Reason: FALL, PAIN / Spl COMPARISON: March 12, 2021. Findings: There is slight prominence of interstitial markings with no definite focal infiltrate. The heart size is enlarged. Sternotomy wires noted.. There is no effusion or pneumothorax. The mediastinum and keri appear unremarkable. Impression: Cardiomegaly. Prominence of the interstitial markings could relate to minimal vascular congestion. JERONIMO MERAZ MD May 06, 2021 09:52
[2021-05-06 10:47] VITALS: BP 128/59
--- NOTE | 2021-05-06 12:21 | PDOC1 ---
History and Physical Date of Admission Date of Admission DATE: 05/06/21 TIME: 12:17 Identification/Chief Complaint Chief Complaint Fall Source Source: Patient History of Present Illness History of Present Illness Patient is a 86-year-old female with past medical history CKD, OR, who presents due to fall she suffered at home. She states that the fall occurred when she was trying to get up from standing. She reports a history of a fall 1 month ago as well. She normally ambulates with a cane. In the ED imaging showed no acute abnormality. Hemoglobin 7.2, hematocrit 22.4, BUN 53, creatinine 2.4, EGFR 19.1. She states she does still make urine and takes a daily "water pill". Due to difficulty ambulating and possible unsafe discharge, patient will be admitted for further management with nephrology consult. Past Medical History Cardiovascular: CAD, HTN, Hyperlipidemia, Other Pulmonary: No pertinent hx CENTRAL NERVOUS SYSTEM: Carpal Tunnel Syndrome GI: GERD, Other Heme/Onc: Anemia NOS Hepatobiliary: No pertinent hx Psych: Anxiety Musculoskeletal: Osteoarthritis Rheumatologic: No pertinent hx Infectious disease: Herpes zoster Renal/: Chronic renal insuff, UTI Endocrine: Diabetes Past Surgical History Past Surgical History: CABG, Hysterectomy, Other Family History Family History: Cancer, Hypertension, Other Social History Smoke: No ALCOHOL: none Drugs: None Current Problem List Problem List Problems Medical Problems: (1) Acute on chronic renal failure Status: Acute (2) Anemia Status: Acute (3) Fall Status: Acute (4) Unsteadiness on feet Status: Acute (5) Weakness Status: Acute Current Medications Current Medications Current Medications Sodium Chloride 500 ml @ 500 mls/hr 1X ONCE IV Last administered on 05/05/21at 18:27; Start 05/05/21 at 18:00; Stop 05/05/21 at 18:59; Status DC Ondansetron HCl (Zofran) 4 mg PRN Q6HRS PRN IVP NAUSEA/VOMITING; Start 05/05/21 at 19:30 Calcium Carbonate/ Glycine (Tums) 500 mg PRN Q3HRS PRN PO UPSET STOMACH; Start 05/05/21 at 19:30 Info (Non-Icu Electrolyte Protocol) 1 ea PRN DAILY PRN MC SEE COMMENTS; Start 05/05/21 at 19:30 Oxycodone/ Acetaminophen (Percocet 5/325) 1 tab PRN Q4HRS PRN PO MILD PAIN, 1ST CHOICE Last administered on 05/06/21at 01:44; Start 05/05/21 at 19:30 Oxycodone/ Acetaminophen (Percocet 5/325) 2 tab PRN Q4HRS PRN PO MODERATE PAIN, SEVERE PAIN; Start 05/05/21 at 19:30 Acetaminophen (Tylenol) 650 mg PRN Q6HRS PRN PO Headaches, Temp > 101.5F; Start 05/05/21 at 19:30 Senna/Docusate Sodium (Senna Plus) 1 tab BID PO Last administered on 05/06/21 07:31; Start 05/05/21 at 21:00 Heparin Sodium (Porcine) (Heparin Sodium) 5,000 unit Q8HRS SQ Last administered on 05/06/21 06:24; Start 05/05/21 at 22:00 Amlodipine Besylate (Norvasc) 5 mg DAILY PO Last administered on 05/06/21 07:31; Start 05/06/21 at 09:00 Dicyclomine HCl (Bentyl) 40 mg TID PO Last administered on 05/06/21 07:31; Start 05/05/21 at 21:00 Ferrous Sulfate (Feosol) 325 mg DAILY PO Last administered on 05/06/21 07:32; Start 05/06/21 at 09:00 Furosemide (Lasix) 40 mg DAILY PO Last administered on 05/06/21 07:31; Start 05/06/21 at 09:00 Hydralazine HCl (Apresoline) 50 mg BID PO Last administered on 05/06/21 07:32; Start 05/05/21 at 21:00 Pantoprazole Sodium (Protonix) 40 mg DAILYAC PO Last administered on 05/06/21 07:32; Start 05/06/21 at 07:30 Quetiapine Fumarate (SEROquel) 25 mg DAILY PO Last administered on 05/06/21 07:32; Start 05/06/21 at 09:00 Carvedilol (Coreg) 12.5 mg BIDWMEALS PO Last administered on 05/06/21 07:32; Start 05/06/21 at 08:00 Active Scripts Active Dok (Docusate Sodium) 100 Mg Capsule 100 Mg PO PRN BID PRN 14 Days Bisacodyl 10 Mg Supp.rect 10 Mg TN PRN DAILY PRN 10 Days Gabapentin 600 Mg Tablet 600 Mg PO TID 30 Days Quetiapine Fumarate 25 Mg Tablet 25 Mg PO DAILY 30 Days Furosemide 40 Mg Tablet 40 Mg PO DAILY 30 Days Reported Ferrous Sulfate 325 Mg Tablet 1 Tab PO DAILY Calcium (Calcium Carbonate) 500 Mg Tab.chew 1 Tab PO BID 30 Days Amlodipine Besylate 10 Mg Tablet 5 Mg PO DAILY Hydralazine Hcl 50 Mg Tablet 1 Tab PO BID Pantoprazole Sodium (Pantoprazole Sodium) 40 Mg Tablet.dr 40 Mg PO DAILYAC Carvedilol 25 Mg Tablet 12.5 Mg PO BIDWMEALS Probiotic (Lactobacillus Combo No.10) 1 Each Capsule 1 Tab PO DAILY 30 Days Vitamin B Complex 1 Each Capsule 1 Each PO DAILY Dicyclomine Hcl 10 Mg Capsule 40 Mg PO TID Allergies Allergies: Coded Allergies: Penicillins (Verified Allergy, Intermediate, 04/05/21) metronidazole (Verified Allergy, Intermediate, Hives, 04/05/21) witness hives 5-10 minutes after initiating Flagyl 500mg IVPB ROS Review of System GENERAL: Weakness, falls. No history of weight change or fevers. SKIN: No bruising, hair changes or rashes. EYES: No blurred, double or loss of vision. NOSE AND THROAT: No history of nosebleeds, hoarseness or sore throat. HEART: Denies chest pain, denies palpitations. LUNGS: Denies cough, hemoptysis, wheezing or shortness of breath. GASTROINTESTINAL: Denies nausea, vomiting, abdominal pain. GENITOURINARY: Denies dysuria, frequency, urgency, hematuria. NEUROLOGIC: Denies history of numbness, tingling, tremor or weakness. PSYCHIATRIC: Denies anxiety, denies depression. ENDOCRINE: No history of heat or cold intolerance, polyuria or polydipsia. EXTREMITIES: Muscle weakness. Denies joint pain, pain on walking or stiffness. Physical Exam Physical Exam General: Alert, Oriented X3, Cooperative, No acute distress HEENT: PERRLA, EOMI Lungs: Decreased breath sounds, normal air movement Heart: RRR, no murmurs Cardiovascular: S1, S2 Abdomen: Normal bowel sounds, Soft, No tenderness Extremities: No clubbing, No cyanosis Skin: No rashes, No significant lesion Neuro: Normal speech, Normal tone, Sensation intact Psych/Mental Status: Mental status NL, Mood NL Vitals Vitals Vital Signs Date Time Temp Pulse Resp B/P (MAP) Pulse Ox O2 Delivery O2 Flow Rate FiO2 05/06/21 10:47 98.1 55 18 128/59 (82) 96 Room Air 98.1 Labs Labs Laboratory Tests Test 05/05/21 15:42 05/05/21 15:56 Urine Collection Type U cath Urine Color Yellow Urine Clarity Clear Urine pH 5.0 (<5.0-8.0) Urine Specific [place] 1.010 (1.000-1.030) Urine Protein Trace mg/dL (NEG-TRACE) Urine Glucose (UA) Negative mg/dL (NEG) Urine Ketones (Stick) Negative mg/dL (NEG) Urine Blood Negative (NEG) Urine Nitrite Negative (NEG) Urine Bilirubin Negative (NEG) Urine Urobilinogen Dipstick 0.2 mg/dL (0.2 mg/dL) Urine Leukocyte Esterase Negative (NEG) Urine RBC 0 /HPF (0-2) Urine WBC Occ /HPF (0-4) Urine Squamous Epithelial Cells Few /LPF Urine Bacteria 0 /HPF (0-FEW) Urine Hyaline Casts Few /HPF Urine Mucus Slight /LPF White Blood Count 6.7 x10^3/uL (4.0-11.0) Red Blood Count 2.39 x10^6/uL (3.50-5.40) Hemoglobin 7.2 g/dL (12.0-15.5) Hematocrit 22.4 % (36.0-47.0) Mean Corpuscular Volume 94 fL (79-100) Mean Corpuscular Hemoglobin 30 pg (25-35) Mean Corpuscular Hemoglobin Concent 32 g/dL (31-37) Red Cell Distribution Width 18.0 % (11.5-14.5) Platelet Count 148 x10^3/uL (140-400) Neutrophils (%) (Auto) 78 % (31-73) Lymphocytes (%) (Auto) 9 % (24-48) Monocytes (%) (Auto) 11 % (0-9) Eosinophils (%) (Auto) 2 % (0-3) Basophils (%) (Auto) 0 % (0-3) Neutrophils # (Auto) 5.2 x10^3/uL (1.8-7.7) Lymphocytes # (Auto) 0.6 x10^3/uL (1.0-4.8) Monocytes # (Auto) 0.7 x10^3/uL (0.0-1.1) Eosinophils # (Auto) 0.1 x10^3/uL (0.0-0.7) Basophils # (Auto) 0.0 x10^3/uL (0.0-0.2) Sodium Level 140 mmol/L (136-145) Potassium Level 4.8 mmol/L (3.5-5.1) Chloride Level 102 mmol/L (98-107) Carbon Dioxide Level 28 mmol/L (21-32) Anion Gap 10 (6-14) Blood Urea Nitrogen 53 mg/dL (7-20) Creatinine 2.4 mg/dL (0.6-1.0) Estimated GFR (Cockcroft-Gault) 19.1 BUN/Creatinine Ratio 22 (6-20) Glucose Level 102 mg/dL (70-99) Calcium Level 8.4 mg/dL (8.5-10.1) Total Bilirubin 0.1 mg/dL (0.2-1.0) Aspartate Amino Transf (AST/SGOT) 26 U/L (15-37) Alanine Aminotransferase (ALT/SGPT) 52 U/L (14-59) Alkaline Phosphatase 136 U/L (46-116) Troponin I High Sensitivity 32 ng/L (4-50) Total Protein 6.3 g/dL (6.4-8.2) Albumin 3.2 g/dL (3.4-5.0) Albumin/Globulin Ratio 1.0 (1.0-1.7) Laboratory Tests Test 05/05/21 15:42 05/05/21 15:56 Urine Collection Type U cath Urine Color Yellow Urine Clarity Clear Urine pH 5.0 (<5.0-8.0) Urine Specific [place] 1.010 (1.000-1.030) Urine Protein Trace mg/dL (NEG-TRACE) Urine Glucose (UA) Negative mg/dL (NEG) Urine Ketones (Stick) Negative mg/dL (NEG) Urine Blood Negative (NEG) Urine Nitrite Negative (NEG) Urine Bilirubin Negative (NEG) Urine Urobilinogen Dipstick 0.2 mg/dL (0.2 mg/dL) Urine Leukocyte Esterase Negative (NEG) Urine RBC 0 /HPF (0-2) Urine WBC Occ /HPF (0-4) Urine Squamous Epithelial Cells Few /LPF Urine Bacteria 0 /HPF (0-FEW) Urine Hyaline Casts Few /HPF Urine Mucus Slight /LPF White Blood Count 6.7 x10^3/uL (4.0-11.0) Red Blood Count 2.39 x10^6/uL (3.50-5.40) Hemoglobin 7.2 g/dL (12.0-15.5) Hematocrit 22.4 % (36.0-47.0) Mean Corpuscular Volume 94 fL (79-100) Mean Corpuscular Hemoglobin 30 pg (25-35) Mean Corpuscular Hemoglobin Concent 32 g/dL (31-37) Red Cell Distribution Width 18.0 % (11.5-14.5) Platelet Count 148 x10^3/uL (140-400) Neutrophils (%) (Auto) 78 % (31-73) Lymphocytes (%) (Auto) 9 % (24-48) Monocytes (%) (Auto) 11 % (0-9) Eosinophils (%) (Auto) 2 % (0-3) Basophils (%) (Auto) 0 % (0-3) Neutrophils # (Auto) 5.2 x10^3/uL (1.8-7.7) Lymphocytes # (Auto) 0.6 x10^3/uL (1.0-4.8) Monocytes # (Auto) 0.7 x10^3/uL (0.0-1.1) Eosinophils # (Auto) 0.1 x10^3/uL (0.0-0.7) Basophils # (Auto) 0.0 x10^3/uL (0.0-0.2) Sodium Level 140 mmol/L (136-145) Potassium Level 4.8 mmol/L (3.5-5.1) Chloride Level 102 mmol/L (98-107) Carbon Dioxide Level 28 mmol/L (21-32) Anion Gap 10 (6-14) Blood Urea Nitrogen 53 mg/dL (7-20) Creatinine 2.4 mg/dL (0.6-1.0) Estimated GFR (Cockcroft-Gault) 19.1 BUN/Creatinine Ratio 22 (6-20) Glucose Level 102 mg/dL (70-99) Calcium Level 8.4 mg/dL (8.5-10.1) Total Bilirubin 0.1 mg/dL (0.2-1.0) Aspartate Amino Transf (AST/SGOT) 26 U/L (15-37) Alanine Aminotransferase (ALT/SGPT) 52 U/L (14-59) Alkaline Phosphatase 136 U/L (46-116) Troponin I High Sensitivity 32 ng/L (4-50) Total Protein 6.3 g/dL (6.4-8.2) Albumin 3.2 g/dL (3.4-5.0) Albumin/Globulin Ratio 1.0 (1.0-1.7) Images Images [facility] [address] [place] [address] IMAGING REPORT Signed PATIENT: JOHNNY COLON ACCOUNT: [id number] : 1935 LOCATION: ER AGE: 86 SEX: F EXAM STATUS: REG ER ORD. PHYSICIAN: GRIFFIN CASTORENA APRN REASON: FALL, WEAKNESS PROCEDURE: CT HEAD AND CERVICAL SPINE WO CT scan of the head without contrast 05/05/2021 Clinical History: Fall. Head injury. Technique: Unenhanced, contiguous, 5 mm axial sections were obtained through the head. One or more of the following individualized dose reduction techniques were utilized for this study: 1. Automated exposure control. 2. Adjustment of the mA and/or kV according to patient size. 3. Use of iterative reconstruction technique. Findings: There is generalized parenchymal atrophy. Areas of decreased attenuation are seen within the periventricular and subcortical white matter of both cerebral hemispheres consistent with areas of small vessel ischemic disease. No acute parenchymal abnormality is seen. No extra-axial fluid collection is noted. No skull fracture is seen. Impression: No acute intracranial abnormality is seen. CT scan of the cervical spine without contrast 05/05/2021 Clinical history: Fall. Neck injury. Technique: Unenhanced, contiguous, 0.625 mm axial sections were obtained through the cervical spine. 2.5 mm reconstructed axial and 2 mm coronal and sagittal reconstructed images were obtained. One or more of the following individualized dose reduction techniques were utili zed for this study: 1. Automated exposure control. 2. Adjustment of the mA and/or kV according to patient size. 3. Use of iterative reconstruction technique. Findings: Sagittal and coronal reconstructed images demonstrate reversal of the normal cervical lordosis. Degenerative changes consisting of disc space narrowing, vertebral endplate sclerosis and mild to moderate anterior vertebral body aspect formation seen involving the mid and lower cervical disc spaces. No fracture or subluxation cervical vertebrae is seen. Degenerative changes are seen involving the uncovertebral and facet joints throughout the cervical disc spaces. Impression: No fracture or subluxation of the cervical vertebra is identified. Electronically signed by: Blake Vega MD (05/05/2021 5:38 PM) [id number] DICTATED and SIGNED BY: BLAKE VEGA MD DATE: 05/05/21 [id number] [facility] [address] [place] [address] IMAGING REPORT Signed PATIENT: JOHNNY COLON ACCOUNT: [id number] : 1935 LOCATION: ER AGE: 86 SEX: F EXAM STATUS: REG ER ORD. PHYSICIAN: GRIFFIN CASTORENA APRN REASON: FALL, WEAKNESS PROCEDURE: CT LUMBAR SPINE WO CONTRAST CT scan of the lumbar spine without contrast 04/07/2021 CLINICAL HISTORY: Fall. Low back pain. TECHNIQUE: Unenhanced, contiguous, 0.625 mm axial sections were obtained through the lumbar spine. 3 mm reconstructed sagittal, axial and coronal images were obtained. One or more of the following individualized dose reduction techniques were utilized for this study: 1. Automated exposure control. 2. Adjustment of the mA and/or kV according to patient size. 3. Use of iterative reconstruction technique. FINDINGS: Sagittal and coronal reconstructed images demonstrate mild to moderate S-shaped curvature of the thoracolumbar spine. Degenerative changes are seen involving the lower thoracic and throughout the lumbar disc spaces consisting of varying degrees of disc space narrowing, vertebral endplate sclerosis and mild to moderate anterior vertebral body osteophyte formation. Atherosclerotic calcification of the abdominal aorta and its branches is noted. No fracture or subluxation of the lumbar vertebrae seen. Degenerative changes are seen involving the facet joints throughout the lumbar disc spaces. Multiple diverticula are seen involving the sigmoid colon. No inflammatory changes are seen in the adjacent fat. IMPRESSION: No fracture or subluxation of the lumbar vertebrae is seen. Electronically signed by: Blake Vega MD (05/05/2021 5:45 PM) [id number] DICTATED and SIGNED BY: BLAKE VEGA MD DATE: 05/05/21 [id number] [place] [address] IMAGING REPORT Signed PATIENT: JOHNNY COLON ACCOUNT: [id number] : 1935 LOCATION: ER AGE: 86 SEX: F EXAM STATUS: REG ER ORD. PHYSICIAN: GRIFFIN CASTORENA APRN REASON: FALL, PAIN PROCEDURE: SHOULDER 2+V LEFT EXAMINATION: XR SHOULDER_LEFT 2+ VIEWS. HISTORY: 86 years Female Reason: FALL, PAIN / COMPARISON: None. FINDINGS: No fracture, dislocation or radiopaque foreign body. There is elevated position of the humeral head which may relate to underlying rotator cuff tear. There is subchondral cyst formation in the humeral head noted and mild subchondral sclerotic changes at the glenohumeral joint suggestive degenerative change. No significant degenerative changes at the acromioclavicular joint. IMPRESSION: No fracture. Suggestion of underlying rotator cuff tear. Electronically signed by: Zacarias Garcia MD (05/05/2021 6:12 PM) [id number] DICTATED and SIGNED BY: ZACARIAS GARCIA MD DATE: 05/05/21 [id number] [place], [place] [id number] IMAGING REPORT Signed PATIENT: JOHNNY COLON ACCOUNT: [id number] : 1935 LOCATION: ER AGE: 86 SEX: F EXAM STATUS: REG ER ORD. PHYSICIAN: GRIFFIN CASTORENA APRN REASON: FALL, PAIN PROCEDURE: PORTABLE CHEST 1V EXAMINATION: XR CHEST 1V. HISTORY: 86 years Female Reason: FALL, PAIN / Spl COMPARISON: March 12, 2021. Findings: There is slight prominence of interstitial markings with no definite focal infiltrate. The heart size is enlarged. Sternotomy wires noted.. There is no effusion or pneumothorax. The mediastinum and keri appear unremarkable. Impression: Cardiomegaly. Prominence of the interstitial markings could relate to minimal vascular congestion. VTE Prophylaxis Ordered VTE Prophylaxis Devices: No VTE Pharmacological Prophylaxi: Yes Assessment/Plan Assessment/Plan Acute on chronic renal failure Physical debility Chronic anemia DM2 HTN HLD History OR Plan: Consult nephrology IV fluids PT/OT Resume home medications FEN - Cardiac diet PPX - Heparin FULL CODE Dispo - inpatient for above. Patient names her , Tenzin Colon, as her surrogate decision-maker. Justifications for Admission Other Justification JUSTIN OVIEDO MD May 06, 2021 12:21
[2021-05-06] MEDS ORDERED: IV NORMAL SALINE 250ML 250 ML IV ONE (12:45)
[2021-05-06] MEDS ORDERED: IV NORMAL SALINE 1000ML BAG 1,000 ML IV SCH (12:45)
[2021-05-06 14:49] VITALS: BP 147/62
[2021-05-06 19:17] VITALS: BP 143/60
--- NOTE | 2021-05-06 19:35 | NUR ---
Pt in bed assessment completed vss poc explained pt denied pain at this time call light in reach pt reminded to call for assistance prior to getting oob.
[2021-05-06 22:39] VITALS: BP 151/67
[2021-05-07] VITALS (10 sets, daily range): BP systolic 140–166; BP diastolic 63–84
[2021-05-07] MEDS: oxyCODONE/APAP 5/325 1 TAB TABLET PO PRN ×2 (02:43→20:16)
[2021-05-07 06:02] LABS: HEMATOCRIT 20.6 % (36.0-47.0); RED BLOOD COUNT 2.21 x10^6/uL (3.50-5.40); RED CELL DISTRIBUTION WIDTH 17.4 % (11.5-14.5); WHITE BLOOD COUNT 3.8 x10^3/uL (4.0-11.0)
[2021-05-07 06:08] LABS: HEMOGLOBIN 6.5 g/dL (12.0-15.5)
[2021-05-07] MEDS: PANTOPRAZOLE 40 MG TABLET.DR. PO SCH (06:25)
[2021-05-07 06:29] LABS: CALCIUM 8.2 mg/dL (8.5-10.1); CREATININE 2.4 mg/dL (0.6-1.0); GFR 19.1; POTASSIUM 4.2 mmol/L (3.5-5.1)
[2021-05-07] MEDS: CARVEDILOL 12.5 MG TABLET. PO SCH ×2 (08:47→17:00)
[2021-05-07] MEDS: SENNOSIDES/DOCUSATE 8.6/50MG TABLET. PO SCH ×2 (08:47→20:14)
[2021-05-07] MEDS: FERROUS SULFATE 325 MG TABLET. PO SCH (08:47)
[2021-05-07] MEDS: DICYCLOMINE HCL 10 MG CAPSULE PO SCH ×3 (08:47→20:16)
[2021-05-07] MEDS: QUEtiapine 25 MG TABLET. PO SCH (08:47)
[2021-05-07] MEDS: FUROSEMIDE 40 MG TABLET. PO SCH (08:48)
[2021-05-07] MEDS: HEPARIN for SUB-Q USE 5,000 UNIT/ML VIAL. SQ SCH ×2 (09:00→20:16)
--- NOTE | 2021-05-07 09:34 | PDOC ---
DATE OF SERVICE DATE: 05/07/21 TIME: 09:34 SUBJECTIVE ROS No complaints today Denies SOB , No N/V OBJECTIVE Vital Signs Vital Signs Date Time Temp Pulse Resp B/P (MAP) Pulse Ox O2 Delivery O2 Flow Rate FiO2 05/07/21 08:48 62 163/71 05/07/21 08:00 Room Air 05/07/21 07:00 98.4 18 99 98.4 I & 0 Intake and Output 05/07/21 07:00 Intake Total 770 ml Output Total 400 ml Balance 370 ml Intake Oral 770 ml Output Urine Total 400 ml # Voids 1 # Bowel Movements 1 PHYSICAL EXAM Physical Exam General NAD HEEN OM Moist, on RA, Anicteric Neck Supple Lungs CTA, Non labored, decreased at bases CV S1S2 Abd Soft, NT, BS + No Damon, No CVA or SP tenderness Ext No LE edema Skin No rash DIAGNOSIS/ASSESSMENT Assessment & Plan CKD stage 4- Baseline Cr 2.1-2.5 with Intermittent EULALIA; currently at her baseline. E-Lytes and Acid base stable. UA unremarkable Follows with us , last seen in our office in by [employer] . Currently no emergent indication for dialysis .Pt has declined to go on dialysis if indicated due to EULALIA or progression - Multiple discussions with patient in OP setting and again today . Supportive care, Monitor, avoid nephrotoxins, maintain fluid balance Anemia- Hospitalized in Feb for Acute drop Hgb 5.2; Noted acte drop in Hgb < 7 tofday. DILLON and managent per primary Fall - per primary Physical debility DM2 HTN COMMENT/RELEVANT DATA Meds Current Medications Medications (Trade) Dose Ordered Sig/Marina Start Time Stop Time Status Last Admin Dose Admin Acetaminophen (Tylenol) 650 mg PRN Q6HRS PRN 05/05/21 19:30 Amlodipine Besylate (Norvasc) 5 mg DAILY 05/06/21 09:00 05/07/21 08:48 5 MG Calcium Carbonate/ Glycine (Tums) 500 mg PRN Q3HRS PRN 05/05/21 19:30 Carvedilol (Coreg) 12.5 mg BIDWMEALS 05/06/21 08:00 05/07/21 08:47 12.5 MG Dicyclomine HCl (Bentyl) 40 mg TID 05/05/21 21:00 05/07/21 08:47 40 MG Ferrous Sulfate (Feosol) 325 mg DAILY 05/06/21 09:00 05/07/21 08:47 325 MG Furosemide (Lasix) 40 mg DAILY 05/06/21 09:00 05/07/21 08:48 40 MG Heparin Sodium (Porcine) (Heparin Sodium) 5,000 unit Q12HR 05/06/21 21:00 05/06/21 21:03 5,000 UNIT Hydralazine HCl (Apresoline) 50 mg BID 05/05/21 21:00 05/07/21 08:48 50 MG Info (Non-Icu Electrolyte Protocol) 1 ea PRN DAILY PRN 05/05/21 19:30 Ondansetron HCl (Zofran) 4 mg PRN Q6HRS PRN 05/05/21 19:30 Oxycodone/ Acetaminophen (Percocet 5/325) 2 tab PRN Q4HRS PRN 05/05/21 19:30 Pantoprazole Sodium (Protonix) 40 mg DAILYAC 05/06/21 07:30 05/07/21 06:25 40 MG Quetiapine Fumarate (SEROquel) 25 mg DAILY 05/06/21 09:00 05/07/21 08:47 25 MG Senna/Docusate Sodium (Senna Plus) 1 tab BID 05/05/21 21:00 05/07/21 08:47 1 TAB Sodium Chloride 1,000 ml @ 75 mls/hr [id number] 05/06/21 12:45 05/06/21 19:53 DC 05/06/21 12:43 75 MLS/HR Lab Laboratory Tests Test 05/06/21 20:57 05/07/21 05:05 05/07/21 07:08 Glucose (Fingerstick) 102 mg/dL (70-99) 83 mg/dL (70-99) White Blood Count 3.8 x10^3/uL (4.0-11.0) Red Blood Count 2.21 x10^6/uL (3.50-5.40) Hemoglobin 6.5 g/dL (12.0-15.5) Hematocrit 20.6 % (36.0-47.0) Mean Corpuscular Volume 93 fL (79-100) Mean Corpuscular Hemoglobin 30 pg (25-35) Mean Corpuscular Hemoglobin Concent 32 g/dL (31-37) Red Cell Distribution Width 17.4 % (11.5-14.5) Platelet Count 135 x10^3/uL (140-400) Sodium Level 144 mmol/L (136-145) Potassium Level 4.2 mmol/L (3.5-5.1) Chloride Level 107 mmol/L (98-107) Carbon Dioxide Level 28 mmol/L (21-32) Anion Gap 9 (6-14) Blood Urea Nitrogen 51 mg/dL (7-20) Creatinine 2.4 mg/dL (0.6-1.0) Estimated GFR (Cockcroft-Gault) 19.1 Glucose Level 76 mg/dL (70-99) Calcium Level 8.2 mg/dL (8.5-10.1) Results All relevant outside records, renal labs, imaging studies, telemetry/EKG's were reviewed. Justicifation of Admission Dx: Justifications for Admission: Justification of Admission Dx: Yes JERONIMO MERAZ MD May 07, 2021 09:34
--- NOTE | 2021-05-07 10:29 | PDOC ---
[employer] PROGRESS NOTE Date of Service DOS: DATE: 05/07/21 TIME: 10:25 Chief Complaint Chief Complaint Acute on chronic renal failure Physical debility Chronic anemia DM2 HTN HLD History OK History of Present Illness History of Present Illness 05/08/2019 Patient seen and examined Discussed with RN Discussed with case management Chart reviewed Basically the plan is to give her a unit of blood today and discharge tomorrow Vitals/I&O Vitals/I&O: Vital Signs Date Time Temp Pulse Resp B/P (MAP) Pulse Ox O2 Delivery O2 Flow Rate FiO2 05/07/21 10:15 97.7 62 18 152/70 97.7 05/07/21 08:00 Room Air 05/07/21 07:00 99 I & O 05/06/21 05/06/21 05/07/21 15:00 23:00 07:00 Intake Total 420 ml 300 ml 50 ml Output Total 200 ml 200 ml Balance 420 ml 100 ml -150 ml Physical Exam General: No acute distress Heart: Regular rate Lungs: Clear Abdomen: No tenderness Extremities: No edema Skin: No rashes Labs Labs: Laboratory Tests Test 05/06/21 20:57 05/07/21 05:05 05/07/21 07:08 Glucose (Fingerstick) 102 mg/dL (70-99) 83 mg/dL (70-99) White Blood Count 3.8 x10^3/uL (4.0-11.0) Red Blood Count 2.21 x10^6/uL (3.50-5.40) Hemoglobin 6.5 g/dL (12.0-15.5) Hematocrit 20.6 % (36.0-47.0) Mean Corpuscular Volume 93 fL (79-100) Mean Corpuscular Hemoglobin 30 pg (25-35) Mean Corpuscular Hemoglobin Concent 32 g/dL (31-37) Red Cell Distribution Width 17.4 % (11.5-14.5) Platelet Count 135 x10^3/uL (140-400) Sodium Level 144 mmol/L (136-145) Potassium Level 4.2 mmol/L (3.5-5.1) Chloride Level 107 mmol/L (98-107) Carbon Dioxide Level 28 mmol/L (21-32) Anion Gap 9 (6-14) Blood Urea Nitrogen 51 mg/dL (7-20) Creatinine 2.4 mg/dL (0.6-1.0) Estimated GFR (Cockcroft-Gault) 19.1 Glucose Level 76 mg/dL (70-99) Calcium Level 8.2 mg/dL (8.5-10.1) Assessment and Plan Assessmemt and Plan 05/07/2021 Patient seen and examined. Transfuse 1 unit PCBs today. Probable discharge tomorrow with home health in AM. Chart reviewed and discussed with RN. Case discussed with case management. Problems Medical Problems: (1) Acute on chronic renal failure Status: Acute (2) Anemia Status: Acute (3) Fall Status: Acute (4) Unsteadiness on feet Status: Acute (5) Weakness Status: Acute Acute on chronic renal failure Physical debility Chronic anemia DM2 HTN HLD History OK Plan: Transfuse 1 unit Hope to discharge tomorrow For now continue the following; IV fluids Nephrology following Trend labs Encourage p.o. intake PT/OT Resume home medications FEN - Cardiac diet PPX - Heparin FULL CODE Dispo - inpatient for above. Patient names her , Tenzin Colon, as her surrogate decision-maker. Probable discharge in a.m. with home health Comment Review of Relevant I have reviewed the following items matti (where applicable) has been applied. Medications: Current Medications Medications (Trade) Dose Ordered Sig/Marina Route PRN Reason Start Time Stop Time Status Last Admin Dose Admin Sodium Chloride 250 ml @ 250 mls/hr 1X ONCE IV 05/06/21 12:45 05/06/21 13:44 DC 05/06/21 12:43 Sodium Chloride 1,000 ml @ 75 mls/hr [id number] IV 05/06/21 12:45 05/06/21 19:53 DC 05/06/21 12:43 Heparin Sodium (Porcine) (Heparin Sodium) 5,000 unit Q12HR SQ 05/06/21 21:00 05/06/21 21:03 Justifications for Admission Other Justification SILVINA CAMPBELL III DO May 07, 2021 10:29
[2021-05-07] MEDS ORDERED: BISACODYL 10 MG SUPP.RECT. PR PRN (17:00)
--- NOTE | 2021-05-07 19:10 | NUR ---
Pt at bedside assessment completed vss poc explained pt c/o pain to back will medicate pt and continue to monitor pt. Call light in reach.
[2021-05-08 02:31] VITALS: BP 135/68
[2021-05-08 04:29] LABS: HEMATOCRIT 23.6 % (36.0-47.0); HEMOGLOBIN 7.8 g/dL (12.0-15.5); RED BLOOD COUNT 2.61 x10^6/uL (3.50-5.40); RED CELL DISTRIBUTION WIDTH 18.5 % (11.5-14.5)
[2021-05-08 04:37] LABS: CALCIUM 8.3 mg/dL (8.5-10.1); CREATININE 2.5 mg/dL (0.6-1.0); GFR 18.3; POTASSIUM 4.2 mmol/L (3.5-5.1)
[2021-05-08] MEDS: PANTOPRAZOLE 40 MG TABLET.DR. PO SCH (05:56)
[2021-05-08 07:00] VITALS: BP 173/79
[2021-05-08] MEDS: SENNOSIDES/DOCUSATE 8.6/50MG TABLET. PO SCH (08:18)
[2021-05-08] MEDS: QUEtiapine 25 MG TABLET. PO SCH (08:18)
[2021-05-08] MEDS: CARVEDILOL 12.5 MG TABLET. PO SCH (08:18)
[2021-05-08] MEDS: FERROUS SULFATE 325 MG TABLET. PO SCH (08:18)
[2021-05-08] MEDS: DICYCLOMINE HCL 10 MG CAPSULE PO SCH ×2 (08:19→14:00)
[2021-05-08] MEDS: FUROSEMIDE 40 MG TABLET. PO SCH (08:19)
[2021-05-08] MEDS: HEPARIN for SUB-Q USE 5,000 UNIT/ML VIAL. SQ SCH (09:00)
--- NOTE | 2021-05-08 10:39 | PDOC ---
DATE OF SERVICE DATE: 05/08/21 TIME: 10:36 SUBJECTIVE ROS No complaints today Denies SOB , No N/V OBJECTIVE Vital Signs Vital Signs Date Time Temp Pulse Resp B/P (MAP) Pulse Ox O2 Delivery O2 Flow Rate FiO2 05/08/21 08:19 70 135/68 05/08/21 08:00 Room Air 05/08/21 07:00 98.9 18 99 98.9 I & 0 Intake and Output 05/08/21 07:00 Intake Total 1190 ml Output Total 750 ml Balance 440 ml Intake Oral 500 ml Blood Product IV Normal Saline Flush 690 ml Output Urine Total 750 ml # Voids 1 # Bowel Movements 3 PHYSICAL EXAM Physical Exam General NAD HEEN OM Moist, on RA, Anicteric Neck Supple Lungs CTA, Non labored, decreased at bases CV S1S2 Abd Soft, NT, BS + No Damon, No CVA or SP tenderness Ext No LE edema Skin No rash DIAGNOSIS/ASSESSMENT Assessment & Plan CKD stage 4- Baseline Cr 2.1-2.5 with Intermittent EULALIA; currently at her baseline. E-Lytes and Acid base stable. UA unremarkable Follows with us , last seen in our office in by [facility] . Currently no emergent indication for dialysis .Pt has declined to do dialysis if indicated ,due to EULALIA or progression - Multiple discussions with patient in OP setting and again today . Supportive care, Monitor, avoid nephrotoxins, maintain fluid balance Anemia- Hospitalized in Feb for Acute drop Hgb 5.2; Hgb < 7 x1 during this hospitalization, stable currently DILLON and management per primary Fall - per primary Physical debility DM2 HTN DC per primary COMMENT/RELEVANT DATA Meds Current Medications Medications (Trade) Dose Ordered Sig/Marina Start Time Stop Time Status Last Admin Dose Admin Acetaminophen (Tylenol) 650 mg PRN Q6HRS PRN 05/05/21 19:30 Amlodipine Besylate (Norvasc) 5 mg DAILY 05/06/21 09:00 05/08/21 08:18 5 MG Bisacodyl (Dulcolax Supp) 10 mg PRN DAILY PRN 05/07/21 17:00 Calcium Carbonate/ Glycine (Tums) 500 mg PRN Q3HRS PRN 05/05/21 19:30 05/07/21 20:24 500 MG Carvedilol (Coreg) 12.5 mg BIDWMEALS 05/06/21 08:00 05/08/21 08:18 12.5 MG Dicyclomine HCl (Bentyl) 40 mg TID 05/05/21 21:00 05/08/21 08:19 40 MG Ferrous Sulfate (Feosol) 325 mg DAILY 05/06/21 09:00 05/08/21 08:18 325 MG Furosemide (Lasix) 40 mg DAILY 05/06/21 09:00 05/08/21 08:19 40 MG Heparin Sodium (Porcine) (Heparin Sodium) 5,000 unit Q12HR 05/06/21 21:00 05/06/21 21:03 5,000 UNIT Hydralazine HCl (Apresoline) 50 mg BID 05/05/21 21:00 05/08/21 08:19 50 MG Info (Non-Icu Electrolyte Protocol) 1 ea PRN DAILY PRN 05/05/21 19:30 Ondansetron HCl (Zofran) 4 mg PRN Q6HRS PRN 05/05/21 19:30 Oxycodone/ Acetaminophen (Percocet 5/325) 2 tab PRN Q4HRS PRN 05/05/21 19:30 Pantoprazole Sodium (Protonix) 40 mg DAILYAC 05/06/21 07:30 05/08/21 05:56 40 MG Quetiapine Fumarate (SEROquel) 25 mg DAILY 05/06/21 09:00 05/08/21 08:18 25 MG Senna/Docusate Sodium (Senna Plus) 1 tab BID 05/05/21 21:00 05/08/21 08:18 1 TAB Sodium Chloride 1,000 ml @ 75 mls/hr [id number] 05/06/21 12:45 05/06/21 19:53 DC 05/06/21 12:43 75 MLS/HR Lab Laboratory Tests Test 05/07/21 11:38 05/07/21 20:08 05/08/21 02:35 05/08/21 08:18 Glucose (Fingerstick) 92 mg/dL (70-99) 103 mg/dL (70-99) 123 mg/dL (70-99) White Blood Count 4.0 x10^3/uL (4.0-11.0) Red Blood Count 2.61 x10^6/uL (3.50-5.40) Hemoglobin 7.8 g/dL (12.0-15.5) Hematocrit 23.6 % (36.0-47.0) Mean Corpuscular Volume 90 fL (79-100) Mean Corpuscular Hemoglobin 30 pg (25-35) Mean Corpuscular Hemoglobin Concent 33 g/dL (31-37) Red Cell Distribution Width 18.5 % (11.5-14.5) Platelet Count 149 x10^3/uL (140-400) Sodium Level 143 mmol/L (136-145) Potassium Level 4.2 mmol/L (3.5-5.1) Chloride Level 105 mmol/L (98-107) Carbon Dioxide Level 27 mmol/L (21-32) Anion Gap 11 (6-14) Blood Urea Nitrogen 47 mg/dL (7-20) Creatinine 2.5 mg/dL (0.6-1.0) Estimated GFR (Cockcroft-Gault) 18.3 Glucose Level 73 mg/dL (70-99) Calcium Level 8.3 mg/dL (8.5-10.1) Results All relevant outside records, renal labs, imaging studies, telemetry/EKG's were reviewed. Justicifation of Admission Dx: Justifications for Admission: Justification of Admission Dx: Yes JERONIMO MERAZ MD May 08, 2021 10:39
[2021-05-08 11:00] VITALS: BP_SYST 116; BP_SYST 181; BP_DIAS 58; BP_DIAS 79
--- NOTE | 2021-05-08 12:20 | PDOC ---
[employer] PROGRESS NOTE Date of Service DOS: DATE: 05/08/21 TIME: 12:19 Chief Complaint Chief Complaint Acute on chronic renal failure Physical debility Chronic anemia DM2 HTN HLD History [place] History of Present Illness History of Present Illness 05/08/2021: Patient seen and evaluated bedside. No complaints today. Hemoglobin 7.8. She worked with physical therapy and recommended home with home health. Rolling walker as needed to complete daily ADLs. Greater than 30 minutes spent managing this patient's discharge 05/07/2021 Patient seen and examined Discussed with RN Discussed with case management Chart reviewed Basically the plan is to give her a unit of blood today and discharge tomorrow Vitals/I&O Vitals/I&O: Vital Signs Date Time Temp Pulse Resp B/P (MAP) Pulse Ox O2 Delivery O2 Flow Rate FiO2 05/08/21 11:00 98.0 66 19 181/79 (113) 99 Room Air 98.0 I & O 05/07/21 05/07/21 05/08/21 15:00 23:00 07:00 Intake Total 890 ml 100 ml 200 ml Output Total 100 ml 200 ml 450 ml Balance 790 ml -100 ml -250 ml Physical Exam General: Alert, Cooperative, No acute distress Heart: Regular rate Lungs: Clear Abdomen: No tenderness Extremities: No edema Skin: No rashes Labs Labs: Laboratory Tests Test 05/07/21 20:08 05/08/21 02:35 05/08/21 08:18 05/08/21 11:25 Glucose (Fingerstick) 103 mg/dL (70-99) 123 mg/dL (70-99) 90 mg/dL (70-99) White Blood Count 4.0 x10^3/uL (4.0-11.0) Red Blood Count 2.61 x10^6/uL (3.50-5.40) Hemoglobin 7.8 g/dL (12.0-15.5) Hematocrit 23.6 % (36.0-47.0) Mean Corpuscular Volume 90 fL (79-100) Mean Corpuscular Hemoglobin 30 pg (25-35) Mean Corpuscular Hemoglobin Concent 33 g/dL (31-37) Red Cell Distribution Width 18.5 % (11.5-14.5) Platelet Count 149 x10^3/uL (140-400) Sodium Level 143 mmol/L (136-145) Potassium Level 4.2 mmol/L (3.5-5.1) Chloride Level 105 mmol/L (98-107) Carbon Dioxide Level 27 mmol/L (21-32) Anion Gap 11 (6-14) Blood Urea Nitrogen 47 mg/dL (7-20) Creatinine 2.5 mg/dL (0.6-1.0) Estimated GFR (Cockcroft-Gault) 18.3 Glucose Level 73 mg/dL (70-99) Calcium Level 8.3 mg/dL (8.5-10.1) Assessment and Plan Assessmemt and Plan Problems Medical Problems: (1) Acute on chronic renal failure Status: Acute (2) Anemia Status: Acute (3) Fall Status: Acute (4) Unsteadiness on feet Status: Acute (5) Weakness Status: Acute Comment Review of Relevant I have reviewed the following items matti (where applicable) has been applied. Justifications for Admission Other Justification JUSTIN OVIEDO MD May 08, 2021 12:20
--- NOTE | 2021-05-08 12:26 | PDOC3 ---
Discharge Summary Visit Information Date of Admission: May 06, 2021 Date of Discharge: May 08, 2021 Final Diagnosis Problems Medical Problems: (1) Acute on chronic renal failure Status: Acute (2) Anemia Status: Acute (3) Fall Status: Acute (4) Unsteadiness on feet Status: Acute (5) Weakness Status: Acute Brief Hospital Course Allergies Allergies Coded Allergies Type Severity Reaction Last Updated Verified Penicillins Allergy Intermediate 04/05/21 Yes metronidazole Allergy Intermediate Hives 04/05/21 Yes Vital Signs Vital Signs Date Time Temp Pulse Resp B/P (MAP) Pulse Ox O2 Delivery O2 Flow Rate FiO2 05/08/21 11:00 98.0 66 19 181/79 (113) 99 Room Air 98.0 Lab Results Laboratory Tests Test 05/06/21 20:57 05/07/21 05:05 05/07/21 07:08 05/07/21 11:38 Glucose (Fingerstick) 102 mg/dL (70-99) 83 mg/dL (70-99) 92 mg/dL (70-99) White Blood Count 3.8 x10^3/uL (4.0-11.0) Red Blood Count 2.21 x10^6/uL (3.50-5.40) Hemoglobin 6.5 g/dL (12.0-15.5) Hematocrit 20.6 % (36.0-47.0) Mean Corpuscular Volume 93 fL (79-100) Mean Corpuscular Hemoglobin 30 pg (25-35) Mean Corpuscular Hemoglobin Concent 32 g/dL (31-37) Red Cell Distribution Width 17.4 % (11.5-14.5) Platelet Count 135 x10^3/uL (140-400) Sodium Level 144 mmol/L (136-145) Potassium Level 4.2 mmol/L (3.5-5.1) Chloride Level 107 mmol/L (98-107) Carbon Dioxide Level 28 mmol/L (21-32) Anion Gap 9 (6-14) Blood Urea Nitrogen 51 mg/dL (7-20) Creatinine 2.4 mg/dL (0.6-1.0) Estimated GFR (Cockcroft-Gault) 19.1 Glucose Level 76 mg/dL (70-99) Calcium Level 8.2 mg/dL (8.5-10.1) Test 05/07/21 20:08 3/16/22 02:35 05/08/21 08:18 05/08/21 11:25 Glucose (Fingerstick) 103 mg/dL (70-99) 123 mg/dL (70-99) 90 mg/dL (70-99) White Blood Count 4.0 x10^3/uL (4.0-11.0) Red Blood Count 2.61 x10^6/uL (3.50-5.40) Hemoglobin 7.8 g/dL (12.0-15.5) Hematocrit 23.6 % (36.0-47.0) Mean Corpuscular Volume 90 fL (79-100) Mean Corpuscular Hemoglobin 30 pg (25-35) Mean Corpuscular Hemoglobin Concent 33 g/dL (31-37) Red Cell Distribution Width 18.5 % (11.5-14.5) Platelet Count 149 x10^3/uL (140-400) Sodium Level 143 mmol/L (136-145) Potassium Level 4.2 mmol/L (3.5-5.1) Chloride Level 105 mmol/L (98-107) Carbon Dioxide Level 27 mmol/L (21-32) Anion Gap 11 (6-14) Blood Urea Nitrogen 47 mg/dL (7-20) Creatinine 2.5 mg/dL (0.6-1.0) Estimated GFR (Cockcroft-Gault) 18.3 Glucose Level 73 mg/dL (70-99) Calcium Level 8.3 mg/dL (8.5-10.1) Laboratory Tests Test 05/07/21 20:08 05/08/21 02:35 05/08/21 08:18 05/08/21 11:25 Glucose (Fingerstick) 103 mg/dL (70-99) 123 mg/dL (70-99) 90 mg/dL (70-99) White Blood Count 4.0 x10^3/uL (4.0-11.0) Red Blood Count 2.61 x10^6/uL (3.50-5.40) Hemoglobin 7.8 g/dL (12.0-15.5) Hematocrit 23.6 % (36.0-47.0) Mean Corpuscular Volume 90 fL (79-100) Mean Corpuscular Hemoglobin 30 pg (25-35) Mean Corpuscular Hemoglobin Concent 33 g/dL (31-37) Red Cell Distribution Width 18.5 % (11.5-14.5) Platelet Count 149 x10^3/uL (140-400) Sodium Level 143 mmol/L (136-145) Potassium Level 4.2 mmol/L (3.5-5.1) Chloride Level 105 mmol/L (98-107) Carbon Dioxide Level 27 mmol/L (21-32) Anion Gap 11 (6-14) Blood Urea Nitrogen 47 mg/dL (7-20) Creatinine 2.5 mg/dL (0.6-1.0) Estimated GFR (Cockcroft-Gault) 18.3 Glucose Level 73 mg/dL (70-99) Calcium Level 8.3 mg/dL (8.5-10.1) Brief Hospital Course Ms. Colon is a 86 old female who presented with physical debility, fall at home, chronic anemia. She worked with PT/OT and was recommended home with home health; rolling walker as needed. During hospital stay her hemoglobin dropped to 6.5; likely delusional given IV fluids administered on admission. She received 1 unit PRBCs. Hemoglobin was stable at 7.8 upon discharge. Discharge Information Condition at Discharge: Stable Scheduled Amlodipine Besylate (Amlodipine Besylate) 10 Mg Tablet, 5 MG PO DAILY for HTN, (Reported) Entered as Reported by: MARCUS DRISCOLL on 12/18/201939 Last Action: Continued on 05/05/211931 by KALPESH VOGT MD Calcium Carbonate (Calcium) 500 Mg Tab.chew, 1 TAB PO BID for low calcium for 30 Days, #60 Ref 0 (Reported) Entered as Reported by: MARCUS DRISCOLL on 12/18/201939 Last Action: HELD on 05/05/211931 by KALPESH VOGT MD Carvedilol (Carvedilol) 25 Mg Tablet, 12.5 MG PO BIDWMEALS for CARDIAC, (Reported) Entered as Reported by: RASHAUN FIELD RN on 12/29/19 305 Last Action: Converted on 05/05/211931 by KALPESH VOGT MD Dicyclomine Hcl (Dicyclomine Hcl) 10 Mg Capsule, 40 MG PO TID for abdomen, (Reported) Entered as Reported by: BITA DAWN on 06/28/17 0005 Last Action: Continued on 05/05/211931 by KALPESH VOGT MD Ferrous Sulfate (Ferrous Sulfate) 325 Mg Tablet, 1 TAB PO DAILY for WES, #30 Ref 3 (Reported) Entered as Reported by: EVARISTO JAMES on 04/05/21 1804 Last Action: Continued on 05/05/211931 by KALPESH VOGT MD Furosemide (Furosemide) 40 Mg Tablet, 40 MG PO DAILY for 30 Days, #30 Prescribed by: GAGE GOFF MD on 12/17/16 1613 Last Action: Continued on 05/05/211931 by KALPESH VOGT MD Gabapentin (Gabapentin) 600 Mg Tablet, 600 MG PO TID for 30 Days, #90 Prescribed by: GRANT MCWILLIAMS on 12/23/16 1248 Last Action: HELD on 05/05/211931 by KALPESH VOGT MD Hydralazine Hcl (Hydralazine Hcl) 50 Mg Tablet, 1 TAB PO BID for HTN, #90 Ref 5 (Reported) Entered as Reported by: VALERIE RICO on 01/01/20 1459 Last Action: Continued on 05/05/211931 by KALPESH VOGT MD Lactobacillus Combo No.10 (Probiotic) 1 Each Capsule, 1 TAB PO DAILY for for 30 Days, #30 Ref 0 (Reported) Entered as Reported by: Kip Lacey on 10/19/192322 Last Action: HELD on 05/05/211931 by KALPESH VOGT MD Pantoprazole Sodium (Pantoprazole Sodium ) 40 Mg Tablet.dr, 40 MG PO DAILYAC for GERD, (Reported) Entered as Reported by: RASHAUN FIELD RN on 12/29/19 3962 Last Action: Continued on 05/05/211931 by KALPESH VOGT MD Quetiapine Fumarate (Quetiapine Fumarate) 25 Mg Tablet, 25 MG PO DAILY for 30 Days, #30 Prescribed by: GAGE GOFF MD on 12/17/16 1613 Last Action: Continued on 05/05/211931 by KALPESH VOGT MD Vitamin B Complex (Vitamin B Complex) 1 Each Capsule, 1 EACH PO DAILY for , (Reported) Entered as Reported by: Kip Lacey on 8/26/20 2323 Last Action: HELD on 05/05/211931 by KALPESH VOGT MD Scheduled PRN Bisacodyl (Bisacodyl) 10 Mg Supp.rect, 10 MG AL PRN DAILY PRN for CONSTIPATION for 10 Days, #20 Prescribed by: ARCELIA NATION MD on 10/24/19 1332 Last Action: HELD on 05/05/211931 by KALPESH VOGT MD Docusate Sodium (Dok) 100 Mg Capsule, 100 MG PO PRN BID PRN for HARD STOOLS for 14 Days, #30 Prescribed by: ARCELIA NATION MD on 11/18/19 1104 Last Action: HELD on 05/05/211931 by KALPESH VOGT MD Justicifation of Admission Dx: Justifications for Admission: Justification of Admission Dx: Yes JUSTIN OVIEDO MD May 08, 2021 12:25
[2021-05-08] MEDS ORDERED: OXYC1TAB15 PO (12:29)
--- NOTE | 2021-05-08 12:32 | SNU/HH DC ---
DISCHARGE WITH HOME HEALTH DISCHARGE INFORMATION: Discharge Date: May 08, 2021 Final Diagnosis: Problems Medical Problems: (1) Acute on chronic renal failure Status: Acute (2) Anemia Status: Acute (3) Fall Status: Acute (4) Unsteadiness on feet Status: Acute (5) Weakness Status: Acute Condition on Discharge: Stable CODE STATUS: Code Status: Full HOME HEALTH: Face to Face: I certify this patient is under my care and that I, or a nurse practitioner or physician's preschool assistant working with me, had a face to face encounter that meets the physician face to face encounter requirements with this patient on 05/08/2021. RN For Eval/Treatment: Yes Physical Therapy For: Evalulation/Treatment Occupational Therapy For: Evaluation/Treatment Pt Meets Homebound Status: Unsteady balance w/ amb, POST DISCHARGE ORDERS: Activity Instructions for Disc: Activity as tolerated Weight Bearing Status after Di: No restrictions DIET AFTER DISCHARGE: Cardiac CHECKS AFTER DISCHARGE: Checks after discharge: Check blood press - daily TREATMENT/EQUIPMENT ORDERS: Adaptive Equipment Issued: Walker CERTIFICATION STATEMENT: Certification Statement: Certification Statement: Based on the above finding, I certify that this patient is confined to the home and needs intermittent snf care, physical therapy and/or speech therapy, or continues to need occupational therapy.~ This patient is under my care, and I have initiated the establishment of the plan of care.~ This patient will be followed by myself or a community physician who will periodically review the plan of care. Home Meds Active Scripts Oxycodone/Apap 5-325 (PERCOCET 5-325 MG TABLET ) 1 Each Tablet, 1 TAB PO PRN Q6HRS PRN for MILD PAIN, 1ST CHOICE for 7 Days, #14 TAB 0 Refills Prov:JUSTIN OVIEDO MD 05/08/21 Docusate Sodium (DOK) 100 Mg Capsule, 100 MG PO PRN BID PRN for HARD STOOLS for 14 Days, #30 CAP Prov:ARCELIA NATION MD 11/18/19 Bisacodyl (BISACODYL) 10 Mg Supp.rect, 10 MG IA PRN DAILY PRN for CONSTIPATION for 10 Days, #20 SUPP.RECT Prov:ARCELIA NATION MD 10/24/19 Gabapentin (GABAPENTIN) 600 Mg Tablet, 600 MG PO TID for 30 Days, #90 TAB Prov:GRANT MCWILLIAMS MD 12/23/16 Quetiapine Fumarate (QUETIAPINE FUMARATE) 25 Mg Tablet, 25 MG PO DAILY for 30 Days, #30 TAB Prov:GAGE GOFF MD 12/17/16 Furosemide (FUROSEMIDE) 40 Mg Tablet, 40 MG PO DAILY for 30 Days, #30 TAB Prov:GAGE GOFF MD 12/17/16 Reported Medications Ferrous Sulfate (FERROUS SULFATE) 325 Mg Tablet, 1 TAB PO DAILY for WES, #30 TAB 3 Refills 04/05/21 Calcium Carbonate (CALCIUM) 500 Mg Tab.chew, 1 TAB PO BID for low calcium for 30 Days, #60 TAB 0 Refills 12/18/20 Amlodipine Besylate (AMLODIPINE BESYLATE) 10 Mg Tablet, 5 MG PO DAILY for HTN, TAB 12/18/20 Hydralazine Hcl (HYDRALAZINE HCL) 50 Mg Tablet, 1 TAB PO BID for HTN, #90 TAB 5 Refills 01/01/20 Pantoprazole Sodium (PANTOPRAZOLE SODIUM ) 40 Mg Tablet.dr, 40 MG PO DAILYAC for GERD, TAB 12/29/19 Carvedilol (CARVEDILOL) 25 Mg Tablet, 12.5 MG PO BIDWMEALS for CARDIAC, TAB 12/29/19 Lactobacillus Combo No.10 (PROBIOTIC) 1 Each Capsule, 1 TAB PO DAILY for for 30 Days, #30 TAB 0 Refills 10/19/19 Vitamin B Complex (VITAMIN B COMPLEX) 1 Each Capsule, 1 EACH PO DAILY for , CAP 10/19/19 Dicyclomine Hcl (DICYCLOMINE HCL) 10 Mg Capsule, 40 MG PO TID for abdomen, CAP 06/28/17 JUSTIN OVIEDO MD May 08, 2021 12:32
--- NOTE | 2021-05-08 15:58 | NUR ---
Discharge Note: JOHNNY ARTEAGA Discharge instructions and discharge home medications reviewed with Patient and a copy given. All questions have been answered and understanding verbalized. Pt and verbalized understanding of medications, home health, and follow ups. Pt in stable condition at time of DC.
== END 2021-05-08 15:30 | disposition home health service (06) | DRG 683 ==
LOC: ER 15:09 → 6 SOUTH 17:15
PROVIDERS: ADMIT Student in an Organized Health Care Education/Training Program; ATTEND Student in an Organized Health Care Education/Training Program
PROC: 30233N1 Transfusion of Nonautologous Red Blood Cells into Peripheral Vein, Percutaneous Approach (ICD-10-PCS; principal; 2021-05-07)
DX: N17.9 Acute kidney failure, unspecified (principal); E44.0 Moderate protein-calorie malnutrition; R54 Age-related physical debility; N18.4 Chronic kidney disease, stage 4 (severe); D64.9 Anemia, unspecified; E11.22 Type 2 diabetes mellitus with diabetic chronic kidney disease; E78.00 Pure hypercholesterolemia, unspecified; E78.5 Hyperlipidemia, unspecified; I25.10 Atherosclerotic heart disease of native coronary artery without angina pectoris; I25.2 Old myocardial infarction; K21.9 Gastro-esophageal reflux disease without esophagitis; S09.90XA Unspecified injury of head, initial encounter; Y92.009 Unspecified place in unspecified non-institutional (private) residence as the place of occurrence of the external cause; Z79.899 Other long term (current) drug therapy; Z82.49 Family history of ischemic heart disease and other diseases of the circulatory system; Z90.710 Acquired absence of both cervix and uterus; Z95.1 Presence of aortocoronary bypass graft; F32.A Depression, unspecified; F41.9 Anxiety disorder, unspecified; M19.90 Unspecified osteoarthritis, unspecified site; Z88.0 Allergy status to penicillin; Z88.2 Allergy status to sulfonamides; W18.39XA Other fall on same level, initial encounter; Y93.89 Activity, other specified; Y99.8 Other external cause status; I12.9 Hypertensive chronic kidney disease with stage 1 through stage 4 chronic kidney disease, or unspecified chronic kidney disease
CPT/HCPCS: 36415; 36430; 70450; 71045; 72125; 72131; 73030; 80048; 80053; 81001; 82962; 84484; 85025; 85027; 86850; 86900; 86901; 86920; 93005; J1644; J7030; J7040; J7050; P9016; 97110-GP; 97530-GO; 97530-GP; 97535-GO; 99285-25; G0378